=== PATIENT | female | born 1940 | race Caucasian/White ===

== ENCOUNTER 2016-11-09 22:29 | Emergency (ER) | payer MEDICARE, BC ==
[~2016-11-09] VITALS: Ht 160 cm; Wt 69.4 kg
[~2016-11-09 22:29] MED LIST: ALEN35TA6 PO; ASPI-482 PO; CALC1TAB75 PO; DOCU100C28 PO; ESOM40CA PO; FLUT16SP NS; HYDR12.58 PO; HYDR25CA75 PO; KETO15CR2 TP; LEVO200T5 PO; LEVO50TA5 PO; LISI40TA PO; METO10TA81 PO; METO50TA2 PO; MULT1TAB88 PO; NAPR375T3 PO; PANT40TA5 PO; SERT100T8 PO; SIMV40TA3 PO; SUCR1TAB PO; TOLT4CAP PO; TRAM50TA PO; TRAZ150T49 PO; ZIPR80CA2 PO
[2016-11-09] MEDS ORDERED: IV NORMAL SALINE 500ML BAG 500 ML IV ONE (23:00)
[2016-11-09 23:13] LABS: BASO # 0.1 x10^3/uL (0.0-0.2); BASO % 1 % (0-3); EOS % 6 % (0-3); HEMATOCRIT 36.7 % (36.0-47.0); HEMOGLOBIN 12.7 g/dL (12.0-15.5); LYMPH # 3.2 x10^3/uL (1.0-4.8); LYMPH % 26 % (24-48); MEAN CORPUSCULAR HEMOGLOBIN 29 pg (25-35); MEAN CORPUSCULAR HGB CONC 35 g/dL (31-37); MEAN CORPUSCULAR VOLUME 84 fL (79-100); MONO % 12 % (0-9); NEUT % 56 % (31-73); PLATELET COUNT 214 x10^3/uL (140-400); RED BLOOD COUNT 4.38 x10^6/uL (3.50-5.40); RED CELL DISTRIBUTION WIDTH 13.9 % (11.5-14.5); WHITE BLOOD COUNT 12.4 x10^3/uL (4.0-11.0)
[2016-11-09 23:39] LABS: CALCIUM 9.2 mg/dL (8.5-10.1); CREATININE 1.1 mg/dL (0.6-1.0); GFR 48.4; POTASSIUM 3.3 mmol/L (3.5-5.1)
[2016-11-09 23:45] LABS: ALBUMIN 3.3 g/dL (3.4-5.0); TOTAL BILIRUBIN 0.2 mg/dL (0.2-1.0); TOTAL PROTEIN 6.6 g/dL (6.4-8.2)
[2016-11-09 23:59] LABS: BILIRUBIN,URINE NEGATIVE (NEG); GLUCOSE,URINE NEGATIVE (NEG); NITRITE,URINE NEGATIVE (NEG); PH,URINE 7.5; PROTEIN,URINE NEGATIVE (NEG-TRACE); UROBILINOGEN,URINE 0.2 mg/dL (0.2 mg/dL)
[2016-11-10 00:04] LABS: BACTERIA,URINE 0 /HPF (0-FEW); RBC,URINE 0 /HPF (0-2); SQUAMOUS EPITHELIAL CELL,UR MOD /LPF
[2016-11-10] MEDS ORDERED: HYDROmorphone 2 MG/ML VIAL IV PRN (00:15)
[2016-11-10] MEDS ORDERED: CONTRAST GIVEN MC PRN (00:30)
[2016-11-10] MEDS ORDERED: ONDANSETRON PF 4 MG/2 ML VIAL. IV ONE (00:30)
[2016-11-10] MEDS ORDERED: IOHEXOL 300 MG/ML 75 ML VIAL IV ONE (01:00)
--- NOTE | 2016-11-10 01:46 | RAD ---
INDICATION: rlq pain x 3-4 days; Omni 300, 60ml COMPARISON: None. TECHNIQUE: Axial CT images were obtained through the abdomen and pelvis with intravenous contrast. One or more of the following individualized dose reduction techniques were utilized for this examination: 1. Automated exposure control; 2. Adjustment of the mA and/or kV according to patient size; 3. Use of iterative reconstruction technique. FINDINGS: Small hiatal hernia. Severe calcific atherosclerosis without abdominal aortic aneurysm. Postcholecystectomy changes. No peripancreatic edema. Splenic calcified granulomas. No left-sided hydronephrosis. Low-density lesion lower pole right kidney 19 mm. No right-sided hydronephrosis. Bladder is partially distended. The suspected appendix does not appear inflamed. Degenerative changes spine. This includes multiple disc protrusions with suspected central canal neural foraminal narrowing. There is also osteophyte formation IMPRESSION: 1. No hydronephrosis or evidence of appendicitis. 2. Low-density lesion within the right kidney. Differential considerations include both a solid mass as well as a cystic lesion with debris. A follow-up CT, MRI or ultrasound renal protocol will be needed on a nonemergent basis to further evaluate and to ensure this is not from a solid renal mass. 3. Calcific atherosclerosis. 4. Degenerative changes spine Electronically signed by: Darryl Danielle MD (11/10/2016 1:42 AM) [facility]
[2016-11-10] MEDS ORDERED: LABETALOL 20 MG/4 ML DISP.SYRIN. IVP ONE (02:00)
[2016-11-10] MEDS ORDERED: ONDA4TAB10 SL (02:04)
[2016-11-10] MEDS ORDERED: HYDR-2758 PO (02:04)
--- NOTE | 2016-11-10 02:05 | PHYS DOC ---
Past Medical History Past Medical History: Anxiety, Arthritis, Hypertension, Hypothyroid, TIA, Other Additional Past Medical Histor: "memory problems" Past Surgical History: Cholecystectomy, Hysterectomy, Other Additional Past Surgical Histo: Lt foot. Lt breast Alcohol Use: None Drug Use: None Adult General Chief Complaint Chief Complaint: ABDOMINAL PAIN HPI HPI 76-year-old female presenting to the emergency department today with right lower quadrant abdominal pain. pain is sharp nonradiating and intermittent. no alleviating or exacerbating factors present. Review of systems is negative for nausea vomiting chest pain shortness of breath fevers or chills. All other review of systems is negative unless otherwise noted in history of present illness. Review of Systems Review of Systems SEE ABOVE. Current Medications Current Medications Current Medications Medications (Trade) Dose Ordered Sig/Franny Start Time Stop Time Status Last Admin Dose Admin Hydromorphone HCl (Dilaudid) 0.5 mg PRN Q30MIN PRN 11/10/16 00:15 11/10/16 01:07 0.5 MG Info (Do NOT chart on this entry -- for MONITORING) 1 each PRN DAILY PRN 11/10/16 00:30 11/12/16 00:29 Iohexol (Omnipaque 300 Mg/ml) 60 ml 1X ONCE 11/10/16 01:00 11/10/16 01:01 DC 11/10/16 00:34 60 ML Labetalol HCl (Normodyne) 20 mg 1X ONCE 11/10/16 02:00 11/10/16 02:01 11/10/16 01:28 20 MG Ondansetron HCl (Zofran) 4 mg 1X ONCE 11/10/16 00:30 11/10/16 00:31 DC 11/10/16 01:05 4 MG Sodium Chloride 500 ml @ 500 mls/hr 1X ONCE 11/09/16 23:00 11/09/16 23:59 DC 11/09/16 23:28 500 MLS/HR Allergies Allergies Allergies Coded Allergies Type Severity Reaction Last Updated Verified Penicillins Allergy Intermediate Hives 09/02/16 Yes Physical Exam Physical Exam SEE ABOVE Constitutional: Well developed, well nourished, no acute distress, non-toxic appearance. HENT: Normocephalic, atraumatic, bilateral external ears normal, oropharynx moist, no oral exudates, nose normal. [] Eyes: PERRLA, EOMI, conjunctiva normal, no discharge. [] Neck: Normal range of motion, no tenderness, supple, no stridor. [] Cardiovascular:Heart rate regular rhythm, no murmur [] Lungs & Thorax: Bilateral breath sounds clear to auscultation [] Abdomen: Patient has mild pain in the right lower quadrant without rebound tenderness or guarding. Negative Coleman sign. Skin: Warm, dry, no erythema, no rash. [] Back: No tenderness, no CVA tenderness. [] Extremities: No tenderness, no cyanosis, no clubbing, ROM intact, no edema. [] Neurologic: Alert and oriented X 3, normal motor function, normal sensory function, no focal deficits noted. [] Psychologic: Affect normal, judgement normal, mood normal. [] Current Patient Data Vital Signs Vital Signs Date Time Temp Pulse Resp B/P (MAP) Pulse Ox O2 Delivery O2 Flow Rate FiO2 11/10/16 01:28 90 216/87 11/10/16 01:07 24 93 11/09/16 23:31 Room Air 11/09/16 22:31 98.7 98.7 Lab Values Laboratory Tests Test 11/09/16 22:58 11/09/16 23:20 11/09/16 23:49 White Blood Count 12.4 x10^3/uL (4.0-11.0) H Red Blood Count 4.38 x10^6/uL (3.50-5.40) Hemoglobin 12.7 g/dL (12.0-15.5) Hematocrit 36.7 % (36.0-47.0) Mean Corpuscular Volume 84 fL (79-100) Mean Corpuscular Hemoglobin 29 pg (25-35) Mean Corpuscular Hemoglobin Concent 35 g/dL (31-37) Red Cell Distribution Width 13.9 % (11.5-14.5) Platelet Count 214 x10^3/uL (140-400) # Neutrophils (%) (Auto) 56 % (31-73) Lymphocytes (%) (Auto) 26 % (24-48) Monocytes (%) (Auto) 12 % (0-9) H Eosinophils (%) (Auto) 6 % (0-3) H Basophils (%) (Auto) 1 % (0-3) Neutrophils # (Auto) 6.9 x10^3uL (1.8-7.7) Lymphocytes # (Auto) 3.2 x10^3/uL (1.0-4.8) Monocytes # (Auto) 1.5 x10^3/uL (0.0-1.1) H Eosinophils # (Auto) 0.7 x10^3/uL (0.0-0.7) Basophils # (Auto) 0.1 x10^3/uL (0.0-0.2) Sodium Level 142 mmol/L (136-145) Potassium Level 3.3 mmol/L (3.5-5.1) L Chloride Level 104 mmol/L (98-107) Carbon Dioxide Level 27 mmol/L (21-32) Anion Gap 11 (6-14) Blood Urea Nitrogen 13 mg/dL (7-20) Creatinine 1.1 mg/dL (0.6-1.0) H Estimated GFR (Cockcroft-Gault) 48.4 BUN/Creatinine Ratio 12 (6-20) Glucose Level 119 mg/dL (70-99) H Calcium Level 9.2 mg/dL (8.5-10.1) Total Bilirubin 0.2 mg/dL (0.2-1.0) Aspartate Amino Transferase (AST) 25 U/L (15-37) Alanine Aminotransferase (ALT) 26 U/L (14-59) Alkaline Phosphatase 57 U/L (46-116) Troponin I Quantitative < 0.017 ng/mL (0.000-0.055) Total Protein 6.6 g/dL (6.4-8.2) Albumin 3.3 g/dL (3.4-5.0) L Albumin/Globulin Ratio 1.0 (1.0-1.7) Lipase 111 U/L (73-393) Urine Collection Type Unknown Urine Color Yellow Urine Clarity Clear Urine pH 7.5 Urine Specific [place] 1.010 Urine Protein Negative mg/dL (NEG-TRACE) Urine Glucose (UA) Negative mg/dL (NEG) Urine Ketones (Stick) Negative mg/dL (NEG) Urine Blood Negative (NEG) Urine Nitrite Negative (NEG) Urine Bilirubin Negative (NEG) Urine Urobilinogen Dipstick 0.2 mg/dL (0.2 mg/dL) Urine Leukocyte Esterase Small (NEG) Urine RBC 0 /HPF (0-2) Urine WBC 5-10 /HPF (0-4) Urine Squamous Epithelial Cells Mod /LPF Urine Bacteria 0 /HPF (0-FEW) Urine Mucus Slight /LPF Laboratory Tests 11/09/16 22:58 Laboratory Tests 11/09/16 23:20 EKG EKG [] Radiology/Procedures Radiology/Procedures [] Course & Med Decision Making Course & Med Decision Making Pertinent Labs and Imaging studies reviewed. (See chart for details) [] Dragon Disclaimer Dragon Disclaimer This electronic medical record was generated, in whole or in part, using a voice recognition dictation system. Departure Departure Impression: Primary Impression: Hypertension Additional Impression: Right lower quadrant abdominal pain Disposition: HOME, SELF-CARE Condition: STABLE Referrals: ROMAIN DÍAZ MD (PCP) Patient Instructions: Abdominal Pain Additional Instructions: Thank you for allowing us to participate in your care today. Followup with your primary care physician in 3 days if your symptoms do not improve. Call your Primary Doctor tomorrow and inform them of your visit today. If you do not have a primary care provider you can ask for a list of our primary care providers. Return to the emergency department you have any new or concerning findings. This should be evaluated by the primary care physician and any necessary consulting services for continued management within a few days after discharge. Return to emergency room if you have any new or concerning symptoms including but not limited to fever, chills, nausea, vomiting, intractable pain, any new rashes, chest pain, shortness of air, uncontrolled bleeding, difficulty breathing, and/or vision loss. You may have been prescribed medication that can change in your level of thinking and ability to operate machinery. These medications include hydrocodone and Ativan. Also, Benadryl has been known to do this as well. Be sure to check with your pharmacist and ask if the medications you've prescribed can affect your level of consciousness. I recommend not operating heavy machinery or driving while on medication such as these. Scripts Ondansetron (ZOFRAN ODT) 4 Mg Tab.rapdis 1 TAB SL PRN Q8HRS Y for NAUSEA, #6 TAB Prov: SHAQ FORD MD 11/10/16 Hydrocodone Bit/Acetaminophen (HYDROCODONE-APAP 5-325 ) 1 Each Tablet 1 TAB PO PRN Q6HRS Y for PAIN, #15 TAB 0 Refills Be careful as this medication may cause you to be drowsy or tired. Do not drive on this medication. Prov: SHAQ FORD MD 11/10/16 Problem Qualifiers SHAQ FORD MD Nov 10, 2016 02:05
[2016-11-10 03:00] VITALS: BP 140/65
== END 2016-11-10 03:50 | disposition home or self-care (01) ==
LOC: ER 22:29
DX: R10.31 Right lower quadrant pain (principal); I10 Essential (primary) hypertension; E03.9 Hypothyroidism, unspecified; M19.90 Unspecified osteoarthritis, unspecified site; Z86.73 Personal history of transient ischemic attack (TIA), and cerebral infarction without residual deficits; Z90.710 Acquired absence of both cervix and uterus; Z90.49 Acquired absence of other specified parts of digestive tract; Z98.890 Other specified postprocedural states; Z88.0 Allergy status to penicillin
CPT/HCPCS: 36415; 74177; 80053; 81001; 83690; 84484; 85027; 96361; 96374; 96375; 99285; J1170; J2405; J3490; J7040; Q9967

== ENCOUNTER 2016-11-15 11:20 | Inpatient (IN) | payer MEDICARE, BC, OTHER ==
[~2016-11-15] VITALS: Ht 160 cm; Wt 70.3 kg
[~2016-11-15 11:20] MED LIST changes: +HYDR-2758 PO; +ONDA4TAB10 SL
--- NOTE | 2016-11-15 12:43 | PHYS DOC ---
Past Medical History Past Medical History: Anxiety, Arthritis, Hypertension, Hypothyroid, TIA, Other Additional Past Medical Histor: "memory problems" Past Surgical History: Cholecystectomy, Hysterectomy, Other Additional Past Surgical Histo: Lt foot. Lt breast Alcohol Use: None Drug Use: None Adult General Chief Complaint Chief Complaint: HIP PAIN HPI HPI Patient is a 76 year old female presents emergency department stating that she is having lower back pain and discomfort. Patient states that she was hospitalized here for the back pain and discomfort in the past and had been provided with a back brace. She states when she got home she must sit up somehow and it is nonfunctional so she threw it away. Patient states that she's been taken hydrocodone and ibuprofen for pain and discomfort with no relief. Patient states that she injured her back by lifting and moving boxes. She denies any loss of bowel or bladder. She denies any numbness or tingling down into her lower extremities. Patient is able to cross her legs with no difficulty. Patient is able to stand with no difficulty. Review of Systems Review of Systems Constitutional: Denies fever or chills [] Eyes: Denies change in visual acuity, redness, or eye pain [] HENT: Denies nasal congestion or sore throat [] Respiratory: Denies cough or shortness of breath [] Cardiovascular: No additional information not addressed in HPI [] GI: Denies abdominal pain, nausea, vomiting, bloody stools or diarrhea [] : Denies dysuria or hematuria [] Musculoskeletal: back pain denies joint pain [] Integument: Denies rash or skin lesions [] Neurologic: Denies headache, focal weakness or sensory changes [] Endocrine: Denies polyuria or polydipsia [] Current Medications Current Medications Current Medications Medications (Trade) Dose Ordered Sig/Franny Start Time Stop Time Status Last Admin Dose Admin Cyclobenzaprine HCl (Flexeril) 5 mg 1X ONCE 11/15/16 12:45 11/15/16 12:46 DC 11/15/16 13:33 5 MG Prednisone (Prednisone) 40 mg 1X ONCE 11/15/16 12:45 11/15/16 12:46 DC 11/15/16 13:34 40 MG Allergies Allergies Allergies Coded Allergies Type Severity Reaction Last Updated Verified Penicillins Allergy Intermediate Hives 09/02/16 Yes Physical Exam Physical Exam Constitutional: Well developed, well nourished, no acute distress, non-toxic appearance. [] HENT: Normocephalic, atraumatic, bilateral external ears normal, oropharynx moist, no oral exudates, nose normal. [] Eyes: PERRLA, EOMI, conjunctiva normal, no discharge. [] Neck: Normal range of motion, no tenderness, supple, no stridor. [] Cardiovascular:Heart rate regular rhythm] Lungs & Thorax: No respiratory distress noted Skin: Warm, dry, no erythema, no rash. [] Back: Patient with lower lumbar spine tenderness no step-offs no deformities and no crepitus noted. Extremities: No tenderness, no cyanosis, no clubbing, ROM intact, no edema. Peripheral pulses 2+ cap refill brisk less than 2 seconds. Neurologic: Alert and oriented X 3, normal motor function, normal sensory function, no focal deficits noted. Patient able to stay with minimal assistance. Psychologic: Affect normal, judgement normal, mood normal. [] Current Patient Data Vital Signs Vital Signs Date Time Temp Pulse Resp B/P (MAP) Pulse Ox O2 Delivery O2 Flow Rate FiO2 11/15/16 13:38 84 16 199/92 (127) 96 Room Air 11/15/16 11:20 98.7 98.7 EKG EKG [] Radiology/Procedures Radiology/Procedures [] Course & Med Decision Making Course & Med Decision Making Pertinent Labs and Imaging studies reviewed. (See chart for details) Patient will be provided with Flexeril in a steroid here in the emergency department to determine if this will help with pain and discomfort. If the pain is resolved patient will be returned back to her facility, assisted living. If the pain is not under control patient will be admitted into the hospital. Patient had been provided with Flexeril here in the emergency department as well as prednisone. No change in her pain has been noted at this time. Spoke with Dr. Romo in regards to patient being placed in the hospital as an observation. He is recommending to be referred to as well. Patient is in agreement's with admission at this time. She is requesting something stronger for pain. [] Dragon Disclaimer Dragon Disclaimer This electronic medical record was generated, in whole or in part, using a voice recognition dictation system. Departure Departure Impression: Primary Impression: Back pain Disposition: ADMITTED INPATIENT Admitting Physician: Alexandria Romo Referrals: ROMAIN DÍAZ MD (PCP) SID LONDON APRN Nov 15, 2016 12:43
[2016-11-15] MEDS ORDERED: predniSONE 20 MG TABLET PO ONE (12:45)
[2016-11-15] MEDS ORDERED: CYCLOBENZAPRINE 10 MG TABLET. PO ONE (12:45)
[2016-11-15] MEDS: fentaNYL PF VIAL 100 MCG/2 ML VIAL IV PRN ×2 (17:09→20:39)
--- NOTE | 2016-11-15 18:58 | PDOC1 ---
History and Physical Date of Admission Date of Admission DATE: 11/15/16 TIME: 18:56 History of Present Illness History of Present Illness Elderly white female presented to ER for eval of intractable back pain, DR KATHLEEN doc and RNs Pt seen and examined Reviewed home meds Plan is admit for pain mgmt and consultation with Dr Manuel Total time 31 minutes Past Medical History Cardiovascular: HTN, Hyperlipidemia Pulmonary: COPD CENTRAL NERVOUS SYSTEM: Dementia Psych: Depression Endocrine: Hypothyroidism Past Surgical History Past Surgical History: Cholecystectomy, Tubal Ligation, Tonsillectomy, Other Family History Family History: No Significant Social History ALCOHOL: occassional Drugs: None Current Problem List Problem List Problems Medical Problems: (1) Back pain Status: Acute Problems: Current Medications Current Medications Current Medications Cyclobenzaprine HCl (Flexeril) 5 mg 1X ONCE PO Last administered on 11/15/16 13:33; Start 11/15/16 at 12:45; Stop 11/15/16 at 12:46; Status DC Prednisone (Prednisone) 40 mg 1X ONCE PO Last administered on 11/15/16 13:34 ; Start 11/15/16 at 12:45; Stop 11/15/16 at 12:46; Status DC Fentanyl Citrate (Fentanyl 2ml Vial) 25 mcg PRN Q2HR PRN IV PAIN Last administered on 11/15/16 17:09; Start 11/15/16 at 14:15; Stop 11/16/16 at 14:14 Active Scripts Active Zofran Odt (Ondansetron) 4 Mg Tab.rapdis 1 Tab SL PRN Q8HRS PRN Hydrocodone-Apap 5-325 (Hydrocodone Bit/Acetaminophen) 1 Each Tablet 1 Tab PO PRN Q6HRS PRN Be careful as this medication may cause you to be drowsy or tired. Do not drive on this medication. Reported Trazodone Hcl 150 Mg Tablet 1 Tab PO QHS Geodon (Ziprasidone Hcl) 80 Mg Capsule 2 Cap PO QHS Simvastatin 40 Mg Tablet 1 Tab PO QHS Reglan (Metoclopramide Hcl) 10 Mg Tablet 1 Tab PO TIDAC PRN Nexium Capsule (Esomeprazole Magnesium) 40 Mg Capsule. 1 Cap PO BID Metoprolol Tartrate 50 Mg Tablet 1 Tab PO BID Hydroxyzine Pamoate 25 Mg Capsule 1 Cap PO BID Calcium 600 + Vit D 200 Tablet (Calcium Carbonate/Vitamin D3) 1 Each Tablet 1 Each PO Detrol La (Tolterodine Tartrate) 4 Mg Cap.er.24h 1 Cap PO DAILY Sertraline Hcl 100 Mg Tablet 200 Mg PO DAILY Lisinopril 40 Mg Tablet 1 Tab PO DAILY Levothyroxine Sodium 50 Mcg Tablet 1 Tab PO DAILY Hydrochlorothiazide Tablet (Hydrochlorothiazide) 12.5 Mg Tablet 2 Tab PO DAILY Docusate Sodium 100 Mg Capsule 1 Cap PO DAILY Aspir 81 (Aspirin) 81 Mg Tablet.dr 1 Tab PO DAILY Certavite Sr-Antioxidant Tab (Multivits-Min/Fa/Lycopene/Lut) 1 Each Tablet 1 Each PO DAILY Alendronate Sodium 35 Mg Tablet 1 Tab PO WEEKLY Allergies Allergies: Coded Allergies: Penicillins (Verified Allergy, Intermediate, Hives, 09/02/16) Vitals Vitals Vital Signs Date Time Temp Pulse Resp B/P (MAP) Pulse Ox O2 Delivery O2 Flow Rate FiO2 11/15/16 17:09 20 Room Air 11/15/16 13:38 84 199/92 (127) 96 11/15/16 11:20 98.7 98.7 VTE Prophylaxis Ordered VTE Prophylaxis Devices: Yes VTE Pharmacological Prophylaxi: Yes SEAN GAO III DO Nov 15, 2016 18:58
[2016-11-15 19:00] VITALS: BP 171/82
[2016-11-15] MEDS ORDERED: METOCLOPRAMIDE 10 MG TABLET. PO PRN (20:00)
[2016-11-15] MEDS: ZIPRASIDONE 60 MG CAPSULE. PO SCH (20:39)
[2016-11-15] MEDS: traZODone 100 MG TABLET. PO SCH (20:40)
[2016-11-15] MEDS: hydrOXYzine PAMOATE 25 MG CAPSULE PO SCH (20:40)
[2016-11-15] MEDS: METOPROLOL TART IMMED RELEASE 50 MG TABLET. PO SCH (20:40)
[2016-11-15] MEDS: SIMVASTATIN 40 MG TABLET. PO SCH (20:40)
[2016-11-15 23:00] VITALS: BP 173/90
[2016-11-16] VITALS (7 sets, daily range): BP systolic 105–162; BP diastolic 60–85
[2016-11-16] MEDS: fentaNYL PF VIAL 100 MCG/2 ML VIAL IV PRN ×2 (00:04→06:03)
[2016-11-16] MEDS: LEVOTHYROXINE 50 MCG TABLET PO SCH (05:55)
[2016-11-16] MEDS ORDERED: BUPIVACAINE MPF 0.25% 10 ML VIAL. IJ ONE (09:30)
[2016-11-16] MEDS ORDERED: methylPREDNISolone ACETATE 40 MG/ML VIAL. IM ONE (09:30)
--- NOTE | 2016-11-16 09:53 | PDOC2 ---
CONSULT Date of Consult Date of Consult DATE: 11/16/16 TIME: 09:37 Reason for Consult Reason for Consult: rehab evaluation Referring Physician Referring Physician: increasing low back pain with radiation to both lower extremities. Identification/Chief Complaint Chief Complaint Problems: Source Source: Chart review, Patient History of Present Illness Reason for Visit: This is a 76 year old right handed female with chronic low back pain with radiation to both lower extremities with mri scan evidence of DDD and DJD of lumbar vertebrae at multiple levels with pain interfering with her mobility.She has been taking percocet for pain has tried back support bracein the past but it malfunctioned and she did not have it any more and she denies any trouble with bowel or bladder control or numbness or weakness in her extremities and she lives at [facility] and does not use any assistive devices to walk. Past Medical History Cardiovascular: HTN, Hyperlipidemia Pulmonary: COPD CENTRAL NERVOUS SYSTEM: Dementia Psych: Depression Endocrine: Hypothyroidism Past Surgical History Past Surgical History: Cholecystectomy, Tubal Ligation, Tonsillectomy, Other Family History Family History: No Significant Social History ALCOHOL: occassional Drugs: None Current Problem List Problem List Problems Medical Problems: (1) Back pain Status: Acute Current Medications Current Medications Current Medications Cyclobenzaprine HCl (Flexeril) 5 mg 1X ONCE PO Last administered on 11/15/16 13:33; Start 11/15/16 at 12:45; Stop 11/15/16 at 12:46; Status DC Prednisone (Prednisone) 40 mg 1X ONCE PO Last administered on 11/15/16 13:34 ; Start 11/15/16 at 12:45; Stop 11/15/16 at 12:46; Status DC Fentanyl Citrate (Fentanyl 2ml Vial) 25 mcg PRN Q2HR PRN IV PAIN Last administered on 11/16/16 06:03; Start 11/15/16 at 14:15; Stop 11/16/16 at 14:14 Aspirin (Ecotrin) 81 mg DAILY PO ; Start 11/16/16 at 09:00 Docusate Sodium (Colace) 100 mg DAILY PO ; Start 11/16/16 at 09:00 Hydroxyzine Pamoate (Vistaril) 25 mg BID PO Last administered on 11/15/16 20: 40; Start 11/15/16 at 21:00 Levothyroxine Sodium (Synthroid) 50 mcg DAILY06 PO Last administered on 05:55; Start 11/16/16 at 06:00 Lisinopril (Prinivil) 40 mg DAILY PO ; Start 11/16/16 at 09:00 Metoclopramide HCl (Reglan) 10 mg TIDAC PRN PO NAUSEA; Start 11/15/16 at 20:00 Metoprolol Tartrate (Lopressor) 50 mg BID PO Last administered on 11/15/16 20: 40; Start 11/15/16 at 21:00 Simvastatin (Zocor) 40 mg QHS PO Last administered on 11/15/16 20:40; Start at 21:00 Non-Formulary Medication 1 tab WEEKLY PO ; Start 11/22/16 at 09:00; Stop at 09:00; Status DC Pantoprazole Sodium (Protonix) 40 mg DAILYAC PO ; Start 11/16/16 at 07:30 Hydrochlorothiazide (Hydrodiuril) 25 mg DAILY PO ; Start 11/16/16 at 09:00 Multivitamins (Thera M Plus) 1 tab DAILY PO ; Start 11/16/16 at 09:00 Sertraline HCl (Zoloft) 200 mg DAILY PO ; Start 11/16/16 at 09:00 Oxybutynin Chloride (Ditropan) 5 mg COO265 PO ; Start 11/16/16 at 09:00 Trazodone HCl (Desyrel) 150 mg QHS PO Last administered on 11/15/16 20:40; Start 11/15/16 at 21:00 Ziprasidone (Geodon) 180 mg QHS PO Last administered on 11/15/16 20:39; Start 11/15/16 at 21:00 Active Scripts Active Zofran Odt (Ondansetron) 4 Mg Tab.rapdis 1 Tab SL PRN Q8HRS PRN Hydrocodone-Apap 5-325 (Hydrocodone Bit/Acetaminophen) 1 Each Tablet 1 Tab PO PRN Q6HRS PRN Be careful as this medication may cause you to be drowsy or tired. Do not drive on this medication. Reported Trazodone Hcl 150 Mg Tablet 1 Tab PO QHS Geodon (Ziprasidone Hcl) 80 Mg Capsule 2 Cap PO QHS Simvastatin 40 Mg Tablet 1 Tab PO QHS Reglan (Metoclopramide Hcl) 10 Mg Tablet 1 Tab PO TIDAC PRN Nexium Capsule (Esomeprazole Magnesium) 40 Mg Capsule.dr 1 Cap PO BID Metoprolol Tartrate 50 Mg Tablet 1 Tab PO BID Hydroxyzine Pamoate 25 Mg Capsule 1 Cap PO BID Calcium 600 + Vit D 200 Tablet (Calcium Carbonate/Vitamin D3) 1 Each Tablet 1 Each PO Detrol La (Tolterodine Tartrate) 4 Mg Cap.er.24h 1 Cap PO DAILY Sertraline Hcl 100 Mg Tablet 200 Mg PO DAILY Lisinopril 40 Mg Tablet 1 Tab PO DAILY Levothyroxine Sodium 50 Mcg Tablet 1 Tab PO DAILY Hydrochlorothiazide Tablet (Hydrochlorothiazide) 12.5 Mg Tablet 2 Tab PO DAILY Docusate Sodium 100 Mg Capsule 1 Cap PO DAILY Aspir 81 (Aspirin) 81 Mg Tablet.dr 1 Tab PO DAILY Certavite Sr-Antioxidant Tab (Multivits-Min/Fa/Lycopene/Lut) 1 Each Tablet 1 Each PO DAILY Alendronate Sodium 35 Mg Tablet 1 Tab PO WEEKLY Allergies Allergies: Coded Allergies: Penicillins (Verified Allergy, Intermediate, Hives, 09/02/16) ROS Musculoskeletal: Yes Joint Pain (low back and knee pain), Yes Joint Stiffness Physical Exam General: Alert, Oriented X3, Cooperative, No acute distress HEENT: PERRLA, Mucous membr. moist/pink Lungs: Clear to auscultation, Normal air movement Extremities: No clubbing, No cyanosis, No edema, Normal pulses, No tenderness/ swelling Skin: No rashes, No breakdown Neuro: Normal speech, Strength at 5/5 X4 ext, Normal tone, Sensation intact, Cranial nerves 3-12 NL, Other (She had absent knee and ankle jerks and she had tenderness to palpation over sacroiliac joints bilaterally and SLR test is negative bilaterally and she had painfully limited lumbar spine ROM without any muscle spasm and she had crepitus on ROM of both knees without any effusion.) Vitals VITALS Vital Signs Date Time Temp Pulse Resp B/P (MAP) Pulse Ox O2 Delivery O2 Flow Rate FiO2 11/16/16 07:00 97.7 81 18 130/60 (83) 97 Room Air 97.7 Images Images She had multi level DDD of lumbar vertebrae as for mri scan done in . Assessment/Plan Assessment/Plan Chronic low back pain from DDD and DJD of lumbar vertebrae with lumbar radiculitis with increased pain recently and DJD of both knees without any pain and clinical evidence of peripheral neuropathy. Rec.To try trigger point injection to sacroiliac joint which I performed under aseptic skin technique with marcaine and depomedrol solution and she tolerated the procedure satisfactorily without any side effects.To try her with lumbar corset and to consider to see her for lumbar ESIs to ease her pain if pain persists. TANJA AYALA MD Nov 16, 2016 09:53
[2016-11-16] MEDS ORDERED: ONDANSETRON PF 4 MG/2 ML VIAL. IV PRN (10:00)
[2016-11-16] MEDS ORDERED: ACETAMINOPHEN 500 MG TABLET PO PRN (10:00)
--- NOTE | 2016-11-16 10:17 | PDOC ---
PROGRESS NOTES Objective Objective Vital Signs Date Time Temp Pulse Resp B/P (MAP) Pulse Ox O2 Delivery O2 Flow Rate FiO2 11/16/16 07:00 97.7 81 18 130/60 (83) 97 Room Air 97.7 Intake and Output 11/16/16 07:00 Intake Total 300 ml Output Total 401 ml Balance -101 ml Intake Oral 300 ml Output Urine Total 401 ml # Voids 3 Physical Exam Skin: Other (She had skin rash ove right buttock are when I have prepared to inject her right sacroiliac joint,which I decided not to proceed witn and she also had papular skin rash over right thigh.) Assessment Assessment Problems Medical Problems: (1) Back pain Status: Acute Herpes zoster skin lesions right buttock and thigh Plan Plan of Care To cancel pain clinic consult and to start her on acyclovir. Comment Review of Relevant I have reviewed the following items jaki (where applicable) has been applied. Medications Current Medications Cyclobenzaprine HCl (Flexeril) 5 mg 1X ONCE PO Last administered on 11/15/16 13:33; Start 11/15/16 at 12:45; Stop 11/15/16 at 12:46; Status DC Prednisone (Prednisone) 40 mg 1X ONCE PO Last administered on 11/15/16 13:34 ; Start 11/15/16 at 12:45; Stop 11/15/16 at 12:46; Status DC Fentanyl Citrate (Fentanyl 2ml Vial) 25 mcg PRN Q2HR PRN IV PAIN Last administered on 11/16/16 06:03; Start 11/15/16 at 14:15; Stop 11/16/16 at 14:14 Aspirin (Ecotrin) 81 mg DAILY PO ; Start 11/16/16 at 09:00 Docusate Sodium (Colace) 100 mg DAILY PO ; Start 11/16/16 at 09:00 Hydroxyzine Pamoate (Vistaril) 25 mg BID PO Last administered on 11/15/16 20: 40; Start 11/15/16 at 21:00 Levothyroxine Sodium (Synthroid) 50 mcg DAILY06 PO Last administered on 05:55; Start 11/16/16 at 06:00 Lisinopril (Prinivil) 40 mg DAILY PO ; Start 11/16/16 at 09:00 Metoclopramide HCl (Reglan) 10 mg TIDAC PRN PO NAUSEA; Start 11/15/16 at 20:00 Metoprolol Tartrate (Lopressor) 50 mg BID PO Last administered on 11/15/16 20: 40; Start 11/15/16 at 21:00 Simvastatin (Zocor) 40 mg QHS PO Last administered on 11/15/16 20:40; Start at 21:00 Non-Formulary Medication 1 tab WEEKLY PO ; Start 11/22/16 at 09:00; Stop at 09:00; Status DC Pantoprazole Sodium (Protonix) 40 mg DAILYAC PO ; Start 11/16/16 at 07:30 Hydrochlorothiazide (Hydrodiuril) 25 mg DAILY PO ; Start 11/16/16 at 09:00 Multivitamins (Thera M Plus) 1 tab DAILY PO ; Start 11/16/16 at 09:00 Sertraline HCl (Zoloft) 200 mg DAILY PO ; Start 11/16/16 at 09:00 Oxybutynin Chloride (Ditropan) 5 mg [id number] PO ; Start 11/16/16 at 09:00 Trazodone HCl (Desyrel) 150 mg QHS PO Last administered on 11/15/16 20:40; Start 11/15/16 at 21:00 Ziprasidone (Geodon) 180 mg QHS PO Last administered on 11/15/16 20:39; Start 11/15/16 at 21:00 Methylprednisolone Acetate (DEPO-Medrol 40MG VIAL) 40 mg 1X ONCE IM ; Start at 09:30; Stop 11/16/16 at 09:39; Status DC Bupivacaine HCl (Sensorcaine-Mpf 0.25%) 10 ml 1X ONCE IJ ; Start 11/16/16 at 09 :30; Stop 11/16/16 at 09:39; Status DC Oxycodone/ Acetaminophen (Percocet 7.5/ 325) 1 tab PRN Q6HRS PRN PO PAIN; Start 11/16/16 at 09:30 Acetaminophen (Tylenol) 500 mg PRN Q6HRS PRN PO MILD PAIN / TEMP; Start at 10:00 Ondansetron HCl (Zofran) 4 mg PRN Q6HRS PRN IV NAUSEA/VOMITING; Start 11/16/16 at 10:00 Prednisone (Prednisone) 10 mg DAILY PO ; Start 11/16/16 at 10:30 Active Scripts Active Zofran Odt (Ondansetron) 4 Mg Tab.rapdis 1 Tab SL PRN Q8HRS PRN Hydrocodone-Apap 5-325 (Hydrocodone Bit/Acetaminophen) 1 Each Tablet 1 Tab PO PRN Q6HRS PRN Be careful as this medication may cause you to be drowsy or tired. Do not drive on this medication. Reported Trazodone Hcl 150 Mg Tablet 1 Tab PO QHS Geodon (Ziprasidone Hcl) 80 Mg Capsule 2 Cap PO QHS Simvastatin 40 Mg Tablet 1 Tab PO QHS Reglan (Metoclopramide Hcl) 10 Mg Tablet 1 Tab PO TIDAC PRN Nexium Capsule (Esomeprazole Magnesium) 40 Mg Capsule.dr 1 Cap PO BID Metoprolol Tartrate 50 Mg Tablet 1 Tab PO BID Hydroxyzine Pamoate 25 Mg Capsule 1 Cap PO BID Calcium 600 + Vit D 200 Tablet (Calcium Carbonate/Vitamin D3) 1 Each Tablet 1 Each PO Detrol La (Tolterodine Tartrate) 4 Mg Cap.er.24h 1 Cap PO DAILY Sertraline Hcl 100 Mg Tablet 200 Mg PO DAILY Lisinopril 40 Mg Tablet 1 Tab PO DAILY Levothyroxine Sodium 50 Mcg Tablet 1 Tab PO DAILY Hydrochlorothiazide Tablet (Hydrochlorothiazide) 12.5 Mg Tablet 2 Tab PO DAILY Docusate Sodium 100 Mg Capsule 1 Cap PO DAILY Aspir 81 (Aspirin) 81 Mg Tablet. 1 Tab PO DAILY Certavite Sr-Antioxidant Tab (Multivits-Min/Fa/Lycopene/Lut) 1 Each Tablet 1 Each PO DAILY Alendronate Sodium 35 Mg Tablet 1 Tab PO WEEKLY Vitals/I & O Vital Sign - Last 24 Hours 11/15/16 11/15/16 11/15/16 11/15/16 11:20 13:38 14:35 15:30 Temp 98.7 98.7 Pulse 77 84 82 88 Resp 18 16 14 20 B/P (MAP) 199/92 (127) 189/88 (121) 193/93 (126) Pulse Ox 95 96 97 96 O2 Delivery Room Air Room Air Room Air Room Air 11/15/16 11/15/16 11/15/16 11/15/16 17:09 17:39 19:00 20:00 Temp 99.0 99.0 Pulse 94 Resp 20 20 20 B/P (MAP) 171/82 (111) Pulse Ox 95 O2 Delivery Room Air Room Air Room Air 11/15/16 11/15/16 11/15/16 11/16/16 20:39 20:40 23:00 00:04 Temp 98.5 98.5 Pulse 94 90 Resp 20 B/P (MAP) 171/82 173/90 (117) Pulse Ox 95 95 95 O2 Delivery Room Air Room Air 11/16/16 11/16/16 11/16/16 11/16/16 03:00 06:03 06:33 07:00 Temp 99.2 97.7 99.2 97.7 Pulse 84 81 Resp 20 18 B/P (MAP) 162/85 (110) 130/60 (83) Pulse Ox 97 97 97 97 O2 Delivery Room Air Room Air Room Air Room Air Intake and Output 11/15/16 11/15/16 11/16/16 15:00 23:00 07:00 Intake Total 100 ml 200 ml Output Total 1 ml 400 ml Balance 99 ml -200 ml TANJA AYALA MD Nov 16, 2016 10:17
[2016-11-16] MEDS ORDERED: predniSONE 10 MG TABLET PO SCH (10:30)
[2016-11-16] MEDS: SERTRALINE 50 MG TABLET. PO SCH (10:38)
[2016-11-16] MEDS: oxyCODONE/APAP 7.5/325 1 TAB TABLET PO PRN ×3 (10:39→21:56)
[2016-11-16] MEDS: DOCUSATE SODIUM 100 MG CAPSULE. PO SCH (10:39)
[2016-11-16] MEDS: OXYBUTYNIN CHLORIDE 5 MG TABLET PO SCH ×3 (10:39→21:30)
[2016-11-16] MEDS: ASPIRIN ENTERIC COATED 81 MG TABLET.DR. PO SCH (10:41)
[2016-11-16] MEDS: MULTIVITAMIN with MINERAL TABLET. PO SCH (10:41)
[2016-11-16] MEDS: LISINOPRIL 40 MG TABLET. PO SCH (10:41)
[2016-11-16] MEDS: hydroCHLOROthiazide 25 MG TABLET PO SCH (10:41)
[2016-11-16] MEDS: hydrOXYzine PAMOATE 25 MG CAPSULE PO SCH ×2 (10:42→21:30)
[2016-11-16] MEDS: PANTOPRAZOLE 40 MG TABLET.DR. PO SCH (10:42)
[2016-11-16] MEDS: METOPROLOL TART IMMED RELEASE 50 MG TABLET. PO SCH ×2 (10:43→21:30)
[2016-11-16 11:28] LABS: BASO # 0.1 x10^3/uL (0.0-0.2); BASO % 1 % (0-3); EOS % 1 % (0-3); HEMATOCRIT 40.6 % (36.0-47.0); HEMOGLOBIN 14.4 g/dL (12.0-15.5); LYMPH # 2.6 x10^3/uL (1.0-4.8); LYMPH % 25 % (24-48); MEAN CORPUSCULAR HEMOGLOBIN 29 pg (25-35); MEAN CORPUSCULAR HGB CONC 36 g/dL (31-37); MEAN CORPUSCULAR VOLUME 82 fL (79-100); MONO % 18 % (0-9); NEUT % 56 % (31-73); PLATELET COUNT 199 x10^3/uL (140-400); RED BLOOD COUNT 4.97 x10^6/uL (3.50-5.40); RED CELL DISTRIBUTION WIDTH 13.5 % (11.5-14.5); WHITE BLOOD COUNT 10.6 x10^3/uL (4.0-11.0)
[2016-11-16 11:36] LABS: CALCIUM 9.1 mg/dL (8.5-10.1); CREATININE 1.2 mg/dL (0.6-1.0); GFR 43.8
[2016-11-16 11:42] LABS: POTASSIUM 2.7 mmol/L (3.5-5.1)
[2016-11-16] MEDS ORDERED: POTASSIUM CHLORIDE 20 MEQ TABLET.ER. PO ONE (11:45)
[2016-11-16 12:46] LABS: % BASOS 1 % (0-3); % EOS 1 % (0-5)
[2016-11-16 12:47] LABS: PLT ESTIMATE ADEQUATE (ADEQUATE)
--- NOTE | 2016-11-16 13:45 | PDOC ---
PROGRESS NOTES Chief Complaint Chief Complaint 1. Acute on chronic back pain 2. HZV R buttock, active infection 3. HTN, hypothyroidism, dyslipidmeia, osteoporosis - chronic stable History of Present Illness History of Present Illness Was about to get SI injections by physiatry today, only to discover active shingles on R buttock area, travelling down to her R thigh NO pain actually, she notices her skin to be just dry PLAN: Acyclovir PO Pain mx has been consulted for back injections Analgesia for pain prn PT/OT w physiatry Vitals Vitals Vital Signs Date Time Temp Pulse Resp B/P (MAP) Pulse Ox O2 Delivery O2 Flow Rate FiO2 11/16/16 10:59 97.7 78 18 156/82 (106) 96 Room Air 97.7 Physical Exam General: Alert, Oriented X3, Cooperative, No acute distress Heart: Regular rate Lungs: Clear Abdomen: Normal bowel sounds Extremities: No clubbing, No cyanosis, No edema, Normal pulses, No tenderness/ swelling Skin: Other (She had skin rash ove right buttock are when I have prepared to inject her right sacroiliac joint,which I decided not to proceed witn and she also had papular skin rash over right thigh.) Labs LABS Laboratory Tests Test 11/16/16 11:05 White Blood Count 10.6 x10^3/uL (4.0-11.0) Red Blood Count 4.97 x10^6/uL (3.50-5.40) Hemoglobin 14.4 g/dL (12.0-15.5) Hematocrit 40.6 % (36.0-47.0) Mean Corpuscular Volume 82 fL (79-100) Mean Corpuscular Hemoglobin 29 pg (25-35) Mean Corpuscular Hemoglobin Concent 36 g/dL (31-37) Red Cell Distribution Width 13.5 % (11.5-14.5) Platelet Count 199 x10^3/uL (140-400) Neutrophils (%) (Auto) 56 % (31-73) Lymphocytes (%) (Auto) 25 % (24-48) Monocytes (%) (Auto) 18 % (0-9) Eosinophils (%) (Auto) 1 % (0-3) Basophils (%) (Auto) 1 % (0-3) Neutrophils # (Auto) 6.0 x10^3uL (1.8-7.7) Lymphocytes # (Auto) 2.6 x10^3/uL (1.0-4.8) Monocytes # (Auto) 1.9 x10^3/uL (0.0-1.1) Eosinophils # (Auto) 0.1 x10^3/uL (0.0-0.7) Basophils # (Auto) 0.1 x10^3/uL (0.0-0.2) Segmented Neutrophils % 48 % (35-66) Band Neutrophils % 2 % (0-9) Lymphocytes % 27 % (24-48) Atypical Lymphocytes % (Manual) 2 % (0-0) Monocytes % 19 % (0-10) Eosinophils % 1 % (0-5) Basophils % 1 % (0-3) Platelet Estimate Adequate (ADEQUATE) Sodium Level 132 mmol/L (136-145) Potassium Level 2.7 mmol/L (3.5-5.1) Chloride Level 95 mmol/L (98-107) Carbon Dioxide Level 28 mmol/L (21-32) Anion Gap 9 (6-14) Blood Urea Nitrogen 19 mg/dL (7-20) Creatinine 1.2 mg/dL (0.6-1.0) Estimated GFR (Cockcroft-Gault) 43.8 Glucose Level 124 mg/dL (70-99) Calcium Level 9.1 mg/dL (8.5-10.1) Review of Systems Review of Systems back pain, all else is neg Assessment and Plan Assessmemt and Plan Problems Medical Problems: (1) Back pain Status: Acute Problems: Comment Review of Relevant I have reviewed the following items jaki (where applicable) has been applied. Labs Laboratory Tests Test 11/16/16 11:05 White Blood Count 10.6 x10^3/uL (4.0-11.0) Red Blood Count 4.97 x10^6/uL (3.50-5.40) Hemoglobin 14.4 g/dL (12.0-15.5) Hematocrit 40.6 % (36.0-47.0) Mean Corpuscular Volume 82 fL (79-100) Mean Corpuscular Hemoglobin 29 pg (25-35) Mean Corpuscular Hemoglobin Concent 36 g/dL (31-37) Red Cell Distribution Width 13.5 % (11.5-14.5) Platelet Count 199 x10^3/uL (140-400) Neutrophils (%) (Auto) 56 % (31-73) Lymphocytes (%) (Auto) 25 % (24-48) Monocytes (%) (Auto) 18 % (0-9) Eosinophils (%) (Auto) 1 % (0-3) Basophils (%) (Auto) 1 % (0-3) Neutrophils # (Auto) 6.0 x10^3uL (1.8-7.7) Lymphocytes # (Auto) 2.6 x10^3/uL (1.0-4.8) Monocytes # (Auto) 1.9 x10^3/uL (0.0-1.1) Eosinophils # (Auto) 0.1 x10^3/uL (0.0-0.7) Basophils # (Auto) 0.1 x10^3/uL (0.0-0.2) Segmented Neutrophils % 48 % (35-66) Band Neutrophils % 2 % (0-9) Lymphocytes % 27 % (24-48) Atypical Lymphocytes % (Manual) 2 % (0-0) Monocytes % 19 % (0-10) Eosinophils % 1 % (0-5) Basophils % 1 % (0-3) Platelet Estimate Adequate (ADEQUATE) Sodium Level 132 mmol/L (136-145) Potassium Level 2.7 mmol/L (3.5-5.1) Chloride Level 95 mmol/L (98-107) Carbon Dioxide Level 28 mmol/L (21-32) Anion Gap 9 (6-14) Blood Urea Nitrogen 19 mg/dL (7-20) Creatinine 1.2 mg/dL (0.6-1.0) Estimated GFR (Cockcroft-Gault) 43.8 Glucose Level 124 mg/dL (70-99) Calcium Level 9.1 mg/dL (8.5-10.1) Laboratory Tests Test 11/16/16 11:05 White Blood Count 10.6 x10^3/uL (4.0-11.0) Red Blood Count 4.97 x10^6/uL (3.50-5.40) Hemoglobin 14.4 g/dL (12.0-15.5) Hematocrit 40.6 % (36.0-47.0) Mean Corpuscular Volume 82 fL (79-100) Mean Corpuscular Hemoglobin 29 pg (25-35) Mean Corpuscular Hemoglobin Concent 36 g/dL (31-37) Red Cell Distribution Width 13.5 % (11.5-14.5) Platelet Count 199 x10^3/uL (140-400) Neutrophils (%) (Auto) 56 % (31-73) Lymphocytes (%) (Auto) 25 % (24-48) Monocytes (%) (Auto) 18 % (0-9) Eosinophils (%) (Auto) 1 % (0-3) Basophils (%) (Auto) 1 % (0-3) Neutrophils # (Auto) 6.0 x10^3uL (1.8-7.7) Lymphocytes # (Auto) 2.6 x10^3/uL (1.0-4.8) Monocytes # (Auto) 1.9 x10^3/uL (0.0-1.1) Eosinophils # (Auto) 0.1 x10^3/uL (0.0-0.7) Basophils # (Auto) 0.1 x10^3/uL (0.0-0.2) Segmented Neutrophils % 48 % (35-66) Band Neutrophils % 2 % (0-9) Lymphocytes % 27 % (24-48) Atypical Lymphocytes % (Manual) 2 % (0-0) Monocytes % 19 % (0-10) Eosinophils % 1 % (0-5) Basophils % 1 % (0-3) Platelet Estimate Adequate (ADEQUATE) Sodium Level 132 mmol/L (136-145) Potassium Level 2.7 mmol/L (3.5-5.1) Chloride Level 95 mmol/L (98-107) Carbon Dioxide Level 28 mmol/L (21-32) Anion Gap 9 (6-14) Blood Urea Nitrogen 19 mg/dL (7-20) Creatinine 1.2 mg/dL (0.6-1.0) Estimated GFR (Cockcroft-Gault) 43.8 Glucose Level 124 mg/dL (70-99) Calcium Level 9.1 mg/dL (8.5-10.1) Medications Current Medications Cyclobenzaprine HCl (Flexeril) 5 mg 1X ONCE PO Last administered on 11/15/16t 13:33; Start 11/15/16 at 12:45; Stop 11/15/16 at 12:46; Status DC Prednisone (Prednisone) 40 mg 1X ONCE PO Last administered on 11/15/16 13:34 ; Start 11/15/16 at 12:45; Stop 11/15/16 at 12:46; Status DC Fentanyl Citrate (Fentanyl 2ml Vial) 25 mcg PRN Q2HR PRN IV PAIN Last administered on 11/16/16 06:03; Start 11/15/16 at 14:15; Stop 11/16/16 at 14:14 Aspirin (Ecotrin) 81 mg DAILY PO Last administered on 11/16/16 10:41; Start at 09:00 Docusate Sodium (Colace) 100 mg DAILY PO Last administered on 11/16/16 10:39; Start 11/16/16 at 09:00 Hydroxyzine Pamoate (Vistaril) 25 mg BID PO Last administered on 11/16/16 10: 42; Start 11/15/16 at 21:00 Levothyroxine Sodium (Synthroid) 50 mcg DAILY06 PO Last administered on 05:55; Start 11/16/16 at 06:00 Lisinopril (Prinivil) 40 mg DAILY PO Last administered on 11/16/16 10:41; Start 11/16/16 at 09:00 Metoclopramide HCl (Reglan) 10 mg TIDAC PRN PO NAUSEA; Start 11/15/16 at 20:00 Metoprolol Tartrate (Lopressor) 50 mg BID PO Last administered on 11/16/16 10: 43; Start 11/15/16 at 21:00 Simvastatin (Zocor) 40 mg QHS PO Last administered on 11/15/16 20:40; Start at 21:00 Non-Formulary Medication 1 tab WEEKLY PO ; Start 11/22/16 at 09:00; Stop at 09:00; Status DC Pantoprazole Sodium (Protonix) 40 mg DAILYAC PO Last administered on 11/16/16 10:42; Start 11/16/16 at 07:30 Hydrochlorothiazide (Hydrodiuril) 25 mg DAILY PO Last administered on 10:41; Start 11/16/16 at 09:00 Multivitamins (Thera M Plus) 1 tab DAILY PO Last administered on 11/16/16 10: 41; Start 11/16/16 at 09:00 Sertraline HCl (Zoloft) 200 mg DAILY PO Last administered on 11/16/16 10:38; Start 11/16/16 at 09:00 Oxybutynin Chloride (Ditropan) 5 mg [id number] PO Last administered on 11/16/16 10 :39; Start 11/16/16 at 09:00 Trazodone HCl (Desyrel) 150 mg QHS PO Last administered on 11/15/16 20:40; Start 11/15/16 at 21:00 Ziprasidone (Geodon) 180 mg QHS PO Last administered on 11/15/16 20:39; Start 11/15/16 at 21:00 Methylprednisolone Acetate (DEPO-Medrol 40MG VIAL) 40 mg 1X ONCE IM ; Start at 09:30; Stop 11/16/16 at 09:39; Status DC Bupivacaine HCl (Sensorcaine-Mpf 0.25%) 10 ml 1X ONCE IJ ; Start 11/16/16 at 09 :30; Stop 11/16/16 at 09:39; Status DC Oxycodone/ Acetaminophen (Percocet 7.5/ 325) 1 tab PRN Q6HRS PRN PO PAIN Last administered on 11/16/16 10:39; Start 11/16/16 at 09:30 Acetaminophen (Tylenol) 500 mg PRN Q6HRS PRN PO MILD PAIN / TEMP; Start at 10:00 Ondansetron HCl (Zofran) 4 mg PRN Q6HRS PRN IV NAUSEA/VOMITING; Start 11/16/16 at 10:00 Prednisone (Prednisone) 10 mg DAILY PO ; Start 11/16/16 at 10:30; Stop 11/16/16 at 12:08; Status DC Acyclovir (Zovirax) 800 mg TID PO ; Start 11/16/16 at 14:00 Potassium Chloride (Klor-Con) 40 meq 1X ONCE PO Last administered on 12:24; Start 11/16/16 at 11:45; Stop 11/16/16 at 11:50; Status DC Active Scripts Active Zofran Odt (Ondansetron) 4 Mg Tab.rapdis 1 Tab SL PRN Q8HRS PRN Hydrocodone-Apap 5-325 (Hydrocodone Bit/Acetaminophen) 1 Each Tablet 1 Tab PO PRN Q6HRS PRN Be careful as this medication may cause you to be drowsy or tired. Do not drive on this medication. Reported Trazodone Hcl 150 Mg Tablet 1 Tab PO QHS Geodon (Ziprasidone Hcl) 80 Mg Capsule 2 Cap PO QHS Simvastatin 40 Mg Tablet 1 Tab PO QHS Reglan (Metoclopramide Hcl) 10 Mg Tablet 1 Tab PO TIDAC PRN Nexium Capsule (Esomeprazole Magnesium) 40 Mg Capsule.dr 1 Cap PO BID Metoprolol Tartrate 50 Mg Tablet 1 Tab PO BID Hydroxyzine Pamoate 25 Mg Capsule 1 Cap PO BID Calcium 600 + Vit D 200 Tablet (Calcium Carbonate/Vitamin D3) 1 Each Tablet 1 Each PO Detrol La (Tolterodine Tartrate) 4 Mg Cap.er.24h 1 Cap PO DAILY Sertraline Hcl 100 Mg Tablet 200 Mg PO DAILY Lisinopril 40 Mg Tablet 1 Tab PO DAILY Levothyroxine Sodium 50 Mcg Tablet 1 Tab PO DAILY Hydrochlorothiazide Tablet (Hydrochlorothiazide) 12.5 Mg Tablet 2 Tab PO DAILY Docusate Sodium 100 Mg Capsule 1 Cap PO DAILY Aspir 81 (Aspirin) 81 Mg Tablet. 1 Tab PO DAILY Certavite Sr-Antioxidant Tab (Multivits-Min/Fa/Lycopene/Lut) 1 Each Tablet 1 Each PO DAILY Alendronate Sodium 35 Mg Tablet 1 Tab PO WEEKLY Vitals/I & O Vital Sign - Last 24 Hours 11/15/16 11/15/16 11/15/16 11/15/16 14:35 15:30 17:09 17:39 Pulse 82 88 Resp 14 20 20 20 B/P (MAP) 189/88 (121) 193/93 (126) Pulse Ox 97 96 O2 Delivery Room Air Room Air Room Air 11/15/16 11/15/16 11/15/16 11/15/16 19:00 20:00 20:39 20:40 Temp 99.0 99.0 Pulse 94 94 Resp 20 B/P (MAP) 171/82 (111) 171/82 Pulse Ox 95 95 O2 Delivery Room Air Room Air 11/15/16 11/16/16 11/16/16 11/16/16 23:00 00:04 03:00 06:03 Temp 98.5 99.2 98.5 99.2 Pulse 90 84 Resp 20 20 B/P (MAP) 173/90 (117) 162/85 (110) Pulse Ox 95 95 97 97 O2 Delivery Room Air Room Air Room Air Room Air 11/16/16 11/16/16 11/16/16 11/16/16 06:33 07:00 08:00 10:39 Temp 97.7 97.7 Pulse 81 Resp 18 20 B/P (MAP) 130/60 (83) Pulse Ox 97 97 97 O2 Delivery Room Air Room Air Room Air Room Air 11/16/16 11/16/16 11/16/16 10:41 10:43 10:59 Temp 97.7 97.7 Pulse 84 84 78 Resp 18 B/P (MAP) 156/82 156/82 156/82 (106) Pulse Ox 96 O2 Delivery Room Air Intake and Output 11/15/16 11/15/16 11/16/16 15:00 23:00 07:00 Intake Total 100 ml 200 ml Output Total 1 ml 400 ml Balance 99 ml -200 ml ADAM MAJANO MD Nov 16, 2016 13:45
[2016-11-16] MEDS: ACYCLOVIR 200 MG CAPSULE. PO SCH ×2 (15:53→21:30)
[2016-11-16] MEDS: SIMVASTATIN 40 MG TABLET. PO SCH (21:30)
[2016-11-16] MEDS: traZODone 100 MG TABLET. PO SCH (21:31)
[2016-11-16] MEDS: ZIPRASIDONE 60 MG CAPSULE. PO SCH (21:32)
[2016-11-17] VITALS (7 sets, daily range): BP systolic 78–152; BP diastolic 38–73
[2016-11-17] MEDS: LEVOTHYROXINE 50 MCG TABLET PO SCH (06:17)
[2016-11-17] MEDS ORDERED: IV NORMAL SALINE 500ML BAG 500 ML IV ONE (08:30)
[2016-11-17] MEDS: MULTIVITAMIN with MINERAL TABLET. PO SCH (08:58)
[2016-11-17] MEDS: SERTRALINE 50 MG TABLET. PO SCH (08:59)
[2016-11-17] MEDS: PANTOPRAZOLE 40 MG TABLET.DR. PO SCH (09:00)
[2016-11-17] MEDS: LISINOPRIL 40 MG TABLET. PO SCH (09:00)
[2016-11-17] MEDS: hydroCHLOROthiazide 25 MG TABLET PO SCH (09:00)
[2016-11-17] MEDS: ACYCLOVIR 200 MG CAPSULE. PO SCH ×3 (09:00→22:29)
[2016-11-17] MEDS: hydrOXYzine PAMOATE 25 MG CAPSULE PO SCH ×2 (09:00→22:27)
[2016-11-17] MEDS: ASPIRIN ENTERIC COATED 81 MG TABLET.DR. PO SCH (09:00)
[2016-11-17] MEDS: DOCUSATE SODIUM 100 MG CAPSULE. PO SCH (09:00)
[2016-11-17] MEDS: METOPROLOL TART IMMED RELEASE 50 MG TABLET. PO SCH ×2 (09:00→21:00)
[2016-11-17] MEDS: OXYBUTYNIN CHLORIDE 5 MG TABLET PO SCH ×3 (09:02→22:24)
--- NOTE | 2016-11-17 09:41 | PDOC ---
PROGRESS NOTES Subjective Subjective No new complaints. Objective Objective Vital Signs Date Time Temp Pulse Resp B/P (MAP) Pulse Ox O2 Delivery O2 Flow Rate FiO2 11/17/16 09:04 62 81/39 (53) 11/17/16 07:00 98.2 18 96 Room Air 98.2 Intake and Output 11/17/16 07:00 Intake Total 1850 ml Output Total 200 ml Balance 1650 ml Intake Oral 1850 ml Output Urine Total 200 ml # Voids 6 Physical Exam Physical Exam She is lying on her left side in bed and she was noted with hypotension and she denies any GI discomfort. Assessment Assessment Problems Medical Problems: (1) Back pain Status: Acute Plan Plan of Care To continue present care plans and to assisted living facility when medically stable. Comment Review of Relevant I have reviewed the following items jaki (where applicable) has been applied. Labs Laboratory Tests Test 11/15/16 20:24 11/16/16 11:05 11/16/16 17:10 Nasal Screen MRSA (PCR) Negative (Negative) White Blood Count 10.6 x10^3/uL (4.0-11.0) Red Blood Count 4.97 x10^6/uL (3.50-5.40) Hemoglobin 14.4 g/dL (12.0-15.5) Hematocrit 40.6 % (36.0-47.0) Mean Corpuscular Volume 82 fL (79-100) Mean Corpuscular Hemoglobin 29 pg (25-35) Mean Corpuscular Hemoglobin Concent 36 g/dL (31-37) Red Cell Distribution Width 13.5 % (11.5-14.5) Platelet Count 199 x10^3/uL (140-400) Neutrophils (%) (Auto) 56 % (31-73) Lymphocytes (%) (Auto) 25 % (24-48) Monocytes (%) (Auto) 18 % (0-9) Eosinophils (%) (Auto) 1 % (0-3) Basophils (%) (Auto) 1 % (0-3) Neutrophils # (Auto) 6.0 x10^3uL (1.8-7.7) Lymphocytes # (Auto) 2.6 x10^3/uL (1.0-4.8) Monocytes # (Auto) 1.9 x10^3/uL (0.0-1.1) Eosinophils # (Auto) 0.1 x10^3/uL (0.0-0.7) Basophils # (Auto) 0.1 x10^3/uL (0.0-0.2) Segmented Neutrophils % 48 % (35-66) Band Neutrophils % 2 % (0-9) Lymphocytes % 27 % (24-48) Atypical Lymphocytes % (Manual) 2 % (0-0) Monocytes % 19 % (0-10) Eosinophils % 1 % (0-5) Basophils % 1 % (0-3) Platelet Estimate Adequate (ADEQUATE) Erythrocyte Sedimentation Rate 28 (0-25) Sodium Level 132 mmol/L (136-145) Potassium Level 2.7 mmol/L (3.5-5.1) 3.0 mmol/L (3.5-5.1) Chloride Level 95 mmol/L (98-107) Carbon Dioxide Level 28 mmol/L (21-32) Anion Gap 9 (6-14) Blood Urea Nitrogen 19 mg/dL (7-20) Creatinine 1.2 mg/dL (0.6-1.0) Estimated GFR (Cockcroft-Gault) 43.8 Glucose Level 124 mg/dL (70-99) Calcium Level 9.1 mg/dL (8.5-10.1) Laboratory Tests Test 11/16/16 11:05 11/16/16 17:10 White Blood Count 10.6 x10^3/uL (4.0-11.0) Red Blood Count 4.97 x10^6/uL (3.50-5.40) Hemoglobin 14.4 g/dL (12.0-15.5) Hematocrit 40.6 % (36.0-47.0) Mean Corpuscular Volume 82 fL (79-100) Mean Corpuscular Hemoglobin 29 pg (25-35) Mean Corpuscular Hemoglobin Concent 36 g/dL (31-37) Red Cell Distribution Width 13.5 % (11.5-14.5) Platelet Count 199 x10^3/uL (140-400) Neutrophils (%) (Auto) 56 % (31-73) Lymphocytes (%) (Auto) 25 % (24-48) Monocytes (%) (Auto) 18 % (0-9) Eosinophils (%) (Auto) 1 % (0-3) Basophils (%) (Auto) 1 % (0-3) Neutrophils # (Auto) 6.0 x10^3uL (1.8-7.7) Lymphocytes # (Auto) 2.6 x10^3/uL (1.0-4.8) Monocytes # (Auto) 1.9 x10^3/uL (0.0-1.1) Eosinophils # (Auto) 0.1 x10^3/uL (0.0-0.7) Basophils # (Auto) 0.1 x10^3/uL (0.0-0.2) Segmented Neutrophils % 48 % (35-66) Band Neutrophils % 2 % (0-9) Lymphocytes % 27 % (24-48) Atypical Lymphocytes % (Manual) 2 % (0-0) Monocytes % 19 % (0-10) Eosinophils % 1 % (0-5) Basophils % 1 % (0-3) Platelet Estimate Adequate (ADEQUATE) Erythrocyte Sedimentation Rate 28 (0-25) Sodium Level 132 mmol/L (136-145) Potassium Level 2.7 mmol/L (3.5-5.1) 3.0 mmol/L (3.5-5.1) Chloride Level 95 mmol/L (98-107) Carbon Dioxide Level 28 mmol/L (21-32) Anion Gap 9 (6-14) Blood Urea Nitrogen 19 mg/dL (7-20) Creatinine 1.2 mg/dL (0.6-1.0) Estimated GFR (Cockcroft-Gault) 43.8 Glucose Level 124 mg/dL (70-99) Calcium Level 9.1 mg/dL (8.5-10.1) Medications Current Medications Cyclobenzaprine HCl (Flexeril) 5 mg 1X ONCE PO Last administered on 11/15/16 13:33; Start 11/15/16 at 12:45; Stop 11/15/16 at 12:46; Status DC Prednisone (Prednisone) 40 mg 1X ONCE PO Last administered on 11/15/16 13:34 ; Start 11/15/16 at 12:45; Stop 11/15/16 at 12:46; Status DC Fentanyl Citrate (Fentanyl 2ml Vial) 25 mcg PRN Q2HR PRN IV PAIN Last administered on 11/16/16 06:03; Start 11/15/16 at 14:15; Stop 11/16/16 at 14:14 ; Status DC Aspirin (Ecotrin) 81 mg DAILY PO Last administered on 11/17/16 09:00; Start at 09:00 Docusate Sodium (Colace) 100 mg DAILY PO Last administered on 11/17/16 09:00; Start 11/16/16 at 09:00 Hydroxyzine Pamoate (Vistaril) 25 mg BID PO Last administered on 11/17/16 09: 00; Start 11/15/16 at 21:00 Levothyroxine Sodium (Synthroid) 50 mcg DAILY06 PO Last administered on 06:17; Start 11/16/16 at 06:00 Lisinopril (Prinivil) 40 mg DAILY PO Last administered on 11/16/16 10:41; Start 11/16/16 at 09:00 Metoclopramide HCl (Reglan) 10 mg TIDAC PRN PO NAUSEA; Start 11/15/16 at 20:00 Metoprolol Tartrate (Lopressor) 50 mg BID PO Last administered on 11/16/16 21: 30; Start 11/15/16 at 21:00 Simvastatin (Zocor) 40 mg QHS PO Last administered on 11/16/16 21:30; Start at 21:00 Non-Formulary Medication 1 tab WEEKLY PO ; Start 11/22/16 at 09:00; Stop at 09:00; Status DC Pantoprazole Sodium (Protonix) 40 mg DAILYAC PO Last administered on 11/17/16 09:00; Start 11/16/16 at 07:30 Hydrochlorothiazide (Hydrodiuril) 25 mg DAILY PO Last administered on 10:41; Start 11/16/16 at 09:00 Multivitamins (Thera M Plus) 1 tab DAILY PO Last administered on 11/17/16 08: 58; Start 11/16/16 at 09:00 Sertraline HCl (Zoloft) 200 mg DAILY PO Last administered on 11/17/16 08:59; Start 11/16/16 at 09:00 Oxybutynin Chloride (Ditropan) 5 mg [id number] PO Last administered on 11/17/16 09 :02; Start 11/16/16 at 09:00 Trazodone HCl (Desyrel) 150 mg QHS PO Last administered on 11/16/16 21:31; Start 11/15/16 at 21:00 Ziprasidone (Geodon) 180 mg QHS PO Last administered on 11/16/16 21:32; Start 11/15/16 at 21:00 Methylprednisolone Acetate (DEPO-Medrol 40MG VIAL) 40 mg 1X ONCE IM ; Start at 09:30; Stop 11/16/16 at 09:39; Status DC Bupivacaine HCl (Sensorcaine-Mpf 0.25%) 10 ml 1X ONCE IJ ; Start 11/16/16 at 09 :30; Stop 11/16/16 at 09:39; Status DC Oxycodone/ Acetaminophen (Percocet 7.5/ 325) 1 tab PRN Q6HRS PRN PO PAIN Last administered on 11/16/16 21:56; Start 11/16/16 at 09:30 Acetaminophen (Tylenol) 500 mg PRN Q6HRS PRN PO MILD PAIN / TEMP; Start at 10:00 Ondansetron HCl (Zofran) 4 mg PRN Q6HRS PRN IV NAUSEA/VOMITING; Start 11/16/16 at 10:00 Prednisone (Prednisone) 10 mg DAILY PO ; Start 11/16/16 at 10:30; Stop 11/16/16 at 12:08; Status DC Acyclovir (Zovirax) 800 mg TID PO Last administered on 11/17/16 09:00; Start 11/16/16 at 14:00 Potassium Chloride (Klor-Con) 40 meq 1X ONCE PO Last administered on 12:24; Start 11/16/16 at 11:45; Stop 11/16/16 at 11:50; Status DC Sodium Chloride 500 ml @ 500 mls/hr 1X ONCE IV Last administered on 09:03; Start 11/17/16 at 08:30; Stop 11/17/16 at 09:29; Status DC Sodium Chloride 1,000 ml @ 75 mls/hr [id number] IV ; Start 11/17/16 at 10:00 Active Scripts Active Zofran Odt (Ondansetron) 4 Mg Tab.rapdis 1 Tab SL PRN Q8HRS PRN Hydrocodone-Apap 5-325 (Hydrocodone Bit/Acetaminophen) 1 Each Tablet 1 Tab PO PRN Q6HRS PRN Be careful as this medication may cause you to be drowsy or tired. Do not drive on this medication. Reported Trazodone Hcl 150 Mg Tablet 1 Tab PO QHS Geodon (Ziprasidone Hcl) 80 Mg Capsule 2 Cap PO QHS Simvastatin 40 Mg Tablet 1 Tab PO QHS Reglan (Metoclopramide Hcl) 10 Mg Tablet 1 Tab PO TIDAC PRN Nexium Capsule (Esomeprazole Magnesium) 40 Mg Capsule.dr 1 Cap PO BID Metoprolol Tartrate 50 Mg Tablet 1 Tab PO BID Hydroxyzine Pamoate 25 Mg Capsule 1 Cap PO BID Calcium 600 + Vit D 200 Tablet (Calcium Carbonate/Vitamin D3) 1 Each Tablet 1 Each PO Detrol La (Tolterodine Tartrate) 4 Mg Cap.er.24h 1 Cap PO DAILY Sertraline Hcl 100 Mg Tablet 200 Mg PO DAILY Lisinopril 40 Mg Tablet 1 Tab PO DAILY Levothyroxine Sodium 50 Mcg Tablet 1 Tab PO DAILY Hydrochlorothiazide Tablet (Hydrochlorothiazide) 12.5 Mg Tablet 2 Tab PO DAILY Docusate Sodium 100 Mg Capsule 1 Cap PO DAILY Aspir 81 (Aspirin) 81 Mg Tablet. 1 Tab PO DAILY Certavite Sr-Antioxidant Tab (Multivits-Min/Fa/Lycopene/Lut) 1 Each Tablet 1 Each PO DAILY Alendronate Sodium 35 Mg Tablet 1 Tab PO WEEKLY Vitals/I & O Vital Sign - Last 24 Hours 11/16/16 11/16/16 11/16/16 11/16/16 10:39 10:41 10:43 10:59 Temp 97.7 97.7 Pulse 84 84 78 Resp 20 18 B/P (MAP) 156/82 156/82 156/82 (106) Pulse Ox 97 96 O2 Delivery Room Air Room Air 11/16/16 11/16/16 11/16/16 11/16/16 14:50 15:54 16:54 19:00 Temp 97.7 98.5 97.7 98.5 Pulse 67 68 Resp 18 20 20 20 B/P (MAP) 121/61 (81) 137/70 (92) Pulse Ox 96 96 96 94 O2 Delivery Room Air Room Air Room Air Room Air 7/1811/16/16 11/16/16 11/16/16 20:00 20:28 21:30 21:56 Temp 98.5 98.5 Pulse 68 68 Resp 20 B/P (MAP) 137/70 (92) 137/70 Pulse Ox 94 94 O2 Delivery Room Air Room Air Room Air 11/16/16 11/17/16 11/17/16 11/17/16 23:00 03:07 07:00 09:04 Temp 98.5 97.7 98.2 98.5 97.7 98.2 Pulse 71 71 64 62 Resp 20 20 18 B/P (MAP) 105/ 152/71 (98) 78/38 (51) 81/39 (53) Pulse Ox 92 94 96 O2 Delivery Room Air Room Air Room Air Intake and Output 11/16/16 11/16/16 11/17/16 15:00 23:00 07:00 Intake Total 600 ml 950 ml 300 ml Output Total 200 ml Balance 600 ml 950 ml 100 ml TANJA AYALA MD Nov 17, 2016 09:41
[2016-11-17] MEDS ORDERED: IV NORMAL SALINE 1000ML BAG 1,000 ML IV SCH (10:00)
--- NOTE | 2016-11-17 15:10 | PDOC ---
PROGRESS NOTES Chief Complaint Chief Complaint Shingles ASSESSMENT AND PLAN: 1. shingles: R buttock. started on acyclovir 2. HTN: poorly controlled at admit, better with home meds 3. Hypotension: new this AM. otherwise asymptomatic. IV bolus with minimal response. cont IVF, hold BP meds. blood cult, urine cult to be done 4. Hypokalemia: severe. replace orally. stop HCTZ 5. HLD: on statin 6. Hypothyroidism: on synthroid 7. pain control: on [place] at home. continue, stop oxy with hypotension 8. Psych: unk dx, but has mult home meds. continue ADDENDUM: UA with WBC 10-20. start empiric ceftriax for urosepsis History of Present Illness History of Present Illness feels ok, pain manageable. denies cough CP, SOB, diarrhea abd pain or dysuria. Vitals Vitals Vital Signs Date Time Temp Pulse Resp B/P (MAP) Pulse Ox O2 Delivery O2 Flow Rate FiO2 11/17/16 11:00 98.3 66 18 107/43 (64) 96 Room Air 98.3 Physical Exam General: Alert, Oriented X3, Cooperative, No acute distress Heart: Regular rate Lungs: Clear Abdomen: Normal bowel sounds, Soft, No tenderness Extremities: No edema Skin: Other (skin rash over right buttock to thigh: papular skin rash ) Labs LABS Laboratory Tests Test 11/16/16 17:10 Potassium Level 3.0 mmol/L (3.5-5.1) LINDA SPENCER MD Nov 17, 2016 15:10
[2016-11-17] MEDS ORDERED: IV NORMAL SALINE 1000ML BAG 1,000 ML IV ONE (15:30)
[2016-11-17] MEDS: HYDROcodone/APAP 5/325MG 1 TAB TABLET PO PRN ×2 (15:54→22:30)
[2016-11-17 16:03] LABS: BASO # 0.1 x10^3/uL (0.0-0.2); BASO % 1 % (0-3); EOS % 3 % (0-3); HEMATOCRIT 36.5 % (36.0-47.0); HEMOGLOBIN 12.4 g/dL (12.0-15.5); LYMPH # 3.1 x10^3/uL (1.0-4.8); LYMPH % 36 % (24-48); MEAN CORPUSCULAR HEMOGLOBIN 29 pg (25-35); MEAN CORPUSCULAR HGB CONC 34 g/dL (31-37); MEAN CORPUSCULAR VOLUME 86 fL (79-100); MONO % 14 % (0-9); NEUT % 46 % (31-73); PLATELET COUNT 193 x10^3/uL (140-400); RED BLOOD COUNT 4.26 x10^6/uL (3.50-5.40); RED CELL DISTRIBUTION WIDTH 13.7 % (11.5-14.5); WHITE BLOOD COUNT 8.5 x10^3/uL (4.0-11.0)
[2016-11-17 16:21] LABS: ALBUMIN 2.9 g/dL (3.4-5.0); ALBUMIN/GLOBULIN RATIO 0.8 (1.0-1.7); CREATININE 2.3 mg/dL (0.6-1.0); GFR 20.7; TOTAL BILIRUBIN 0.2 mg/dL (0.2-1.0); TOTAL PROTEIN 6.4 g/dL (6.4-8.2)
[2016-11-17 16:28] LABS: POTASSIUM 2.5 mmol/L (3.5-5.1)
[2016-11-17 17:19] LABS: BILIRUBIN,URINE SMALL (NEG); GLUCOSE,URINE NEGATIVE (NEG); NITRITE,URINE NEGATIVE (NEG); PROTEIN,URINE NEGATIVE (NEG-TRACE); UROBILINOGEN,URINE 0.2 mg/dL (0.2 mg/dL)
[2016-11-17 17:37] LABS: RBC,URINE 0 /HPF (0-2)
[2016-11-17 17:38] LABS: BACTERIA,URINE MODERATE /HPF (0-FEW); SQUAMOUS EPITHELIAL CELL,UR FEW /LPF
[2016-11-17] MEDS ORDERED: POTASSIUM CHLORIDE 20 MEQ TABLET.ER. PO ONE ×2 (18:30→21:00)
[2016-11-17] MEDS ORDERED: POTASSIUM CHLORIDE 20 MEQ in IV NORMAL SALINE 1000ML BAG 1,000 ML IV PRN (19:00)
[2016-11-17] MEDS: SIMVASTATIN 40 MG TABLET. PO SCH (22:24)
[2016-11-17] MEDS: traZODone 100 MG TABLET. PO SCH (22:26)
[2016-11-17] MEDS: ZIPRASIDONE 60 MG CAPSULE. PO SCH (22:28)
[2016-11-18 02:35] VITALS: BP 117/40
--- NOTE | 2016-11-18 05:17 | ACF ---
Admission Forms Criteria BACK PAIN Clinical Indications for Admission to Inpatient Care (Place 'X' for any and all applicable criteria): Admission is indicated for ANY ONE of the following (1)(2)(3)(4)(5)(6): [X]I. Inpatient admission required rather than observation care (Also use Back Pain: Observation Care as appropriate) because of ANY ONE of the following [X]a) Severe pain requiring acute inpatient management [ ]b) Immediate inpatient surgery [ ]c) Other condition, treatment or monitoring requiring inpatient admission [ ]II. Spine fracture with significant damage or threat of damage to vertebral column or spinal cord [ ]III. Progressive or severe neurologic deficit [ ]IV. Suspected spinal infection (e.g., epidural abscess, vertebral osteomyelitis)(10) [ ]V. Suspected cause requires inpatient treatment (eg, aortic dissection) [ ]. Cauda equina syndrome as indicated by ANY ONE of the following (9): [ ]a) Bowel dysfunction [ ]b) Bladder dysfunction [ ]c) Saddle anesthesia [ ]d) Neurologic abnormality suggesting cauda equina impingement Extended stay beyond goal length of stay may be needed for (3)(25): [ ]a) Spinal cord compression from stenosis, disk, or tumor (8)(9) [ ]b) Traumatic or pathologic vertebral fracture (33) [ ]c) Vertebral infection(10) [ ]d) Severe pain that is difficult to control [ ]e) Older patients(65 years or older) The original [employer] content created by [employer] has been revised. The portions of the content which have been revised are identified through the use of italic text or in bold, and [facility] has neither reviewed nor approved the modified material. All other unmodified content is copyright [facility]. Please see references footnoted in the original [email or web address] edition 2016 Admission Criteria Met?: Yes BRENT WHEELER Nov 18, 2016 05:16
[2016-11-18] MEDS: PANTOPRAZOLE 40 MG TABLET.DR. PO SCH (06:10)
[2016-11-18] MEDS: LEVOTHYROXINE 50 MCG TABLET PO SCH (06:10)
[2016-11-18 07:00] VITALS: BP 157/71
[2016-11-18] MEDS: SERTRALINE 50 MG TABLET. PO SCH (09:15)
[2016-11-18] MEDS: ASPIRIN ENTERIC COATED 81 MG TABLET.DR. PO SCH (09:15)
[2016-11-18] MEDS: DOCUSATE SODIUM 100 MG CAPSULE. PO SCH (09:15)
[2016-11-18] MEDS: METOPROLOL TART IMMED RELEASE 50 MG TABLET. PO SCH ×2 (09:16→20:59)
[2016-11-18] MEDS: LISINOPRIL 40 MG TABLET. PO SCH (09:16)
[2016-11-18] MEDS: OXYBUTYNIN CHLORIDE 5 MG TABLET PO SCH ×3 (09:16→20:56)
[2016-11-18] MEDS: hydrOXYzine PAMOATE 25 MG CAPSULE PO SCH ×2 (09:17→20:59)
[2016-11-18] MEDS: MULTIVITAMIN with MINERAL TABLET. PO SCH (09:17)
[2016-11-18] MEDS: ACYCLOVIR 200 MG CAPSULE. PO SCH ×3 (09:20→20:55)
[2016-11-18] MEDS: HYDROcodone/APAP 5/325MG 1 TAB TABLET PO PRN ×3 (10:24→22:19)
[2016-11-18 11:00] VITALS: BP 153/71
--- NOTE | 2016-11-18 12:55 | PDOC ---
PROGRESS NOTES Subjective Subjective She denies any new problems. Objective Objective Vital Signs Date Time Temp Pulse Resp B/P (MAP) Pulse Ox O2 Delivery O2 Flow Rate FiO2 11/18/16 11:00 98.3 77 17 153/71 (98) 99 Room Air 98.3 Intake and Output 11/18/16 07:00 Intake Total 4260 ml Balance 4260 ml Intake Oral 1760 ml IV Total 2500 ml # Voids 7 Physical Exam Physical Exam She is supine in bed and comfortable.She is getting up with physical therapy and her endurance is low. Assessment Assessment Problems Medical Problems: (1) Back pain Status: Acute Plan Plan of Care To consider transfer to SNF if she does not feel comfortable to return to assisted living facility. Comment Review of Relevant I have reviewed the following items jkai (where applicable) has been applied. Labs Laboratory Tests Test 11/16/16 17:10 11/17/16 15:50 11/17/16 17:00 Potassium Level 3.0 mmol/L (3.5-5.1) 2.5 mmol/L (3.5-5.1) White Blood Count 8.5 x10^3/uL (4.0-11.0) Red Blood Count 4.26 x10^6/uL (3.50-5.40) Hemoglobin 12.4 g/dL (12.0-15.5) Hematocrit 36.5 % (36.0-47.0) Mean Corpuscular Volume 86 fL (79-100) Mean Corpuscular Hemoglobin 29 pg (25-35) Mean Corpuscular Hemoglobin Concent 34 g/dL (31-37) Red Cell Distribution Width 13.7 % (11.5-14.5) Platelet Count 193 x10^3/uL (140-400) Neutrophils (%) (Auto) 46 % (31-73) Lymphocytes (%) (Auto) 36 % (24-48) Monocytes (%) (Auto) 14 % (0-9) Eosinophils (%) (Auto) 3 % (0-3) Basophils (%) (Auto) 1 % (0-3) Neutrophils # (Auto) 3.9 x10^3uL (1.8-7.7) Lymphocytes # (Auto) 3.1 x10^3/uL (1.0-4.8) Monocytes # (Auto) 1.2 x10^3/uL (0.0-1.1) Eosinophils # (Auto) 0.3 x10^3/uL (0.0-0.7) Basophils # (Auto) 0.1 x10^3/uL (0.0-0.2) Sodium Level 135 mmol/L (136-145) Chloride Level 101 mmol/L (98-107) Carbon Dioxide Level 23 mmol/L (21-32) Anion Gap 11 (6-14) Blood Urea Nitrogen 36 mg/dL (7-20) Creatinine 2.3 mg/dL (0.6-1.0) Estimated GFR (Cockcroft-Gault) 20.7 BUN/Creatinine Ratio 16 (6-20) Glucose Level 104 mg/dL (70-99) Calcium Level 7.0 mg/dL (8.5-10.1) Total Bilirubin 0.2 mg/dL (0.2-1.0) Aspartate Amino Transf (AST/SGOT) 31 U/L (15-37) Alanine Aminotransferase (ALT/SGPT) 34 U/L (14-59) Alkaline Phosphatase 48 U/L (46-116) Total Protein 6.4 g/dL (6.4-8.2) Albumin 2.9 g/dL (3.4-5.0) Albumin/Globulin Ratio 0.8 (1.0-1.7) Urine Collection Type Void Urine Color Yellow Urine Clarity Clear Urine pH 6.0 Urine Specific [place] 1.015 Urine Protein Negative mg/dL (NEG-TRACE) Urine Glucose (UA) Negative mg/dL (NEG) Urine Ketones (Stick) Negative mg/dL (NEG) Urine Blood Negative (NEG) Urine Nitrite Negative (NEG) Urine Bilirubin Small (NEG) Urine Urobilinogen Dipstick 0.2 mg/dL (0.2 mg/dL) Urine Leukocyte Esterase Small (NEG) Urine RBC 0 /HPF (0-2) Urine WBC 11-20 /HPF (0-4) Urine Squamous Epithelial Cells Few /LPF Urine Bacteria Moderate /HPF (0-FEW) Urine Hyaline Casts Many /HPF Urine Mucus Slight /LPF Laboratory Tests Test 11/17/16 15:50 11/17/16 17:00 White Blood Count 8.5 x10^3/uL (4.0-11.0) Red Blood Count 4.26 x10^6/uL (3.50-5.40) Hemoglobin 12.4 g/dL (12.0-15.5) Hematocrit 36.5 % (36.0-47.0) Mean Corpuscular Volume 86 fL (79-100) Mean Corpuscular Hemoglobin 29 pg (25-35) Mean Corpuscular Hemoglobin Concent 34 g/dL (31-37) Red Cell Distribution Width 13.7 % (11.5-14.5) Platelet Count 193 x10^3/uL (140-400) Neutrophils (%) (Auto) 46 % (31-73) Lymphocytes (%) (Auto) 36 % (24-48) Monocytes (%) (Auto) 14 % (0-9) Eosinophils (%) (Auto) 3 % (0-3) Basophils (%) (Auto) 1 % (0-3) Neutrophils # (Auto) 3.9 x10^3uL (1.8-7.7) Lymphocytes # (Auto) 3.1 x10^3/uL (1.0-4.8) Monocytes # (Auto) 1.2 x10^3/uL (0.0-1.1) Eosinophils # (Auto) 0.3 x10^3/uL (0.0-0.7) Basophils # (Auto) 0.1 x10^3/uL (0.0-0.2) Sodium Level 135 mmol/L (136-145) Potassium Level 2.5 mmol/L (3.5-5.1) Chloride Level 101 mmol/L (98-107) Carbon Dioxide Level 23 mmol/L (21-32) Anion Gap 11 (6-14) Blood Urea Nitrogen 36 mg/dL (7-20) Creatinine 2.3 mg/dL (0.6-1.0) Estimated GFR (Cockcroft-Gault) 20.7 BUN/Creatinine Ratio 16 (6-20) Glucose Level 104 mg/dL (70-99) Calcium Level 7.0 mg/dL (8.5-10.1) Total Bilirubin 0.2 mg/dL (0.2-1.0) Aspartate Amino Transf (AST/SGOT) 31 U/L (15-37) Alanine Aminotransferase (ALT/SGPT) 34 U/L (14-59) Alkaline Phosphatase 48 U/L (46-116) Total Protein 6.4 g/dL (6.4-8.2) Albumin 2.9 g/dL (3.4-5.0) Albumin/Globulin Ratio 0.8 (1.0-1.7) Urine Collection Type Void Urine Color Yellow Urine Clarity Clear Urine pH 6.0 Urine Specific [place] 1.015 Urine Protein Negative mg/dL (NEG-TRACE) Urine Glucose (UA) Negative mg/dL (NEG) Urine Ketones (Stick) Negative mg/dL (NEG) Urine Blood Negative (NEG) Urine Nitrite Negative (NEG) Urine Bilirubin Small (NEG) Urine Urobilinogen Dipstick 0.2 mg/dL (0.2 mg/dL) Urine Leukocyte Esterase Small (NEG) Urine RBC 0 /HPF (0-2) Urine WBC 11-20 /HPF (0-4) Urine Squamous Epithelial Cells Few /LPF Urine Bacteria Moderate /HPF (0-FEW) Urine Hyaline Casts Many /HPF Urine Mucus Slight /LPF Medications Current Medications Cyclobenzaprine HCl (Flexeril) 5 mg 1X ONCE PO Last administered on 11/15/16 13:33; Start 11/15/16 at 12:45; Stop 11/15/16 at 12:46; Status DC Prednisone (Prednisone) 40 mg 1X ONCE PO Last administered on 11/15/16 13:34 ; Start 11/15/16 at 12:45; Stop 11/15/16 at 12:46; Status DC Fentanyl Citrate (Fentanyl 2ml Vial) 25 mcg PRN Q2HR PRN IV PAIN Last administered on 11/16/16 06:03; Start 11/15/16 at 14:15; Stop 11/16/16 at 14:14 ; Status DC Aspirin (Ecotrin) 81 mg DAILY PO Last administered on 11/18/16 09:15; Start at 09:00 Docusate Sodium (Colace) 100 mg DAILY PO Last administered on 11/18/16 09:15; Start 11/16/16 at 09:00 Hydroxyzine Pamoate (Vistaril) 25 mg BID PO Last administered on 11/18/16 09: 17; Start 11/15/16 at 21:00 Levothyroxine Sodium (Synthroid) 50 mcg DAILY06 PO Last administered on 06:10; Start 11/16/16 at 06:00 Lisinopril (Prinivil) 40 mg DAILY PO Last administered on 11/18/16 09:16; Start 11/16/16 at 09:00 Metoclopramide HCl (Reglan) 10 mg TIDAC PRN PO NAUSEA; Start 11/15/16 at 20:00 Metoprolol Tartrate (Lopressor) 50 mg BID PO Last administered on 11/18/16 09: 16; Start 11/15/16 at 21:00 Simvastatin (Zocor) 40 mg QHS PO Last administered on 11/17/16 22:24; Start at 21:00 Non-Formulary Medication 1 tab WEEKLY PO ; Start 11/22/16 at 09:00; Stop at 09:00; Status DC Pantoprazole Sodium (Protonix) 40 mg DAILYAC PO Last administered on 11/18/16 06:10; Start 11/16/16 at 07:30 Hydrochlorothiazide (Hydrodiuril) 25 mg DAILY PO Last administered on 10:41; Start 11/16/16 at 09:00; Stop 11/17/16 at 18:23; Status DC Multivitamins (Thera M Plus) 1 tab DAILY PO Last administered on 11/18/16 09: 17; Start 11/16/16 at 09:00 Sertraline HCl (Zoloft) 200 mg DAILY PO Last administered on 11/18/16 09:15; Start 11/16/16 at 09:00 Oxybutynin Chloride (Ditropan) 5 mg [id number] PO Last administered on 11/18/16 09 :16; Start 11/16/16 at 09:00 Trazodone HCl (Desyrel) 150 mg QHS PO Last administered on 11/17/16 22:26; Start 11/15/16 at 21:00 Ziprasidone (Geodon) 180 mg QHS PO Last administered on 11/17/16 22:28; Start 11/15/16 at 21:00 Methylprednisolone Acetate (DEPO-Medrol 40MG VIAL) 40 mg 1X ONCE IM ; Start at 09:30; Stop 11/16/16 at 09:39; Status DC Bupivacaine HCl (Sensorcaine-Mpf 0.25%) 10 ml 1X ONCE IJ ; Start 11/16/16 at 09 :30; Stop 11/16/16 at 09:39; Status DC Oxycodone/ Acetaminophen (Percocet 7.5/ 325) 1 tab PRN Q6HRS PRN PO PAIN Last administered on 11/16/16 21:56; Start 11/16/16 at 09:30; Stop 11/17/16 at 15:20 ; Status DC Acetaminophen (Tylenol) 500 mg PRN Q6HRS PRN PO MILD PAIN / TEMP; Start at 10:00 Ondansetron HCl (Zofran) 4 mg PRN Q6HRS PRN IV NAUSEA/VOMITING; Start 11/16/16 at 10:00 Prednisone (Prednisone) 10 mg DAILY PO ; Start 11/16/16 at 10:30; Stop 11/16/16 at 12:08; Status DC Acyclovir (Zovirax) 800 mg TID PO Last administered on 11/18/16 09:20; Start 11/16/16 at 14:00 Potassium Chloride (Klor-Con) 40 meq 1X ONCE PO Last administered on 12:24; Start 11/16/16 at 11:45; Stop 11/16/16 at 11:50; Status DC Sodium Chloride 500 ml @ 500 mls/hr 1X ONCE IV Last administered on 09:03; Start 11/17/16 at 08:30; Stop 11/17/16 at 09:29; Status DC Sodium Chloride 1,000 ml @ 75 mls/hr [id number] IV Last administered on 10:30; Start 11/17/16 at 10:00; Stop 11/17/16 at 18:23; Status DC Acetaminophen/ Hydrocodone Bitart (Lortab 5/325) 1 tab PRN Q6HRS PRN PO PAIN Last administered on 11/18/16 10:24; Start 11/17/16 at 15:15 Sodium Chloride 1,000 ml @ 1,000 mls/hr 1X ONCE IV Last administered on 15:54; Start 11/17/16 at 15:30; Stop 11/17/16 at 16:29; Status DC Potassium Chloride 20 meq/ Sodium Chloride 1,010 ml @ 75 mls/hr [id number] PRN IV .; Start 11/17/16 at 19:00; Stop 11/17/16 at 19:00; Status DC Potassium Chloride (Klor-Con) 40 meq 1X ONCE PO Last administered on 18:43; Start 11/17/16 at 18:30; Stop 11/17/16 at 18:31; Status DC Potassium Chloride (Klor-Con) 40 meq 1X ONCE PO Last administered on 22:30; Start 11/17/16 at 21:00; Stop 11/17/16 at 21:01; Status DC Potassium Chloride/Sodium Chloride 1,000 ml @ 75 mls/hr [id number] IV Last administered on 11/18/16 06:11; Start 11/17/16 at 19:00 Ceftriaxone Sodium 1 gm/ Sodium Chloride 50 ml @ 100 mls/hr Q24H IV Last administered on 11/17/16 19:40; Start 11/17/16 at 19:00 Active Scripts Active Zofran Odt (Ondansetron) 4 Mg Tab.rapdis 1 Tab SL PRN Q8HRS PRN Hydrocodone-Apap 5-325 (Hydrocodone Bit/Acetaminophen) 1 Each Tablet 1 Tab PO PRN Q6HRS PRN Be careful as this medication may cause you to be drowsy or tired. Do not drive on this medication. Reported Trazodone Hcl 150 Mg Tablet 1 Tab PO QHS Geodon (Ziprasidone Hcl) 80 Mg Capsule 2 Cap PO QHS Simvastatin 40 Mg Tablet 1 Tab PO QHS Reglan (Metoclopramide Hcl) 10 Mg Tablet 1 Tab PO TIDAC PRN Nexium Capsule (Esomeprazole Magnesium) 40 Mg Capsule.dr 1 Cap PO BID Metoprolol Tartrate 50 Mg Tablet 1 Tab PO BID Hydroxyzine Pamoate 25 Mg Capsule 1 Cap PO BID Calcium 600 + Vit D 200 Tablet (Calcium Carbonate/Vitamin D3) 1 Each Tablet 1 Each PO Detrol La (Tolterodine Tartrate) 4 Mg Cap.er.24h 1 Cap PO DAILY Sertraline Hcl 100 Mg Tablet 200 Mg PO DAILY Lisinopril 40 Mg Tablet 1 Tab PO DAILY Levothyroxine Sodium 50 Mcg Tablet 1 Tab PO DAILY Hydrochlorothiazide Tablet (Hydrochlorothiazide) 12.5 Mg Tablet 2 Tab PO DAILY Docusate Sodium 100 Mg Capsule 1 Cap PO DAILY Aspir 81 (Aspirin) 81 Mg Tablet.dr 1 Tab PO DAILY Certavite Sr-Antioxidant Tab (Multivits-Min/Fa/Lycopene/Lut) 1 Each Tablet 1 Each PO DAILY Alendronate Sodium 35 Mg Tablet 1 Tab PO WEEKLY Vitals/I & O Vital Sign - Last 24 Hours 11/17/16 11/17/16 11/17/16 11/17/16 15:00 15:54 19:00 20:00 Temp 98.1 98.8 98.1 98.8 Pulse 64 74 Resp 18 20 B/P (MAP) 112/48 (69) 86/51 (63) Pulse Ox 91 95 O2 Delivery Room Air Room Air Room Air Room Air 11/17/16 11/17/16 11/17/16 11/17/16 21:00 22:30 23:00 23:30 Temp 98.4 98.4 Pulse 80 80 Resp 20 B/P (MAP) 144/70 144/73 (96) Pulse Ox 97 O2 Delivery Room Air Room Air Room Air 11/18/16 11/18/16 11/18/16 11/18/16 02:35 07:00 08:00 09:16 Temp 97.9 98.3 97.9 98.3 Pulse 79 79 79 Resp 16 17 B/P (MAP) 117/40 (65) 157/71 (99) 157/71 Pulse Ox 97 98 O2 Delivery Room Air Room Air Room Air 11/18/16 11/18/16 11/18/16 09:16 10:24 11:00 Temp 98.3 98.3 Pulse 79 77 Resp 18 17 B/P (MAP) 157/71 153/71 (98) Pulse Ox 99 O2 Delivery Room Air Intake and Output 11/17/16 11/17/16 11/18/16 15:00 23:00 07:00 Intake Total 1500 ml 1940 ml 820 ml Balance 1500 ml 1940 ml 820 ml TANJA AYALA MD Nov 18, 2016 12:55
--- NOTE | 2016-11-18 13:15 | PDOC ---
PROGRESS NOTES Chief Complaint Chief Complaint Shingles ASSESSMENT AND PLAN: 1. Shingles: R buttock. started on acyclovir. improving 2. HTN: poorly controlled at admit, then hypotensive urosepsis. now elevated again - restart meds 3. Hypotension: noted yesterday, now resolved. suspected urosepsis. 4. UTI: per UA. started empiric ceftriax. awaiting culture 5. Hypokalemia: resolved. stopped HCTZ. 6. BRIAN on CKD3: vasomotor. resolved with IVF in past 24h. creat at baseline 7. Back pain: chronic, recurrent exacerbation. appreciate Dr Manuel's input. OT/PT eval 8. HLD: on statin 9. Hypothyroidism: on synthroid 10. pain control: on [address] 11. Psych: unk dx, but has mult home meds. stable mood. continue regimen 12. Prophylaxis: heparin SQ 13. Dispo: to rehab in AM History of Present Illness History of Present Illness feels better. shingles not bothering her too badly. Vitals Vitals Vital Signs Date Time Temp Pulse Resp B/P (MAP) Pulse Ox O2 Delivery O2 Flow Rate FiO2 11/18/16 11:00 98.3 77 17 153/71 (98) 99 Room Air 98.3 Physical Exam General: Alert, Oriented X3, Cooperative, No acute distress Heart: Regular rate Lungs: Clear Abdomen: Normal bowel sounds, Soft, No tenderness Extremities: No edema Skin: Other (erythema over right buttock to thigh ) Labs LABS Laboratory Tests Test 11/17/16 15:50 11/17/16 17:00 White Blood Count 8.5 x10^3/uL (4.0-11.0) Red Blood Count 4.26 x10^6/uL (3.50-5.40) Hemoglobin 12.4 g/dL (12.0-15.5) Hematocrit 36.5 % (36.0-47.0) Mean Corpuscular Volume 86 fL (79-100) Mean Corpuscular Hemoglobin 29 pg (25-35) Mean Corpuscular Hemoglobin Concent 34 g/dL (31-37) Red Cell Distribution Width 13.7 % (11.5-14.5) Platelet Count 193 x10^3/uL (140-400) Neutrophils (%) (Auto) 46 % (31-73) Lymphocytes (%) (Auto) 36 % (24-48) Monocytes (%) (Auto) 14 % (0-9) Eosinophils (%) (Auto) 3 % (0-3) Basophils (%) (Auto) 1 % (0-3) Neutrophils # (Auto) 3.9 x10^3uL (1.8-7.7) Lymphocytes # (Auto) 3.1 x10^3/uL (1.0-4.8) Monocytes # (Auto) 1.2 x10^3/uL (0.0-1.1) Eosinophils # (Auto) 0.3 x10^3/uL (0.0-0.7) Basophils # (Auto) 0.1 x10^3/uL (0.0-0.2) Sodium Level 135 mmol/L (136-145) Potassium Level 2.5 mmol/L (3.5-5.1) Chloride Level 101 mmol/L (98-107) Carbon Dioxide Level 23 mmol/L (21-32) Anion Gap 11 (6-14) Blood Urea Nitrogen 36 mg/dL (7-20) Creatinine 2.3 mg/dL (0.6-1.0) Estimated GFR (Cockcroft-Gault) 20.7 BUN/Creatinine Ratio 16 (6-20) Glucose Level 104 mg/dL (70-99) Calcium Level 7.0 mg/dL (8.5-10.1) Total Bilirubin 0.2 mg/dL (0.2-1.0) Aspartate Amino Transf (AST/SGOT) 31 U/L (15-37) Alanine Aminotransferase (ALT/SGPT) 34 U/L (14-59) Alkaline Phosphatase 48 U/L (46-116) Total Protein 6.4 g/dL (6.4-8.2) Albumin 2.9 g/dL (3.4-5.0) Albumin/Globulin Ratio 0.8 (1.0-1.7) Urine Collection Type Void Urine Color Yellow Urine Clarity Clear Urine pH 6.0 Urine Specific [place] 1.015 Urine Protein Negative mg/dL (NEG-TRACE) Urine Glucose (UA) Negative mg/dL (NEG) Urine Ketones (Stick) Negative mg/dL (NEG) Urine Blood Negative (NEG) Urine Nitrite Negative (NEG) Urine Bilirubin Small (NEG) Urine Urobilinogen Dipstick 0.2 mg/dL (0.2 mg/dL) Urine Leukocyte Esterase Small (NEG) Urine RBC 0 /HPF (0-2) Urine WBC 11-20 /HPF (0-4) Urine Squamous Epithelial Cells Few /LPF Urine Bacteria Moderate /HPF (0-FEW) Urine Hyaline Casts Many /HPF Urine Mucus Slight /LPF LINDA SPENCER MD Nov 18, 2016 13:15
[2016-11-18 14:07] LABS: BASO % 0 % (0-3); EOS % 6 % (0-3); HEMATOCRIT 36.2 % (36.0-47.0); LYMPH # 3.2 x10^3/uL (1.0-4.8); LYMPH % 41 % (24-48); MEAN CORPUSCULAR HEMOGLOBIN 29 pg (25-35); MEAN CORPUSCULAR HGB CONC 33 g/dL (31-37); MEAN CORPUSCULAR VOLUME 86 fL (79-100); MONO % 11 % (0-9); NEUT % 42 % (31-73); PLATELET COUNT 194 x10^3/uL (140-400); RED BLOOD COUNT 4.21 x10^6/uL (3.50-5.40); RED CELL DISTRIBUTION WIDTH 14.2 % (11.5-14.5); WHITE BLOOD COUNT 7.9 x10^3/uL (4.0-11.0)
[2016-11-18] MEDS: HEPARIN PF for SUB-Q USE 5,000 UNIT/0.5 ML VIAL. SQ SCH ×2 (14:15→21:55)
[2016-11-18 14:33] LABS: CALCIUM 7.4 mg/dL (8.5-10.1); CREATININE 1.3 mg/dL (0.6-1.0); GFR 39.9; MAGNESIUM 2.4 mg/dL (1.8-2.4)
[2016-11-18 15:00] VITALS: BP 165/79
[2016-11-18 19:00] VITALS: BP 166/85
[2016-11-18] MEDS: traZODone 100 MG TABLET. PO SCH (20:56)
[2016-11-18] MEDS: ZIPRASIDONE 60 MG CAPSULE. PO SCH (20:56)
[2016-11-18] MEDS: SIMVASTATIN 40 MG TABLET. PO SCH (20:56)
[2016-11-18 23:00] VITALS: BP 158/78
[2016-11-19 03:00] VITALS: BP 166/79
[2016-11-19 04:50] LABS: BASO # 0.1 x10^3/uL (0.0-0.2); BASO % 1 % (0-3); EOS % 9 % (0-3); HEMATOCRIT 36.2 % (36.0-47.0); HEMOGLOBIN 12.2 g/dL (12.0-15.5); LYMPH # 2.6 x10^3/uL (1.0-4.8); LYMPH % 39 % (24-48); MEAN CORPUSCULAR HEMOGLOBIN 29 pg (25-35); MEAN CORPUSCULAR HGB CONC 34 g/dL (31-37); MEAN CORPUSCULAR VOLUME 85 fL (79-100); MONO % 9 % (0-9); NEUT % 41 % (31-73); PLATELET COUNT 205 x10^3/uL (140-400); RED BLOOD COUNT 4.26 x10^6/uL (3.50-5.40); WHITE BLOOD COUNT 6.5 x10^3/uL (4.0-11.0)
[2016-11-19 05:44] LABS: CALCIUM 8.2 mg/dL (8.5-10.1); CREATININE 0.9 mg/dL (0.6-1.0); POTASSIUM 3.5 mmol/L (3.5-5.1)
[2016-11-19] MEDS: PANTOPRAZOLE 40 MG TABLET.DR. PO SCH (06:18)
[2016-11-19] MEDS: LEVOTHYROXINE 50 MCG TABLET PO SCH (06:18)
[2016-11-19] MEDS: HEPARIN PF for SUB-Q USE 5,000 UNIT/0.5 ML VIAL. SQ SCH ×3 (06:24→21:16)
[2016-11-19 07:00] VITALS: BP 154/79
[2016-11-19] MEDS: SERTRALINE 50 MG TABLET. PO SCH (08:50)
[2016-11-19] MEDS: ACYCLOVIR 200 MG CAPSULE. PO SCH ×3 (08:50→21:12)
[2016-11-19] MEDS: ASPIRIN ENTERIC COATED 81 MG TABLET.DR. PO SCH (08:50)
[2016-11-19] MEDS: MULTIVITAMIN with MINERAL TABLET. PO SCH (08:50)
[2016-11-19] MEDS: OXYBUTYNIN CHLORIDE 5 MG TABLET PO SCH ×3 (08:50→21:12)
[2016-11-19] MEDS: DOCUSATE SODIUM 100 MG CAPSULE. PO SCH (08:50)
[2016-11-19] MEDS: LISINOPRIL 40 MG TABLET. PO SCH (08:51)
[2016-11-19] MEDS: METOPROLOL TART IMMED RELEASE 50 MG TABLET. PO SCH ×2 (08:51→21:13)
[2016-11-19] MEDS: HYDROcodone/APAP 5/325MG 1 TAB TABLET PO PRN ×3 (08:54→21:35)
[2016-11-19] MEDS: hydrOXYzine PAMOATE 25 MG CAPSULE PO SCH ×2 (08:57→21:12)
--- NOTE | 2016-11-19 09:41 | PDOC ---
PROGRESS NOTES Subjective Subjective She admits continued low back pain. Objective Objective Vital Signs Date Time Temp Pulse Resp B/P (MAP) Pulse Ox O2 Delivery O2 Flow Rate FiO2 11/19/16 08:54 18 Room Air 11/19/16 08:51 72 154/79 11/19/16 03:00 96.9 94 96.9 Intake and Output 11/19/16 07:00 Intake Total 1080 ml Balance 1080 ml Intake Oral 480 ml IV Total 600 ml # Voids 5 Physical Exam Physical Exam She is lying on her left side and she is getting up and walking in her room. Assessment Assessment Problems Medical Problems: (1) Back pain Status: Acute Plan Plan of Care To SNF or to assisted living facility with home health follow up when medically stable. Comment Review of Relevant I have reviewed the following items jaki (where applicable) has been applied. Labs Laboratory Tests Test 11/17/16 15:50 11/17/16 17:00 11/18/16 13:45 11/19/16 04:20 White Blood Count 8.5 x10^3/uL (4.0-11.0) 7.9 x10^3/uL (4.0-11.0) 6.5 x10^3/uL (4.0-11.0) Red Blood Count 4.26 x10^6/uL (3.50-5.40) 4.21 x10^6/uL (3.50-5.40) 4.26 x10^6/uL (3.50-5.40) Hemoglobin 12.4 g/dL (12.0-15.5) 12.0 g/dL (12.0-15.5) 12.2 g/dL (12.0-15.5) Hematocrit 36.5 % (36.0-47.0) 36.2 % (36.0-47.0) 36.2 % (36.0-47.0) Mean Corpuscular Volume 86 fL (79-100) 86 fL (79-100) 85 fL (79-100) Mean Corpuscular Hemoglobin 29 pg (25-35) 29 pg (25-35) 29 pg (25-35) Mean Corpuscular Hemoglobin Concent 34 g/dL (31-37) 33 g/dL (31-37) 34 g/dL (31-37) Red Cell Distribution Width 13.7 % (11.5-14.5) 14.2 % (11.5-14.5) 14.0 % (11.5-14.5) Platelet Count 193 x10^3/uL (140-400) 194 x10^3/uL (140-400) 205 x10^3/uL (140-400) Neutrophils (%) (Auto) 46 % (31-73) 42 % (31-73) 41 % (31-73) Lymphocytes (%) (Auto) 36 % (24-48) 41 % (24-48) 39 % (24-48) Monocytes (%) (Auto) 14 % (0-9) 11 % (0-9) 9 % (0-9) Eosinophils (%) (Auto) 3 % (0-3) 6 % (0-3) 9 % (0-3) Basophils (%) (Auto) 1 % (0-3) 0 % (0-3) 1 % (0-3) Neutrophils # (Auto) 3.9 x10^3uL (1.8-7.7) 3.3 x10^3uL (1.8-7.7) 2.7 x10^3uL (1.8-7.7) Lymphocytes # (Auto) 3.1 x10^3/uL (1.0-4.8) 3.2 x10^3/uL (1.0-4.8) 2.6 x10^3/uL (1.0-4.8) Monocytes # (Auto) 1.2 x10^3/uL (0.0-1.1) 0.9 x10^3/uL (0.0-1.1) 0.6 x10^3/uL (0.0-1.1) Eosinophils # (Auto) 0.3 x10^3/uL (0.0-0.7) 0.5 x10^3/uL (0.0-0.7) 0.6 x10^3/uL (0.0-0.7) Basophils # (Auto) 0.1 x10^3/uL (0.0-0.2) 0.0 x10^3/uL (0.0-0.2) 0.1 x10^3/uL (0.0-0.2) Sodium Level 135 mmol/L (136-145) 140 mmol/L (136-145) 140 mmol/L (136-145) Potassium Level 2.5 mmol/L (3.5-5.1) 4.0 mmol/L (3.5-5.1) 3.5 mmol/L (3.5-5.1) Chloride Level 101 mmol/L (98-107) 109 mmol/L (98-107) 106 mmol/L (98-107) Carbon Dioxide Level 23 mmol/L (21-32) 21 mmol/L (21-32) 21 mmol/L (21-32) Anion Gap 11 (6-14) 10 (6-14) 13 (6-14) Blood Urea Nitrogen 36 mg/dL (7-20) 24 mg/dL (7-20) 12 mg/dL (7-20) Creatinine 2.3 mg/dL (0.6-1.0) 1.3 mg/dL (0.6-1.0) 0.9 mg/dL (0.6-1.0) Estimated GFR (Cockcroft-Gault) 20.7 39.9 61.0 BUN/Creatinine Ratio 16 (6-20) Glucose Level 104 mg/dL (70-99) 102 mg/dL (70-99) 93 mg/dL (70-99) Calcium Level 7.0 mg/dL (8.5-10.1) 7.4 mg/dL (8.5-10.1) 8.2 mg/dL (8.5-10.1) Total Bilirubin 0.2 mg/dL (0.2-1.0) Aspartate Amino Transf (AST/SGOT) 31 U/L (15-37) Alanine Aminotransferase (ALT/SGPT) 34 U/L (14-59) Alkaline Phosphatase 48 U/L (46-116) Total Protein 6.4 g/dL (6.4-8.2) Albumin 2.9 g/dL (3.4-5.0) Albumin/Globulin Ratio 0.8 (1.0-1.7) Urine Collection Type Void Urine Color Yellow Urine Clarity Clear Urine pH 6.0 Urine Specific [place] 1.015 Urine Protein Negative mg/dL (NEG-TRACE) Urine Glucose (UA) Negative mg/dL (NEG) Urine Ketones (Stick) Negative mg/dL (NEG) Urine Blood Negative (NEG) Urine Nitrite Negative (NEG) Urine Bilirubin Small (NEG) Urine Urobilinogen Dipstick 0.2 mg/dL (0.2 mg/dL) Urine Leukocyte Esterase Small (NEG) Urine RBC 0 /HPF (0-2) Urine WBC 11-20 /HPF (0-4) Urine Squamous Epithelial Cells Few /LPF Urine Bacteria Moderate /HPF (0-FEW) Urine Hyaline Casts Many /HPF Urine Mucus Slight /LPF Magnesium Level 2.4 mg/dL (1.8-2.4) Laboratory Tests Test 11/18/16 13:45 11/19/16 04:20 White Blood Count 7.9 x10^3/uL (4.0-11.0) 6.5 x10^3/uL (4.0-11.0) Red Blood Count 4.21 x10^6/uL (3.50-5.40) 4.26 x10^6/uL (3.50-5.40) Hemoglobin 12.0 g/dL (12.0-15.5) 12.2 g/dL (12.0-15.5) Hematocrit 36.2 % (36.0-47.0) 36.2 % (36.0-47.0) Mean Corpuscular Volume 86 fL (79-100) 85 fL (79-100) Mean Corpuscular Hemoglobin 29 pg (25-35) 29 pg (25-35) Mean Corpuscular Hemoglobin Concent 33 g/dL (31-37) 34 g/dL (31-37) Red Cell Distribution Width 14.2 % (11.5-14.5) 14.0 % (11.5-14.5) Platelet Count 194 x10^3/uL (140-400) 205 x10^3/uL (140-400) Neutrophils (%) (Auto) 42 % (31-73) 41 % (31-73) Lymphocytes (%) (Auto) 41 % (24-48) 39 % (24-48) Monocytes (%) (Auto) 11 % (0-9) 9 % (0-9) Eosinophils (%) (Auto) 6 % (0-3) 9 % (0-3) Basophils (%) (Auto) 0 % (0-3) 1 % (0-3) Neutrophils # (Auto) 3.3 x10^3uL (1.8-7.7) 2.7 x10^3uL (1.8-7.7) Lymphocytes # (Auto) 3.2 x10^3/uL (1.0-4.8) 2.6 x10^3/uL (1.0-4.8) Monocytes # (Auto) 0.9 x10^3/uL (0.0-1.1) 0.6 x10^3/uL (0.0-1.1) Eosinophils # (Auto) 0.5 x10^3/uL (0.0-0.7) 0.6 x10^3/uL (0.0-0.7) Basophils # (Auto) 0.0 x10^3/uL (0.0-0.2) 0.1 x10^3/uL (0.0-0.2) Sodium Level 140 mmol/L (136-145) 140 mmol/L (136-145) Potassium Level 4.0 mmol/L (3.5-5.1) 3.5 mmol/L (3.5-5.1) Chloride Level 109 mmol/L (98-107) 106 mmol/L (98-107) Carbon Dioxide Level 21 mmol/L (21-32) 21 mmol/L (21-32) Anion Gap 10 (6-14) 13 (6-14) Blood Urea Nitrogen 24 mg/dL (7-20) 12 mg/dL (7-20) Creatinine 1.3 mg/dL (0.6-1.0) 0.9 mg/dL (0.6-1.0) Estimated GFR (Cockcroft-Gault) 39.9 61.0 Glucose Level 102 mg/dL (70-99) 93 mg/dL (70-99) Calcium Level 7.4 mg/dL (8.5-10.1) 8.2 mg/dL (8.5-10.1) Magnesium Level 2.4 mg/dL (1.8-2.4) Microbiology 11/17/16 Blood Culture - Preliminary, Resulted NO GROWTH AFTER 1 DAY 11/17/16 Urine Culture - Preliminary, Resulted 11/17/16 Urine Culture Result 1 (MARY) - Preliminary, Resulted Medications Current Medications Cyclobenzaprine HCl (Flexeril) 5 mg 1X ONCE PO Last administered on 11/15/16 13:33; Start 11/15/16 at 12:45; Stop 11/15/16 at 12:46; Status DC Prednisone (Prednisone) 40 mg 1X ONCE PO Last administered on 11/15/16 13:34 ; Start 11/15/16 at 12:45; Stop 11/15/16 at 12:46; Status DC Fentanyl Citrate (Fentanyl 2ml Vial) 25 mcg PRN Q2HR PRN IV PAIN Last administered on 11/16/16 06:03; Start 11/15/16 at 14:15; Stop 11/16/16 at 14:14 ; Status DC Aspirin (Ecotrin) 81 mg DAILY PO Last administered on 11/19/16 08:50; Start at 09:00 Docusate Sodium (Colace) 100 mg DAILY PO Last administered on 11/19/16 08:50; Start 11/16/16 at 09:00 Hydroxyzine Pamoate (Vistaril) 25 mg BID PO Last administered on 11/19/16 08: 57; Start 11/15/16 at 21:00 Levothyroxine Sodium (Synthroid) 50 mcg DAILY06 PO Last administered on 06:18; Start 11/16/16 at 06:00 Lisinopril (Prinivil) 40 mg DAILY PO Last administered on 11/19/16 08:51; Start 11/16/16 at 09:00 Metoclopramide HCl (Reglan) 10 mg TIDAC PRN PO NAUSEA; Start 11/15/16 at 20:00 Metoprolol Tartrate (Lopressor) 50 mg BID PO Last administered on 11/19/16 08: 51; Start 11/15/16 at 21:00 Simvastatin (Zocor) 40 mg QHS PO Last administered on 11/18/16 20:56; Start at 21:00 Non-Formulary Medication 1 tab WEEKLY PO ; Start 11/22/16 at 09:00; Stop at 09:00; Status DC Pantoprazole Sodium (Protonix) 40 mg DAILYAC PO Last administered on 11/19/16 06:18; Start 11/16/16 at 07:30 Hydrochlorothiazide (Hydrodiuril) 25 mg DAILY PO Last administered on 10:41; Start 11/16/16 at 09:00; Stop 11/17/16 at 18:23; Status DC Multivitamins (Thera M Plus) 1 tab DAILY PO Last administered on 11/19/16 08: 50; Start 11/16/16 at 09:00 Sertraline HCl (Zoloft) 200 mg DAILY PO Last administered on 11/19/16 08:50; Start 11/16/16 at 09:00 Oxybutynin Chloride (Ditropan) 5 mg [id number] PO Last administered on 11/19/16 08 :50; Start 11/16/16 at 09:00 Trazodone HCl (Desyrel) 150 mg QHS PO Last administered on 11/18/16 20:56; Start 11/15/16 at 21:00 Ziprasidone (Geodon) 180 mg QHS PO Last administered on 11/18/16 20:56; Start 11/15/16 at 21:00 Methylprednisolone Acetate (DEPO-Medrol 40MG VIAL) 40 mg 1X ONCE IM ; Start at 09:30; Stop 11/16/16 at 09:39; Status DC Bupivacaine HCl (Sensorcaine-Mpf 0.25%) 10 ml 1X ONCE IJ ; Start 11/16/16 at 09 :30; Stop 11/16/16 at 09:39; Status DC Oxycodone/ Acetaminophen (Percocet 7.5/ 325) 1 tab PRN Q6HRS PRN PO PAIN Last administered on 11/16/16 21:56; Start 11/16/16 at 09:30; Stop 11/17/16 at 15:20 ; Status DC Acetaminophen (Tylenol) 500 mg PRN Q6HRS PRN PO MILD PAIN / TEMP; Start at 10:00 Ondansetron HCl (Zofran) 4 mg PRN Q6HRS PRN IV NAUSEA/VOMITING; Start 11/16/16 at 10:00 Prednisone (Prednisone) 10 mg DAILY PO ; Start 11/16/16 at 10:30; Stop 11/16/16 at 12:08; Status DC Acyclovir (Zovirax) 800 mg TID PO Last administered on 11/19/16 08:50; Start 11/16/16 at 14:00 Potassium Chloride (Klor-Con) 40 meq 1X ONCE PO Last administered on 12:24; Start 11/16/16 at 11:45; Stop 11/16/16 at 11:50; Status DC Sodium Chloride 500 ml @ 500 mls/hr 1X ONCE IV Last administered on 09:03; Start 11/17/16 at 08:30; Stop 11/17/16 at 09:29; Status DC Sodium Chloride 1,000 ml @ 75 mls/hr [id number] IV Last administered on 10:30; Start 11/17/16 at 10:00; Stop 11/17/16 at 18:23; Status DC Acetaminophen/ Hydrocodone Bitart (Lortab 5/325) 1 tab PRN Q6HRS PRN PO PAIN Last administered on 11/19/16 08:54; Start 11/17/16 at 15:15 Sodium Chloride 1,000 ml @ 1,000 mls/hr 1X ONCE IV Last administered on 15:54; Start 11/17/16 at 15:30; Stop 11/17/16 at 16:29; Status DC Potassium Chloride 20 meq/ Sodium Chloride 1,010 ml @ 75 mls/hr [id number] PRN IV .; Start 11/17/16 at 19:00; Stop 11/17/16 at 19:00; Status DC Potassium Chloride (Klor-Con) 40 meq 1X ONCE PO Last administered on 18:43; Start 11/17/16 at 18:30; Stop 11/17/16 at 18:31; Status DC Potassium Chloride (Klor-Con) 40 meq 1X ONCE PO Last administered on 22:30; Start 11/17/16 at 21:00; Stop 11/17/16 at 21:01; Status DC Potassium Chloride/Sodium Chloride 1,000 ml @ 75 mls/hr [id number] IV Last administered on 11/18/16 06:11; Start 11/17/16 at 19:00; Stop 11/18/16 at 13:12 ; Status DC Ceftriaxone Sodium 1 gm/ Sodium Chloride 50 ml @ 100 mls/hr Q24H IV Last administered on 11/18/16 18:09; Start 11/17/16 at 19:00 Heparin Sodium (Porcine) (Heparin Sq) 5,000 unit Q8HRS SQ Last administered on 11/19/16 06:24; Start 11/18/16 at 14:00 Active Scripts Active Zofran Odt (Ondansetron) 4 Mg Tab.rapdis 1 Tab SL PRN Q8HRS PRN Hydrocodone-Apap 5-325 (Hydrocodone Bit/Acetaminophen) 1 Each Tablet 1 Tab PO PRN Q6HRS PRN Be careful as this medication may cause you to be drowsy or tired. Do not drive on this medication. Reported Trazodone Hcl 150 Mg Tablet 1 Tab PO QHS Geodon (Ziprasidone Hcl) 80 Mg Capsule 2 Cap PO QHS Simvastatin 40 Mg Tablet 1 Tab PO QHS Reglan (Metoclopramide Hcl) 10 Mg Tablet 1 Tab PO TIDAC PRN Nexium Capsule (Esomeprazole Magnesium) 40 Mg Capsule.dr 1 Cap PO BID Metoprolol Tartrate 50 Mg Tablet 1 Tab PO BID Hydroxyzine Pamoate 25 Mg Capsule 1 Cap PO BID Calcium 600 + Vit D 200 Tablet (Calcium Carbonate/Vitamin D3) 1 Each Tablet 1 Each PO Detrol La (Tolterodine Tartrate) 4 Mg Cap.er.24h 1 Cap PO DAILY Sertraline Hcl 100 Mg Tablet 200 Mg PO DAILY Lisinopril 40 Mg Tablet 1 Tab PO DAILY Levothyroxine Sodium 50 Mcg Tablet 1 Tab PO DAILY Hydrochlorothiazide Tablet (Hydrochlorothiazide) 12.5 Mg Tablet 2 Tab PO DAILY Docusate Sodium 100 Mg Capsule 1 Cap PO DAILY Aspir 81 (Aspirin) 81 Mg Tablet.dr 1 Tab PO DAILY Certavite Sr-Antioxidant Tab (Multivits-Min/Fa/Lycopene/Lut) 1 Each Tablet 1 Each PO DAILY Alendronate Sodium 35 Mg Tablet 1 Tab PO WEEKLY Vitals/I & O Vital Sign - Last 24 Hours 11/18/16 11/18/16 11/18/16 11/18/16 10:24 11:00 15:00 16:10 Temp 98.3 98.1 98.3 98.1 Pulse 77 67 Resp 18 17 17 18 B/P (MAP) 153/71 (98) 165/79 (107) Pulse Ox 99 99 O2 Delivery Room Air Room Air Room Air 11/18/16 11/18/16 11/18/16 11/18/16 19:00 20:59 22:19 23:00 Temp 98.4 98.4 98.4 98.4 Pulse 84 90 84 Resp 18 20 18 B/P (MAP) 166/85 (112) 154/83 158/78 (104) Pulse Ox 94 94 98 O2 Delivery Room Air Room Air Room Air 11/18/16 11/19/16 11/19/16 11/19/16 23:19 03:00 08:00 08:51 Temp 96.9 96.9 Pulse 79 72 Resp 20 18 B/P (MAP) 166/79 (108) 154/79 Pulse Ox 94 94 O2 Delivery Room Air Room Air Room Air 11/19/16 11/19/16 08:51 08:54 Pulse 72 Resp 18 B/P (MAP) 154/79 O2 Delivery Room Air Intake and Output 11/18/16 11/18/16 11/19/16 15:00 23:00 07:00 Intake Total 790 ml 290 ml Balance 790 ml 290 ml TANJA AYALA MD Nov 19, 2016 09:41
[2016-11-19 11:00] VITALS: BP 139/70
--- NOTE | 2016-11-19 14:24 | PDOC ---
PROGRESS NOTES Chief Complaint Chief Complaint Shingles back pain 1. Shingles: R buttock. started on acyclovir. improving 2. HTN: poorly controlled at admit, then hypotensive urosepsis. now elevated again - restart meds 3. Hypotension: w. sepsis now resolved. 4. UTI: per UA. started empiric ceftriax. cx showed mixed jocelyn 5. Hypokalemia: resolved. stopped HCTZ. 6. BRIAN on CKD3: vasomotor. resolved with IVF in past 24h. creat at baseline 7. Back pain: chronic, recurrent exacerbation. appreciate Dr Manuel's input. OT/PT eval 8. HLD: on statin 9. Hypothyroidism: on synthroid 10. pain control: on [place] 11. Psych: unk dx, but has mult home meds. stable mood. continue regimen 12. Prophylaxis: heparin SQ 13. Dispo: to rehab in AM History of Present Illness History of Present Illness feels better. shingles not bothering her too badly. Vitals Vitals Vital Signs Date Time Temp Pulse Resp B/P (MAP) Pulse Ox O2 Delivery O2 Flow Rate FiO2 11/19/16 11:00 98.4 69 18 139/70 (93) 98 Room Air 98.4 Physical Exam General: Alert, Oriented X3, Cooperative, No acute distress Heart: Regular rate Lungs: Clear Abdomen: Normal bowel sounds, Soft, No tenderness Extremities: No edema Skin: Other Labs LABS Laboratory Tests Test 11/19/16 04:20 White Blood Count 6.5 x10^3/uL (4.0-11.0) Red Blood Count 4.26 x10^6/uL (3.50-5.40) Hemoglobin 12.2 g/dL (12.0-15.5) Hematocrit 36.2 % (36.0-47.0) Mean Corpuscular Volume 85 fL (79-100) Mean Corpuscular Hemoglobin 29 pg (25-35) Mean Corpuscular Hemoglobin Concent 34 g/dL (31-37) Red Cell Distribution Width 14.0 % (11.5-14.5) Platelet Count 205 x10^3/uL (140-400) Neutrophils (%) (Auto) 41 % (31-73) Lymphocytes (%) (Auto) 39 % (24-48) Monocytes (%) (Auto) 9 % (0-9) Eosinophils (%) (Auto) 9 % (0-3) Basophils (%) (Auto) 1 % (0-3) Neutrophils # (Auto) 2.7 x10^3uL (1.8-7.7) Lymphocytes # (Auto) 2.6 x10^3/uL (1.0-4.8) Monocytes # (Auto) 0.6 x10^3/uL (0.0-1.1) Eosinophils # (Auto) 0.6 x10^3/uL (0.0-0.7) Basophils # (Auto) 0.1 x10^3/uL (0.0-0.2) Sodium Level 140 mmol/L (136-145) Potassium Level 3.5 mmol/L (3.5-5.1) Chloride Level 106 mmol/L (98-107) Carbon Dioxide Level 21 mmol/L (21-32) Anion Gap 13 (6-14) Blood Urea Nitrogen 12 mg/dL (7-20) Creatinine 0.9 mg/dL (0.6-1.0) Estimated GFR (Cockcroft-Gault) 61.0 Glucose Level 93 mg/dL (70-99) Calcium Level 8.2 mg/dL (8.5-10.1) Review of Systems Review of Systems back pain good po intake no stool Assessment and Plan Assessmemt and Plan Problems Medical Problems: (1) Back pain Status: Acute Problems: Comment Review of Relevant I have reviewed the following items jaki (where applicable) has been applied. Labs Laboratory Tests Test 11/17/16 15:50 11/17/16 17:00 11/18/16 13:45 11/19/16 04:20 White Blood Count 8.5 x10^3/uL (4.0-11.0) 7.9 x10^3/uL (4.0-11.0) 6.5 x10^3/uL (4.0-11.0) Red Blood Count 4.26 x10^6/uL (3.50-5.40) 4.21 x10^6/uL (3.50-5.40) 4.26 x10^6/uL (3.50-5.40) Hemoglobin 12.4 g/dL (12.0-15.5) 12.0 g/dL (12.0-15.5) 12.2 g/dL (12.0-15.5) Hematocrit 36.5 % (36.0-47.0) 36.2 % (36.0-47.0) 36.2 % (36.0-47.0) Mean Corpuscular Volume 86 fL (79-100) 86 fL (79-100) 85 fL (79-100) Mean Corpuscular Hemoglobin 29 pg (25-35) 29 pg (25-35) 29 pg (25-35) Mean Corpuscular Hemoglobin Concent 34 g/dL (31-37) 33 g/dL (31-37) 34 g/dL (31-37) Red Cell Distribution Width 13.7 % (11.5-14.5) 14.2 % (11.5-14.5) 14.0 % (11.5-14.5) Platelet Count 193 x10^3/uL (140-400) 194 x10^3/uL (140-400) 205 x10^3/uL (140-400) Neutrophils (%) (Auto) 46 % (31-73) 42 % (31-73) 41 % (31-73) Lymphocytes (%) (Auto) 36 % (24-48) 41 % (24-48) 39 % (24-48) Monocytes (%) (Auto) 14 % (0-9) 11 % (0-9) 9 % (0-9) Eosinophils (%) (Auto) 3 % (0-3) 6 % (0-3) 9 % (0-3) Basophils (%) (Auto) 1 % (0-3) 0 % (0-3) 1 % (0-3) Neutrophils # (Auto) 3.9 x10^3uL (1.8-7.7) 3.3 x10^3uL (1.8-7.7) 2.7 x10^3uL (1.8-7.7) Lymphocytes # (Auto) 3.1 x10^3/uL (1.0-4.8) 3.2 x10^3/uL (1.0-4.8) 2.6 x10^3/uL (1.0-4.8) Monocytes # (Auto) 1.2 x10^3/uL (0.0-1.1) 0.9 x10^3/uL (0.0-1.1) 0.6 x10^3/uL (0.0-1.1) Eosinophils # (Auto) 0.3 x10^3/uL (0.0-0.7) 0.5 x10^3/uL (0.0-0.7) 0.6 x10^3/uL (0.0-0.7) Basophils # (Auto) 0.1 x10^3/uL (0.0-0.2) 0.0 x10^3/uL (0.0-0.2) 0.1 x10^3/uL (0.0-0.2) Sodium Level 135 mmol/L (136-145) 140 mmol/L (136-145) 140 mmol/L (136-145) Potassium Level 2.5 mmol/L (3.5-5.1) 4.0 mmol/L (3.5-5.1) 3.5 mmol/L (3.5-5.1) Chloride Level 101 mmol/L (98-107) 109 mmol/L (98-107) 106 mmol/L (98-107) Carbon Dioxide Level 23 mmol/L (21-32) 21 mmol/L (21-32) 21 mmol/L (21-32) Anion Gap 11 (6-14) 10 (6-14) 13 (6-14) Blood Urea Nitrogen 36 mg/dL (7-20) 24 mg/dL (7-20) 12 mg/dL (7-20) Creatinine 2.3 mg/dL (0.6-1.0) 1.3 mg/dL (0.6-1.0) 0.9 mg/dL (0.6-1.0) Estimated GFR (Cockcroft-Gault) 20.7 39.9 61.0 BUN/Creatinine Ratio 16 (6-20) Glucose Level 104 mg/dL (70-99) 102 mg/dL (70-99) 93 mg/dL (70-99) Calcium Level 7.0 mg/dL (8.5-10.1) 7.4 mg/dL (8.5-10.1) 8.2 mg/dL (8.5-10.1) Total Bilirubin 0.2 mg/dL (0.2-1.0) Aspartate Amino Transf (AST/SGOT) 31 U/L (15-37) Alanine Aminotransferase (ALT/SGPT) 34 U/L (14-59) Alkaline Phosphatase 48 U/L (46-116) Total Protein 6.4 g/dL (6.4-8.2) Albumin 2.9 g/dL (3.4-5.0) Albumin/Globulin Ratio 0.8 (1.0-1.7) Urine Collection Type Void Urine Color Yellow Urine Clarity Clear Urine pH 6.0 Urine Specific [place] 1.015 Urine Protein Negative mg/dL (NEG-TRACE) Urine Glucose (UA) Negative mg/dL (NEG) Urine Ketones (Stick) Negative mg/dL (NEG) Urine Blood Negative (NEG) Urine Nitrite Negative (NEG) Urine Bilirubin Small (NEG) Urine Urobilinogen Dipstick 0.2 mg/dL (0.2 mg/dL) Urine Leukocyte Esterase Small (NEG) Urine RBC 0 /HPF (0-2) Urine WBC 11-20 /HPF (0-4) Urine Squamous Epithelial Cells Few /LPF Urine Bacteria Moderate /HPF (0-FEW) Urine Hyaline Casts Many /HPF Urine Mucus Slight /LPF Magnesium Level 2.4 mg/dL (1.8-2.4) Laboratory Tests Test 11/19/16 04:20 White Blood Count 6.5 x10^3/uL (4.0-11.0) Red Blood Count 4.26 x10^6/uL (3.50-5.40) Hemoglobin 12.2 g/dL (12.0-15.5) Hematocrit 36.2 % (36.0-47.0) Mean Corpuscular Volume 85 fL (79-100) Mean Corpuscular Hemoglobin 29 pg (25-35) Mean Corpuscular Hemoglobin Concent 34 g/dL (31-37) Red Cell Distribution Width 14.0 % (11.5-14.5) Platelet Count 205 x10^3/uL (140-400) Neutrophils (%) (Auto) 41 % (31-73) Lymphocytes (%) (Auto) 39 % (24-48) Monocytes (%) (Auto) 9 % (0-9) Eosinophils (%) (Auto) 9 % (0-3) Basophils (%) (Auto) 1 % (0-3) Neutrophils # (Auto) 2.7 x10^3uL (1.8-7.7) Lymphocytes # (Auto) 2.6 x10^3/uL (1.0-4.8) Monocytes # (Auto) 0.6 x10^3/uL (0.0-1.1) Eosinophils # (Auto) 0.6 x10^3/uL (0.0-0.7) Basophils # (Auto) 0.1 x10^3/uL (0.0-0.2) Sodium Level 140 mmol/L (136-145) Potassium Level 3.5 mmol/L (3.5-5.1) Chloride Level 106 mmol/L (98-107) Carbon Dioxide Level 21 mmol/L (21-32) Anion Gap 13 (6-14) Blood Urea Nitrogen 12 mg/dL (7-20) Creatinine 0.9 mg/dL (0.6-1.0) Estimated GFR (Cockcroft-Gault) 61.0 Glucose Level 93 mg/dL (70-99) Calcium Level 8.2 mg/dL (8.5-10.1) Microbiology 11/17/16 Blood Culture - Preliminary, Resulted NO GROWTH AFTER 1 DAY 11/17/16 Urine Culture - Preliminary, Resulted 11/17/16 Urine Culture Result 1 (MARY) - Preliminary, Resulted Medications Current Medications Cyclobenzaprine HCl (Flexeril) 5 mg 1X ONCE PO Last administered on 11/15/16 13:33; Start 11/15/16 at 12:45; Stop 11/15/16 at 12:46; Status DC Prednisone (Prednisone) 40 mg 1X ONCE PO Last administered on 11/15/16 13:34 ; Start 11/15/16 at 12:45; Stop 11/15/16 at 12:46; Status DC Fentanyl Citrate (Fentanyl 2ml Vial) 25 mcg PRN Q2HR PRN IV PAIN Last administered on 11/16/16 06:03; Start 11/15/16 at 14:15; Stop 11/16/16 at 14:14 ; Status DC Aspirin (Ecotrin) 81 mg DAILY PO Last administered on 11/19/16 08:50; Start at 09:00 Docusate Sodium (Colace) 100 mg DAILY PO Last administered on 11/19/16 08:50; Start 11/16/16 at 09:00 Hydroxyzine Pamoate (Vistaril) 25 mg BID PO Last administered on 11/19/16 08: 57; Start 11/15/16 at 21:00 Levothyroxine Sodium (Synthroid) 50 mcg DAILY06 PO Last administered on 06:18; Start 11/16/16 at 06:00 Lisinopril (Prinivil) 40 mg DAILY PO Last administered on 11/19/16 08:51; Start 11/16/16 at 09:00 Metoclopramide HCl (Reglan) 10 mg TIDAC PRN PO NAUSEA; Start 11/15/16 at 20:00 Metoprolol Tartrate (Lopressor) 50 mg BID PO Last administered on 11/19/16 08: 51; Start 11/15/16 at 21:00 Simvastatin (Zocor) 40 mg QHS PO Last administered on 11/18/16 20:56; Start at 21:00 Non-Formulary Medication 1 tab WEEKLY PO ; Start 11/22/16 at 09:00; Stop at 09:00; Status DC Pantoprazole Sodium (Protonix) 40 mg DAILYAC PO Last administered on 11/19/16 06:18; Start 11/16/16 at 07:30 Hydrochlorothiazide (Hydrodiuril) 25 mg DAILY PO Last administered on 10:41; Start 11/16/16 at 09:00; Stop 11/17/16 at 18:23; Status DC Multivitamins (Thera M Plus) 1 tab DAILY PO Last administered on 11/19/16 08: 50; Start 11/16/16 at 09:00 Sertraline HCl (Zoloft) 200 mg DAILY PO Last administered on 11/19/16 08:50; Start 11/16/16 at 09:00 Oxybutynin Chloride (Ditropan) 5 mg [id number] PO Last administered on 11/19/16 13 :53; Start 11/16/16 at 09:00 Trazodone HCl (Desyrel) 150 mg QHS PO Last administered on 7/20/17at 20:56; Start 11/15/16 at 21:00 Ziprasidone (Geodon) 180 mg QHS PO Last administered on 11/18/16 20:56; Start 11/15/16 at 21:00 Methylprednisolone Acetate (DEPO-Medrol 40MG VIAL) 40 mg 1X ONCE IM ; Start at 09:30; Stop 11/16/16 at 09:39; Status DC Bupivacaine HCl (Sensorcaine-Mpf 0.25%) 10 ml 1X ONCE IJ ; Start 11/16/16 at 09 :30; Stop 11/16/16 at 09:39; Status DC Oxycodone/ Acetaminophen (Percocet 7.5/ 325) 1 tab PRN Q6HRS PRN PO PAIN Last administered on 11/16/16 21:56; Start 11/16/16 at 09:30; Stop 11/17/16 at 15:20 ; Status DC Acetaminophen (Tylenol) 500 mg PRN Q6HRS PRN PO MILD PAIN / TEMP; Start at 10:00 Ondansetron HCl (Zofran) 4 mg PRN Q6HRS PRN IV NAUSEA/VOMITING; Start 11/16/16 at 10:00 Prednisone (Prednisone) 10 mg DAILY PO ; Start 11/16/16 at 10:30; Stop 11/16/16 at 12:08; Status DC Acyclovir (Zovirax) 800 mg TID PO Last administered on 11/19/16 13:54; Start 11/16/16 at 14:00 Potassium Chloride (Klor-Con) 40 meq 1X ONCE PO Last administered on 12:24; Start 11/16/16 at 11:45; Stop 11/16/16 at 11:50; Status DC Sodium Chloride 500 ml @ 500 mls/hr 1X ONCE IV Last administered on 09:03; Start 11/17/16 at 08:30; Stop 11/17/16 at 09:29; Status DC Sodium Chloride 1,000 ml @ 75 mls/hr [id number] IV Last administered on 10:30; Start 11/17/16 at 10:00; Stop 11/17/16 at 18:23; Status DC Acetaminophen/ Hydrocodone Bitart (Lortab 5/325) 1 tab PRN Q6HRS PRN PO MODERATE - SEVERE PAIN Last administered on 11/19/16 08:54; Start 11/17/16 at 15:15 Sodium Chloride 1,000 ml @ 1,000 mls/hr 1X ONCE IV Last administered on 15:54; Start 11/17/16 at 15:30; Stop 11/17/16 at 16:29; Status DC Potassium Chloride 20 meq/ Sodium Chloride 1,010 ml @ 75 mls/hr [id number] PRN IV .; Start 11/17/16 at 19:00; Stop 11/17/16 at 19:00; Status DC Potassium Chloride (Klor-Con) 40 meq 1X ONCE PO Last administered on 18:43; Start 11/17/16 at 18:30; Stop 11/17/16 at 18:31; Status DC Potassium Chloride (Klor-Con) 40 meq 1X ONCE PO Last administered on 22:30; Start 11/17/16 at 21:00; Stop 11/17/16 at 21:01; Status DC Potassium Chloride/Sodium Chloride 1,000 ml @ 75 mls/hr [id number] IV Last administered on 11/18/16 06:11; Start 11/17/16 at 19:00; Stop 11/18/16 at 13:12 ; Status DC Ceftriaxone Sodium 1 gm/ Sodium Chloride 50 ml @ 100 mls/hr Q24H IV Last administered on 11/18/16 18:09; Start 11/17/16 at 19:00 Heparin Sodium (Porcine) (Heparin Sq) 5,000 unit Q8HRS SQ Last administered on 11/19/16 14:00; Start 11/18/16 at 14:00 Active Scripts Active Zofran Odt (Ondansetron) 4 Mg Tab.rapdis 1 Tab SL PRN Q8HRS PRN Hydrocodone-Apap 5-325 (Hydrocodone Bit/Acetaminophen) 1 Each Tablet 1 Tab PO PRN Q6HRS PRN Be careful as this medication may cause you to be drowsy or tired. Do not drive on this medication. Reported Trazodone Hcl 150 Mg Tablet 1 Tab PO QHS Geodon (Ziprasidone Hcl) 80 Mg Capsule 2 Cap PO QHS Simvastatin 40 Mg Tablet 1 Tab PO QHS Reglan (Metoclopramide Hcl) 10 Mg Tablet 1 Tab PO TIDAC PRN Nexium Capsule (Esomeprazole Magnesium) 40 Mg Capsule. 1 Cap PO BID Metoprolol Tartrate 50 Mg Tablet 1 Tab PO BID Hydroxyzine Pamoate 25 Mg Capsule 1 Cap PO BID Calcium 600 + Vit D 200 Tablet (Calcium Carbonate/Vitamin D3) 1 Each Tablet 1 Each PO Detrol La (Tolterodine Tartrate) 4 Mg Cap.er.24h 1 Cap PO DAILY Sertraline Hcl 100 Mg Tablet 200 Mg PO DAILY Lisinopril 40 Mg Tablet 1 Tab PO DAILY Levothyroxine Sodium 50 Mcg Tablet 1 Tab PO DAILY Hydrochlorothiazide Tablet (Hydrochlorothiazide) 12.5 Mg Tablet 2 Tab PO DAILY Docusate Sodium 100 Mg Capsule 1 Cap PO DAILY Aspir 81 (Aspirin) 81 Mg Tablet. 1 Tab PO DAILY Certavite Sr-Antioxidant Tab (Multivits-Min/Fa/Lycopene/Lut) 1 Each Tablet 1 Each PO DAILY Alendronate Sodium 35 Mg Tablet 1 Tab PO WEEKLY Vitals/I & O Vital Sign - Last 24 Hours 11/18/16 11/18/16 11/18/16 11/18/16 15:00 16:10 19:00 20:59 Temp 98.1 98.4 98.1 98.4 Pulse 67 84 90 Resp 17 18 18 B/P (MAP) 165/79 (107) 166/85 (112) 154/83 Pulse Ox 99 94 O2 Delivery Room Air Room Air Room Air 11/18/16 11/18/16 11/18/16 11/19/16 22:19 23:00 23:19 03:00 Temp 98.4 96.9 98.4 96.9 Pulse 84 79 Resp 20 18 18 B/P (MAP) 158/78 (104) 166/79 (108) Pulse Ox 94 98 94 94 O2 Delivery Room Air Room Air Room Air 11/19/16 11/19/16 11/19/16 11/19/16 07:00 08:00 08:51 08:51 Temp 98.0 98.0 Pulse 72 72 72 Resp 18 B/P (MAP) 154/79 (104) 154/79 154/79 Pulse Ox 93 O2 Delivery Room Air Room Air 11/19/16 11/19/16 11/19/16 08:54 09:54 11:00 Temp 98.4 98.4 Pulse 69 Resp 18 18 18 B/P (MAP) 139/70 (93) Pulse Ox 98 O2 Delivery Room Air Room Air Room Air Intake and Output 11/18/16 11/18/16 11/19/16 15:00 23:00 07:00 Intake Total 790 ml 290 ml Balance 790 ml 290 ml KAMALA DUFF MD Nov 19, 2016 14:24
[2016-11-19] MEDS ORDERED: DOCUSATE SODIUM 100 MG CAPSULE. PO PRN (14:30)
[2016-11-19] MEDS ORDERED: POLYETHYLENE GLYCOL 3350 17 GM PACKET. PO PRN (14:30)
[2016-11-19 15:00] VITALS: BP 154/85
[2016-11-19 19:00] VITALS: BP 155/79
[2016-11-19] MEDS: SIMVASTATIN 40 MG TABLET. PO SCH (21:12)
[2016-11-19] MEDS: traZODone 100 MG TABLET. PO SCH (21:12)
[2016-11-19] MEDS: ZIPRASIDONE 60 MG CAPSULE. PO SCH (21:12)
[2016-11-19 23:00] VITALS: BP 151/75
[2016-11-20 03:06] VITALS: BP 145/75
[2016-11-20] MEDS: LEVOTHYROXINE 50 MCG TABLET PO SCH (05:30)
[2016-11-20] MEDS: HEPARIN PF for SUB-Q USE 5,000 UNIT/0.5 ML VIAL. SQ SCH (05:40)
[2016-11-20 07:00] VITALS: BP 179/75
[2016-11-20] MEDS: ASPIRIN ENTERIC COATED 81 MG TABLET.DR. PO SCH (08:06)
[2016-11-20] MEDS: PANTOPRAZOLE 40 MG TABLET.DR. PO SCH (08:06)
[2016-11-20] MEDS: hydrOXYzine PAMOATE 25 MG CAPSULE PO SCH (08:07)
[2016-11-20] MEDS: ACYCLOVIR 200 MG CAPSULE. PO SCH (08:07)
[2016-11-20] MEDS: MULTIVITAMIN with MINERAL TABLET. PO SCH (08:07)
[2016-11-20] MEDS: LISINOPRIL 40 MG TABLET. PO SCH (08:08)
[2016-11-20] MEDS: METOPROLOL TART IMMED RELEASE 50 MG TABLET. PO SCH (08:09)
[2016-11-20] MEDS: OXYBUTYNIN CHLORIDE 5 MG TABLET PO SCH (08:09)
[2016-11-20] MEDS: DOCUSATE SODIUM 100 MG CAPSULE. PO SCH (08:09)
[2016-11-20] MEDS: SERTRALINE 50 MG TABLET. PO SCH (08:10)
[2016-11-20] MEDS: HYDROcodone/APAP 5/325MG 1 TAB TABLET PO PRN (08:11)
[2016-11-20] MEDS ORDERED: DOCUSATE SODIUM 100 MG CAPSULE. PO SCH (09:00)
--- NOTE | 2016-11-20 10:13 | PDOC ---
PROGRESS NOTES Subjective Subjective No new complaints. Objective Objective Vital Signs Date Time Temp Pulse Resp B/P (MAP) Pulse Ox O2 Delivery O2 Flow Rate FiO2 11/20/16 09:15 Room Air 11/20/16 08:09 74 179/75 11/20/16 07:00 97.9 18 94 97.9 Intake and Output 11/20/16 07:00 Intake Total 550 ml Balance 550 ml Intake Oral 500 ml IV Total 50 ml # Voids 4 Physical Exam Physical Exam She is sitting up at edge of bed and seems to be in no acute distress. Assessment Assessment Problems Medical Problems: (1) Back pain Status: Acute Plan Plan of Care Agree with plans for transfer to SNF for continued care. Comment Review of Relevant I have reviewed the following items jaki (where applicable) has been applied. Labs Laboratory Tests Test 11/18/16 13:45 11/19/16 04:20 White Blood Count 7.9 x10^3/uL (4.0-11.0) 6.5 x10^3/uL (4.0-11.0) Red Blood Count 4.21 x10^6/uL (3.50-5.40) 4.26 x10^6/uL (3.50-5.40) Hemoglobin 12.0 g/dL (12.0-15.5) 12.2 g/dL (12.0-15.5) Hematocrit 36.2 % (36.0-47.0) 36.2 % (36.0-47.0) Mean Corpuscular Volume 86 fL (79-100) 85 fL (79-100) Mean Corpuscular Hemoglobin 29 pg (25-35) 29 pg (25-35) Mean Corpuscular Hemoglobin Concent 33 g/dL (31-37) 34 g/dL (31-37) Red Cell Distribution Width 14.2 % (11.5-14.5) 14.0 % (11.5-14.5) Platelet Count 194 x10^3/uL (140-400) 205 x10^3/uL (140-400) Neutrophils (%) (Auto) 42 % (31-73) 41 % (31-73) Lymphocytes (%) (Auto) 41 % (24-48) 39 % (24-48) Monocytes (%) (Auto) 11 % (0-9) 9 % (0-9) Eosinophils (%) (Auto) 6 % (0-3) 9 % (0-3) Basophils (%) (Auto) 0 % (0-3) 1 % (0-3) Neutrophils # (Auto) 3.3 x10^3uL (1.8-7.7) 2.7 x10^3uL (1.8-7.7) Lymphocytes # (Auto) 3.2 x10^3/uL (1.0-4.8) 2.6 x10^3/uL (1.0-4.8) Monocytes # (Auto) 0.9 x10^3/uL (0.0-1.1) 0.6 x10^3/uL (0.0-1.1) Eosinophils # (Auto) 0.5 x10^3/uL (0.0-0.7) 0.6 x10^3/uL (0.0-0.7) Basophils # (Auto) 0.0 x10^3/uL (0.0-0.2) 0.1 x10^3/uL (0.0-0.2) Sodium Level 140 mmol/L (136-145) 140 mmol/L (136-145) Potassium Level 4.0 mmol/L (3.5-5.1) 3.5 mmol/L (3.5-5.1) Chloride Level 109 mmol/L (98-107) 106 mmol/L (98-107) Carbon Dioxide Level 21 mmol/L (21-32) 21 mmol/L (21-32) Anion Gap 10 (6-14) 13 (6-14) Blood Urea Nitrogen 24 mg/dL (7-20) 12 mg/dL (7-20) Creatinine 1.3 mg/dL (0.6-1.0) 0.9 mg/dL (0.6-1.0) Estimated GFR (Cockcroft-Gault) 39.9 61.0 Glucose Level 102 mg/dL (70-99) 93 mg/dL (70-99) Calcium Level 7.4 mg/dL (8.5-10.1) 8.2 mg/dL (8.5-10.1) Magnesium Level 2.4 mg/dL (1.8-2.4) Microbiology 11/17/16 Blood Culture - Preliminary, Resulted NO GROWTH AFTER 2 DAYS 11/17/16 Urine Culture - Final, Complete 11/17/16 Urine Culture Result 1 (MARY) - Final, Complete Medications Current Medications Cyclobenzaprine HCl (Flexeril) 5 mg 1X ONCE PO Last administered on 11/15/16 13:33; Start 11/15/16 at 12:45; Stop 11/15/16 at 12:46; Status DC Prednisone (Prednisone) 40 mg 1X ONCE PO Last administered on 11/15/16 13:34 ; Start 11/15/16 at 12:45; Stop 11/15/16 at 12:46; Status DC Fentanyl Citrate (Fentanyl 2ml Vial) 25 mcg PRN Q2HR PRN IV PAIN Last administered on 11/16/16 06:03; Start 11/15/16 at 14:15; Stop 11/16/16 at 14:14 ; Status DC Aspirin (Ecotrin) 81 mg DAILY PO Last administered on 11/20/16 08:06; Start at 09:00 Docusate Sodium (Colace) 100 mg DAILY PO Last administered on 11/20/16 08:09; Start 11/16/16 at 09:00 Hydroxyzine Pamoate (Vistaril) 25 mg BID PO Last administered on 11/20/16 08: 07; Start 11/15/16 at 21:00 Levothyroxine Sodium (Synthroid) 50 mcg DAILY06 PO Last administered on 05:30; Start 11/16/16 at 06:00 Lisinopril (Prinivil) 40 mg DAILY PO Last administered on 11/20/16 08:08; Start 11/16/16 at 09:00 Metoclopramide HCl (Reglan) 10 mg TIDAC PRN PO NAUSEA; Start 11/15/16 at 20:00 Metoprolol Tartrate (Lopressor) 50 mg BID PO Last administered on 11/20/16 08: 09; Start 11/15/16 at 21:00 Simvastatin (Zocor) 40 mg QHS PO Last administered on 11/19/16 21:12; Start at 21:00 Non-Formulary Medication 1 tab WEEKLY PO ; Start 11/22/16 at 09:00; Stop at 09:00; Status DC Pantoprazole Sodium (Protonix) 40 mg DAILYAC PO Last administered on 11/20/16 08:06; Start 11/16/16 at 07:30 Hydrochlorothiazide (Hydrodiuril) 25 mg DAILY PO Last administered on 10:41; Start 11/16/16 at 09:00; Stop 11/17/16 at 18:23; Status DC Multivitamins (Thera M Plus) 1 tab DAILY PO Last administered on 11/20/16 08: 07; Start 11/16/16 at 09:00 Sertraline HCl (Zoloft) 200 mg DAILY PO Last administered on 11/20/16 08:10; Start 11/16/16 at 09:00 Oxybutynin Chloride (Ditropan) 5 mg [id number] PO Last administered on 11/20/16 08 :09; Start 11/16/16 at 09:00 Trazodone HCl (Desyrel) 150 mg QHS PO Last administered on 11/19/16 21:12; Start 11/15/16 at 21:00 Ziprasidone (Geodon) 180 mg QHS PO Last administered on 11/19/16 21:12; Start 11/15/16 at 21:00 Methylprednisolone Acetate (DEPO-Medrol 40MG VIAL) 40 mg 1X ONCE IM ; Start at 09:30; Stop 11/16/16 at 09:39; Status DC Bupivacaine HCl (Sensorcaine-Mpf 0.25%) 10 ml 1X ONCE IJ ; Start 11/16/16 at 09 :30; Stop 11/16/16 at 09:39; Status DC Oxycodone/ Acetaminophen (Percocet 7.5/ 325) 1 tab PRN Q6HRS PRN PO PAIN Last administered on 11/16/16 21:56; Start 11/16/16 at 09:30; Stop 11/17/16 at 15:20 ; Status DC Acetaminophen (Tylenol) 500 mg PRN Q6HRS PRN PO MILD PAIN / TEMP; Start at 10:00 Ondansetron HCl (Zofran) 4 mg PRN Q6HRS PRN IV NAUSEA/VOMITING; Start 11/16/16 at 10:00 Prednisone (Prednisone) 10 mg DAILY PO ; Start 11/16/16 at 10:30; Stop 11/16/16 at 12:08; Status DC Acyclovir (Zovirax) 800 mg TID PO Last administered on 11/20/16 08:07; Start 11/16/16 at 14:00 Potassium Chloride (Klor-Con) 40 meq 1X ONCE PO Last administered on 12:24; Start 11/16/16 at 11:45; Stop 11/16/16 at 11:50; Status DC Sodium Chloride 500 ml @ 500 mls/hr 1X ONCE IV Last administered on 09:03; Start 11/17/16 at 08:30; Stop 11/17/16 at 09:29; Status DC Sodium Chloride 1,000 ml @ 75 mls/hr [id number] IV Last administered on 10:30; Start 11/17/16 at 10:00; Stop 11/17/16 at 18:23; Status DC Acetaminophen/ Hydrocodone Bitart (Lortab 5/325) 1 tab PRN Q6HRS PRN PO MODERATE - SEVERE PAIN Last administered on 11/20/16 08:11; Start 11/17/16 at 15:15 Sodium Chloride 1,000 ml @ 1,000 mls/hr 1X ONCE IV Last administered on 15:54; Start 11/17/16 at 15:30; Stop 11/17/16 at 16:29; Status DC Potassium Chloride 20 meq/ Sodium Chloride 1,010 ml @ 75 mls/hr [id number] PRN IV .; Start 11/17/16 at 19:00; Stop 11/17/16 at 19:00; Status DC Potassium Chloride (Klor-Con) 40 meq 1X ONCE PO Last administered on 18:43; Start 11/17/16 at 18:30; Stop 11/17/16 at 18:31; Status DC Potassium Chloride (Klor-Con) 40 meq 1X ONCE PO Last administered on 22:30; Start 11/17/16 at 21:00; Stop 11/17/16 at 21:01; Status DC Potassium Chloride/Sodium Chloride 1,000 ml @ 75 mls/hr [id number] IV Last administered on 11/18/16 06:11; Start 11/17/16 at 19:00; Stop 11/18/16 at 13:12 ; Status DC Ceftriaxone Sodium 1 gm/ Sodium Chloride 50 ml @ 100 mls/hr Q24H IV Last administered on 11/19/16 18:29; Start 11/17/16 at 19:00 Heparin Sodium (Porcine) (Heparin Sq) 5,000 unit Q8HRS SQ Last administered on 11/20/16 05:40; Start 11/18/16 at 14:00 Docusate Sodium (Colace) 100 mg DAILY PO ; Start 11/20/16 at 09:00 Docusate Sodium (Colace) 100 mg PRN DAILY PRN PO CONSTIPATION; Start 11/19/16 at 14:30 Polyethylene Glycol (miraLAX PACKET) 17 gm PRN DAILY PRN PO CONSTIPATION Last administered on 11/19/16 19:03; Start 11/19/16 at 14:30 Active Scripts Active Zofran Odt (Ondansetron) 4 Mg Tab.rapdis 1 Tab SL PRN Q8HRS PRN Hydrocodone-Apap 5-325 (Hydrocodone Bit/Acetaminophen) 1 Each Tablet 1 Tab PO PRN Q6HRS PRN Be careful as this medication may cause you to be drowsy or tired. Do not drive on this medication. Reported Trazodone Hcl 150 Mg Tablet 1 Tab PO QHS Geodon (Ziprasidone Hcl) 80 Mg Capsule 2 Cap PO QHS Simvastatin 40 Mg Tablet 1 Tab PO QHS Reglan (Metoclopramide Hcl) 10 Mg Tablet 1 Tab PO TIDAC PRN Nexium Capsule (Esomeprazole Magnesium) 40 Mg Capsule.dr 1 Cap PO BID Metoprolol Tartrate 50 Mg Tablet 1 Tab PO BID Hydroxyzine Pamoate 25 Mg Capsule 1 Cap PO BID Calcium 600 + Vit D 200 Tablet (Calcium Carbonate/Vitamin D3) 1 Each Tablet 1 Each PO Detrol La (Tolterodine Tartrate) 4 Mg Cap.er.24h 1 Cap PO DAILY Sertraline Hcl 100 Mg Tablet 200 Mg PO DAILY Lisinopril 40 Mg Tablet 1 Tab PO DAILY Levothyroxine Sodium 50 Mcg Tablet 1 Tab PO DAILY Hydrochlorothiazide Tablet (Hydrochlorothiazide) 12.5 Mg Tablet 2 Tab PO DAILY Docusate Sodium 100 Mg Capsule 1 Cap PO DAILY Aspir 81 (Aspirin) 81 Mg Tablet. 1 Tab PO DAILY Certavite Sr-Antioxidant Tab (Multivits-Min/Fa/Lycopene/Lut) 1 Each Tablet 1 Each PO DAILY Alendronate Sodium 35 Mg Tablet 1 Tab PO WEEKLY Vitals/I & O Vital Sign - Last 24 Hours 11/19/16 11/19/16 11/19/16 11/19/16 11:00 15:00 15:54 19:00 Temp 98.4 98.3 98.4 98.3 Pulse 69 73 77 Resp 18 18 18 20 B/P (MAP) 139/70 (93) 154/85 (108) 155/79 (104) Pulse Ox 98 97 94 O2 Delivery Room Air Room Air Room Air 11/19/16 11/19/16 11/19/16 11/19/16 20:23 21:13 21:35 22:47 Pulse 77 Resp 18 18 B/P (MAP) 155/79 O2 Delivery Room Air Room Air 11/19/16 11/20/16 11/20/16 11/20/16 23:00 03:06 07:00 08:08 Temp 98.0 98.6 97.9 98.0 98.6 97.9 Pulse 78 73 74 74 Resp 20 20 18 B/P (MAP) 151/75 (100) 145/75 (98) 179/75 (109) 179/75 Pulse Ox 95 96 94 O2 Delivery Room Air Room Air Room Air 11/20/16 11/20/16 11/20/16 08:09 08:11 09:15 Pulse 74 B/P (MAP) 179/75 O2 Delivery Room Air Room Air Intake and Output 11/19/16 11/19/16 11/20/16 15:00 23:00 07:00 Intake Total 50 ml 500 ml Balance 50 ml 500 ml TANJA AYALA MD Nov 20, 2016 10:13
[2016-11-20] MEDS ORDERED: CIPR250T30 PO (10:49)
[2016-11-20] MEDS ORDERED: HYDR-2758 PO (10:49)
[2016-11-20 11:00] VITALS: BP 147/69
--- NOTE | 2016-11-21 13:52 | PDOC3 ---
Discharge Summary Visit Information Date of Admission: Nov 17, 2016 Date of Discharge: Nov 20, 2016 Admitting Diagnosis: back pain Final Diagnosis 1. Shingles: R buttock. started on acyclovir. improving 2. HTN: poorly controlled at admit, then hypotensive urosepsis. now elevated again - restart meds 3. Hypotension: w. sepsis now resolved. 4. UTI: per UA. started empiric ceftriax. cx showed mixed jocelyn 5. Hypokalemia: resolved. stopped HCTZ. 6. BRIAN on CKD3: vasomotor. resolved with IVF in past 24h. creat at baseline 7. Back pain: chronic, recurrent exacerbation. appreciate Dr Manuel's input. OT/PT eval 8. HLD: on statin 9. Hypothyroidism: on synthroid 10. pain control: on [place] 11. Psych: unk dx, but has mult home meds. stable mood. continue regimen 12. Prophylaxis: heparin SQ 13. Dispo: to rehab in AM Problems Medical Problems: (1) Back pain Status: Acute Brief Hospital Course Allergies Allergies Coded Allergies Type Severity Reaction Last Updated Verified Penicillins Allergy Intermediate Hives 09/02/16 Yes Vital Signs Vital Signs Date Time Temp Pulse Resp B/P (MAP) Pulse Ox O2 Delivery O2 Flow Rate FiO2 11/20/16 11:00 98.0 61 18 147/69 (95) 94 Room Air 98.0 Brief Hospital Course Ms. Levin is a 76 old ith chronic low back pain with radiation to both lower extremities with mri scan evidence of DDD and DJD of lumbar vertebrae at multiple levels with pain interfering with her mobility. she also had shingles to her buttock, but not the source of most of her pain. Physiatry consulted, she lives at [facility] living [facility] and does not use any assistive devices to walk. better with rehab, hip could not be infected to to shingles currently Discharge Information Condition at Discharge: Improved Follow Up: Weeks Disposition/Orders: D/C to Another Facility (SNF) Scheduled Alendronate Sodium (Alendronate Sodium), 1 TAB PO WEEKLY, (Reported) Aspirin (Aspir 81), 1 TAB PO DAILY, (Reported) Ciprofloxacin Hcl (Cipro), 1 TAB PO BID Docusate Sodium (Docusate Sodium), 1 CAP PO DAILY, (Reported) Esomeprazole Magnesium (Nexium Capsule), 1 CAP PO BID, (Reported) Hydrochlorothiazide (Hydrochlorothiazide Tablet), 2 TAB PO DAILY, (Reported) Hydroxyzine Pamoate (Hydroxyzine Pamoate), 1 CAP PO BID, (Reported) Levothyroxine Sodium (Levothyroxine Sodium), 1 TAB PO DAILY, (Reported) Lisinopril (Lisinopril), 1 TAB PO DAILY, (Reported) Metoprolol Tartrate (Metoprolol Tartrate), 1 TAB PO BID, (Reported) Multivits-Min/Fa/Lycopene/Lut (Certavite Sr-Antioxidant Tab), 1 EACH PO DAILY, ( Reported) Sertraline Hcl (Sertraline Hcl), 200 MG PO DAILY, (Reported) Simvastatin (Simvastatin), 1 TAB PO QHS, (Reported) Tolterodine Tartrate (Detrol La), 1 CAP PO DAILY, (Reported) Trazodone Hcl (Trazodone Hcl), 1 TAB PO QHS, (Reported) Ziprasidone Hcl (Geodon), 2 CAP PO QHS, (Reported) Scheduled PRN Hydrocodone Bit/Acetaminophen (Hydrocodone-Apap 5-325 ), 1 TAB PO PRN Q6HRS PRN for PAIN Metoclopramide Hcl (Reglan), 1 TAB PO TIDAC PRN for NAUSEA, (Reported) Ondansetron (Zofran Odt), 1 TAB SL PRN Q8HRS PRN for NAUSEA Miscellaneous Medications Calcium Carbonate/Vitamin D3 (Calcium 600 + Vit D 200 Tablet), 1 EACH PO, ( Reported) Discontinued Medications Fluticasone Propionate (Fluticasone Propionate Nasal [place]), 2 SPRAY NS DAILY, ( Reported) Ketoconazole (Ketoconazole), 1 CHRIS TP PRN BID PRN for DRY SKIN / SCALING, ( Reported) Naproxen (Naproxen), 1 TAB PO BID, (Reported) Pantoprazole Sodium (Pantoprazole Sodium), 1 TAB PO BID, (Reported) Sucralfate (Sucralfate), 1 TAB PO QIDPRN PRN for INDIGESTION, (Reported) Tramadol Hcl (Tramadol Hcl), 1 TAB PO BID, (Reported) Patient Instructions Patient Instructions > 30 min KAMALA DUFF MD Nov 21, 2016 13:52
[2016-11-22] MEDS ORDERED: NON FORMULARY ITEM (Alendronate Sodium 1 TAB) PO SCH (09:00)
== END 2016-11-20 12:51 | DRG 871 ==
LOC: ER 11:22 → 5 NORTH 14:08 → OBSVTOIN 11-17 09:50
PROVIDERS: ADMIT Internal Medicine; ATTEND Internal Medicine
DX: A41.9 Sepsis, unspecified organism (principal); N17.0 Acute kidney failure with tubular necrosis; N39.0 Urinary tract infection, site not specified; B02.9 Zoster without complications; E03.9 Hypothyroidism, unspecified; E78.5 Hyperlipidemia, unspecified; E87.6 Hypokalemia; F03.90 Unspecified dementia, unspecified severity, without behavioral disturbance, psychotic disturbance, mood disturbance, and anxiety; J44.9 Chronic obstructive pulmonary disease, unspecified; M17.0 Bilateral primary osteoarthritis of knee; N18.3 Chronic kidney disease, stage 3 (moderate); M81.0 Age-related osteoporosis without current pathological fracture; G89.29 Other chronic pain; I12.9 Hypertensive chronic kidney disease with stage 1 through stage 4 chronic kidney disease, or unspecified chronic kidney disease; F32.9 Major depressive disorder, single episode, unspecified; F41.9 Anxiety disorder, unspecified; M47.816 Spondylosis without myelopathy or radiculopathy, lumbar region; M54.5 Low back pain; M54.16 Radiculopathy, lumbar region; I95.9 Hypotension, unspecified; Z98.51 Tubal ligation status; Z90.49 Acquired absence of other specified parts of digestive tract; Z86.73 Personal history of transient ischemic attack (TIA), and cerebral infarction without residual deficits; Z88.0 Allergy status to penicillin
CPT/HCPCS: 36415; 80048; 80053; 81001; 83735; 84132; 85007; 85027; 85651; 87040; 87086; 87641; G0378; G0379; J0696; J3010; J7030; J7040; J7512; Q0177; 97116; 97530; 97535; A6539

== ENCOUNTER 2016-12-02 12:44 | Emergency (ER) | payer MEDICARE, OTHER ==
[~2016-12-02] VITALS: Ht 160 cm; Wt 70.3 kg
[~2016-12-02 12:44] MED LIST changes: +CIPR250T30 PO
[2016-12-02 12:53] VITALS: BP 108/54
[2016-12-02] MEDS ORDERED: IV NORMAL SALINE 1000ML BAG 1,000 ML IV ONE (13:15)
[2016-12-02 13:23] LABS: BASO # 0.1 x10^3/uL (0.0-0.2); BASO % 1 % (0-3); EOS % 3 % (0-3); HEMATOCRIT 39.7 % (36.0-47.0); HEMOGLOBIN 13.2 g/dL (12.0-15.5); LYMPH # 2.9 x10^3/uL (1.0-4.8); LYMPH % 30 % (24-48); MEAN CORPUSCULAR HEMOGLOBIN 29 pg (25-35); MEAN CORPUSCULAR HGB CONC 33 g/dL (31-37); MEAN CORPUSCULAR VOLUME 87 fL (79-100); MONO % 11 % (0-9); NEUT % 55 % (31-73); PLATELET COUNT 316 x10^3/uL (140-400); RED BLOOD COUNT 4.57 x10^6/uL (3.50-5.40); RED CELL DISTRIBUTION WIDTH 14.7 % (11.5-14.5); WHITE BLOOD COUNT 9.9 x10^3/uL (4.0-11.0)
[2016-12-02 13:33] LABS: INR 1.2 (0.8-1.1); PROTHROMBIN TIME PATIENT 14.2 SEC (11.7-14.0)
[2016-12-02 13:40] LABS: CALCIUM 9.3 mg/dL (8.5-10.1); CREATININE 1.9 mg/dL (0.6-1.0); GFR 25.8; POTASSIUM 3.9 mmol/L (3.5-5.1)
[2016-12-02 13:46] LABS: ALBUMIN 3.6 g/dL (3.4-5.0); ALBUMIN/GLOBULIN RATIO 1.1 (1.0-1.7); MAGNESIUM 2.4 mg/dL (1.8-2.4); TOTAL BILIRUBIN 0.3 mg/dL (0.2-1.0); TOTAL PROTEIN 6.9 g/dL (6.4-8.2)
--- NOTE | 2016-12-02 14:13 | PHYS DOC ---
Past Medical History Past Medical History: Anxiety, Arthritis, Hypertension, Hypothyroid, TIA, Other Additional Past Medical Histor: "memory problems" Past Surgical History: Cholecystectomy, Hysterectomy, Other Additional Past Surgical Histo: Lt foot. Lt breast Alcohol Use: None Drug Use: None Adult General Chief Complaint Chief Complaint: DIZZY/LIGHT HEADED HPI HPI Patient is a 76 year old female presenting to the emergency department for evaluation of dizziness that has been a mostly persistent issue over the past 2 days. She was recently at [facility] and released and says that her blood pressure has been low over the past 2 days and she feels lightheaded and as if she is going to pass out every time she stands up over the past 2 days. She says that she has no nausea vomiting area dysuria hematuria chest pain abdominal pain or shortness of breath. She says that her blood pressure was low while she was in the hospital and her medications were stopped and then her blood pressure became very high and she was restarted on all of her medications again. It seems that she does have a labile blood pressure that is somewhat difficult to manage as she goes to the extremes quite easily. She admits that she has not been eating or drinking very much since being released from [facility] and thinks that she may be dehydrated as well. She is in no obvious distress with normal vital signs currently in the emergency department. Review of Systems Review of Systems Constitutional: Denies fever or chills [] Eyes: Denies change in visual acuity, redness, or eye pain [] HENT: Denies nasal congestion or sore throat [] Respiratory: Denies cough or shortness of breath [] Cardiovascular: No additional information not addressed in HPI [] GI: Denies abdominal pain, nausea, vomiting, bloody stools or diarrhea [] : Denies dysuria or hematuria [] Musculoskeletal: Denies back pain or joint pain [] Integument: Denies rash or skin lesions [] Neurologic: Denies headache, focal weakness. + sensory changes [] Current Medications Current Medications Current Medications Medications (Trade) Dose Ordered Sig/Franny Start Time Stop Time Status Last Admin Dose Admin Sodium Chloride 1,000 ml @ 1,000 mls/hr 1X ONCE 12/02/16 13:15 12/02/16 14:14 12/02/16 13:15 1,000 MLS/HR Allergies Allergies Allergies Coded Allergies Type Severity Reaction Last Updated Verified Penicillins Allergy Intermediate Hives 09/02/16 Yes Physical Exam Physical Exam Constitutional: Well developed, well nourished, no acute distress, non-toxic appearance. [] HENT: Normocephalic, atraumatic, bilateral external ears normal, oropharynx moist, no oral exudates, nose normal. [] Eyes: PERRLA, EOMI, conjunctiva normal, no discharge. [] Neck: Normal range of motion, no tenderness, supple, no stridor. [] Cardiovascular:Heart rate regular rhythm, no murmur [] Lungs & Thorax: Bilateral breath sounds clear to auscultation [] Abdomen: Bowel sounds normal, soft, no tenderness, no masses, no pulsatile masses. [] Skin: Warm, dry, no erythema, no rash. [] Back: No tenderness, no CVA tenderness. [] Extremities: No tenderness, no cyanosis, no clubbing, ROM intact, no edema. [] Neurologic: Alert and oriented X 3, normal motor function, normal sensory function, no focal deficits noted. [] Current Patient Data Vital Signs Vital Signs Date Time Temp Pulse Resp B/P (MAP) Pulse Ox O2 Delivery O2 Flow Rate FiO2 12/02/16 12:53 98.7 75 16 108/54 (72) 97 Room Air 98.7 Lab Values Laboratory Tests Test 12/02/16 13:05 White Blood Count 9.9 x10^3/uL (4.0-11.0) Red Blood Count 4.57 x10^6/uL (3.50-5.40) Hemoglobin 13.2 g/dL (12.0-15.5) Hematocrit 39.7 % (36.0-47.0) Mean Corpuscular Volume 87 fL (79-100) Mean Corpuscular Hemoglobin 29 pg (25-35) Mean Corpuscular Hemoglobin Concent 33 g/dL (31-37) Red Cell Distribution Width 14.7 % (11.5-14.5) H Platelet Count 316 x10^3/uL (140-400) Neutrophils (%) (Auto) 55 % (31-73) Lymphocytes (%) (Auto) 30 % (24-48) Monocytes (%) (Auto) 11 % (0-9) H Eosinophils (%) (Auto) 3 % (0-3) Basophils (%) (Auto) 1 % (0-3) Neutrophils # (Auto) 5.5 x10^3uL (1.8-7.7) Lymphocytes # (Auto) 2.9 x10^3/uL (1.0-4.8) Monocytes # (Auto) 1.1 x10^3/uL (0.0-1.1) Eosinophils # (Auto) 0.3 x10^3/uL (0.0-0.7) Basophils # (Auto) 0.1 x10^3/uL (0.0-0.2) Prothrombin Time 14.2 SEC (11.7-14.0) H Prothrombin Time INR 1.2 (0.8-1.1) H PTT 29 SEC (24-38) Sodium Level 134 mmol/L (136-145) L Potassium Level 3.9 mmol/L (3.5-5.1) Chloride Level 97 mmol/L (98-107) L Carbon Dioxide Level 25 mmol/L (21-32) Anion Gap 12 (6-14) Blood Urea Nitrogen 29 mg/dL (7-20) H Creatinine 1.9 mg/dL (0.6-1.0) H Estimated GFR (Cockcroft-Gault) 25.8 BUN/Creatinine Ratio 15 (6-20) Glucose Level 105 mg/dL (70-99) H Calcium Level 9.3 mg/dL (8.5-10.1) Magnesium Level 2.4 mg/dL (1.8-2.4) Total Bilirubin 0.3 mg/dL (0.2-1.0) Aspartate Amino Transferase (AST) 40 U/L (15-37) H Alanine Aminotransferase (ALT) 51 U/L (14-59) Alkaline Phosphatase 51 U/L (46-116) Creatine Kinase 116 U/L (26-192) Troponin I Quantitative < 0.017 ng/mL (0.000-0.055) ZA-Nfv-I-Type Natriuretic Peptide 1913 pg/mL (0-449) H Total Protein 6.9 g/dL (6.4-8.2) Albumin 3.6 g/dL (3.4-5.0) Albumin/Globulin Ratio 1.1 (1.0-1.7) Laboratory Tests 12/02/16 13:05 Laboratory Tests 12/02/16 13:05 EKG EKG Sinus rhythm at 73 bpm with leftward axis no obvious ST elevation or depression and normal T waves. Radiology/Procedures Radiology/Procedures [] Course & Med Decision Making Course & Med Decision Making Patient with dizziness likely from her persistent hypotension as they reported her systolic blood pressure was in the 80s. Her here and she says that she is feeling much better and she was given a liter of fluids. She says that she feels back to her baseline and she has no dizziness and was able to sit on the bedside commode with no difficulty in transition. Her BUNs and creatinine levels are both elevated from baseline but it is a rather mild to moderate increase which does not require inpatient admission and my opinion given she can drink more fluids at home. I do think that she should go down on some of her blood pressure medications. Based off her creatinine level being elevated I suggested that she have her lisinopril dose from 40-20 mg daily and she keep her metoprolol and hydrochlorothiazide the same for now but told her she would need frequent rechecks. I told her to follow with her primary care provider in the next 4-5 days and come back to the ER sooner with worsening pain dizziness weakness or other general concerns. Patient aware and agreeable with plan for discharge and verbalized understanding of the need for short-term follow-up in the strict ER return precautions discussed as above. Dragon Disclaimer Dragon Disclaimer This electronic medical record was generated, in whole or in part, using a voice recognition dictation system. Departure Departure Impression: Primary Impression: Dizziness Additional Impressions: Hypotension Dehydration Renal insufficiency Disposition: 01 HOME, SELF-CARE Condition: GOOD Referrals: ROMAIN DÍAZ MD (PCP) Patient Instructions: Dizziness Additional Instructions: Decrease her lisinopril dose from 40 mg to 20 mg. Follow with your primary care provider in the next 4-5 days and come back to the ER sooner with worsening pain dizziness or other general concerns. Problem Qualifiers LYSSA LOVELL DO Dec 02, 2016 14:13
--- NOTE | 2016-12-02 14:23 | EKG ---
[facility] [address] [place] [address] Test Date: 2016-12-02 Test Time: 13:02:48 Pat Name: GISELE FELDER Department: Room: Gender: F Radio Operator: : 1940 Requested By: LYSSA LOVELL Order Number: [id number] Reading MD: Nathan Hinson Measurements Intervals [place] Rate: 73 P: 41 [place]: 166 QRS: -9 QRSD: 86 T: 29 QT: 454 QTc: 504 Interpretive Statements SINUS RHYTHM LEFTWARD AXIS QRS(T) CONTOUR ABNORMALITY CANNOT RULE OUT ANTEROLATERAL MYOCARDIAL DAMAGE PROLONGED QT RI6.01 Unconfirmed report Compared to ECG 09/02/2016 12:28:30 Left-axis deviation now present Prolonged QT interval now present T-wave abnormality no longer present Possible ischemia no longer present Electronically Signed On 12-02-2016 16:03:09 CDT by Nathan Hinson
== END 2016-12-02 14:41 | disposition home or self-care (01) ==
LOC: ER 12:44
DX: R42 Dizziness and giddiness (principal); I95.9 Hypotension, unspecified; E86.0 Dehydration; N28.9 Disorder of kidney and ureter, unspecified; F41.9 Anxiety disorder, unspecified; M19.90 Unspecified osteoarthritis, unspecified site; I10 Essential (primary) hypertension; E03.9 Hypothyroidism, unspecified; Z86.73 Personal history of transient ischemic attack (TIA), and cerebral infarction without residual deficits; Z88.0 Allergy status to penicillin; Z90.49 Acquired absence of other specified parts of digestive tract; Z90.710 Acquired absence of both cervix and uterus
CPT/HCPCS: 36415; 80053; 82550; 83735; 83880; 84484; 85027; 85610; 85730; 93005; 96360; 99285; C1887; J7030

== ENCOUNTER 2016-12-11 10:52 | Inpatient (IN) | payer MEDICARE, OTHER ==
[~2016-12-11] VITALS: Ht 160 cm; Wt 70.4 kg
[2016-12-11 12:24] LABS: BILIRUBIN,URINE NEGATIVE (NEG); GLUCOSE,URINE NEGATIVE (NEG); NITRITE,URINE NEGATIVE (NEG); PROTEIN,URINE NEGATIVE (NEG-TRACE); UROBILINOGEN,URINE 0.2 mg/dL (0.2 mg/dL)
[2016-12-11 12:30] LABS: SQUAMOUS EPITHELIAL CELL,UR MANY /LPF
[2016-12-11 12:30] LABS: BASO # 0.1 x10^3/uL (0.0-0.2); BASO % 1 % (0-3); EOS % 3 % (0-3); HEMATOCRIT 40.4 % (36.0-47.0); HEMOGLOBIN 13.5 g/dL (12.0-15.5); LYMPH # 2.7 x10^3/uL (1.0-4.8); LYMPH % 24 % (24-48); MEAN CORPUSCULAR HEMOGLOBIN 29 pg (25-35); MEAN CORPUSCULAR HGB CONC 33 g/dL (31-37); MEAN CORPUSCULAR VOLUME 86 fL (79-100); MONO % 9 % (0-9); NEUT % 63 % (31-73); PLATELET COUNT 203 x10^3/uL (140-400); RED BLOOD COUNT 4.69 x10^6/uL (3.50-5.40); RED CELL DISTRIBUTION WIDTH 14.7 % (11.5-14.5); WHITE BLOOD COUNT 11.6 x10^3/uL (4.0-11.0)
[2016-12-11 12:31] LABS: BACTERIA,URINE MANY /HPF (0-FEW); WBC,URINE 20-40 /HPF (0-4)
[2016-12-11 12:49] LABS: CREATININE 1.2 mg/dL (0.6-1.0); GFR 43.8
[2016-12-11 12:51] LABS: POTASSIUM 2.8 mmol/L (3.5-5.1)
[2016-12-11 12:57] LABS: ALBUMIN 3.4 g/dL (3.4-5.0); ALBUMIN/GLOBULIN RATIO 0.9 (1.0-1.7); TOTAL BILIRUBIN 0.3 mg/dL (0.2-1.0); TOTAL PROTEIN 7.2 g/dL (6.4-8.2)
[2016-12-11] MEDS ORDERED: POTASSIUM CHLORIDE 20 MEQ TABLET.ER. PO ONE ×2 (13:00→16:15)
[2016-12-11] MEDS ORDERED: IV NORMAL SALINE 500ML BAG 500 ML IV ONE (13:00)
--- NOTE | 2016-12-11 13:01 | RAD ---
AP pelvis to include a lateral radiograph of the right hip 12/11/2016 Clinical history: Fall with pelvic and right hip pain. An AP portable digital radiograph of the pelvis to include both hips was obtained. A lateral radiograph of the right hip was obtained. Comparison study dated 09/11/2012. No pelvic bone fracture is seen. Both hips are intact. Specifically no fracture or dislocation of the right hip is seen. Moderate degenerative changes are seen involving the lower lumbar spine. Mild degenerative changes are seen involving both hips. Calcifications are seen within the pelvis consistent with phleboliths. Impression: No fracture or dislocation is seen.
[2016-12-11] MEDS ORDERED: NAPROXEN 250 MG TABLET PO ONE (14:00)
[2016-12-11] MEDS ORDERED: traMADol 50 MG TABLET PO ONE (14:15)
[2016-12-11] MEDS ORDERED: ONDANSETRON PF 4 MG/2 ML VIAL. IV PRN (16:00)
[2016-12-11 16:40] VITALS: BP 157/65
[2016-12-11 19:28] VITALS: BP 119/48
--- NOTE | 2016-12-11 20:19 | PHYS DOC ---
Past Medical History Past Medical History: Anxiety, Arthritis, Hypertension, Hypothyroid, TIA, Other Additional Past Medical Histor: "memory problems" Past Surgical History: Cholecystectomy, Hysterectomy, Other Additional Past Surgical Histo: Lt foot. Lt breast Alcohol Use: None Drug Use: None Adult General Chief Complaint Chief Complaint: MECHANICAL FALL HPI HPI Patient is a 76 year old female who presents with generalized weakness resulting in nontraumatic fall. Patient states her legs felt weak and gave out from underneath her. She did fall hitting her head but denies loss of consciousness or feeling dazed. She denies headache at this time. She denies neck pain, chest pain, or extremity pain or injury. Patient states she was unable to stand or walk and crawl on her knees approximately 2-1/2 hours before unable to contact an ambulance. Patient does have some redness and soreness over both knees from crawling and chronic right hip pain. Patient lives by herself and states she does fall from time to time but she usually to get up off the floor after falling. She has history of chronic knee pain in her knees giving out. She denies any recent medical problems, medications or increased doses. She denies fever, chills, nausea vomiting and sweats. She denies shortness of breath, cough, flank pain, urinary frequency and urgency. She denies dizziness lightheadedness, focal extremity weakness or any other strokelike symptoms. She is not report any other acute symptoms or complaints. She is not currently on anticoagulation therapy. Review of Systems Review of Systems ROS as per HPI. All other ROS are negative. Current Medications Current Medications Current Medications Medications (Trade) Dose Ordered Sig/Franny Start Time Stop Time Status Last Admin Dose Admin Ceftriaxone Sodium 1 gm/ Sodium Chloride 50 ml @ 100 mls/hr Q24H 12/11/16 13:00 12/11/16 13:11 100 MLS/HR Potassium Chloride (Klor-Con) 40 meq 1X ONCE 12/11/16 13:00 12/11/16 13:01 DC 12/11/16 13:11 40 MEQ Sodium Chloride 500 ml @ 500 mls/hr 1X ONCE 12/11/16 13:00 12/11/16 13:59 DC 12/11/16 13:12 500 MLS/HR Allergies Allergies Allergies Coded Allergies Type Severity Reaction Last Updated Verified Penicillins Allergy Intermediate Hives 09/02/16 Yes Physical Exam Physical Exam Constitutional: Well developed, well nourished, no acute distress, non-toxic appearance. [] HENT: Normocephalic, atraumatic, bilateral external ears normal, oropharynx moist, no oral exudates, nose normal. [] Eyes: PERRLA, EOMI, conjunctiva normal, no discharge. [] Neck: Normal range of motion, no tenderness, supple, no stridor. [] Cardiovascular:Heart rate regular rhythm, no murmur [] Lungs & Thorax: Bilateral breath sounds clear to auscultation [] Abdomen: Bowel sounds normal, soft, no tenderness, no masses, no pulsatile masses. [] Skin: Bruising, minimal swelling over both knees. [] Back: No tenderness, no CVA tenderness. [] Extremities: No deformities, R hip pain, tenderness . No deformity rotation or shortening. [] Neurologic: Alert and oriented X 3, normal motor function, normal sensory function, no focal deficits noted. [] Psychologic: Affect normal, judgement normal, mood normal. [] Current Patient Data Vital Signs Vital Signs Date Time Temp Pulse Resp B/P (MAP) Pulse Ox O2 Delivery O2 Flow Rate FiO2 12/11/16 12:35 86 161/86 (111) 97 Room Air 12/11/16 10:55 98.0 16 98.0 Lab Values Laboratory Tests Test 12/11/16 11:15 12/11/16 12:25 Urine Collection Type Unknown Urine Color Yellow Urine Clarity Clear Urine pH 7.0 Urine Specific [place] 1.010 Urine Protein Negative mg/dL (NEG-TRACE) Urine Glucose (UA) Negative mg/dL (NEG) Urine Ketones (Stick) Negative mg/dL (NEG) Urine Blood Negative (NEG) Urine Nitrite Negative (NEG) Urine Bilirubin Negative (NEG) Urine Urobilinogen Dipstick 0.2 mg/dL (0.2 mg/dL) Urine Leukocyte Esterase Moderate (NEG) Urine RBC 1-2 /HPF (0-2) Urine WBC 20-40 /HPF (0-4) Urine Squamous Epithelial Cells Many /LPF Urine Bacteria Many /HPF (0-FEW) Urine Hyaline Casts Moderate /HPF Urine Mucus Slight /LPF White Blood Count 11.6 x10^3/uL (4.0-11.0) H Red Blood Count 4.69 x10^6/uL (3.50-5.40) Hemoglobin 13.5 g/dL (12.0-15.5) Hematocrit 40.4 % (36.0-47.0) Mean Corpuscular Volume 86 fL (79-100) Mean Corpuscular Hemoglobin 29 pg (25-35) Mean Corpuscular Hemoglobin Concent 33 g/dL (31-37) Red Cell Distribution Width 14.7 % (11.5-14.5) H Platelet Count 203 x10^3/uL (140-400) Neutrophils (%) (Auto) 63 % (31-73) Lymphocytes (%) (Auto) 24 % (24-48) Monocytes (%) (Auto) 9 % (0-9) Eosinophils (%) (Auto) 3 % (0-3) Basophils (%) (Auto) 1 % (0-3) Neutrophils # (Auto) 7.3 x10^3uL (1.8-7.7) Lymphocytes # (Auto) 2.7 x10^3/uL (1.0-4.8) Monocytes # (Auto) 1.0 x10^3/uL (0.0-1.1) Eosinophils # (Auto) 0.4 x10^3/uL (0.0-0.7) Basophils # (Auto) 0.1 x10^3/uL (0.0-0.2) Sodium Level 140 mmol/L (136-145) Potassium Level 2.8 mmol/L (3.5-5.1) *L Chloride Level 100 mmol/L (98-107) Carbon Dioxide Level 32 mmol/L (21-32) Anion Gap 8 (6-14) Blood Urea Nitrogen 24 mg/dL (7-20) H Creatinine 1.2 mg/dL (0.6-1.0) H Estimated GFR (Cockcroft-Gault) 43.8 BUN/Creatinine Ratio 20 (6-20) Glucose Level 116 mg/dL (70-99) H Calcium Level 9.0 mg/dL (8.5-10.1) Total Bilirubin 0.3 mg/dL (0.2-1.0) Aspartate Amino Transferase (AST) 43 U/L (15-37) H Alanine Aminotransferase (ALT) 55 U/L (14-59) Alkaline Phosphatase 52 U/L (46-116) Total Protein 7.2 g/dL (6.4-8.2) Albumin 3.4 g/dL (3.4-5.0) Albumin/Globulin Ratio 0.9 (1.0-1.7) L Laboratory Tests 12/11/16 12:25 Laboratory Tests 12/11/16 12:25 EKG EKG [EKG reviewed:] Radiology/Procedures Radiology/Procedures [Pelvis right hip: No fracture per radiology report] Course & Med Decision Making Course & Med Decision Making Pertinent Labs and Imaging studies reviewed. (See chart for details) [Patient with hyperkalemia and urinary tract infection likely contributing to weakness and fall. No obvious injury evident on evaluation. IV fluids antibiotics and potassium given. Will admit to hospital. Courtesy admission orders provided] Dragon Disclaimer Dragon Disclaimer This electronic medical record was generated, in whole or in part, using a voice recognition dictation system. Departure Departure Impression: Primary Impression: Hypokalemia Additional Impressions: Urinary tract infection Weakness Disposition: ADMITTED INPATIENT Admitting Physician: Alexandria Romo Condition: IMPROVED Problem Qualifiers ANTONINO GOODWIN DO Dec 11, 2016 20:19
--- NOTE | 2016-12-11 20:22 | HP ---
ADMIT DATE: 12/11/2016 CHIEF COMPLAINT: Fall. HISTORY OF PRESENT ILLNESS: The patient is a pleasant elderly female who fell. She presented to the ER for evaluation. While there, we know that she has a UTI and hypokalemia with potassium of 2.8. I have discussed the case with ER physician. We are going to admit the patient, give her IV antibiotics, IV fluids and replace her potassium. PAST MEDICAL HISTORY: Previous UTIs, GERD, hypertension, hypothyroidism, chronic pain, arthritis, chronic nausea, depression, anxiety, hyperlipidemia, insomnia. ALLERGIES: PENICILLIN. FAMILY HISTORY: Hypertension. SOCIAL HISTORY: She does not drink, smoke or take drugs. She is retired. MEDICATIONS: Reviewed. She is on 20 of them. Please refer to the MRAD. REVIEW OF SYSTEMS: GENERAL: No history of weight change, weakness or fevers. SKIN: No bruising, hair changes or rashes. EYES: No blurred, double or loss of vision. NOSE AND THROAT: No history of nosebleeds, hoarseness or sore throat. HEART: No history of palpitations, chest pain or shortness of breath on exertion. LUNGS: Denies cough, hemoptysis, wheezing or shortness of breath. GASTROINTESTINAL: Denies changes in appetite, nausea, vomiting, diarrhea or constipation. GENITOURINARY: She complains of dysuria. NEUROLOGIC: Denies history of numbness, tingling, tremor or weakness. PSYCHIATRIC: No history of panic, anxiety or depression. ENDOCRINE: No history of heat or cold intolerance, polyuria or polydipsia. EXTREMITIES: Denies muscle weakness, joint pain, pain on walking or stiffness. MUSCULOSKELETAL: She complains of diffuse pain from her arthritis. METABOLIC: She complains of chronic hypokalemia. PHYSICAL EXAMINATION: VITAL SIGNS: Temperature afebrile, pulse 92, respirations 14, blood pressure 159/84, O2 sat 95%. GENERAL: She is alert, cooperative. HEART: Normal S1, S2. LUNGS: Clear. ABDOMEN: Soft, positive bowel sounds. EXTREMITIES: Trace edema. SKIN: No rashes. PSYCHIATRIC: She is stable. VASCULAR: Good capillary refill. ENDOCRINE: No thyromegaly. LYMPHATICS: No cervical nodes. HEMATOPOIETIC: No bruising. ASSESSMENT AND PLAN: Urinary tract infection and hypokalemia in an elderly female who fell. We will go ahead and replace her potassium, IV Rocephin, IV normal saline at 75 an hour, resume her home medicines, PT/OT. SEAN GAO DO DR: LOLI/cristobal JOB#: [id number] / [id number]
[2016-12-11] MEDS ORDERED: NAPR375T3 PO (20:30)
[2016-12-11] MEDS ORDERED: AMLO5TAB2 PO (20:30)
[2016-12-11] MEDS ORDERED: HYDR12.58 PO (20:30)
[2016-12-11] MEDS ORDERED: LEVO200T5 PO (20:30)
[2016-12-11] MEDS ORDERED: FLUT16SP NS (20:30)
[2016-12-11] MEDS ORDERED: TRAM50TA PO (20:30)
[2016-12-11] MEDS ORDERED: CETI10TA16 PO (20:30)
[2016-12-11] MEDS ORDERED: METOCLOPRAMIDE 10 MG TABLET. PO PRN (20:45)
[2016-12-11] MEDS ORDERED: FLUTICASONE 50MCG/NASAL SPRAY 16GM BOTTLE. NS PRN (20:45)
[2016-12-11] MEDS: HYDROcodone/APAP 5/325MG 1 TAB TABLET PO PRN (20:50)
[2016-12-11] MEDS: PANTOPRAZOLE 40 MG TABLET.DR. PO SCH (20:50)
[2016-12-11] MEDS: IV NORMAL SALINE 1000ML BAG 1,000 ML IV SCH (20:50)
[2016-12-11] MEDS: METOPROLOL TART IMMED RELEASE 50 MG TABLET. PO SCH (20:51)
[2016-12-11] MEDS: ATORVASTATIN CALCIUM 20 MG TABLET PO SCH (20:51)
[2016-12-11] MEDS: traZODone 50 MG TABLET. PO SCH (20:51)
[2016-12-11] MEDS: ZIPRASIDONE 60 MG CAPSULE. PO SCH (20:52)
[2016-12-11] MEDS: ZIPRASIDONE 20 MG CAPSULE PO SCH (20:52)
[2016-12-11] MEDS ORDERED: ZIPRASIDONE HCL PO SCH (21:00)
[2016-12-11 23:32] VITALS: BP 162/72
[2016-12-12] MEDS: HYDROcodone/APAP 5/325MG 1 TAB TABLET PO PRN ×3 (03:24→21:23)
[2016-12-12 03:39] VITALS: BP 123/45
[2016-12-12 04:58] LABS: BASO # 0.1 x10^3/uL (0.0-0.2); BASO % 1 % (0-3); EOS % 6 % (0-3); HEMATOCRIT 34.4 % (36.0-47.0); LYMPH # 2.8 x10^3/uL (1.0-4.8); LYMPH % 35 % (24-48); MEAN CORPUSCULAR HEMOGLOBIN 30 pg (25-35); MEAN CORPUSCULAR HGB CONC 35 g/dL (31-37); MEAN CORPUSCULAR VOLUME 85 fL (79-100); MONO % 11 % (0-9); NEUT % 47 % (31-73); PLATELET COUNT 184 x10^3/uL (140-400); RED BLOOD COUNT 4.03 x10^6/uL (3.50-5.40); RED CELL DISTRIBUTION WIDTH 14.9 % (11.5-14.5)
--- NOTE | 2016-12-12 04:58 | ACF ---
Admission Forms Criteria URINARY COMPLICATIONS (Place 'X' for any and all applicable criteria): Ongoing inpatient care may be needed for Urinary complications with 1 or more of the following: [ ]I. Reduced urine output (eg, despite adequate hydration) [ ]II. Renal failure. (Also use Renal Failure: Common Complications and Conditions as appropriate) [ ]III. Urinary retention requiring drainage or surgery(19)(20)(21)(33)(34) [ ]IV. Postobstructive diuresis requiring close monitoring of urine output and intravenous compensation for excessive fluid losses(35) [ X]V. Urinary tract infection requiring inpatient care as indicated by ANY ONE of the following(8)(19)(20): [ ]a) Hemodynamic instability [ ]b) Severe symptoms (eg, high fever, severe pain) [ ]c) Vomiting or dehydration requiring ongoing inpatient care [ X]d) IV antibiotic needs that cannot be managed at lower level of care [ ]e) Obstruction of collecting system by stone or tumor Extended stay beyond goal length of stay for primary condition may be needed until ALL of the following are present(3)(4)(5)(8): [ ]a) Renal function (creatinine) at baseline, or daily decreases in creatinine consistent with renal function return [ ]b) Voiding adequately or with urinary catheter or percutaneous suprapubic tube and management regimen in place that is performable at lower level of care. [ ]c) Urine output adequate [ ]d) Fever absent or resolving [ ]e) Infection absent or treatable at next level of care The original [employer] content created by [employer] has been revised. The portions of the content which have been revised are identified through the use of italic text, and [facility] has neither reviewed nor approved the modified material. All other unmodified content is copyright [facility] Please see references footnoted in the original [facility] edition 2014 Admission Criteria Met?: Yes CHRISSIE CAMARENA Dec 12, 2016 04:58
[2016-12-12 05:17] LABS: CALCIUM 7.7 mg/dL (8.5-10.1); CREATININE 0.9 mg/dL (0.6-1.0); POTASSIUM 3.8 mmol/L (3.5-5.1)
[2016-12-12] MEDS: LEVOTHYROXINE 100 MCG TABLET PO SCH (06:26)
[2016-12-12 07:00] VITALS: BP 147/63
[2016-12-12] MEDS: amLODIPine BESYLATE 5 MG TABLET PO SCH (09:33)
[2016-12-12] MEDS: NAPROXEN 250 MG TABLET PO PRN ×2 (09:33→18:48)
[2016-12-12] MEDS: MULTIVITAMIN with MINERAL TABLET. PO SCH (09:33)
[2016-12-12] MEDS: hydroCHLOROthiazide 25 MG TABLET PO SCH (09:34)
[2016-12-12] MEDS: traMADol 50 MG TABLET PO PRN ×2 (09:34→18:48)
[2016-12-12] MEDS: DOCUSATE SODIUM 100 MG CAPSULE. PO SCH (09:35)
[2016-12-12] MEDS: CALCIUM CARB/VIT D3 500/200 TABLET. PO SCH ×2 (09:35→18:47)
[2016-12-12] MEDS: ASPIRIN ENTERIC COATED 81 MG TABLET.DR. PO SCH (09:35)
[2016-12-12] MEDS: METOPROLOL TART IMMED RELEASE 50 MG TABLET. PO SCH ×2 (09:36→21:23)
[2016-12-12] MEDS: SERTRALINE 50 MG TABLET. PO SCH (09:36)
[2016-12-12] MEDS: PANTOPRAZOLE 40 MG TABLET.DR. PO SCH ×2 (09:37→18:48)
[2016-12-12] MEDS: OXYBUTYNIN CHLORIDE 5 MG TABLET PO SCH ×3 (09:37→21:23)
[2016-12-12] MEDS: POTASSIUM CHLORIDE 20 MEQ TABLET.ER. PO SCH ×2 (09:37→18:48)
[2016-12-12] MEDS: CETIRIZINE HCL 10 MG TABLET. PO SCH (09:38)
[2016-12-12] MEDS: IV NORMAL SALINE 1000ML BAG 1,000 ML IV SCH ×2 (09:48→21:25)
[2016-12-12 11:03] VITALS: BP 127/73
--- NOTE | 2016-12-12 13:43 | PDOC ---
PROGRESS NOTES Chief Complaint Chief Complaint Mechanical fall Generalized weakness Hypokalemia UTI Previous UTIs GERD Hypertension Hypothyroidism Chronic pain Arthritis Chronic nausea Depression Anxiety Hyperlipidemia Insomnia History of Present Illness History of Present Illness Patient was resting with NAD. Hip/pelvis xray showed no abnormalities. Moderate leukocyte esterase level. Will continue tx for UTI. Vitals Vitals Vital Signs Date Time Temp Pulse Resp B/P (MAP) Pulse Ox O2 Delivery O2 Flow Rate FiO2 12/12/16 11:03 97.7 76 18 127/73 (91) 99 Room Air 97.7 Physical Exam General: No acute distress, Other (resting) Heart: Regular rate, No murmurs Lungs: Clear, Other (no r/r/w) Abdomen: Normal bowel sounds, No tenderness Extremities: No clubbing, No edema Skin: No rashes, No significant lesion Labs LABS Laboratory Tests Test 12/11/16 15:51 12/11/16 20:49 12/12/16 04:46 12/12/16 07:07 Glucose (Fingerstick) 144 mg/dL (70-99) 104 mg/dL (70-99) 110 mg/dL (70-99) White Blood Count 8.0 x10^3/uL (4.0-11.0) Red Blood Count 4.03 x10^6/uL (3.50-5.40) Hemoglobin 12.0 g/dL (12.0-15.5) Hematocrit 34.4 % (36.0-47.0) Mean Corpuscular Volume 85 fL (79-100) Mean Corpuscular Hemoglobin 30 pg (25-35) Mean Corpuscular Hemoglobin Concent 35 g/dL (31-37) Red Cell Distribution Width 14.9 % (11.5-14.5) Platelet Count 184 x10^3/uL (140-400) Neutrophils (%) (Auto) 47 % (31-73) Lymphocytes (%) (Auto) 35 % (24-48) Monocytes (%) (Auto) 11 % (0-9) Eosinophils (%) (Auto) 6 % (0-3) Basophils (%) (Auto) 1 % (0-3) Neutrophils # (Auto) 3.7 x10^3uL (1.8-7.7) Lymphocytes # (Auto) 2.8 x10^3/uL (1.0-4.8) Monocytes # (Auto) 0.9 x10^3/uL (0.0-1.1) Eosinophils # (Auto) 0.5 x10^3/uL (0.0-0.7) Basophils # (Auto) 0.1 x10^3/uL (0.0-0.2) Sodium Level 140 mmol/L (136-145) Potassium Level 3.8 mmol/L (3.5-5.1) Chloride Level 105 mmol/L (98-107) Carbon Dioxide Level 26 mmol/L (21-32) Anion Gap 9 (6-14) Blood Urea Nitrogen 21 mg/dL (7-20) Creatinine 0.9 mg/dL (0.6-1.0) Estimated GFR (Cockcroft-Gault) 61.0 Glucose Level 127 mg/dL (70-99) Calcium Level 7.7 mg/dL (8.5-10.1) Test 12/12/16 10:27 Glucose (Fingerstick) 151 mg/dL (70-99) Review of Systems Review of Systems Patient appears weak. Patient complains of mild hip pain. Assessment and Plan Assessmemt and Plan Problems Medical Problems: (1) Urinary tract infection Status: Acute (2) Weakness Status: Acute Assessment: Mechanical fall Generalized weakness Hypokalemia UTI Previous UTIs GERD Hypertension Hypothyroidism Chronic pain Arthritis Chronic nausea Depression Anxiety Hyperlipidemia Insomnia Plan: 1. Continue antibiotics 2. Continue IVF 3. Continue PT/OT 4. Recheck labs 5. Home medications 6. Probable discharge to [facility] on Tuesday Problems: Comment Review of Relevant I have reviewed the following items jaki (where applicable) has been applied. Labs Laboratory Tests Test 12/11/16 11:15 12/11/16 12:25 12/11/16 15:51 12/11/16 20:49 Urine Collection Type Unknown Urine Color Yellow Urine Clarity Clear Urine pH 7.0 Urine Specific [place] 1.010 Urine Protein Negative mg/dL (NEG-TRACE) Urine Glucose (UA) Negative mg/dL (NEG) Urine Ketones (Stick) Negative mg/dL (NEG) Urine Blood Negative (NEG) Urine Nitrite Negative (NEG) Urine Bilirubin Negative (NEG) Urine Urobilinogen Dipstick 0.2 mg/dL (0.2 mg/dL) Urine Leukocyte Esterase Moderate (NEG) Urine RBC 1-2 /HPF (0-2) Urine WBC 20-40 /HPF (0-4) Urine Squamous Epithelial Cells Many /LPF Urine Bacteria Many /HPF (0-FEW) Urine Hyaline Casts Moderate /HPF Urine Mucus Slight /LPF White Blood Count 11.6 x10^3/uL (4.0-11.0) Red Blood Count 4.69 x10^6/uL (3.50-5.40) Hemoglobin 13.5 g/dL (12.0-15.5) Hematocrit 40.4 % (36.0-47.0) Mean Corpuscular Volume 86 fL (79-100) Mean Corpuscular Hemoglobin 29 pg (25-35) Mean Corpuscular Hemoglobin Concent 33 g/dL (31-37) Red Cell Distribution Width 14.7 % (11.5-14.5) Platelet Count 203 x10^3/uL (140-400) Neutrophils (%) (Auto) 63 % (31-73) Lymphocytes (%) (Auto) 24 % (24-48) Monocytes (%) (Auto) 9 % (0-9) Eosinophils (%) (Auto) 3 % (0-3) Basophils (%) (Auto) 1 % (0-3) Neutrophils # (Auto) 7.3 x10^3uL (1.8-7.7) Lymphocytes # (Auto) 2.7 x10^3/uL (1.0-4.8) Monocytes # (Auto) 1.0 x10^3/uL (0.0-1.1) Eosinophils # (Auto) 0.4 x10^3/uL (0.0-0.7) Basophils # (Auto) 0.1 x10^3/uL (0.0-0.2) Sodium Level 140 mmol/L (136-145) Potassium Level 2.8 mmol/L (3.5-5.1) Chloride Level 100 mmol/L (98-107) Carbon Dioxide Level 32 mmol/L (21-32) Anion Gap 8 (6-14) Blood Urea Nitrogen 24 mg/dL (7-20) Creatinine 1.2 mg/dL (0.6-1.0) Estimated GFR (Cockcroft-Gault) 43.8 BUN/Creatinine Ratio 20 (6-20) Glucose Level 116 mg/dL (70-99) Calcium Level 9.0 mg/dL (8.5-10.1) Total Bilirubin 0.3 mg/dL (0.2-1.0) Aspartate Amino Transf (AST/SGOT) 43 U/L (15-37) Alanine Aminotransferase (ALT/SGPT) 55 U/L (14-59) Alkaline Phosphatase 52 U/L (46-116) Total Protein 7.2 g/dL (6.4-8.2) Albumin 3.4 g/dL (3.4-5.0) Albumin/Globulin Ratio 0.9 (1.0-1.7) Glucose (Fingerstick) 144 mg/dL (70-99) 104 mg/dL (70-99) Test 12/12/16 04:46 12/12/16 07:07 12/12/16 10:27 White Blood Count 8.0 x10^3/uL (4.0-11.0) Red Blood Count 4.03 x10^6/uL (3.50-5.40) Hemoglobin 12.0 g/dL (12.0-15.5) Hematocrit 34.4 % (36.0-47.0) Mean Corpuscular Volume 85 fL (79-100) Mean Corpuscular Hemoglobin 30 pg (25-35) Mean Corpuscular Hemoglobin Concent 35 g/dL (31-37) Red Cell Distribution Width 14.9 % (11.5-14.5) Platelet Count 184 x10^3/uL (140-400) Neutrophils (%) (Auto) 47 % (31-73) Lymphocytes (%) (Auto) 35 % (24-48) Monocytes (%) (Auto) 11 % (0-9) Eosinophils (%) (Auto) 6 % (0-3) Basophils (%) (Auto) 1 % (0-3) Neutrophils # (Auto) 3.7 x10^3uL (1.8-7.7) Lymphocytes # (Auto) 2.8 x10^3/uL (1.0-4.8) Monocytes # (Auto) 0.9 x10^3/uL (0.0-1.1) Eosinophils # (Auto) 0.5 x10^3/uL (0.0-0.7) Basophils # (Auto) 0.1 x10^3/uL (0.0-0.2) Sodium Level 140 mmol/L (136-145) Potassium Level 3.8 mmol/L (3.5-5.1) Chloride Level 105 mmol/L (98-107) Carbon Dioxide Level 26 mmol/L (21-32) Anion Gap 9 (6-14) Blood Urea Nitrogen 21 mg/dL (7-20) Creatinine 0.9 mg/dL (0.6-1.0) Estimated GFR (Cockcroft-Gault) 61.0 Glucose Level 127 mg/dL (70-99) Calcium Level 7.7 mg/dL (8.5-10.1) Glucose (Fingerstick) 110 mg/dL (70-99) 151 mg/dL (70-99) Laboratory Tests Test 12/11/16 15:51 12/11/16 20:49 12/12/16 04:46 12/12/16 07:07 Glucose (Fingerstick) 144 mg/dL (70-99) 104 mg/dL (70-99) 110 mg/dL (70-99) White Blood Count 8.0 x10^3/uL (4.0-11.0) Red Blood Count 4.03 x10^6/uL (3.50-5.40) Hemoglobin 12.0 g/dL (12.0-15.5) Hematocrit 34.4 % (36.0-47.0) Mean Corpuscular Volume 85 fL (79-100) Mean Corpuscular Hemoglobin 30 pg (25-35) Mean Corpuscular Hemoglobin Concent 35 g/dL (31-37) Red Cell Distribution Width 14.9 % (11.5-14.5) Platelet Count 184 x10^3/uL (140-400) Neutrophils (%) (Auto) 47 % (31-73) Lymphocytes (%) (Auto) 35 % (24-48) Monocytes (%) (Auto) 11 % (0-9) Eosinophils (%) (Auto) 6 % (0-3) Basophils (%) (Auto) 1 % (0-3) Neutrophils # (Auto) 3.7 x10^3uL (1.8-7.7) Lymphocytes # (Auto) 2.8 x10^3/uL (1.0-4.8) Monocytes # (Auto) 0.9 x10^3/uL (0.0-1.1) Eosinophils # (Auto) 0.5 x10^3/uL (0.0-0.7) Basophils # (Auto) 0.1 x10^3/uL (0.0-0.2) Sodium Level 140 mmol/L (136-145) Potassium Level 3.8 mmol/L (3.5-5.1) Chloride Level 105 mmol/L (98-107) Carbon Dioxide Level 26 mmol/L (21-32) Anion Gap 9 (6-14) Blood Urea Nitrogen 21 mg/dL (7-20) Creatinine 0.9 mg/dL (0.6-1.0) Estimated GFR (Cockcroft-Gault) 61.0 Glucose Level 127 mg/dL (70-99) Calcium Level 7.7 mg/dL (8.5-10.1) Test 12/12/16 10:27 Glucose (Fingerstick) 151 mg/dL (70-99) Microbiology 12/11/16 Blood Culture - Preliminary, Resulted NO GROWTH AFTER 1 DAY Medications Current Medications Potassium Chloride (Klor-Con) 40 meq 1X ONCE PO Last administered on 13:11; Start 12/11/16 at 13:00; Stop 12/11/16 at 13:01; Status DC Sodium Chloride 500 ml @ 500 mls/hr 1X ONCE IV Last administered on 13:12; Start 12/11/16 at 13:00; Stop 12/11/16 at 13:59; Status DC Ceftriaxone Sodium 1 gm/ Sodium Chloride 50 ml @ 100 mls/hr Q24H IV Last administered on 12/11/16 13:11; Start 12/11/16 at 13:00 Naproxen (Naprosyn) 375 mg 1X ONCE PO Last administered on 12/11/16 14:24; Start 12/11/16 at 14:00; Stop 12/11/16 at 14:08; Status DC Tramadol HCl (Ultram) 50 mg 1X ONCE PO Last administered on 12/11/16 14:24; Start 12/11/16 at 14:15; Stop 12/11/16 at 14:17; Status DC Ondansetron HCl (Zofran) 4 mg PRN Q8HRS PRN IV NAUSEA/VOMITING; Start 12/11/16 at 16:00; Stop 12/12/16 at 15:59 Potassium Chloride (Klor-Con) 40 meq 1X ONCE PO ; Start 12/11/16 at 16:15; Stop 12/11/16 at 16:27; Status DC Potassium Chloride (Klor-Con) 40 meq BIDWMEALS PO Last administered on 09:37; Start 12/12/16 at 08:00 Sodium Chloride 1,000 ml @ 75 mls/hr [id number] IV Last administered on 09:48; Start 12/11/16 at 19:15 Amlodipine Besylate (Norvasc) 5 mg DAILY PO Last administered on 12/12/16 09: 33; Start 12/12/16 at 09:00 Aspirin (Ecotrin) 81 mg DAILY PO Last administered on 12/12/16 09:35; Start at 09:00 Cetirizine HCl (ZyrTEC) 10 mg DAILY PO Last administered on 12/12/16 09:38; Start 12/12/16 at 09:00 Docusate Sodium (Colace) 100 mg DAILY PO Last administered on 12/12/16 09:35; Start 12/12/16 at 09:00 Fluticasone Propionate (Flonase) 2 spray PRN DAILY PRN NS ALLERGIES; Start 04/17 at 20:45 Acetaminophen/ Hydrocodone Bitart (Lortab 5/325) 1 tab PRN Q6HRS PRN PO PAIN Last administered on 12/12/16 03:24; Start 12/11/16 at 20:45 Metoclopramide HCl (Reglan) 10 mg TIDAC PRN PO NAUSEA; Start 12/11/16 at 20:45 Metoprolol Tartrate (Lopressor) 50 mg BID PO Last administered on 12/12/16 09: 36; Start 12/11/16 at 21:00 Atorvastatin Calcium (Lipitor) 20 mg QHS PO Last administered on 12/11/16 20: 51; Start 12/11/16 at 21:00 Tramadol HCl (Ultram) 50 mg PRN BID PRN PO PAIN Last administered on 12/12/16 09:34; Start 12/11/16 at 20:45 Non-Formulary Medication 1 tab WEEKLY PO ; Start 12/18/16 at 09:00; Status UNV Calcium/Vitamin D (Oscal D 500mg/ 200uts) 1 tab BIDWMEALS PO Last administered on 12/12/16 09:35; Start 12/12/16 at 08:00 Pantoprazole Sodium (Protonix) 40 mg BIDAC PO Last administered on 12/12/16 09 :37; Start 12/11/16 at 21:00 Hydrochlorothiazide (Hydrodiuril) 25 mg DAILY PO Last administered on 09:34; Start 12/12/16 at 09:00 Levothyroxine Sodium (Synthroid) 200 mcg DAILY07 PO Last administered on 06:26; Start 12/12/16 at 07:00 Multivitamins (Thera M Plus) 1 tab DAILY PO Last administered on 12/12/16 09: 33; Start 12/12/16 at 09:00 Naproxen (Naprosyn) 375 mg PRN BID PRN PO PAIN Last administered on 12/12/16 09:33; Start 12/11/16 at 20:45 Sertraline HCl (Zoloft) 200 mg DAILY PO Last administered on 12/12/16 09:36; Start 12/12/16 at 09:00 Oxybutynin Chloride (Ditropan) 5 mg [id number] PO Last administered on 12/12/16 09 :37; Start 12/12/16 at 09:00 Trazodone HCl (Desyrel) 150 mg QHS PO Last administered on 12/11/16 20:51; Start 12/11/16 at 21:00 Non-Formulary Medication 2 cap QHS PO ; Start 12/11/16 at 21:00; Status UNV Ziprasidone (Geodon) 120 mg QHS PO Last administered on 12/11/16 20:52; Start 12/11/16 at 21:00 Ziprasidone (Geodon) 40 mg QHS PO Last administered on 12/11/16 20:52; Start 12/11/16 at 21:00 Active Scripts Active Hydrocodone-Apap 5-325 (Hydrocodone Bit/Acetaminophen) 1 Each Tablet 1 Tab PO PRN Q6HRS PRN Be careful as this medication may cause you to be drowsy or tired. Do not drive on this medication. Reported Naproxen 375 Mg Tablet 1 Tab PO BID PRN Amlodipine Besylate 5 Mg Tablet 5 Mg PO DAILY Levothyroxine Sodium 200 Mcg Tablet 1 Tab PO DAILY06 Fluticasone Propionate Nasal [place] (Fluticasone Propionate) 16 Gm [place].susp 2 [place] NS DAILY PRN Cetirizine Hcl 10 Mg Tablet 1 Tab PO DAILY Tramadol Hcl 50 Mg Tablet 1 Tab PO BID PRN Trazodone Hcl 150 Mg Tablet 1 Tab PO QHS [place] (Ziprasidone Hcl) 80 Mg Capsule 2 Cap PO QHS Simvastatin 40 Mg Tablet 1 Tab PO QHS Reglan (Metoclopramide Hcl) 10 Mg Tablet 1 Tab PO TIDAC PRN Nexium Capsule (Esomeprazole Magnesium) 40 Mg Capsule.dr 1 Cap PO BID Metoprolol Tartrate 50 Mg Tablet 1 Tab PO BID Calcium 600 + Vit D 200 Tablet (Calcium Carbonate/Vitamin D3) 1 Each Tablet 1 Each PO BIDWMEALS Detrol La (Tolterodine Tartrate) 4 Mg Cap.er.24h 1 Cap PO DAILY Sertraline Hcl 100 Mg Tablet 200 Mg PO DAILY Hydrochlorothiazide Tablet (Hydrochlorothiazide) 12.5 Mg Tablet 2 Tab PO DAILY Docusate Sodium 100 Mg Capsule 1 Cap PO DAILY Aspir 81 (Aspirin) 81 Mg Tablet.dr 1 Tab PO DAILY Certavite Sr-Antioxidant Tab (Multivits-Min/Fa/Lycopene/Lut) 1 Each Tablet 1 Each PO DAILY Alendronate Sodium 35 Mg Tablet 1 Tab PO WEEKLY Weekly on Sundays Vitals/I & O Vital Sign - Last 24 Hours 12/11/16 12/11/16 12/11/16 12/11/16 14:15 14:24 14:45 16:40 Temp 98.1 98.1 Pulse 88 84 87 Resp 14 20 B/P (MAP) 159/84 (109) 134/69 (90) 157/65 (95) Pulse Ox 95 98 O2 Delivery Room Air Room Air Room Air Room Air 12/11/16 12/11/16 12/11/16 12/11/16 16:40 17:00 19:28 20:00 Temp 98.1 98.1 98.1 98.1 Pulse 87 77 Resp 20 18 B/P (MAP) 157/65 (95) 119/48 (71) Pulse Ox 98 94 O2 Delivery Room Air Room Air Room Air Room Air 12/11/16 12/11/16 12/11/16 12/12/16 20:50 20:51 23:32 03:24 Temp 98.1 98.1 Pulse 77 84 Resp 16 18 16 B/P (MAP) 119/48 162/72 (102) Pulse Ox 94 96 96 O2 Delivery Room Air Room Air 12/12/16 12/12/16 12/12/16 12/12/16 03:39 04:25 07:00 08:00 Temp 98.1 97.7 98.1 97.7 Pulse 74 68 Resp 18 16 18 B/P (MAP) 123/45 (71) 147/63 (91) Pulse Ox 95 95 96 O2 Delivery Room Air Room Air Room Air Room Air 12/12/16 12/12/16 12/12/16 12/12/16 09:33 09:34 09:36 10:34 Pulse 68 68 Resp 20 20 B/P (MAP) 147/63 147/63 Pulse Ox 96 O2 Delivery Room Air Room Air 12/12/16 11:03 Temp 97.7 97.7 Pulse 76 Resp 18 B/P (MAP) 127/73 (91) Pulse Ox 99 O2 Delivery Room Air Intake and Output 12/11/16 12/11/16 12/12/16 15:00 23:00 07:00 Intake Total 120 ml 240 ml Output Total 100 ml Balance 20 ml 240 ml SEAN GAO III DO Dec 12, 2016 13:43
[2016-12-12 14:48] VITALS: BP 132/69
[2016-12-12 19:00] VITALS: BP 165/69
[2016-12-12] MEDS ORDERED: GABA-586 PO (20:42)
[2016-12-12] MEDS: GABAPENTIN 300 MG CAPSULE. PO SCH (21:23)
[2016-12-12] MEDS: ATORVASTATIN CALCIUM 20 MG TABLET PO SCH (21:23)
[2016-12-12] MEDS: ZIPRASIDONE 20 MG CAPSULE PO SCH (21:24)
[2016-12-12] MEDS: traZODone 50 MG TABLET. PO SCH (21:24)
[2016-12-12] MEDS: ZIPRASIDONE 60 MG CAPSULE. PO SCH (21:24)
[2016-12-12 23:00] VITALS: BP 138/78
[2016-12-13 03:00] VITALS: BP 133/52
[2016-12-13] MEDS: PANTOPRAZOLE 40 MG TABLET.DR. PO SCH ×2 (06:38→16:58)
[2016-12-13] MEDS: HYDROcodone/APAP 5/325MG 1 TAB TABLET PO PRN ×2 (06:38→20:59)
[2016-12-13] MEDS: LEVOTHYROXINE 100 MCG TABLET PO SCH (06:38)
[2016-12-13 07:00] VITALS: BP 121/52
[2016-12-13] MEDS: CETIRIZINE HCL 10 MG TABLET. PO SCH (08:46)
[2016-12-13] MEDS: SERTRALINE 50 MG TABLET. PO SCH (08:46)
[2016-12-13] MEDS: CALCIUM CARB/VIT D3 500/200 TABLET. PO SCH ×2 (08:47→16:59)
[2016-12-13] MEDS: POTASSIUM CHLORIDE 20 MEQ TABLET.ER. PO SCH ×2 (08:47→16:58)
[2016-12-13] MEDS: GABAPENTIN 300 MG CAPSULE. PO SCH ×3 (08:48→20:58)
[2016-12-13] MEDS: DOCUSATE SODIUM 100 MG CAPSULE. PO SCH (08:48)
[2016-12-13] MEDS: OXYBUTYNIN CHLORIDE 5 MG TABLET PO SCH ×3 (08:48→20:58)
[2016-12-13] MEDS: ASPIRIN ENTERIC COATED 81 MG TABLET.DR. PO SCH (08:48)
[2016-12-13] MEDS: METOPROLOL TART IMMED RELEASE 50 MG TABLET. PO SCH ×2 (08:48→20:59)
[2016-12-13] MEDS: hydroCHLOROthiazide 25 MG TABLET PO SCH (08:48)
[2016-12-13] MEDS: MULTIVITAMIN with MINERAL TABLET. PO SCH (08:48)
[2016-12-13] MEDS: amLODIPine BESYLATE 5 MG TABLET PO SCH (08:49)
[2016-12-13] MEDS: traMADol 50 MG TABLET PO PRN (08:49)
[2016-12-13 11:00] VITALS: BP 138/55
[2016-12-13] MEDS: IV NORMAL SALINE 1000ML BAG 1,000 ML IV SCH (11:15)
[2016-12-13 15:00] VITALS: BP 138/55
--- NOTE | 2016-12-13 16:01 | PDOC ---
PROGRESS NOTES Chief Complaint Chief Complaint Mechanical fall Generalized weakness UTI ASSESSMENT AND PLAN: 1. UTI: culture with mixed jocelyn. stop Abx (3 days completed in either case). has hx of recurrent UTI 2. Hypokalemia: repleted 3. HTN/HLD: well controlled on home regimen 4. Hypothyroidism: on hormone repletion 5. DM: diet controlled. 6. GERD: PPI 7. Nausea: chronic. reglan PRN 8. OA: chronic pain. Xrays w/o overt fx. 9. Depression/Anxiety: continue (extensive) home regimen 10. Insomnia: chronic 11. Dispo: fall due to gebn weakness, poss exacerbated by infect. eval for rehab needs History of Present Illness History of Present Illness no new issues. Vitals Vitals Vital Signs Date Time Temp Pulse Resp B/P (MAP) Pulse Ox O2 Delivery O2 Flow Rate FiO2 12/13/16 11:00 97.5 61 16 138/55 (82) 96 Room Air 97.5 Physical Exam General: Alert, Cooperative, No acute distress Heart: Regular rate, No murmurs Lungs: Clear Abdomen: Normal bowel sounds, No tenderness Extremities: No clubbing, No edema Skin: No rashes, No significant lesion Labs LABS Laboratory Tests Test 12/12/16 16:28 12/12/16 20:31 12/13/16 07:44 12/13/16 11:20 Glucose (Fingerstick) 95 mg/dL (70-99) 115 mg/dL (70-99) 113 mg/dL (70-99) 106 mg/dL (70-99) LINDA SPENCER MD Dec 13, 2016 16:01
[2016-12-13 19:00] VITALS: BP 148/58
[2016-12-13] MEDS: ZIPRASIDONE 20 MG CAPSULE PO SCH (20:58)
[2016-12-13] MEDS: traZODone 50 MG TABLET. PO SCH (20:58)
[2016-12-13] MEDS: ATORVASTATIN CALCIUM 20 MG TABLET PO SCH (20:59)
[2016-12-13] MEDS: ZIPRASIDONE 60 MG CAPSULE. PO SCH (21:02)
[2016-12-13 22:54] VITALS: BP 174/59
[2016-12-14] MEDS: IV NORMAL SALINE 1000ML BAG 1,000 ML IV SCH ×2 (00:01→13:55)
[2016-12-14] MEDS: HYDROcodone/APAP 5/325MG 1 TAB TABLET PO PRN ×2 (03:07→17:13)
[2016-12-14 03:09] VITALS: BP 187/64
[2016-12-14] MEDS: PANTOPRAZOLE 40 MG TABLET.DR. PO SCH ×2 (06:09→15:35)
[2016-12-14] MEDS: LEVOTHYROXINE 100 MCG TABLET PO SCH (06:09)
[2016-12-14 07:00] VITALS: BP 182/76
[2016-12-14] MEDS: OXYBUTYNIN CHLORIDE 5 MG TABLET PO SCH ×3 (09:00→20:55)
[2016-12-14] MEDS: GABAPENTIN 300 MG CAPSULE. PO SCH ×3 (09:00→20:56)
[2016-12-14] MEDS: ASPIRIN ENTERIC COATED 81 MG TABLET.DR. PO SCH (09:00)
[2016-12-14] MEDS: SERTRALINE 50 MG TABLET. PO SCH (09:00)
[2016-12-14] MEDS: CETIRIZINE HCL 10 MG TABLET. PO SCH (09:00)
[2016-12-14] MEDS: MULTIVITAMIN with MINERAL TABLET. PO SCH (09:00)
[2016-12-14] MEDS: DOCUSATE SODIUM 100 MG CAPSULE. PO SCH (09:00)
[2016-12-14] MEDS: CALCIUM CARB/VIT D3 500/200 TABLET. PO SCH ×2 (09:01→17:12)
[2016-12-14] MEDS: POTASSIUM CHLORIDE 20 MEQ TABLET.ER. PO SCH ×2 (09:01→17:13)
[2016-12-14] MEDS: METOPROLOL TART IMMED RELEASE 50 MG TABLET. PO SCH ×2 (09:03→20:55)
[2016-12-14] MEDS: hydroCHLOROthiazide 25 MG TABLET PO SCH (09:04)
[2016-12-14] MEDS: amLODIPine BESYLATE 5 MG TABLET PO SCH (09:04)
[2016-12-14 11:00] VITALS: BP 164/62
--- NOTE | 2016-12-14 15:24 | PDOC ---
PROGRESS NOTES Chief Complaint Chief Complaint Mechanical fall Generalized weakness UTI ASSESSMENT AND PLAN: 1. UTI: culture with mixed jocelyn. stop Abx (3 days completed in either case). has hx of recurrent UTI 2. Hypokalemia: repleted 3. HTN/HLD: well controlled on home regimen 4. Hypothyroidism: on hormone repletion 5. DM: diet controlled. 6. GERD: PPI 7. Nausea: chronic. reglan PRN 8. OA: chronic pain. Xrays w/o overt fx. 9. Depression/Anxiety: continue (extensive) home regimen 10. Insomnia: chronic 11. Dispo: to rehab when bed available History of Present Illness History of Present Illness feels better, more active in walking with and without PT Vitals Vitals Vital Signs Date Time Temp Pulse Resp B/P (MAP) Pulse Ox O2 Delivery O2 Flow Rate FiO2 12/14/16 11:00 100.2 69 20 164/62 (96) 94 Room Air 100.2 Physical Exam General: Alert, Cooperative, No acute distress Heart: Regular rate, No murmurs Lungs: Clear Abdomen: Normal bowel sounds, No tenderness Extremities: No clubbing, No edema Skin: No rashes, No significant lesion Labs LABS Laboratory Tests Test 12/13/16 16:44 12/13/16 20:57 12/14/16 08:04 12/14/16 11:56 Glucose (Fingerstick) 101 mg/dL (70-99) 108 mg/dL (70-99) 110 mg/dL (70-99) 116 mg/dL (70-99) LINDA SPENCER MD Dec 14, 2016 15:24
[2016-12-14 15:48] VITALS: BP 108/40
[2016-12-14 19:00] VITALS: BP 173/74
[2016-12-14] MEDS: ATORVASTATIN CALCIUM 20 MG TABLET PO SCH (20:55)
[2016-12-14] MEDS: traZODone 50 MG TABLET. PO SCH (20:56)
[2016-12-14] MEDS: ZIPRASIDONE 60 MG CAPSULE. PO SCH (20:56)
[2016-12-14] MEDS: ZIPRASIDONE 20 MG CAPSULE PO SCH (20:56)
[2016-12-14 23:00] VITALS: BP 153/65
[2016-12-15] MEDS: IV NORMAL SALINE 1000ML BAG 1,000 ML IV SCH (02:48)
[2016-12-15 03:00] VITALS: BP 147/64
[2016-12-15] MEDS: HYDROcodone/APAP 5/325MG 1 TAB TABLET PO PRN (06:21)
[2016-12-15] MEDS: PANTOPRAZOLE 40 MG TABLET.DR. PO SCH ×2 (06:21→17:36)
[2016-12-15] MEDS: LEVOTHYROXINE 100 MCG TABLET PO SCH (06:21)
[2016-12-15 07:00] VITALS: BP 154/78
[2016-12-15] MEDS: CALCIUM CARB/VIT D3 500/200 TABLET. PO SCH ×2 (08:32→17:35)
[2016-12-15] MEDS: POTASSIUM CHLORIDE 20 MEQ TABLET.ER. PO SCH ×2 (08:32→17:35)
[2016-12-15] MEDS: DOCUSATE SODIUM 100 MG CAPSULE. PO SCH (08:32)
[2016-12-15] MEDS: OXYBUTYNIN CHLORIDE 5 MG TABLET PO SCH ×2 (08:33→13:55)
[2016-12-15] MEDS: hydroCHLOROthiazide 25 MG TABLET PO SCH (08:33)
[2016-12-15] MEDS: ASPIRIN ENTERIC COATED 81 MG TABLET.DR. PO SCH (08:33)
[2016-12-15] MEDS: METOPROLOL TART IMMED RELEASE 50 MG TABLET. PO SCH (08:34)
[2016-12-15] MEDS: amLODIPine BESYLATE 5 MG TABLET PO SCH (08:35)
[2016-12-15] MEDS: GABAPENTIN 300 MG CAPSULE. PO SCH ×2 (08:35→13:55)
[2016-12-15] MEDS: SERTRALINE 50 MG TABLET. PO SCH (08:36)
[2016-12-15] MEDS: MULTIVITAMIN with MINERAL TABLET. PO SCH (08:36)
[2016-12-15] MEDS: CETIRIZINE HCL 10 MG TABLET. PO SCH (08:37)
[2016-12-15 11:09] VITALS: BP 181/77
[2016-12-15 14:50] VITALS: BP 170/63
[2016-12-18] MEDS ORDERED: NON FORMULARY ITEM (Alendronate Sodium 1 TAB) PO SCH (09:00)
== END 2016-12-15 18:00 | disposition home health service (06) | DRG 690 ==
LOC: ER 10:52 → 4 NORTH 13:00
PROVIDERS: ADMIT Internal Medicine; ATTEND Internal Medicine
DX: N39.0 Urinary tract infection, site not specified (principal); E11.9 Type 2 diabetes mellitus without complications; I10 Essential (primary) hypertension; E87.6 Hypokalemia; K21.9 Gastro-esophageal reflux disease without esophagitis; E03.9 Hypothyroidism, unspecified; G89.29 Other chronic pain; M19.90 Unspecified osteoarthritis, unspecified site; F32.9 Major depressive disorder, single episode, unspecified; F41.9 Anxiety disorder, unspecified; G47.00 Insomnia, unspecified; E78.5 Hyperlipidemia, unspecified; Z86.73 Personal history of transient ischemic attack (TIA), and cerebral infarction without residual deficits; Z88.0 Allergy status to penicillin; Z82.49 Family history of ischemic heart disease and other diseases of the circulatory system
CPT/HCPCS: 36415; 73501; 80048; 80053; 81001; 82962; 85025; 87040; 87086; 87641; 96360; J0696; J7030; J7040; 99285-25

== ENCOUNTER → 2017-02-03 | Outpatient (CLI) | payer MEDICARE, OTHER ==
[~2017-02-03] MED LIST changes: +AMLO5TAB2 PO; +CETI10TA16 PO; +GABA-586 PO; +NAPR-695 PO; -NAPR375T3 PO
== END | disposition home or self-care (01) ==
LOC: LAB 10:58
PROVIDERS: ATTEND Psychiatry & Neurology Neurology
DX: R41.3 Other amnesia (principal)
CPT/HCPCS: 36415; 82306; 82550

== ENCOUNTER → 2019-01-09 | Outpatient (CLI) | payer OTHER, MEDICAID ==
[2018-12-01 11:00] VITALS: BP 155/54
[~2019-01-09] MED LIST changes: +AMLO5TAB10 PO; -AMLO5TAB2 PO; +BUPR150T15 PO; -GABA-586 PO; +GABA300C18 PO; -HYDR-2758 PO; +HYDR-2761 PO; +LISI-130 PO; -LISI40TA PO; -METO50TA2 PO; +METO50TA6 PO; -PANT40TA5 PO; +PANT40TA77 PO
--- NOTE | 2019-01-09 17:22 | RAD ---
Cervical spine CT without contrast History: Cervical spine fracture at C2 Technique: Noncontrast CT imaging was performed of the cervical spine. Multiplanar images are reviewed. Exposure: One or more of the following individualized dose reduction techniques were utilized for this examination: 1. Automated exposure control 2. Adjustment of the mA and/or kV according to patient size 3. Use of iterative reconstruction technique. Comparison: November 28, 2018 Findings: There is again vertically oriented fracture of the left lateral mass of C2, again degree of inferior displacement of the more lateral aspect of the fracture fragment, intra-articular extent to the C1-2 lateral mass articulation and also extent to the region of left C2 transverse foramen, also extent to the anterior aspect of the left C2 pedicle. Fracture plane is slightly less apparent although still visualized. There is also apparently small avulsed fracture fragment of the left medial occipital condyle also fairly similar. Vertebral body stature is unchanged. There is multilevel advanced degenerative disc disease C3-4 through C6-7, multilevel spondylosis. There is multilevel cervical facet degenerative change. There is likely central canal stenosis about 8 to 9 mm at C3-4 and C4-5. There is multilevel mild uncovertebral degenerative change. There is multilevel mild left cervical neural foramina compromise. Atlantoaxial distance is within normal limits. There is mild levoscoliosis. Impression: 1. There is again vertically oriented fracture of the left lateral mass of C2 with intra-articular extent, also extent to the left transverse foramen. There is also small avulsed fragment of the medial aspect of left occipital condyle. 2. There is again multilevel cervical degenerative disc disease and spondylosis, degree of mild spinal stenosis greatest C3-4 and C4-5. Electronically signed by: Matt Diaz MD (01/09/2019 5:19 PM) [email or web address]
== END | disposition home or self-care (01) ==
LOC: CT 14:35
PROVIDERS: ATTEND Family Medicine
DX: S12.100G Unspecified displaced fracture of second cervical vertebra, subsequent encounter for fracture with delayed healing (principal); W06.XXXD Fall from bed, subsequent encounter; Z09 Encounter for follow-up examination after completed treatment for conditions other than malignant neoplasm; Z91.81 History of falling
CPT/HCPCS: 72125

== ENCOUNTER 2019-01-13 00:53 | Emergency (ER) | payer OTHER, MEDICAID ==
[~2019-01-13] VITALS: Ht 157.5 cm; Wt 64.4 kg
[2019-01-13 01:27] LABS: BASO # 0.1 x10^3/uL (0.0-0.2); BASO % 1 % (0-3); EOS # 0.6 x10^3/uL (0.0-0.7); EOS % 6 % (0-3); HEMATOCRIT 36.1 % (36.0-47.0); HEMOGLOBIN 12.3 g/dL (12.0-15.5); LYMPH # 3.1 x10^3/uL (1.0-4.8); LYMPH % 29 % (24-48); MEAN CORPUSCULAR HEMOGLOBIN 29 pg (25-35); MEAN CORPUSCULAR HGB CONC 34 g/dL (31-37); MEAN CORPUSCULAR VOLUME 84 fL (79-100); MONO # 0.9 x10^3/uL (0.0-1.1); MONO % 9 % (0-9); NEUT # 5.8 x10^3/uL (1.8-7.7); NEUT % 55 % (31-73); PLATELET COUNT 273 x10^3/uL (140-400); RED BLOOD COUNT 4.31 x10^6/uL (3.50-5.40); RED CELL DISTRIBUTION WIDTH 14.2 % (11.5-14.5); WHITE BLOOD COUNT 10.6 x10^3/uL (4.0-11.0)
[2019-01-13 01:33] LABS: CALCIUM 9.3 mg/dL (8.5-10.1); CREATININE 1.5 mg/dL (0.6-1.0); GFR 33.7; POTASSIUM 3.1 mmol/L (3.5-5.1)
[2019-01-13 01:38] LABS: ALBUMIN 3.3 g/dL (3.4-5.0); ALBUMIN/GLOBULIN RATIO 0.8 (1.0-1.7); TOTAL BILIRUBIN 0.2 mg/dL (0.2-1.0); TOTAL PROTEIN 7.6 g/dL (6.4-8.2)
[2019-01-13] MEDS ORDERED: POTASSIUM BICARB 20 MEQ EFFERVESCENT TABLET. PEG ONE (02:00)
--- NOTE | 2019-01-13 02:02 | RAD ---
CT HEAD AND CERVICAL SPINE WO Date: 01/13/2019 1:01 AM Clinical Indication: Fall, pain, recent cervical spine fracture Comparison: 01/09/2019. Technique: 5 mm axial tomographic images were obtained of the head without contrast. These were viewed on brain and bone windows. Noncontrast CT of the cervical spine was performed. Sagittal and coronal reformats were performed and evaluated. One or more of the following dose reduction techniques were utilized: Automated exposure control (AEC), Adjustment of mA and/or kV according to patient size, Use of iterative reconstruction technique such as ASiR, CT scan done according to ALARA and image gently/image wisely HEAD FINDINGS: Mild generalized cerebral and cerebellar volume loss. Mild nonspecific periventricular hypoattenuation, most commonly seen with chronic small vessel ischemic disease. No intra- or extra-axial mass or fluid collection. No acute hemorrhage. The ventricles are normal in size, shape, and morphology. The rodriguez-white matter junction is normal. The basilar cisterns are patent. The visualized paranasal sinuses are normal. The visualized portions of the orbits and globes are normal. The mastoid air cells are clear. No aggressive osseous lesion or fracture. CERVICAL SPINE FINDINGS: Unchanged fracture involving the lateral mass of C2 on the left, the C1-C2 articulation, and left C2 transverse foramen. No new fractures. Straightening of the cervical lordosis. Severe multilevel degenerative disc space height loss. Multilevel mild and moderate spinal canal stenosis secondary to disc protrusions and marginal osteophytes. Multilevel mild and moderate neuroforaminal narrowing secondary to uncovertebral arthrosis. Multilevel moderate facet arthrosis. The thyroid gland is normal. No cervical lymphadenopathy. Bilateral carotid atherosclerosis. The visualized aerodigestive tract is normal. The visualized portions of the lungs are clear. IMPRESSION: 1. No acute intracranial process. 2. Unchanged fracture involving the lateral mass of C2 on the left, the C1-C2 articulation, and left C2 transverse foramen. No new fractures. Electronically signed by: Matt Orozco MD (01/13/2019 1:59 AM) [id number]
--- NOTE | 2019-01-13 02:15 | PHYS DOC ---
Past Medical History Past Medical History: Anxiety, Arthritis, Hypertension, Hypothyroid, TIA, Other Additional Past Medical Histor: "memory problems" Past Surgical History: Cholecystectomy, Hysterectomy, Other Additional Past Surgical Histo: Lt foot. Lt breast Alcohol Use: None Drug Use: None Adult General Chief Complaint Chief Complaint: MECHANICAL FALL HPI HPI Patient is a 78-year-old female who presents after falling at home. Patient recently had been admitted and diagnosed with a cervical fracture. Patient states that she did hit the back of her head but did not lose consciousness. She rates pain at a 3 out of 10. She denies any new pain in her neck. Patient anita cates that she would still like to have her neck x-rayed to be sure that there is no new injuries. She denies any chest pain or shortness of breath. Patient reports that she just lost balance and fell backwards.[] Review of Systems Review of Systems Constitutional: Denies fever or chills [] Respiratory: Denies cough or shortness of breath [] Cardiovascular: No additional information not addressed in HPI [] Integument: Denies rash or skin lesions [] Neurologic: Complains of mild headache without focal weakness or sensory changes [] All other systems were reviewed and found to be within normal limits, except as documented in this note. Current Medications Current Medications Current Medications Medications (Trade) Dose Ordered Sig/[facility] Start Time Stop Time Status Last Admin Dose Admin Potassium Bicarbonate (Potassium Effervescent Tablet) 40 meq 1X ONCE 01/13/19 02:00 01/13/19 02:01 DC 01/13/19 01:56 40 MEQ Tramadol HCl (Ultram) 50 mg 1X ONCE 01/13/19 03:00 01/13/19 03:01 DC 01/13/19 03:03 50 MG Allergies Allergies Allergies Coded Allergies Type Severity Reaction Last Updated Verified Penicillins Allergy Intermediate Hives 11/24/18 Yes Physical Exam Physical Exam Constitutional: Well developed, well nourished, no acute distress, non-toxic appearance. [] HENT: Normocephalic, atraumatic, bilateral external ears normal, oropharynx moist, no oral exudates, nose normal. [] Neck: [place] cervical collar is in place. [] Cardiovascular: Regular rate and rhythm[] Lungs & Thorax: Bilateral breath sounds clear to auscultation [] Back: No tenderness, no CVA tenderness. [] Extremities: No tenderness, no cyanosis, no clubbing, ROM intact. [] Neurologic: Awake and alert, no focal deficits noted. [] Current Patient Data Vital Signs Vital Signs Date Time Temp Pulse Resp B/P (MAP) Pulse Ox O2 Delivery O2 Flow Rate FiO2 01/13/19 03:03 20 95 Room Air 01/13/19 02:52 70 01/13/19 00:55 98.4 154/68 (96) 98.4 Lab Values Laboratory Tests Test 01/13/19 01:15 White Blood Count 10.6 x10^3/uL (4.0-11.0) Red Blood Count 4.31 x10^6/uL (3.50-5.40) Hemoglobin 12.3 g/dL (12.0-15.5) Hematocrit 36.1 % (36.0-47.0) Mean Corpuscular Volume 84 fL (79-100) Mean Corpuscular Hemoglobin 29 pg (25-35) Mean Corpuscular Hemoglobin Concent 34 g/dL (31-37) Red Cell Distribution Width 14.2 % (11.5-14.5) Platelet Count 273 x10^3/uL (140-400) Neutrophils (%) (Auto) 55 % (31-73) Lymphocytes (%) (Auto) 29 % (24-48) Monocytes (%) (Auto) 9 % (0-9) Eosinophils (%) (Auto) 6 % (0-3) H Basophils (%) (Auto) 1 % (0-3) Neutrophils # (Auto) 5.8 x10^3/uL (1.8-7.7) Lymphocytes # (Auto) 3.1 x10^3/uL (1.0-4.8) Monocytes # (Auto) 0.9 x10^3/uL (0.0-1.1) Eosinophils # (Auto) 0.6 x10^3/uL (0.0-0.7) Basophils # (Auto) 0.1 x10^3/uL (0.0-0.2) Sodium Level 137 mmol/L (136-145) Potassium Level 3.1 mmol/L (3.5-5.1) L Chloride Level 99 mmol/L (98-107) Carbon Dioxide Level 27 mmol/L (21-32) Anion Gap 11 (6-14) Blood Urea Nitrogen 29 mg/dL (7-20) H Creatinine 1.5 mg/dL (0.6-1.0) H Estimated GFR (Cockcroft-Gault) 33.7 BUN/Creatinine Ratio 19 (6-20) Glucose Level 107 mg/dL (70-99) H Calcium Level 9.3 mg/dL (8.5-10.1) Total Bilirubin 0.2 mg/dL (0.2-1.0) Aspartate Amino Transferase (AST) 27 U/L (15-37) Alanine Aminotransferase (ALT) 36 U/L (14-59) Alkaline Phosphatase 74 U/L (46-116) Total Protein 7.6 g/dL (6.4-8.2) Albumin 3.3 g/dL (3.4-5.0) L Albumin/Globulin Ratio 0.8 (1.0-1.7) L Laboratory Tests 01/13/19 01:15 Laboratory Tests 01/13/19 01:15 EKG EKG [] Radiology/Procedures Radiology/Procedures [] Impressions: PROCEDURE: CT HEAD AND CERVICAL SPINE WO CT HEAD AND CERVICAL SPINE WO Date: 01/13/2019 1:01 AM Clinical Indication: Fall, pain, recent cervical spine fracture Comparison: 01/09/2019. Technique: 5 mm axial tomographic images were obtained of the head without contrast. These were viewed on brain and bone windows. Noncontrast CT of the cervical spine was performed. Sagittal and coronal reformats were performed and evaluated. One or more of the following dose reduction techniques were utilized: Automated exposure control (AEC), Adjustment of mA and/or kV according to patient size, Use of iterative reconstruction technique such as ASiR, CT scan done according to ALARA and image gently/image wisely HEAD FINDINGS: Mild generalized cerebral and cerebellar volume loss. Mild nonspecific periventricular hypoattenuation, most commonly seen with chronic small vessel ischemic disease. No intra- or extra-axial mass or fluid collection. No acute hemorrhage. The ventricles are normal in size, shape, and morphology. The rodriguez-white matter junction is normal. The basilar cisterns are patent. The visualized paranasal sinuses are normal. The visualized portions of the orbits and globes are normal. The mastoid air cells are clear. No aggressive osseous lesion or fracture. CERVICAL SPINE FINDINGS: Unchanged fracture involving the lateral mass of C2 on the left, the C1-C2 articulation, and left C2 transverse foramen. No new fractures. Straightening of the cervical lordosis. Severe multilevel degenerative disc space height loss. Multilevel mild and moderate spinal canal stenosis secondary to disc protrusions and marginal osteophytes. Multilevel mild and moderate neuroforaminal narrowing secondary to uncovertebral arthrosis. Multilevel moderate facet arthrosis. The thyroid gland is normal. No cervical lymphadenopathy. Bilateral carotid atherosclerosis. The visualized aerodigestive tract is normal. The visualized portions of the lungs are clear. IMPRESSION: 1. No acute intracranial process. 2. Unchanged fracture involving the lateral mass of C2 on the left, the C1-C2 articulation, and left C2 transverse foramen. No new fractures. Electronically signed by: Kayden Orozco MD (01/13/2019 1:59 AM) [id number] DICTATED and SIGNED BY: KAYDEN OROZCO MD DATE: 01/13/19 0159 Course & Med Decision Making Course & Med Decision Making Pertinent Labs and Imaging studies reviewed. (See chart for details) [] Dragon Disclaimer Dragon Disclaimer This electronic medical record was generated, in whole or in part, using a voice recognition dictation system. Departure Departure Impression: Primary Impression: Closed head injury Additional Impression: Frequent falls Disposition: 01 HOME, SELF-CARE Condition: STABLE Referrals: ROMAIN DÍAZ MD (PCP) Patient Instructions: Fall Prevention and Home Safety, Head Injury, Adult Problem Qualifiers Primary Impression: Closed head injury Encounter type: initial encounter Qualified Codes: S09.90XA - Unspecified injury of head, initial encounter NICOLETTE WOODWARD Jr. DO Jan 13, 2019 02:15
[2019-01-13] MEDS ORDERED: traMADol 50 MG TABLET PO ONE (03:00)
[2019-01-13 06:40] VITALS: BP 141/87
== END 2019-01-13 06:50 | disposition home or self-care (01) ==
LOC: ER 00:53
DX: S09.90XA Unspecified injury of head, initial encounter (principal); R51 Headache; I10 Essential (primary) hypertension; E03.9 Hypothyroidism, unspecified; Z86.73 Personal history of transient ischemic attack (TIA), and cerebral infarction without residual deficits; Z91.81 History of falling; Z88.0 Allergy status to penicillin; W18.09XA Striking against other object with subsequent fall, initial encounter; Y93.89 Activity, other specified; Y92.098 Other place in other non-institutional residence as the place of occurrence of the external cause; Y99.8 Other external cause status
CPT/HCPCS: 36415; 70450; 72125; 80053; 85025; 99285-25

== ENCOUNTER → 2019-02-16 | Outpatient (CLI) | payer OTHER, MEDICAID ==
[~2019-02-16] MED LIST changes: +ALEN35TA11 PO; -ALEN35TA6 PO
--- NOTE | 2019-02-16 17:12 | KCIC ---
CT study of the cervical spine without contrast Clinical indications: History of C2 fracture. Follow-up study. COMPARISON: January 09, 2019. TECHNIQUE: Noncontrast helical CT scanning of the cervical spine was performed. Multiplanar 2-D reconstructions were generated. PQRS compliance Statement One or more of the following individualized dose reduction techniques were utilized for this study: 1. Automated exposure control 2. Adjustment of the mA and/or kV according to patient size 3. Use of iterative reconstruction technique FINDINGS: Again seen is a vertical fracture of the left C2 lateral mass which is unchanged in position from the previous study. The fracture extends into the left transverse foramen. This was seen previously. Healing sclerosis is seen developing across the fracture but the fracture is not yet healed especially laterally and posteriorly. Small avulsion fracture fragment of the medial aspect of the left occipital condyle is again noted and is unchanged. No other fracture line is evident. No discitis or lytic process is evident. Degenerative facet arthropathy is evident. No perching of facet joints is seen. There is degenerative disc space narrowing and endplate spurring from C3-4 through C7-T1. This was seen previously. Grade 1 anterolisthesis of C2-3 is seen which is unchanged. Alignment is unchanged. IMPRESSION: Since the previous study, there has been progressive healing of the fracture of the left lateral mass of C2. The fracture is not completely healed however. The avulsion fracture of the medial aspect of the left occipital condyle is unchanged. No new abnormality is evident. Electronically signed by: Felix Trimble MD (02/16/2019 5:09 PM) [id number]
== END | disposition home or self-care (01) ==
LOC: KCIC CT 10:59
PROVIDERS: ATTEND Family Medicine
DX: S12.190D Other displaced fracture of second cervical vertebra, subsequent encounter for fracture with routine healing (principal); M46.02 Spinal enthesopathy, cervical region; M48.03 Spinal stenosis, cervicothoracic region; M12.88 Other specific arthropathies, not elsewhere classified, other specified site; X58.XXXD Exposure to other specified factors, subsequent encounter
CPT/HCPCS: 72125

== ENCOUNTER → 2019-04-03 | Outpatient (CLI) | payer OTHER, MEDICAID ==
[~2019-04-03] MED LIST changes: +SIMV40TA18 PO; -SIMV40TA3 PO
--- NOTE | 2019-04-03 16:57 | RAD ---
EXAM: Cervical spine, 3 views. HISTORY: Fusion. COMPARISON: None. FINDINGS: 3 views of the cervical spine are obtained. There is mild cervical kyphosis. There is degenerative endplate remodeling with disc space narrowing and osteophytosis primarily at C3 C4-C5 and C5-C6. There is multilevel facet arthropathy. IMPRESSION: Multilevel degenerative change of the cervical spine, primarily at C4-C6. No acute osseous finding. Electronically signed by: Palma Montano MD (04/03/2019 4:54 PM) [place] [id number]
== END | disposition home or self-care (01) ==
LOC: RAD 09:28
PROVIDERS: ATTEND Neurological Surgery
DX: M40.292 Other kyphosis, cervical region (principal); M25.78 Osteophyte, vertebrae; M12.88 Other specific arthropathies, not elsewhere classified, other specified site; M48.02 Spinal stenosis, cervical region
CPT/HCPCS: 72040

== ENCOUNTER 2019-10-21 22:00 | Inpatient (IN) | payer OTHER, MEDICAID ==
[~2019-10-21] VITALS: Ht 160 cm; Wt 65.0 kg
[2019-10-21] MEDS ORDERED: MECLIZINE HCL 12.5 MG TABLET. PO ONE (22:30)
[2019-10-21] MEDS ORDERED: DEXAMETHASONE SOD PHOS 4 MG/ML VIAL IVP ONE (22:30)
[2019-10-21] MEDS ORDERED: IV NORMAL SALINE 1000ML BAG 1,000 ML IV ONE (22:30)
[2019-10-21 22:50] LABS: BASO # 0.1 x10^3/uL (0.0-0.2); BASO % 1 % (0-3); EOS # 0.9 x10^3/uL (0.0-0.7); EOS % 8 % (0-3); HEMATOCRIT 39.2 % (36.0-47.0); HEMOGLOBIN 13.5 g/dL (12.0-15.5); LYMPH # 3.1 x10^3/uL (1.0-4.8); LYMPH % 28 % (24-48); MEAN CORPUSCULAR HEMOGLOBIN 29 pg (25-35); MEAN CORPUSCULAR HGB CONC 34 g/dL (31-37); MEAN CORPUSCULAR VOLUME 84 fL (79-100); MONO # 0.9 x10^3/uL (0.0-1.1); MONO % 8 % (0-9); NEUT # 6.1 x10^3/uL (1.8-7.7); NEUT % 55 % (31-73); PLATELET COUNT 257 x10^3/uL (140-400); RED BLOOD COUNT 4.65 x10^6/uL (3.50-5.40); RED CELL DISTRIBUTION WIDTH 13.5 % (11.5-14.5); WHITE BLOOD COUNT 11.1 x10^3/uL (4.0-11.0)
[2019-10-21 22:57] LABS: CALCIUM 9.1 mg/dL (8.5-10.1); CREATININE 1.1 mg/dL (0.6-1.0); POTASSIUM 3.4 mmol/L (3.5-5.1)
[2019-10-21 22:58] LABS: PROTHROMBIN TIME PATIENT 12.4 SEC (11.7-14.0)
--- NOTE | 2019-10-21 23:02 | RAD ---
CT HEAD WO CONTRAST Date: 10/21/2019 10:06 PM Clinical Indication: Reason: dizziness / Spl. Instructions: / History: Comparison: 01/13/2019. Technique: 5 mm axial tomographic images were obtained of the head without contrast. These were viewed on brain and bone windows. One or more of the following dose reduction techniques were utilized: Automated exposure control (AEC), Adjustment of mA and/or kV according to patient size, Use of iterative reconstruction technique such as ASiR, CT scan done according to ALARA and image gently/image wisely Findings: Mild generalized cerebral and cerebellar volume loss. Mild nonspecific periventricular hypoattenuation, most commonly seen with chronic small vessel ischemic disease. Calcified atherosclerosis of the bilateral cavernous and paraclinoid internal carotid arteries and intracranial vertebral arteries. No intra- or extra-axial mass or fluid collection. No acute hemorrhage. The ventricles are normal in size, shape, and morphology. The rodriguez-white matter junction is normal. The subarachnoid cisterns are patent. The visualized paranasal sinuses are normal. The visualized portions of the orbits and globes are normal. The mastoid air cells are clear. The repairer recreational vehicle topogram shows no lytic lesion or fracture. Impression: No acute intracranial process. Mild cerebral volume loss. Mild chronic small vessel ischemic disease. Electronically signed by: Matt Orozco MD (10/21/2019 11:00 PM) [id number]
[2019-10-21 23:03] LABS: ALBUMIN 3.4 g/dL (3.4-5.0); MAGNESIUM 2.1 mg/dL (1.8-2.4); TOTAL BILIRUBIN 0.2 mg/dL (0.2-1.0); TOTAL PROTEIN 6.8 g/dL (6.4-8.2)
[2019-10-21 23:11] LABS: CREATINE KINASE 65 U/L (26-192)
[2019-10-21 23:37] LABS: BILIRUBIN,URINE NEGATIVE (NEG); CLARITY,URINE CLEAR; COLOR,URINE YELLOW; NITRITE,URINE POSITIVE (NEG); PH,URINE 7.5 (<5.0-8.0); PROTEIN,URINE NEGATIVE (NEG-TRACE); UROBILINOGEN,URINE 0.2 mg/dL (0.2 mg/dL)
[2019-10-21 23:43] LABS: BACTERIA,URINE MANY /HPF (0-FEW); SQUAMOUS EPITHELIAL CELL,UR FEW /LPF
--- NOTE | 2019-10-22 00:10 | PHYS DOC ---
Past Medical History Past Medical History: Anxiety, Arthritis, Hypertension, Hypothyroid, TIA, Other Additional Past Medical Histor: "memory problems" Past Surgical History: Cholecystectomy, Hysterectomy, Other Additional Past Surgical Histo: Lt foot. Lt breast Smoking Status: Former Smoker Alcohol Use: Occasionally Drug Use: None General Adult EDM: Chief Complaint: DIZZY/LIGHT HEADED HPI: HPI: Patient is a 79 year old female presents with report of dizziness causing patient to fall earlier today. Patient denies any headache. Denies head trauma. Denies loss of consciousness. Denies fever or chills. Denies nausea/vomiting/diarrhea. Review of Systems: Review of Systems: Constitutional: Denies fever or chills Eyes: Denies redness or eye pain HENT: Denies nasal congestion or sore throat Respiratory: Denies cough or shortness of breath Cardiovascular: Denies chest pain or palpitations GI: Denies abdominal pain, nausea, or vomiting : Denies dysuria or hematuria Musculoskeletal: Denies back pain or joint pain Integument: Denies rash or skin lesions Neurologic: Denies headache or sensory changes; reports generalized weakness and dizziness Complete systems were reviewed and found to be within normal limits, except as documented in this note. Current Medications: Current Medications Medications (Trade) Dose Ordered Sig/[facility] Start Time Stop Time Status Last Admin Dose Admin Aspirin (Ecotrin) 325 mg 1X ONCE 10/22/19 00:15 10/22/19 00:16 Ceftriaxone Sodium (Rocephin) 1 gm 1X ONCE 10/22/19 00:30 10/22/19 00:31 Dexamethasone Sodium Phosphate (Decadron) 10 mg 1X ONCE 10/21/19 22:30 10/21/19 22:31 DC 10/21/19 22:35 10 MG Meclizine HCl (Antivert) 25 mg 1X ONCE 10/21/19 22:30 10/21/19 22:31 DC 10/21/19 22:33 25 MG Sodium Chloride 1,000 ml @ 1,000 mls/hr 1X ONCE 10/21/19 22:30 10/21/19 23:29 DC 10/21/19 22:34 1,000 MLS/HR Allergies: Allergies: Allergies Coded Allergies Type Severity Reaction Last Updated Verified Penicillins Allergy Intermediate Hives 11/24/18 Yes Physical Exam: PE: Constitutional: Elderly, well nourished, no acute distress, non-toxic appearance HENT: Normocephalic, atraumatic Eyes: PERRL, EOMI, conjunctiva normal, no discharge, no horizontal nystagmus Neck: Normal range of motion, no midline tenderness, supple Lungs & Thorax: No respiratory distress, equal chest rise and fall Abdomen: Soft, no tenderness Skin: Warm, dry, no erythema, no rash Extremities: No tenderness, ROM intact, no edema Neurologic: Alert and oriented X 3, normal motor function, normal sensory functi on, no focal deficits noted Psychologic: Affect normal, judgment normal Current Patient Data: Labs: Laboratory Tests Test 10/21/19 22:37 10/21/19 23:30 White Blood Count 11.1 x10^3/uL (4.0-11.0) H Red Blood Count 4.65 x10^6/uL (3.50-5.40) Hemoglobin 13.5 g/dL (12.0-15.5) Hematocrit 39.2 % (36.0-47.0) Mean Corpuscular Volume 84 fL (79-100) Mean Corpuscular Hemoglobin 29 pg (25-35) Mean Corpuscular Hemoglobin Concent 34 g/dL (31-37) Red Cell Distribution Width 13.5 % (11.5-14.5) Platelet Count 257 x10^3/uL (140-400) Neutrophils (%) (Auto) 55 % (31-73) Lymphocytes (%) (Auto) 28 % (24-48) Monocytes (%) (Auto) 8 % (0-9) Eosinophils (%) (Auto) 8 % (0-3) H Basophils (%) (Auto) 1 % (0-3) Neutrophils # (Auto) 6.1 x10^3/uL (1.8-7.7) Lymphocytes # (Auto) 3.1 x10^3/uL (1.0-4.8) Monocytes # (Auto) 0.9 x10^3/uL (0.0-1.1) Eosinophils # (Auto) 0.9 x10^3/uL (0.0-0.7) H Basophils # (Auto) 0.1 x10^3/uL (0.0-0.2) Prothrombin Time 12.4 SEC (11.7-14.0) Prothrombin Time INR 1.0 (0.8-1.1) Activated Partial Thromboplast Time 28 SEC (24-38) Sodium Level 140 mmol/L (136-145) Potassium Level 3.4 mmol/L (3.5-5.1) L Chloride Level 100 mmol/L (98-107) Carbon Dioxide Level 31 mmol/L (21-32) Anion Gap 9 (6-14) Blood Urea Nitrogen 19 mg/dL (7-20) Creatinine 1.1 mg/dL (0.6-1.0) H Estimated GFR (Cockcroft-Gault) 48.0 BUN/Creatinine Ratio 17 (6-20) Glucose Level 117 mg/dL (70-99) H Calcium Level 9.1 mg/dL (8.5-10.1) Magnesium Level 2.1 mg/dL (1.8-2.4) Total Bilirubin 0.2 mg/dL (0.2-1.0) Aspartate Amino Transferase (AST) 26 U/L (15-37) Alanine Aminotransferase (ALT) 33 U/L (14-59) Alkaline Phosphatase 57 U/L (46-116) Creatine Kinase 65 U/L (26-192) Creatine Kinase MB (Mass) 0.9 ng/mL (0.0-3.6) Creatine Kinase MB Relative Index % (0-4) Troponin I Quantitative < 0.017 ng/mL (0.000-0.055) Total Protein 6.8 g/dL (6.4-8.2) Albumin 3.4 g/dL (3.4-5.0) Albumin/Globulin Ratio 1.0 (1.0-1.7) Urine Collection Type Unknown Urine Color Yellow Urine Clarity Clear Urine pH 7.5 (<5.0-8.0) Urine Specific [place] 1.010 (1.000-1.030) Urine Protein Negative mg/dL (NEG-TRACE) Urine Glucose (UA) Negative mg/dL (NEG) Urine Ketones (Stick) Negative mg/dL (NEG) Urine Blood Negative (NEG) Urine Nitrite Positive (NEG) Urine Bilirubin Negative (NEG) Urine Urobilinogen Dipstick 0.2 mg/dL (0.2 mg/dL) Urine Leukocyte Esterase Moderate (NEG) Urine RBC 1-2 /HPF (0-2) Urine WBC 5-10 /HPF (0-4) Urine Squamous Epithelial Cells Few /LPF Urine Bacteria Many /HPF (0-FEW) Laboratory Tests 10/21/19 22:37 Laboratory Tests 10/21/19 22:37 Vital Signs: Vital Signs Date Time Temp Pulse Resp B/P (MAP) Pulse Ox O2 Delivery O2 Flow Rate FiO2 10/21/19 22:24 98.1 69 18 165/60 (95) 97 Room Air 98.1 EKG: EKG: @2212 NSR at 66bpm with PACs, baseline artifact also noted, No ST elevation, QRS 92ms, QT/QTc 442/465ms Radiology/Procedures: Radiology/Procedures: PROCEDURE: CT HEAD WO CONTRAST CT HEAD WO CONTRAST Date: 10/21/2019 10:06 PM Clinical Indication: Reason: dizziness / Spl. Instructions: / History: Comparison: 01/13/2019. Technique: 5 mm axial tomographic images were obtained of the head without contrast. These were viewed on brain and bone windows. One or more of the following dose reduction techniques were utilized: Automated exposure control (AEC), Adjustment of mA and/or kV according to patient size, Use of iterative reconstruction technique such as ASiR, CT scan done according to ALARA and image gently/image wisely Findings: Mild generalized cerebral and cerebellar volume loss. Mild nonspecific periventricular hypoattenuation, most commonly seen with chronic small vessel ischemic disease. Calcified atherosclerosis of the bilateral cavernous and paraclinoid internal carotid arteries and intracranial vertebral arteries. No intra- or extra-axial mass or fluid collection. No acute hemorrhage. The ventricles are normal in size, shape, and morphology. The rodriguez-white matter junction is normal. The subarachnoid cisterns are patent. The visualized paranasal sinuses are normal. The visualized portions of the orbits and globes are normal. The mastoid air cells are clear. The import/export specialist topogram shows no lytic lesion or fracture. Impression: No acute intracranial process. Mild cerebral volume loss. Mild chronic small vessel ischemic disease. Electronically signed by: Matt Orozco MD (10/21/2019 11:00 PM) [id number] Course & Med Decision Making: Course & Med Decision Making Pertinent Labs and Imaging studies reviewed. (See chart for details) Elderly patient presents with report of dizziness causing her to fall. Denies loss of consciousness. Denies room spinning sensation. Patient neurologically intact. NIHSS 0. CT head without acute process. Labs obtained and posted to chart. Hypokalemia addressed. UA with signs of infection. Empiric antibiotic initiated. Patient requiring admission for further evaluation and treatment. Discussed with Dr. Romo (hospitalist) who is in agreement with admission. Discussed findings and plan with patient, who acknowledges understanding and agreement. Dragon Disclaimer: Dragon Disclaimer: This electronic medical record was generated, in whole or in part, using a voice recognition dictation system. Departure Departure Impression: Primary Impression: Dizziness Additional Impressions: Urinary tract infection Qualified Codes: N30.00 - Acute cystitis without hematuria Hypokalemia Disposition: ADMITTED INPATIENT Admitting Physician: CALLIE Elliott) Condition: STABLE Referrals: ROMAIN DÍAZ MD (PCP) Scripts Cefdinir (CEFDINIR) 300 Mg Capsule 1 CAP PO BID for UTI for 7 Days, #14 CAP Prov: DOMENICO CASTANEDA MD 10/23/19 Lactobacillus Rhamnosus Gg (CULTURELLE) 1 Each Cap.sprink 1 CAP PO BID for SUPPLEMENT for 30 Days, #60 CAP Prov: DOMENICO CASTANEDA MD 10/23/19 Potassium Chloride (KLOR-CON M20) 20 Meq Tab.er.prt 20 MEQ PO DAILYWBKFT for SUPPLEMENT for 14 Days, #14 TAB.SR Prov: DOMENICO CASTANEDA MD 10/23/19 Sertraline Hcl (SERTRALINE HCL) 50 Mg Tablet 100 MG PO DAILY for MOOD for 30 Days, #60 TAB Prov: DOMENICO CASTANEDA MD 10/23/19 Naproxen (NAPROXEN) 250 Mg Tablet 250 MG PO PRN BID PRN for INFLAMMATION for 30 Days, #60 TAB Prov: DOMENICO CASTANEDA MD 10/23/19 Justicifation of Admission Dx: Justifications for Admission: Justification of Admission Dx: Yes Comments: Dizziness, UTI, hypokalemia NIHSS Stroke Scale NIH Stroke Scale: NIH Stroke Scale Response (Comments) Value Level of Consciousness: 0 Alert/Responsive 0 LOC Questions: 0 Answers both correctly 0 LOC Commands: 0 Performs both tasks 0 Best Gaze: 0 Normal 0 Visual: 0 No visual loss 0 Facial Palsy: 0 Normal, symmetrical 0 Motor - Left Arm 0 No drift 0 Motor - Right Arm 0 No drift 0 Motor - Left Leg 0 No drift 0 Motor: Right Leg 0 No drift 0 Limb Ataxia: 0 Absent 0 Sensory: 0 No loss 0 Best Language: 0 Normal 0 Dysathria: 0 Normal 0 Extinction and Inattention: 0 Normal 0 Total 0 SAVAGE,SARY Bello DO Oct 22, 2019 00:10
[2019-10-22] MEDS ORDERED: ONDANSETRON PF 4 MG/2 ML VIAL. IV PRN (00:15)
[2019-10-22] MEDS ORDERED: ASPIRIN ENTERIC COATED 325 MG TABLET.DR. PO ONE (00:15)
[2019-10-22] MEDS ORDERED: POTASSIUM CHLORIDE 20 MEQ TABLET.ER. PO ONE ×2 (00:30→15:45)
[2019-10-22] MEDS ORDERED: cefTRIAXone IV Push 1 GM VIAL. IVP ONE (00:30)
[2019-10-22] MEDS ORDERED: TRAZ-123 PO (02:06)
[2019-10-22 02:13] VITALS: BP 146/63
--- NOTE | 2019-10-22 06:16 | EKG ---
[facility] [address] [place] [address] Test Date: 2019-10-21 Test Time: 22:12:37 Pat Name: GISELE FELDER Department: Room: 201 1 Gender: F Gyroscopic Instrument Tester: : 1940 Requested By: SARY SAVAGE Order Number: [id number] Reading MD: Garrett Sharma Measurements Intervals [place] Rate: 66 P: 90 CA: 168 QRS: -4 QRSD: 92 T: 46 QT: 442 QTc: 465 Interpretive Statements SINUS RHYTHM ATRIAL PREMATURE COMPLEX(ES) LEFTWARD AXIS NON-SPECIFIC ST/T CHANGES Electronically Signed On 11-12-2019 10:30:37 CDT by Garrett Sharma
[2019-10-22 07:00] VITALS: BP 150/75
--- NOTE | 2019-10-22 10:01 | PDOC1 ---
History and Physical Date of Admission Date of Admission DATE: 10/22/19 TIME: 10:00 Identification/Chief Complaint Chief Complaint EEN IN ER WITH DIZZINESS, GAIT INSTABILITY, felt light-headed ADMITTED TO [facility] Past Medical History Past Medical History Past Medical History Past Medical History: Anxiety, Arthritis, Hypertension, Hypothyroid, TIA, Other Additional Past Medical Histor: "memory problems" Past Surgical History: Cholecystectomy, Hysterectomy, Other Additional Past Surgical Histo: Lt foot. Lt breast Smoking Status: Former Smoker Alcohol Use: Occasionally Drug Use: None fhx HTN Cardiovascular: HTN, Hyperlipidemia Pulmonary: COPD CENTRAL NERVOUS SYSTEM: Dementia Psych: Depression Musculoskeletal: Osteoarthritis Endocrine: Hypothyroidism Past Surgical History Past Surgical History: Cholecystectomy, Tubal Ligation, Tonsillectomy, Other Family History Family History: No Significant Social History Smoke: No ALCOHOL: none Drugs: None Current Problem List Problem List Problems Medical Problems: (1) Dizziness Status: Acute (2) Hypokalemia Status: Acute (3) Urinary tract infection Status: Acute Current Medications Current Medications Current Medications Sodium Chloride 1,000 ml @ 1,000 mls/hr 1X ONCE IV Last administered on 10/21/19at 22:34; Start 10/21/19 at 22:30; Stop 10/21/19 at 23:29; Status DC Meclizine HCl (Antivert) 25 mg 1X ONCE PO Last administered on 10/21/19at 22:33; Start 10/21/19 at 22:30; Stop 10/21/19 at 22:31; Status DC Dexamethasone Sodium Phosphate (Decadron) 10 mg 1X ONCE IVP Last administered on 10/21/19at 22:35; Start 10/21/19 at 22:30; Stop 10/21/19 at 22:31; Status DC Aspirin (Ecotrin) 325 mg 1X ONCE PO Last administered on 10/22/19at 01:07; Start 10/22/19 at 00:15; Stop 10/22/19 at 00:16; Status DC Ceftriaxone Sodium (Rocephin) 1 gm 1X ONCE IVP Last administered on 10/22/19at 01:07; Start 10/22/19 at 00:30; Stop 10/22/19 at 00:31; Status DC Ondansetron HCl (Zofran) 4 mg PRN Q8HRS PRN IV NAUSEA/VOMITING 1ST CHOICE; Start 10/22/19 at 00:15; Stop 10/23/19 at 00:14 Potassium Chloride (Klor-Con) 40 meq 1X ONCE PO Last administered on 10/22/19at 01:06; Start 10/22/19 at 00:30; Stop 10/22/19 at 00:31; Status DC Active Scripts Active Reported Trazodone Hcl 100 Mg Tablet 1 Tab PO QHS Wellbutrin Xl (Bupropion Hcl) 150 Mg Tab.er.24h 150 Mg PO DAILY Naproxen 375 Mg Tablet 1 Tab PO BID PRN Amlodipine Besylate 5 Mg Tablet 5 Mg PO DAILY Levothyroxine Sodium 200 Mcg Tablet 1 Tab PO DAILY06 Geodon (Ziprasidone Hcl) 80 Mg Capsule 2 Cap PO QHS Simvastatin 40 Mg Tablet 1 Tab PO QHS Nexium Capsule (Esomeprazole Magnesium) 40 Mg Capsule.dr 1 Cap PO BID Metoprolol Tartrate 50 Mg Tablet 1 Tab PO BID Calcium 600 + Vit D 200 Tablet (Calcium Carbonate/Vitamin D3) 1 Each Tablet 1 Each PO BIDWMEALS Detrol La (Tolterodine Tartrate) 4 Mg Cap.er.24h 1 Cap PO DAILY Sertraline Hcl 100 Mg Tablet 200 Mg PO DAILY Hydrochlorothiazide Tablet (Hydrochlorothiazide) 12.5 Mg Tablet 2 Tab PO DAILY Docusate Sodium 100 Mg Capsule 1 Cap PO DAILY Aspir 81 (Aspirin) 81 Mg Tablet.dr 1 Tab PO DAILY Certavite Sr-Antioxidant Tab (Multivits-Min/Fa/Lycopene/Lut) 1 Each Tablet 1 Each PO DAILY Alendronate Sodium 35 Mg Tablet 1 Tab PO WEEKLY Weekly on Sundays Allergies Allergies: Coded Allergies: Penicillins (Verified Allergy, Intermediate, Hives, 11/24/18) Has tolerated ceftriaxone ROS Review of System Constitutional: Denies fever or chills. [] Eyes: Denies change in visual acuity. [] HENT: Denies nasal congestion or sore throat. [] Respiratory: Denies cough or shortness of breath. [] Cardiovascular: Denies chest pain or edema. [] GI: Denies abdominal pain, nausea, vomiting, bloody stools or diarrhea. [] : Denies dysuria. [] Musculoskeletal: Denies back pain or joint pain. [] pos gait instability Integument: Denies rash. [] Neurologic: Denies headache, focal weakness or sensory changes. [] Endocrine: Denies polyuria or polydipsia. [] Lymphatic: Denies swollen glands. [] Psychiatric: Denies depression or anxiety. [] 14 pt ros otherwise neg Gastrointestinal: No Nausea, No Vomiting, No Abdominal Pain, No Diarrhea, No Constipation, No Melena, No Hematochezia, No Other Musculoskeletal: Yes Gait Disturbance, Yes Joint Stiffness Neurological: Yes Gait Disturbance Skin: Yes Dry Skin Physical Exam Physical Exam Constitutional: Well developed, well nourished, no acute distress, non-toxic appearance. [] HENT: Normocephalic, atraumatic, bilateral external ears normal, oropharynx moist, no oral exudates, nose normal. [] Eyes: PERRLA, EOMI, conjunctiva normal, no discharge. [] Neck: Normal range of motion, no tenderness, supple, no stridor. [] Cardiovascular:Heart rate regular rhythm, no murmur [] Lungs & Thorax: Bilateral breath sounds clear to auscultation [] Abdomen: Bowel sounds normal, soft, no tenderness, no masses, no pulsatile masses. [] Skin: Warm, dry, no erythema, no rash. [] Back: No tenderness, no CVA tenderness. [] Extremities: No tenderness, no cyanosis, no clubbing, ROM intact, no edema. [] Neurologic: Alert and oriented X 3, normal motor function, normal sensory function, no focal deficits noted. [] Psychologic: Affect normal, judgment poor , mood normal. [] General: Oriented X3, Cooperative HEENT: Atraumatic Breasts: Not examined Abdomen: Normal bowel sounds, Soft Rectal Exam: not examined PELVIC: Examination not indicated Extremities: No cyanosis Skin: No significant lesion Neuro: Cranial nerves 3-12 NL Vitals Vitals Vital Signs Date Time Temp Pulse Resp B/P (MAP) Pulse Ox O2 Delivery O2 Flow Rate FiO2 10/22/19 07:00 98.2 81 18 150/75 (100) 86 Room Air 98.2 Labs Labs Laboratory Tests Test 10/21/19 22:37 10/21/19 23:30 10/22/19 03:15 10/22/19 06:05 White Blood Count 11.1 x10^3/uL (4.0-11.0) Red Blood Count 4.65 x10^6/uL (3.50-5.40) Hemoglobin 13.5 g/dL (12.0-15.5) Hematocrit 39.2 % (36.0-47.0) Mean Corpuscular Volume 84 fL (79-100) Mean Corpuscular Hemoglobin 29 pg (25-35) Mean Corpuscular Hemoglobin Concent 34 g/dL (31-37) Red Cell Distribution Width 13.5 % (11.5-14.5) Platelet Count 257 x10^3/uL (140-400) Neutrophils (%) (Auto) 55 % (31-73) Lymphocytes (%) (Auto) 28 % (24-48) Monocytes (%) (Auto) 8 % (0-9) Eosinophils (%) (Auto) 8 % (0-3) Basophils (%) (Auto) 1 % (0-3) Neutrophils # (Auto) 6.1 x10^3/uL (1.8-7.7) Lymphocytes # (Auto) 3.1 x10^3/uL (1.0-4.8) Monocytes # (Auto) 0.9 x10^3/uL (0.0-1.1) Eosinophils # (Auto) 0.9 x10^3/uL (0.0-0.7) Basophils # (Auto) 0.1 x10^3/uL (0.0-0.2) Prothrombin Time 12.4 SEC (11.7-14.0) Prothromb Time International Ratio 1.0 (0.8-1.1) Activated Partial Thromboplast Time 28 SEC (24-38) Sodium Level 140 mmol/L (136-145) Potassium Level 3.4 mmol/L (3.5-5.1) Chloride Level 100 mmol/L (98-107) Carbon Dioxide Level 31 mmol/L (21-32) Anion Gap 9 (6-14) Blood Urea Nitrogen 19 mg/dL (7-20) Creatinine 1.1 mg/dL (0.6-1.0) Estimated GFR (Cockcroft-Gault) 48.0 BUN/Creatinine Ratio 17 (6-20) Glucose Level 117 mg/dL (70-99) Calcium Level 9.1 mg/dL (8.5-10.1) Magnesium Level 2.1 mg/dL (1.8-2.4) Total Bilirubin 0.2 mg/dL (0.2-1.0) Aspartate Amino Transf (AST/SGOT) 26 U/L (15-37) Alanine Aminotransferase (ALT/SGPT) 33 U/L (14-59) Alkaline Phosphatase 57 U/L (46-116) Creatine Kinase 65 U/L (26-192) Creatine Kinase MB (Mass) 0.9 ng/mL (0.0-3.6) Creatine Kinase MB Relative Index % (0-4) Troponin I Quantitative < 0.017 ng/mL (0.000-0.055) < 0.017 ng/mL (0.000-0.055) < 0.017 ng/mL (0.000-0.055) Total Protein 6.8 g/dL (6.4-8.2) Albumin 3.4 g/dL (3.4-5.0) Albumin/Globulin Ratio 1.0 (1.0-1.7) Urine Collection Type Unknown Urine Color Yellow Urine Clarity Clear Urine pH 7.5 (<5.0-8.0) Urine Specific [place] 1.010 (1.000-1.030) Urine Protein Negative mg/dL (NEG-TRACE) Urine Glucose (UA) Negative mg/dL (NEG) Urine Ketones (Stick) Negative mg/dL (NEG) Urine Blood Negative (NEG) Urine Nitrite Positive (NEG) Urine Bilirubin Negative (NEG) Urine Urobilinogen Dipstick 0.2 mg/dL (0.2 mg/dL) Urine Leukocyte Esterase Moderate (NEG) Urine RBC 1-2 /HPF (0-2) Urine WBC 5-10 /HPF (0-4) Urine Squamous Epithelial Cells Few /LPF Urine Bacteria Many /HPF (0-FEW) Laboratory Tests Test 10/21/19 22:37 10/21/19 23:30 10/22/19 03:15 10/22/19 06:05 White Blood Count 11.1 x10^3/uL (4.0-11.0) Red Blood Count 4.65 x10^6/uL (3.50-5.40) Hemoglobin 13.5 g/dL (12.0-15.5) Hematocrit 39.2 % (36.0-47.0) Mean Corpuscular Volume 84 fL (79-100) Mean Corpuscular Hemoglobin 29 pg (25-35) Mean Corpuscular Hemoglobin Concent 34 g/dL (31-37) Red Cell Distribution Width 13.5 % (11.5-14.5) Platelet Count 257 x10^3/uL (140-400) Neutrophils (%) (Auto) 55 % (31-73) Lymphocytes (%) (Auto) 28 % (24-48) Monocytes (%) (Auto) 8 % (0-9) Eosinophils (%) (Auto) 8 % (0-3) Basophils (%) (Auto) 1 % (0-3) Neutrophils # (Auto) 6.1 x10^3/uL (1.8-7.7) Lymphocytes # (Auto) 3.1 x10^3/uL (1.0-4.8) Monocytes # (Auto) 0.9 x10^3/uL (0.0-1.1) Eosinophils # (Auto) 0.9 x10^3/uL (0.0-0.7) Basophils # (Auto) 0.1 x10^3/uL (0.0-0.2) Prothrombin Time 12.4 SEC (11.7-14.0) Prothromb Time International Ratio 1.0 (0.8-1.1) Activated Partial Thromboplast Time 28 SEC (24-38) Sodium Level 140 mmol/L (136-145) Potassium Level 3.4 mmol/L (3.5-5.1) Chloride Level 100 mmol/L (98-107) Carbon Dioxide Level 31 mmol/L (21-32) Anion Gap 9 (6-14) Blood Urea Nitrogen 19 mg/dL (7-20) Creatinine 1.1 mg/dL (0.6-1.0) Estimated GFR (Cockcroft-Gault) 48.0 BUN/Creatinine Ratio 17 (6-20) Glucose Level 117 mg/dL (70-99) Calcium Level 9.1 mg/dL (8.5-10.1) Magnesium Level 2.1 mg/dL (1.8-2.4) Total Bilirubin 0.2 mg/dL (0.2-1.0) Aspartate Amino Transf (AST/SGOT) 26 U/L (15-37) Alanine Aminotransferase (ALT/SGPT) 33 U/L (14-59) Alkaline Phosphatase 57 U/L (46-116) Creatine Kinase 65 U/L (26-192) Creatine Kinase MB (Mass) 0.9 ng/mL (0.0-3.6) Creatine Kinase MB Relative Index % (0-4) Troponin I Quantitative < 0.017 ng/mL (0.000-0.055) < 0.017 ng/mL (0.000-0.055) < 0.017 ng/mL (0.000-0.055) Total Protein 6.8 g/dL (6.4-8.2) Albumin 3.4 g/dL (3.4-5.0) Albumin/Globulin Ratio 1.0 (1.0-1.7) Urine Collection Type Unknown Urine Color Yellow Urine Clarity Clear Urine pH 7.5 (<5.0-8.0) Urine Specific [place] 1.010 (1.000-1.030) Urine Protein Negative mg/dL (NEG-TRACE) Urine Glucose (UA) Negative mg/dL (NEG) Urine Ketones (Stick) Negative mg/dL (NEG) Urine Blood Negative (NEG) Urine Nitrite Positive (NEG) Urine Bilirubin Negative (NEG) Urine Urobilinogen Dipstick 0.2 mg/dL (0.2 mg/dL) Urine Leukocyte Esterase Moderate (NEG) Urine RBC 1-2 /HPF (0-2) Urine WBC 5-10 /HPF (0-4) Urine Squamous Epithelial Cells Few /LPF Urine Bacteria Many /HPF (0-FEW) VTE Prophylaxis Ordered VTE Prophylaxis Devices: No VTE Pharmacological Prophylaxi: Yes Assessment/Plan Assessment/Plan Impression: Dizziness Chronic gait disorder, UTILIZES walker REMOTE History of C2 fracture, no evidence of myelopathy Urinary tract infection Hypokalemia Cognitive decline ADMITTED PT/OT lower dose of zoloft to 100mg due to age may be helpful to dec risk of falls neurology consult dvt prophylaxis D/W RN * return home Rehab Potential to Achieve Goals * Good Learning Preferences * One-on-One Instruction * Demonstration * Discussion Factors Facilitating Goal Achievement * Motivation level * Prior level of function * Cognition * Response to training Problem List (body system elements) * Impaired fnctnl mobility * Strength * Balance * Knowledge-safe techniques Other Problems * Pt sitting on shower chair at end of session with OT present to initiate shower Clinical Presentation * Evolving Evaluation Complexity Level * Moderate Complexity Pt/caregiver agrees with plan of care/goals * Yes Patient condition at conclusion of therapy * Pt in chair * Call light in reach * Phone in reach * PtIn no apparent distress * Pt denies further needs Communicated Patient Care With (Name, Title) * Martha OT; Jordon VASQUEZ Goal 1 - Bed Mobility Assistance Required * Independent Goal 1 Assessment * Appropriate - Continue Goal 2 - Transfers Assistance Required * Independent Goal 2 - Transfer Type * Sit to Stand Goal 2 Assessment * Appropriate - Continue Goal 3 - Ambulation Assistance Required * Independent Goal 3 - Ambulation Distance * 250' Goal 3 - Ambulation Device * Roller Walker Goal 3 Assessment * Appropriate - Continue Treatment Plan * Therapeutic Exercise * Bed Mobility Training * Transfer training * Gait Training * Dynamic Balance Training Frequency of Treatment Expected * 7 visits/week Duration of Treatment Expected * 2 weeks Justicifation of Admission Dx: Justifications for Admission: Justification of Admission Dx: Yes Altered Mental Status: Altered Mental Status Comments: GAIT INSTABILITY DOMENICO CASTANEDA MD Oct 22, 2019 10:01
[2019-10-22 10:14] VITALS: BP 144/53
--- NOTE | 2019-10-22 10:41 | PDOC2 ---
NEUROLOGY CONSULT Date of Admission Date of Admission DATE: 10/22/19 TIME: 10:29 Reason for Consult Reason for Consult: Dizziness Referring Physician Referring Physician: Dr. Robledo Source Source: Chart review, Patient History of Present Illness History of Present Illness The patient is a 79-year-old right-handed female who noticed some dizziness yesterday. This was a feeling of disequilibrium, not true vertigo. There was no diplopia, dysphagia, dysarthria, numbness, or weakness.She has been found to have your high-tech infection and she also had hypokalemia. She is feeling evette r today and wants to go home. Both Dr. Santoro and myself have seen her in the past regarding mild cognitive impairment. She has also had transient ischemic attacks in the past. She usually gets around with a walker. Past Medical History Cardiovascular: HTN, Hyperlipidemia Pulmonary: Bronchitis, COPD CENTRAL NERVOUS SYSTEM: TIA, Other (Mild cognitive impairment) GI: Constipation, Other ( esophageal stricture requiring periodic dilatation) Psych: Anxiety, Depression, Schizophrenia Musculoskeletal: low back pain, Osteoarthritis, Other (C2 cervical fracture) Rheumatologic: Rheumatoid arthritis Renal/: UTI, Other ( bladder spasms) Endocrine: Diabetes, Hypothyroidism Past Surgical History Past Surgical History: Cholecystectomy, Tubal Ligation, Hysterectomy, Other ( esophageal dilatation, breast lumpectomy, right shoulder, right ankle, right arm, Soto's neuroma) Family History Family History: Cancer Social History Social History , lives in assisted living, has been under quarantine, 1/4 pack/day cigarettes, no alcohol Current Medications Current Medications Current Medications Sodium Chloride 1,000 ml @ 1,000 mls/hr 1X ONCE IV Last administered on 10/21/19at 22:34; Start 10/21/19 at 22:30; Stop 10/21/19 at 23:29; Status DC Meclizine HCl (Antivert) 25 mg 1X ONCE PO Last administered on 10/21/19at 22:33; Start 10/21/19 at 22:30; Stop 10/21/19 at 22:31; Status DC Dexamethasone Sodium Phosphate (Decadron) 10 mg 1X ONCE IVP Last administered on 10/21/19at 22:35; Start 10/21/19 at 22:30; Stop 10/21/19 at 22:31; Status DC Aspirin (Ecotrin) 325 mg 1X ONCE PO Last administered on 10/22/19at 01:07; Start 10/22/19 at 00:15; Stop 10/22/19 at 00:16; Status DC Ceftriaxone Sodium (Rocephin) 1 gm 1X ONCE IVP Last administered on 10/22/19at 01:07; Start 10/22/19 at 00:30; Stop 10/22/19 at 00:31; Status DC Ondansetron HCl (Zofran) 4 mg PRN Q8HRS PRN IV NAUSEA/VOMITING 1ST CHOICE; Start 10/22/19 at 00:15; Stop 10/23/19 at 00:14 Potassium Chloride (Klor-Con) 40 meq 1X ONCE PO Last administered on 10/22/19at 01:06; Start 10/22/19 at 00:30; Stop 10/22/19 at 00:31; Status DC Active Scripts Active Reported Trazodone Hcl 100 Mg Tablet 1 Tab PO QHS Wellbutrin Xl (Bupropion Hcl) 150 Mg Tab.er.24h 150 Mg PO DAILY Naproxen 375 Mg Tablet 1 Tab PO BID PRN Amlodipine Besylate 5 Mg Tablet 5 Mg PO DAILY Levothyroxine Sodium 200 Mcg Tablet 1 Tab PO DAILY06 Geodon (Ziprasidone Hcl) 80 Mg Capsule 2 Cap PO QHS Simvastatin 40 Mg Tablet 1 Tab PO QHS Nexium Capsule (Esomeprazole Magnesium) 40 Mg Capsule. 1 Cap PO BID Metoprolol Tartrate 50 Mg Tablet 1 Tab PO BID Calcium 600 + Vit D 200 Tablet (Calcium Carbonate/Vitamin D3) 1 Each Tablet 1 Each PO BIDWMEALS Detrol La (Tolterodine Tartrate) 4 Mg Cap.er.24h 1 Cap PO DAILY Sertraline Hcl 100 Mg Tablet 200 Mg PO DAILY Hydrochlorothiazide Tablet (Hydrochlorothiazide) 12.5 Mg Tablet 2 Tab PO DAILY Docusate Sodium 100 Mg Capsule 1 Cap PO DAILY Aspir 81 (Aspirin) 81 Mg Tablet. 1 Tab PO DAILY Certavite Sr-Antioxidant Tab (Multivits-Min/Fa/Lycopene/Lut) 1 Each Tablet 1 Each PO DAILY Alendronate Sodium 35 Mg Tablet 1 Tab PO WEEKLY Weekly on Sundays Allergies Allergies: Coded Allergies: Penicillins (Verified Allergy, Intermediate, Hives, 11/24/18) Has tolerated ceftriaxone ROS Review of System Negative for fever, chills, weight loss, chest pain, indigestion, hematochezia, melena. Positive for dyspnea and dysuria. Full 14-point review of systems is negative. Physical Exam Physical Examination General: Well-developed, well-nourished white female in no acute distress HEENT: Normocephalic andatraumatic. Temporal arteriespulsatile and nontender. Neck: Supple without bruit, no meningismus Musculoskeletal: Stability:see neurologic. Gait exam:see neurologic. Tone:see neurologic.Strength:see neurologic. Neurological: Mental Status:intact, orientation, memory, attention span/concentration, language, fund of knowledge normal. Cranial Nerves:Pupils equal and reactive to light, extraocular movements areintact, visual romano are full to confrontation. Facial sensation is normal. There is no facial asymmetry. Vestibulo-ocular reflex is intact. Palate elevates and tongue protrudes in midline. All other cranial related problems are negative except as mentioned before.Reflexes:2+ and symmetric with flexor plantar responses. Motor:5/5 strength with normal tone and bulk, splints right shoulder. Coordination:Finger-nose finger and [id number] testing are normal. Rapid alternating movements and fine finger movements are intact. Gait: not tested. Sensory:Normal pinprick, vibration, light touch, proprioception. Vitals VITALS Vital Signs Date Time Temp Pulse Resp B/P (MAP) Pulse Ox O2 Delivery O2 Flow Rate FiO2 10/22/19 10:14 98.1 79 15 144/53 (83) 94 Room Air 98.1 Labs Labs Laboratory Tests Test 10/21/19 22:37 10/21/19 23:30 10/22/19 03:15 10/22/19 06:05 White Blood Count 11.1 x10^3/uL (4.0-11.0) Red Blood Count 4.65 x10^6/uL (3.50-5.40) Hemoglobin 13.5 g/dL (12.0-15.5) Hematocrit 39.2 % (36.0-47.0) Mean Corpuscular Volume 84 fL (79-100) Mean Corpuscular Hemoglobin 29 pg (25-35) Mean Corpuscular Hemoglobin Concent 34 g/dL (31-37) Red Cell Distribution Width 13.5 % (11.5-14.5) Platelet Count 257 x10^3/uL (140-400) Neutrophils (%) (Auto) 55 % (31-73) Lymphocytes (%) (Auto) 28 % (24-48) Monocytes (%) (Auto) 8 % (0-9) Eosinophils (%) (Auto) 8 % (0-3) Basophils (%) (Auto) 1 % (0-3) Neutrophils # (Auto) 6.1 x10^3/uL (1.8-7.7) Lymphocytes # (Auto) 3.1 x10^3/uL (1.0-4.8) Monocytes # (Auto) 0.9 x10^3/uL (0.0-1.1) Eosinophils # (Auto) 0.9 x10^3/uL (0.0-0.7) Basophils # (Auto) 0.1 x10^3/uL (0.0-0.2) Prothrombin Time 12.4 SEC (11.7-14.0) Prothromb Time International Ratio 1.0 (0.8-1.1) Activated Partial Thromboplast Time 28 SEC (24-38) Sodium Level 140 mmol/L (136-145) Potassium Level 3.4 mmol/L (3.5-5.1) Chloride Level 100 mmol/L (98-107) Carbon Dioxide Level 31 mmol/L (21-32) Anion Gap 9 (6-14) Blood Urea Nitrogen 19 mg/dL (7-20) Creatinine 1.1 mg/dL (0.6-1.0) Estimated GFR (Cockcroft-Gault) 48.0 BUN/Creatinine Ratio 17 (6-20) Glucose Level 117 mg/dL (70-99) Calcium Level 9.1 mg/dL (8.5-10.1) Magnesium Level 2.1 mg/dL (1.8-2.4) Total Bilirubin 0.2 mg/dL (0.2-1.0) Aspartate Amino Transf (AST/SGOT) 26 U/L (15-37) Alanine Aminotransferase (ALT/SGPT) 33 U/L (14-59) Alkaline Phosphatase 57 U/L (46-116) Creatine Kinase 65 U/L (26-192) Creatine Kinase MB (Mass) 0.9 ng/mL (0.0-3.6) Creatine Kinase MB Relative Index % (0-4) Troponin I Quantitative < 0.017 ng/mL (0.000-0.055) < 0.017 ng/mL (0.000-0.055) < 0.017 ng/mL (0.000-0.055) Total Protein 6.8 g/dL (6.4-8.2) Albumin 3.4 g/dL (3.4-5.0) Albumin/Globulin Ratio 1.0 (1.0-1.7) Urine Collection Type Unknown Urine Color Yellow Urine Clarity Clear Urine pH 7.5 (<5.0-8.0) Urine Specific [place] 1.010 (1.000-1.030) Urine Protein Negative mg/dL (NEG-TRACE) Urine Glucose (UA) Negative mg/dL (NEG) Urine Ketones (Stick) Negative mg/dL (NEG) Urine Blood Negative (NEG) Urine Nitrite Positive (NEG) Urine Bilirubin Negative (NEG) Urine Urobilinogen Dipstick 0.2 mg/dL (0.2 mg/dL) Urine Leukocyte Esterase Moderate (NEG) Urine RBC 1-2 /HPF (0-2) Urine WBC 5-10 /HPF (0-4) Urine Squamous Epithelial Cells Few /LPF Urine Bacteria Many /HPF (0-FEW) Laboratory Tests Test 10/21/19 22:37 10/21/19 23:30 10/22/19 03:15 10/22/19 06:05 White Blood Count 11.1 x10^3/uL (4.0-11.0) Red Blood Count 4.65 x10^6/uL (3.50-5.40) Hemoglobin 13.5 g/dL (12.0-15.5) Hematocrit 39.2 % (36.0-47.0) Mean Corpuscular Volume 84 fL (79-100) Mean Corpuscular Hemoglobin 29 pg (25-35) Mean Corpuscular Hemoglobin Concent 34 g/dL (31-37) Red Cell Distribution Width 13.5 % (11.5-14.5) Platelet Count 257 x10^3/uL (140-400) Neutrophils (%) (Auto) 55 % (31-73) Lymphocytes (%) (Auto) 28 % (24-48) Monocytes (%) (Auto) 8 % (0-9) Eosinophils (%) (Auto) 8 % (0-3) Basophils (%) (Auto) 1 % (0-3) Neutrophils # (Auto) 6.1 x10^3/uL (1.8-7.7) Lymphocytes # (Auto) 3.1 x10^3/uL (1.0-4.8) Monocytes # (Auto) 0.9 x10^3/uL (0.0-1.1) Eosinophils # (Auto) 0.9 x10^3/uL (0.0-0.7) Basophils # (Auto) 0.1 x10^3/uL (0.0-0.2) Prothrombin Time 12.4 SEC (11.7-14.0) Prothromb Time International Ratio 1.0 (0.8-1.1) Activated Partial Thromboplast Time 28 SEC (24-38) Sodium Level 140 mmol/L (136-145) Potassium Level 3.4 mmol/L (3.5-5.1) Chloride Level 100 mmol/L (98-107) Carbon Dioxide Level 31 mmol/L (21-32) Anion Gap 9 (6-14) Blood Urea Nitrogen 19 mg/dL (7-20) Creatinine 1.1 mg/dL (0.6-1.0) Estimated GFR (Cockcroft-Gault) 48.0 BUN/Creatinine Ratio 17 (6-20) Glucose Level 117 mg/dL (70-99) Calcium Level 9.1 mg/dL (8.5-10.1) Magnesium Level 2.1 mg/dL (1.8-2.4) Total Bilirubin 0.2 mg/dL (0.2-1.0) Aspartate Amino Transf (AST/SGOT) 26 U/L (15-37) Alanine Aminotransferase (ALT/SGPT) 33 U/L (14-59) Alkaline Phosphatase 57 U/L (46-116) Creatine Kinase 65 U/L (26-192) Creatine Kinase MB (Mass) 0.9 ng/mL (0.0-3.6) Creatine Kinase MB Relative Index % (0-4) Troponin I Quantitative < 0.017 ng/mL (0.000-0.055) < 0.017 ng/mL (0.000-0.055) < 0.017 ng/mL (0.000-0.055) Total Protein 6.8 g/dL (6.4-8.2) Albumin 3.4 g/dL (3.4-5.0) Albumin/Globulin Ratio 1.0 (1.0-1.7) Urine Collection Type Unknown Urine Color Yellow Urine Clarity Clear Urine pH 7.5 (<5.0-8.0) Urine Specific [place] 1.010 (1.000-1.030) Urine Protein Negative mg/dL (NEG-TRACE) Urine Glucose (UA) Negative mg/dL (NEG) Urine Ketones (Stick) Negative mg/dL (NEG) Urine Blood Negative (NEG) Urine Nitrite Positive (NEG) Urine Bilirubin Negative (NEG) Urine Urobilinogen Dipstick 0.2 mg/dL (0.2 mg/dL) Urine Leukocyte Esterase Moderate (NEG) Urine RBC 1-2 /HPF (0-2) Urine WBC 5-10 /HPF (0-4) Urine Squamous Epithelial Cells Few /LPF Urine Bacteria Many /HPF (0-FEW) Images Images CT HEAD WO CONTRAST Date: 10/21/2019 10:06 PM Clinical Indication: Reason: dizziness / Spl. Instructions: / History: Comparison: 01/13/2019. Technique: 5 mm axial tomographic images were obtained of the head without contrast. These were viewed on brain and bone windows. One or more of the following dose reduction techniques were utilized: Automated exposure control (AEC), Adjustment of mA and/or kV according to patient size, Use of iterative reconstruction technique such as ASiR, CT scan done according to ALARA and image gently/image wisely Findings: Mild generalized cerebral and cerebellar volume loss. Mild nonspecific periventricular hypoattenuation, most commonly seen with chronic small vessel ischemic disease. Calcified atherosclerosis of the bilateral cavernous and paraclinoid internal carotid arteries and intracranial vertebral arteries. No intra- or extra-axial mass or fluid collection. No acute hemorrhage. The ventricles are normal in size, shape, and morphology. The rodriguez-white matter junction is normal. The subarachnoid cisterns are patent. The visualized paranasal sinuses are normal. The visualized portions of the orbits and globes are normal. The mastoid air cells are clear. The [employer] airspace officer topogram shows no lytic lesion or fracture. Impression: No acute intracranial process. Mild cerebral volume loss. Mild chronic small vessel ischemic disease. Assessment/Plan Assessment/Plan Impression: Nonspecific dizziness, most likely related to the urinary tract infection and hypokalemia. Chronic gait disorder, using a walker History of C2 fracture, no evidence of myelopathy on bedside examination. Recommendations: See how she does with some physical therapy today And for discharge later today if stable Additional studies such as brain MRI depending on her response If discharged, follow-up with neurology as needed. Thank you for letting me help the patient care. MOHIT ROMAN MD Oct 22, 2019 10:41
--- NOTE | 2019-10-22 10:42 | NUR ---
SS following for discharge planning. SS reviewed pt chart and discussed with pt RN. Pt is from [facility], ; [phone], and is currently on room air. COVID19 test ordered. PT/OT ordered. SS will continue to follow for discharge planning.
[2019-10-22] MEDS ORDERED: NAPROXEN 250 MG TABLET PO PRN (11:15)
[2019-10-22] MEDS: buPROPion XL 150 MG TAB.ER.24H. PO SCH (11:30)
[2019-10-22] MEDS ORDERED: SERTRALINE 50 MG TABLET. PO SCH (11:30)
[2019-10-22] MEDS ORDERED: LEVOTHYROXINE 100 MCG TABLET PO SCH (11:30)
[2019-10-22] MEDS: hydroCHLOROthiazide 25 MG TABLET PO SCH (11:32)
[2019-10-22] MEDS: DOCUSATE SODIUM 100 MG CAPSULE. PO SCH (11:32)
[2019-10-22] MEDS: OXYBUTYNIN CHLORIDE 5 MG TABLET PO SCH ×2 (11:33→20:02)
[2019-10-22] MEDS: amLODIPine BESYLATE 5 MG TABLET PO SCH (11:33)
[2019-10-22] MEDS: LEVOTHYROXINE 88 MCG TABLET PO SCH (11:33)
[2019-10-22] MEDS: MULTIVITAMIN with MINERAL TABLET. PO SCH (11:33)
[2019-10-22] MEDS: PANTOPRAZOLE 40 MG TABLET.DR. PO SCH ×2 (11:34→17:21)
[2019-10-22] MEDS: CALCIUM CARB/VIT D3 500/200 TABLET. PO SCH ×2 (11:34→17:21)
[2019-10-22] MEDS: METOPROLOL TART IMMED RELEASE 50 MG TABLET. PO SCH ×2 (11:34→20:02)
[2019-10-22] MEDS: SERTRALINE 50 MG TABLET. PO SCH (11:35)
[2019-10-22 15:00] VITALS: BP 127/78
[2019-10-22 19:25] VITALS: BP 175/70
[2019-10-22] MEDS: LACTOBACILLUS RHAMNOSUS GG 1 CAPSULE. PO SCH (20:03)
[2019-10-22] MEDS ORDERED: ZIPRASIDONE 20 MG CAPSULE PO SCH (21:00)
[2019-10-22] MEDS ORDERED: ATORVASTATIN CALCIUM 20 MG TABLET PO SCH (21:00)
[2019-10-22] MEDS ORDERED: ZIPRASIDONE 60 MG CAPSULE. PO SCH (21:00)
[2019-10-22] MEDS ORDERED: traZODone 100 MG TABLET. PO SCH (21:00)
[2019-10-22] MEDS ORDERED: cefTRIAXone IV Push 1 GM VIAL. IVP SCH (21:00)
[2019-10-22 23:03] VITALS: BP 141/51
[2019-10-23 02:34] VITALS: BP 175/81
[2019-10-23 04:46] LABS: BASO # 0.1 x10^3/uL (0.0-0.2); BASO % 1 % (0-3); EOS # 0.3 x10^3/uL (0.0-0.7); EOS % 4 % (0-3); HEMATOCRIT 34.8 % (36.0-47.0); LYMPH # 3.9 x10^3/uL (1.0-4.8); LYMPH % 42 % (24-48); MEAN CORPUSCULAR HEMOGLOBIN 29 pg (25-35); MEAN CORPUSCULAR HGB CONC 35 g/dL (31-37); MEAN CORPUSCULAR VOLUME 85 fL (79-100); MONO # 0.8 x10^3/uL (0.0-1.1); MONO % 9 % (0-9); NEUT # 4.2 x10^3/uL (1.8-7.7); NEUT % 45 % (31-73); PLATELET COUNT 216 x10^3/uL (140-400); RED CELL DISTRIBUTION WIDTH 13.9 % (11.5-14.5); WHITE BLOOD COUNT 9.4 x10^3/uL (4.0-11.0)
[2019-10-23 05:16] LABS: ALBUMIN/GLOBULIN RATIO 0.9 (1.0-1.7); CALCIUM 8.5 mg/dL (8.5-10.1); GFR 53.6; POTASSIUM 3.2 mmol/L (3.5-5.1); TOTAL BILIRUBIN 0.2 mg/dL (0.2-1.0); TOTAL PROTEIN 6.5 g/dL (6.4-8.2)
[2019-10-23 05:28] LABS: CHOLESTEROL/HDL RATIO 2.9
[2019-10-23] MEDS: LEVOTHYROXINE 88 MCG TABLET PO SCH (05:58)
[2019-10-23 07:00] VITALS: BP 173/96
[2019-10-23] MEDS ORDERED: POTASSIUM CHLORIDE 20 MEQ TABLET.ER. PO SCH (08:00)
[2019-10-23] MEDS: buPROPion XL 150 MG TAB.ER.24H. PO SCH (08:08)
[2019-10-23] MEDS: amLODIPine BESYLATE 5 MG TABLET PO SCH (08:08)
[2019-10-23] MEDS: LACTOBACILLUS RHAMNOSUS GG 1 CAPSULE. PO SCH (08:08)
[2019-10-23] MEDS: MULTIVITAMIN with MINERAL TABLET. PO SCH (08:08)
[2019-10-23] MEDS: CALCIUM CARB/VIT D3 500/200 TABLET. PO SCH (08:08)
[2019-10-23] MEDS: PANTOPRAZOLE 40 MG TABLET.DR. PO SCH (08:08)
[2019-10-23] MEDS: METOPROLOL TART IMMED RELEASE 50 MG TABLET. PO SCH (08:09)
[2019-10-23] MEDS: DOCUSATE SODIUM 100 MG CAPSULE. PO SCH (08:09)
[2019-10-23] MEDS: OXYBUTYNIN CHLORIDE 5 MG TABLET PO SCH (08:09)
[2019-10-23] MEDS: hydroCHLOROthiazide 25 MG TABLET PO SCH (08:09)
[2019-10-23] MEDS: SERTRALINE 50 MG TABLET. PO SCH (08:09)
[2019-10-23] MEDS ORDERED: ASPIRIN ENTERIC COATED 81 MG TABLET.DR. PO SCH (09:00)
--- NOTE | 2019-10-23 10:45 | PDOC ---
PROGRESS NOTES Assessment Problems Medical Problems: (1) Dizziness Status: Acute (2) Hypokalemia Status: Acute (3) Urinary tract infection Status: Acute Nonspecific dizziness, most likely related to the urinary tract infection and hypokalemia. Chronic gait disorder, using a walker History of C2 fracture, no evidence of myelopathy on bedside examination. Plan Okay for discharge She does not think she needs any help at home, already has a walker Follow-up with neurology as needed Subjective No complaints, wants to go home Objective Vital Signs Date Time Temp Pulse Resp B/P (MAP) Pulse Ox O2 Delivery O2 Flow Rate FiO2 10/23/19 08:09 62 186/81 10/23/19 08:00 Room Air 10/23/19 07:00 97.9 18 97 97.9 Intake and Output 10/23/19 07:00 Intake Total 1040 ml Output Total 1100 ml Balance -60 ml Intake Oral 1040 ml Output Urine Total 1100 ml PHYSICAL EXAM Alert. Oriented to time, place and person. PERRL. EOMI. CN: no focal findings. Muscle tone: normal. Muscle strength: 5/5 strength except splints right shoulder DTR: 2+ Plantar reflex: flexor Gait: not examined in bed, says she got up to bathroom with no trouble using her walker. Sensory exam: no abnormal findings. No cerebellar signs elicited. Review of Relevant I have reviewed the following items jaki (where applicable) has been applied. Labs Laboratory Tests Test 10/21/19 22:37 10/21/19 23:30 10/22/19 03:15 10/22/19 06:05 White Blood Count 11.1 x10^3/uL (4.0-11.0) Red Blood Count 4.65 x10^6/uL (3.50-5.40) Hemoglobin 13.5 g/dL (12.0-15.5) Hematocrit 39.2 % (36.0-47.0) Mean Corpuscular Volume 84 fL (79-100) Mean Corpuscular Hemoglobin 29 pg (25-35) Mean Corpuscular Hemoglobin Concent 34 g/dL (31-37) Red Cell Distribution Width 13.5 % (11.5-14.5) Platelet Count 257 x10^3/uL (140-400) Neutrophils (%) (Auto) 55 % (31-73) Lymphocytes (%) (Auto) 28 % (24-48) Monocytes (%) (Auto) 8 % (0-9) Eosinophils (%) (Auto) 8 % (0-3) Basophils (%) (Auto) 1 % (0-3) Neutrophils # (Auto) 6.1 x10^3/uL (1.8-7.7) Lymphocytes # (Auto) 3.1 x10^3/uL (1.0-4.8) Monocytes # (Auto) 0.9 x10^3/uL (0.0-1.1) Eosinophils # (Auto) 0.9 x10^3/uL (0.0-0.7) Basophils # (Auto) 0.1 x10^3/uL (0.0-0.2) Prothrombin Time 12.4 SEC (11.7-14.0) Prothromb Time International Ratio 1.0 (0.8-1.1) Activated Partial Thromboplast Time 28 SEC (24-38) Sodium Level 140 mmol/L (136-145) Potassium Level 3.4 mmol/L (3.5-5.1) Chloride Level 100 mmol/L (98-107) Carbon Dioxide Level 31 mmol/L (21-32) Anion Gap 9 (6-14) Blood Urea Nitrogen 19 mg/dL (7-20) Creatinine 1.1 mg/dL (0.6-1.0) Estimated GFR (Cockcroft-Gault) 48.0 BUN/Creatinine Ratio 17 (6-20) Glucose Level 117 mg/dL (70-99) Calcium Level 9.1 mg/dL (8.5-10.1) Magnesium Level 2.1 mg/dL (1.8-2.4) Total Bilirubin 0.2 mg/dL (0.2-1.0) Aspartate Amino Transf (AST/SGOT) 26 U/L (15-37) Alanine Aminotransferase (ALT/SGPT) 33 U/L (14-59) Alkaline Phosphatase 57 U/L (46-116) Creatine Kinase 65 U/L (26-192) Creatine Kinase MB (Mass) 0.9 ng/mL (0.0-3.6) Creatine Kinase MB Relative Index % (0-4) Troponin I Quantitative < 0.017 ng/mL (0.000-0.055) < 0.017 ng/mL (0.000-0.055) < 0.017 ng/mL (0.000-0.055) Total Protein 6.8 g/dL (6.4-8.2) Albumin 3.4 g/dL (3.4-5.0) Albumin/Globulin Ratio 1.0 (1.0-1.7) Urine Collection Type Unknown Urine Color Yellow Urine Clarity Clear Urine pH 7.5 (<5.0-8.0) Urine Specific [place] 1.010 (1.000-1.030) Urine Protein Negative mg/dL (NEG-TRACE) Urine Glucose (UA) Negative mg/dL (NEG) Urine Ketones (Stick) Negative mg/dL (NEG) Urine Blood Negative (NEG) Urine Nitrite Positive (NEG) Urine Bilirubin Negative (NEG) Urine Urobilinogen Dipstick 0.2 mg/dL (0.2 mg/dL) Urine Leukocyte Esterase Moderate (NEG) Urine RBC 1-2 /HPF (0-2) Urine WBC 5-10 /HPF (0-4) Urine Squamous Epithelial Cells Few /LPF Urine Bacteria Many /HPF (0-FEW) Test 10/23/19 04:00 White Blood Count 9.4 x10^3/uL (4.0-11.0) Red Blood Count 4.10 x10^6/uL (3.50-5.40) Hemoglobin 12.0 g/dL (12.0-15.5) Hematocrit 34.8 % (36.0-47.0) Mean Corpuscular Volume 85 fL (79-100) Mean Corpuscular Hemoglobin 29 pg (25-35) Mean Corpuscular Hemoglobin Concent 35 g/dL (31-37) Red Cell Distribution Width 13.9 % (11.5-14.5) Platelet Count 216 x10^3/uL (140-400) Neutrophils (%) (Auto) 45 % (31-73) Lymphocytes (%) (Auto) 42 % (24-48) Monocytes (%) (Auto) 9 % (0-9) Eosinophils (%) (Auto) 4 % (0-3) Basophils (%) (Auto) 1 % (0-3) Neutrophils # (Auto) 4.2 x10^3/uL (1.8-7.7) Lymphocytes # (Auto) 3.9 x10^3/uL (1.0-4.8) Monocytes # (Auto) 0.8 x10^3/uL (0.0-1.1) Eosinophils # (Auto) 0.3 x10^3/uL (0.0-0.7) Basophils # (Auto) 0.1 x10^3/uL (0.0-0.2) Sodium Level 139 mmol/L (136-145) Potassium Level 3.2 mmol/L (3.5-5.1) Chloride Level 102 mmol/L (98-107) Carbon Dioxide Level 26 mmol/L (21-32) Anion Gap 11 (6-14) Blood Urea Nitrogen 18 mg/dL (7-20) Creatinine 1.0 mg/dL (0.6-1.0) Estimated GFR (Cockcroft-Gault) 53.6 BUN/Creatinine Ratio 18 (6-20) Glucose Level 103 mg/dL (70-99) Calcium Level 8.5 mg/dL (8.5-10.1) Total Bilirubin 0.2 mg/dL (0.2-1.0) Aspartate Amino Transf (AST/SGOT) 24 U/L (15-37) Alanine Aminotransferase (ALT/SGPT) 27 U/L (14-59) Alkaline Phosphatase 47 U/L (46-116) Total Protein 6.5 g/dL (6.4-8.2) Albumin 3.0 g/dL (3.4-5.0) Albumin/Globulin Ratio 0.9 (1.0-1.7) Triglycerides Level 100 mg/dL (0-150) Cholesterol Level 161 mg/dL (0-200) LDL Cholesterol, Calculated 85 mg/dL (0-100) VLDL Cholesterol, Calculated 20 mg/dL (0-40) Non-HDL Cholesterol Calculated 105 mg/dL (0-129) HDL Cholesterol 56 mg/dL (40-60) Cholesterol/HDL Ratio 2.9 Laboratory Tests Test 10/23/19 04:00 White Blood Count 9.4 x10^3/uL (4.0-11.0) Red Blood Count 4.10 x10^6/uL (3.50-5.40) Hemoglobin 12.0 g/dL (12.0-15.5) Hematocrit 34.8 % (36.0-47.0) Mean Corpuscular Volume 85 fL (79-100) Mean Corpuscular Hemoglobin 29 pg (25-35) Mean Corpuscular Hemoglobin Concent 35 g/dL (31-37) Red Cell Distribution Width 13.9 % (11.5-14.5) Platelet Count 216 x10^3/uL (140-400) Neutrophils (%) (Auto) 45 % (31-73) Lymphocytes (%) (Auto) 42 % (24-48) Monocytes (%) (Auto) 9 % (0-9) Eosinophils (%) (Auto) 4 % (0-3) Basophils (%) (Auto) 1 % (0-3) Neutrophils # (Auto) 4.2 x10^3/uL (1.8-7.7) Lymphocytes # (Auto) 3.9 x10^3/uL (1.0-4.8) Monocytes # (Auto) 0.8 x10^3/uL (0.0-1.1) Eosinophils # (Auto) 0.3 x10^3/uL (0.0-0.7) Basophils # (Auto) 0.1 x10^3/uL (0.0-0.2) Sodium Level 139 mmol/L (136-145) Potassium Level 3.2 mmol/L (3.5-5.1) Chloride Level 102 mmol/L (98-107) Carbon Dioxide Level 26 mmol/L (21-32) Anion Gap 11 (6-14) Blood Urea Nitrogen 18 mg/dL (7-20) Creatinine 1.0 mg/dL (0.6-1.0) Estimated GFR (Cockcroft-Gault) 53.6 BUN/Creatinine Ratio 18 (6-20) Glucose Level 103 mg/dL (70-99) Calcium Level 8.5 mg/dL (8.5-10.1) Total Bilirubin 0.2 mg/dL (0.2-1.0) Aspartate Amino Transf (AST/SGOT) 24 U/L (15-37) Alanine Aminotransferase (ALT/SGPT) 27 U/L (14-59) Alkaline Phosphatase 47 U/L (46-116) Total Protein 6.5 g/dL (6.4-8.2) Albumin 3.0 g/dL (3.4-5.0) Albumin/Globulin Ratio 0.9 (1.0-1.7) Triglycerides Level 100 mg/dL (0-150) Cholesterol Level 161 mg/dL (0-200) LDL Cholesterol, Calculated 85 mg/dL (0-100) VLDL Cholesterol, Calculated 20 mg/dL (0-40) Non-HDL Cholesterol Calculated 105 mg/dL (0-129) HDL Cholesterol 56 mg/dL (40-60) Cholesterol/HDL Ratio 2.9 Microbiology 10/21/19 Urine Culture - Preliminary, Resulted Medications Current Medications Sodium Chloride 1,000 ml @ 1,000 mls/hr 1X ONCE IV Last administered on 10/21/19at 22:34; Start 10/21/19 at 22:30; Stop 10/21/19 at 23:29; Status DC Meclizine HCl (Antivert) 25 mg 1X ONCE PO Last administered on 10/21/19at 22:33; Start 10/21/19 at 22:30; Stop 10/21/19 at 22:31; Status DC Dexamethasone Sodium Phosphate (Decadron) 10 mg 1X ONCE IVP Last administered on 10/21/19at 22:35; Start 10/21/19 at 22:30; Stop 10/21/19 at 22:31; Status DC Aspirin (Ecotrin) 325 mg 1X ONCE PO Last administered on 10/22/19at 01:07; Start 10/22/19 at 00:15; Stop 10/22/19 at 00:16; Status DC Ceftriaxone Sodium (Rocephin) 1 gm 1X ONCE IVP Last administered on 10/22/19at 01:07; Start 10/22/19 at 00:30; Stop 10/22/19 at 00:31; Status DC Ondansetron HCl (Zofran) 4 mg PRN Q8HRS PRN IV NAUSEA/VOMITING 1ST CHOICE; Start 10/22/19 at 00:15; Stop 10/23/19 at 00:14; Status DC Potassium Chloride (Klor-Con) 40 meq 1X ONCE PO Last administered on 10/22/19at 01:06; Start 10/22/19 at 00:30; Stop 10/22/19 at 00:31; Status DC Ceftriaxone Sodium (Rocephin) 1 gm Q24H IVP Last administered on 10/22/19at 20:02; Start 10/22/19 at 21:00 Amlodipine Besylate (Norvasc) 5 mg DAILY PO Last administered on 10/23/19 08:08; Start 10/22/19 at 11:30 Aspirin (Ecotrin) 81 mg DAILY PO Last administered on 10/23/19 08:08; Start 10/23/19 at 09:00 Bupropion HCl (Wellbutrin Xl) 150 mg DAILY PO Last administered on 10/23/19 08:08; Start 10/22/19 at 11:30 Docusate Sodium (Colace) 100 mg DAILY PO Last administered on 10/23/19 08:09; Start 10/22/19 at 11:30 Metoprolol Tartrate (Lopressor) 50 mg BID PO Last administered on 10/23/19 08:09; Start 10/22/19 at 11:30 Atorvastatin Calcium (Lipitor) 20 mg QHS PO Last administered on 10/22/19 20:02; Start 10/22/19 at 21:00 Trazodone HCl (Desyrel) 100 mg QHS PO Last administered on 10/22/19 20:02; Start 10/22/19 at 21:00 Non-Formulary Medication (Alendronate Sodium ) 1 tab WEEKLY PO ; Start 10/29/19 at 09:00; Status UNV Calcium/Vitamin D (Oscal D 500mg/ 200uts) 1 tab BIDWMEALS PO Last administered on 10/23/19 08:08; Start 10/22/19 at 11:30 Pantoprazole Sodium (Protonix) 40 mg BIDAC PO Last administered on 10/23/19 08:08; Start 10/22/19 at 11:30 Hydrochlorothiazide (Hydrodiuril) 25 mg DAILY PO Last administered on 10/23/19 08:09; Start 10/22/19 at 11:30 Levothyroxine Sodium (Synthroid) 200 mcg DAILY06 PO ; Start 10/22/19 at 11:30; Stop 10/22/19 at 11:11; Status DC Multivitamins (Thera M Plus) 1 tab DAILY PO Last administered on 10/23/19 08:08; Start 10/22/19 at 11:30 Naproxen (Naprosyn) 250 mg PRN BID PRN PO INFLAMMATION; Start 10/22/19 at 11:15 Sertraline HCl (Zoloft) 200 mg DAILY PO ; Start 10/22/19 at 11:30; Status Cancel Oxybutynin Chloride (Ditropan) 5 mg BID PO Last administered on 10/23/19at 08:09; Start 10/22/19 at 11:30 Ziprasidone (Geodon) 120 mg QHS PO Last administered on 10/22/19at 20:02; Start 10/22/19 at 21:00 Sertraline HCl (Zoloft) 100 mg DAILY PO Last administered on 10/23/19at 08:09; Start 10/22/19 at 12:00 Levothyroxine Sodium (Synthroid) 176 mcg DAILY06 PO Last administered on 10/23/19at 05:58; Start 10/22/19 at 11:30 Ziprasidone (Geodon) 40 mg QHS PO Last administered on 10/22/19at 20:02; Start 10/22/19 at 21:00 Lactobacillus Rhamnosus (Culturelle) 1 cap BID PO Last administered on 10/23/19at 08:08; Start 10/22/19 at 21:00 Potassium Chloride (Klor-Con) 40 meq 1X ONCE PO Last administered on 10/22/19at 17:21; Start 10/22/19 at 15:45; Stop 10/22/19 at 15:46; Status DC Potassium Chloride (Klor-Con) 20 meq DAILYWBKFT PO Last administered on 10/23/19at 08:10; Start 10/23/19 at 08:00 Active Scripts Active Reported Trazodone Hcl 100 Mg Tablet 1 Tab PO QHS Wellbutrin Xl (Bupropion Hcl) 150 Mg Tab.er.24h 150 Mg PO DAILY Naproxen 375 Mg Tablet 1 Tab PO BID PRN Amlodipine Besylate 5 Mg Tablet 5 Mg PO DAILY Levothyroxine Sodium 200 Mcg Tablet 1 Tab PO DAILY06 Geodon (Ziprasidone Hcl) 80 Mg Capsule 2 Cap PO QHS Simvastatin 40 Mg Tablet 1 Tab PO QHS Nexium Capsule (Esomeprazole Magnesium) 40 Mg Capsule.dr 1 Cap PO BID Metoprolol Tartrate 50 Mg Tablet 1 Tab PO BID Calcium 600 + Vit D 200 Tablet (Calcium Carbonate/Vitamin D3) 1 Each Tablet 1 Each PO BIDWMEALS Detrol La (Tolterodine Tartrate) 4 Mg Cap.er.24h 1 Cap PO DAILY Sertraline Hcl 100 Mg Tablet 200 Mg PO DAILY Hydrochlorothiazide Tablet (Hydrochlorothiazide) 12.5 Mg Tablet 2 Tab PO DAILY Docusate Sodium 100 Mg Capsule 1 Cap PO DAILY Aspir 81 (Aspirin) 81 Mg Tablet. 1 Tab PO DAILY Certavite Sr-Antioxidant Tab (Multivits-Min/Fa/Lycopene/Lut) 1 Each Tablet 1 Each PO DAILY Alendronate Sodium 35 Mg Tablet 1 Tab PO WEEKLY Weekly on Sundays Vitals/I & O Vital Sign - Last 24 Hours 10/22/19 10/22/19 10/22/19 10/22/19 11:33 11:34 15:00 19:15 Temp 98.8 98.8 Pulse 79 79 80 Resp 20 B/P (MAP) 144/53 144/53 127/78 (94) Pulse Ox 96 O2 Delivery Room Air Room Air 10/22/19 10/22/19 10/22/19 10/23/19 19:25 20:02 23:03 02:34 Temp 98.7 97.7 98.7 97.7 Pulse 81 81 62 69 Resp 20 18 20 B/P (MAP) 175/70 (105) 175/70 141/51 (81) 175/81 (112) Pulse Ox 96 95 95 O2 Delivery Room Air Room Air Room Air 10/23/19 10/23/19 10/23/19 10/23/19 07:00 08:00 08:08 08:09 Temp 97.9 97.9 Pulse 65 62 62 Resp 18 B/P (MAP) 173/96 (121) 186/81 186/81 Pulse Ox 97 O2 Delivery Room Air Room Air Intake and Output 10/22/19 10/22/19 10/23/19 15:00 23:00 07:00 Intake Total 240 ml 600 ml 200 ml Output Total 200 ml 350 ml 550 ml Balance 40 ml 250 ml -350 ml Justicifation of Admission Dx: Justifications for Admission: Justification of Admission Dx: Yes Altered Mental Status: Altered Mental Status MOHIT ROMAN MD Oct 23, 2019 10:44
[2019-10-23 10:52] VITALS: BP 151/62
--- NOTE | 2019-10-23 11:11 | PDOC ---
PROGRESS NOTES History of Present Illness History of Present Illness VTE Prophylaxis Ordered VTE Prophylaxis Devices: No VTE Pharmacological Prophylaxi: Yes DISCHARGE DX Assessment/Plan Impression: Dizziness RESOLVED Chronic gait disorder, UTILIZES walker REMOTE History of C2 fracture, no evidence of myelopathy Urinary tract infection Hypokalemia Cognitive decline ADMITTED PT/OT lower dose of zoloft to 100mg due to age may be helpful to dec risk of falls neurology consult dvt prophylaxis D/C PLANNING 25 MIN Other Information * Pt would benefit from home health at discharge to address limitations in balance, strength, activity tolerance, and safety. Patient educated to use roller walker at all time upon discharge for continued safety and stability with ambulation. Patient agreed. D/W RN * return home Rehab Potential to Achieve Goals * Good Learning Preferences * One-on-One Instruction * Demonstration * Discussion Factors Facilitating Goal Achievement * Motivation level * Prior level of function * Cognition * Response to training Problem List (body system elements) * Impaired fnctnl mobility * Strength * Balance * Knowledge-safe techniques Other Problems * Pt sitting on shower chair at end of session with OT present to initiate shower Clinical Presentation * Evolving Evaluation Complexity Level * Moderate Complexity Pt/caregiver agrees with plan of care/goals * Yes Patient condition at conclusion of therapy * Pt in chair * Call light in reach * Phone in reach * PtIn no apparent distress * Pt denies further needs Communicated Patient Care With (Name, Title) * Martha PETERSEN; Jordon VASQUEZ Goal 1 - Bed Mobility Assistance Required * Independent Goal 1 Assessment * Appropriate - Continue Goal 2 - Transfers Assistance Required * Independent Goal 2 - Transfer Type * Sit to Stand Goal 2 Assessment * Appropriate - Continue Goal 3 - Ambulation Assistance Required * Independent Goal 3 - Ambulation Distance * 250' Goal 3 - Ambulation Device * Roller Walker Goal 3 Assessment * Appropriate - Continue Treatment Plan * Therapeutic Exercise * Bed Mobility Training * Transfer training * Gait Training * Dynamic Balance Training Frequency of Treatment Expected * 7 visits/week Duration of Treatment Expected * 2 weeks Justicifation of Admission Dx: Justicifation of Admission Dx: Justifications for Admission: Justification of Admission Dx: Yes Altered Mental Status: Altered Mental Status Comments: GAIT INSTABILITY DOMENICO CASTANEDA MD Oct 22, 2019 10:01 Vitals Vitals Vital Signs Date Time Temp Pulse Resp B/P (MAP) Pulse Ox O2 Delivery O2 Flow Rate FiO2 10/23/19 10:52 97.9 97 18 151/62 (91) 100 Room Air 97.9 Physical Exam General: Alert, Oriented X3, Cooperative, No acute distress Heart: Regular rate Lungs: Clear Abdomen: Normal bowel sounds, Soft Extremities: No cyanosis Skin: No rashes, No significant lesion Labs LABS Laboratory Tests Test 10/23/19 04:00 White Blood Count 9.4 x10^3/uL (4.0-11.0) Red Blood Count 4.10 x10^6/uL (3.50-5.40) Hemoglobin 12.0 g/dL (12.0-15.5) Hematocrit 34.8 % (36.0-47.0) Mean Corpuscular Volume 85 fL (79-100) Mean Corpuscular Hemoglobin 29 pg (25-35) Mean Corpuscular Hemoglobin Concent 35 g/dL (31-37) Red Cell Distribution Width 13.9 % (11.5-14.5) Platelet Count 216 x10^3/uL (140-400) Neutrophils (%) (Auto) 45 % (31-73) Lymphocytes (%) (Auto) 42 % (24-48) Monocytes (%) (Auto) 9 % (0-9) Eosinophils (%) (Auto) 4 % (0-3) Basophils (%) (Auto) 1 % (0-3) Neutrophils # (Auto) 4.2 x10^3/uL (1.8-7.7) Lymphocytes # (Auto) 3.9 x10^3/uL (1.0-4.8) Monocytes # (Auto) 0.8 x10^3/uL (0.0-1.1) Eosinophils # (Auto) 0.3 x10^3/uL (0.0-0.7) Basophils # (Auto) 0.1 x10^3/uL (0.0-0.2) Sodium Level 139 mmol/L (136-145) Potassium Level 3.2 mmol/L (3.5-5.1) Chloride Level 102 mmol/L (98-107) Carbon Dioxide Level 26 mmol/L (21-32) Anion Gap 11 (6-14) Blood Urea Nitrogen 18 mg/dL (7-20) Creatinine 1.0 mg/dL (0.6-1.0) Estimated GFR (Cockcroft-Gault) 53.6 BUN/Creatinine Ratio 18 (6-20) Glucose Level 103 mg/dL (70-99) Calcium Level 8.5 mg/dL (8.5-10.1) Total Bilirubin 0.2 mg/dL (0.2-1.0) Aspartate Amino Transf (AST/SGOT) 24 U/L (15-37) Alanine Aminotransferase (ALT/SGPT) 27 U/L (14-59) Alkaline Phosphatase 47 U/L (46-116) Total Protein 6.5 g/dL (6.4-8.2) Albumin 3.0 g/dL (3.4-5.0) Albumin/Globulin Ratio 0.9 (1.0-1.7) Triglycerides Level 100 mg/dL (0-150) Cholesterol Level 161 mg/dL (0-200) LDL Cholesterol, Calculated 85 mg/dL (0-100) VLDL Cholesterol, Calculated 20 mg/dL (0-40) Non-HDL Cholesterol Calculated 105 mg/dL (0-129) HDL Cholesterol 56 mg/dL (40-60) Cholesterol/HDL Ratio 2.9 Assessment and Plan Assessmemt and Plan Problems Medical Problems: (1) Dizziness Status: Acute (2) Hypokalemia Status: Acute (3) Urinary tract infection Status: Acute Comment Review of Relevant I have reviewed the following items jaki (where applicable) has been applied. Labs Laboratory Tests Test 10/21/19 22:37 10/21/19 23:30 10/22/19 03:15 10/22/19 06:05 White Blood Count 11.1 x10^3/uL (4.0-11.0) Red Blood Count 4.65 x10^6/uL (3.50-5.40) Hemoglobin 13.5 g/dL (12.0-15.5) Hematocrit 39.2 % (36.0-47.0) Mean Corpuscular Volume 84 fL (79-100) Mean Corpuscular Hemoglobin 29 pg (25-35) Mean Corpuscular Hemoglobin Concent 34 g/dL (31-37) Red Cell Distribution Width 13.5 % (11.5-14.5) Platelet Count 257 x10^3/uL (140-400) Neutrophils (%) (Auto) 55 % (31-73) Lymphocytes (%) (Auto) 28 % (24-48) Monocytes (%) (Auto) 8 % (0-9) Eosinophils (%) (Auto) 8 % (0-3) Basophils (%) (Auto) 1 % (0-3) Neutrophils # (Auto) 6.1 x10^3/uL (1.8-7.7) Lymphocytes # (Auto) 3.1 x10^3/uL (1.0-4.8) Monocytes # (Auto) 0.9 x10^3/uL (0.0-1.1) Eosinophils # (Auto) 0.9 x10^3/uL (0.0-0.7) Basophils # (Auto) 0.1 x10^3/uL (0.0-0.2) Prothrombin Time 12.4 SEC (11.7-14.0) Prothromb Time International Ratio 1.0 (0.8-1.1) Activated Partial Thromboplast Time 28 SEC (24-38) Sodium Level 140 mmol/L (136-145) Potassium Level 3.4 mmol/L (3.5-5.1) Chloride Level 100 mmol/L (98-107) Carbon Dioxide Level 31 mmol/L (21-32) Anion Gap 9 (6-14) Blood Urea Nitrogen 19 mg/dL (7-20) Creatinine 1.1 mg/dL (0.6-1.0) Estimated GFR (Cockcroft-Gault) 48.0 BUN/Creatinine Ratio 17 (6-20) Glucose Level 117 mg/dL (70-99) Calcium Level 9.1 mg/dL (8.5-10.1) Magnesium Level 2.1 mg/dL (1.8-2.4) Total Bilirubin 0.2 mg/dL (0.2-1.0) Aspartate Amino Transf (AST/SGOT) 26 U/L (15-37) Alanine Aminotransferase (ALT/SGPT) 33 U/L (14-59) Alkaline Phosphatase 57 U/L (46-116) Creatine Kinase 65 U/L (26-192) Creatine Kinase MB (Mass) 0.9 ng/mL (0.0-3.6) Creatine Kinase MB Relative Index % (0-4) Troponin I Quantitative < 0.017 ng/mL (0.000-0.055) < 0.017 ng/mL (0.000-0.055) < 0.017 ng/mL (0.000-0.055) Total Protein 6.8 g/dL (6.4-8.2) Albumin 3.4 g/dL (3.4-5.0) Albumin/Globulin Ratio 1.0 (1.0-1.7) Urine Collection Type Unknown Urine Color Yellow Urine Clarity Clear Urine pH 7.5 (<5.0-8.0) Urine Specific Powell 1.010 (1.000-1.030) Urine Protein Negative mg/dL (NEG-TRACE) Urine Glucose (UA) Negative mg/dL (NEG) Urine Ketones (Stick) Negative mg/dL (NEG) Urine Blood Negative (NEG) Urine Nitrite Positive (NEG) Urine Bilirubin Negative (NEG) Urine Urobilinogen Dipstick 0.2 mg/dL (0.2 mg/dL) Urine Leukocyte Esterase Moderate (NEG) Urine RBC 1-2 /HPF (0-2) Urine WBC 5-10 /HPF (0-4) Urine Squamous Epithelial Cells Few /LPF Urine Bacteria Many /HPF (0-FEW) Test 10/23/19 04:00 White Blood Count 9.4 x10^3/uL (4.0-11.0) Red Blood Count 4.10 x10^6/uL (3.50-5.40) Hemoglobin 12.0 g/dL (12.0-15.5) Hematocrit 34.8 % (36.0-47.0) Mean Corpuscular Volume 85 fL (79-100) Mean Corpuscular Hemoglobin 29 pg (25-35) Mean Corpuscular Hemoglobin Concent 35 g/dL (31-37) Red Cell Distribution Width 13.9 % (11.5-14.5) Platelet Count 216 x10^3/uL (140-400) Neutrophils (%) (Auto) 45 % (31-73) Lymphocytes (%) (Auto) 42 % (24-48) Monocytes (%) (Auto) 9 % (0-9) Eosinophils (%) (Auto) 4 % (0-3) Basophils (%) (Auto) 1 % (0-3) Neutrophils # (Auto) 4.2 x10^3/uL (1.8-7.7) Lymphocytes # (Auto) 3.9 x10^3/uL (1.0-4.8) Monocytes # (Auto) 0.8 x10^3/uL (0.0-1.1) Eosinophils # (Auto) 0.3 x10^3/uL (0.0-0.7) Basophils # (Auto) 0.1 x10^3/uL (0.0-0.2) Sodium Level 139 mmol/L (136-145) Potassium Level 3.2 mmol/L (3.5-5.1) Chloride Level 102 mmol/L (98-107) Carbon Dioxide Level 26 mmol/L (21-32) Anion Gap 11 (6-14) Blood Urea Nitrogen 18 mg/dL (7-20) Creatinine 1.0 mg/dL (0.6-1.0) Estimated GFR (Cockcroft-Gault) 53.6 BUN/Creatinine Ratio 18 (6-20) Glucose Level 103 mg/dL (70-99) Calcium Level 8.5 mg/dL (8.5-10.1) Total Bilirubin 0.2 mg/dL (0.2-1.0) Aspartate Amino Transf (AST/SGOT) 24 U/L (15-37) Alanine Aminotransferase (ALT/SGPT) 27 U/L (14-59) Alkaline Phosphatase 47 U/L (46-116) Total Protein 6.5 g/dL (6.4-8.2) Albumin 3.0 g/dL (3.4-5.0) Albumin/Globulin Ratio 0.9 (1.0-1.7) Triglycerides Level 100 mg/dL (0-150) Cholesterol Level 161 mg/dL (0-200) LDL Cholesterol, Calculated 85 mg/dL (0-100) VLDL Cholesterol, Calculated 20 mg/dL (0-40) Non-HDL Cholesterol Calculated 105 mg/dL (0-129) HDL Cholesterol 56 mg/dL (40-60) Cholesterol/HDL Ratio 2.9 Laboratory Tests Test 10/23/19 04:00 White Blood Count 9.4 x10^3/uL (4.0-11.0) Red Blood Count 4.10 x10^6/uL (3.50-5.40) Hemoglobin 12.0 g/dL (12.0-15.5) Hematocrit 34.8 % (36.0-47.0) Mean Corpuscular Volume 85 fL (79-100) Mean Corpuscular Hemoglobin 29 pg (25-35) Mean Corpuscular Hemoglobin Concent 35 g/dL (31-37) Red Cell Distribution Width 13.9 % (11.5-14.5) Platelet Count 216 x10^3/uL (140-400) Neutrophils (%) (Auto) 45 % (31-73) Lymphocytes (%) (Auto) 42 % (24-48) Monocytes (%) (Auto) 9 % (0-9) Eosinophils (%) (Auto) 4 % (0-3) Basophils (%) (Auto) 1 % (0-3) Neutrophils # (Auto) 4.2 x10^3/uL (1.8-7.7) Lymphocytes # (Auto) 3.9 x10^3/uL (1.0-4.8) Monocytes # (Auto) 0.8 x10^3/uL (0.0-1.1) Eosinophils # (Auto) 0.3 x10^3/uL (0.0-0.7) Basophils # (Auto) 0.1 x10^3/uL (0.0-0.2) Sodium Level 139 mmol/L (136-145) Potassium Level 3.2 mmol/L (3.5-5.1) Chloride Level 102 mmol/L (98-107) Carbon Dioxide Level 26 mmol/L (21-32) Anion Gap 11 (6-14) Blood Urea Nitrogen 18 mg/dL (7-20) Creatinine 1.0 mg/dL (0.6-1.0) Estimated GFR (Cockcroft-Gault) 53.6 BUN/Creatinine Ratio 18 (6-20) Glucose Level 103 mg/dL (70-99) Calcium Level 8.5 mg/dL (8.5-10.1) Total Bilirubin 0.2 mg/dL (0.2-1.0) Aspartate Amino Transf (AST/SGOT) 24 U/L (15-37) Alanine Aminotransferase (ALT/SGPT) 27 U/L (14-59) Alkaline Phosphatase 47 U/L (46-116) Total Protein 6.5 g/dL (6.4-8.2) Albumin 3.0 g/dL (3.4-5.0) Albumin/Globulin Ratio 0.9 (1.0-1.7) Triglycerides Level 100 mg/dL (0-150) Cholesterol Level 161 mg/dL (0-200) LDL Cholesterol, Calculated 85 mg/dL (0-100) VLDL Cholesterol, Calculated 20 mg/dL (0-40) Non-HDL Cholesterol Calculated 105 mg/dL (0-129) HDL Cholesterol 56 mg/dL (40-60) Cholesterol/HDL Ratio 2.9 Microbiology 10/21/19 Urine Culture - Preliminary, Resulted Medications Current Medications Sodium Chloride 1,000 ml @ 1,000 mls/hr 1X ONCE IV Last administered on 10/21/19at 22:34; Start 10/21/19 at 22:30; Stop 10/21/19 at 23:29; Status DC Meclizine HCl (Antivert) 25 mg 1X ONCE PO Last administered on 10/21/19at 22:33; Start 10/21/19 at 22:30; Stop 10/21/19 at 22:31; Status DC Dexamethasone Sodium Phosphate (Decadron) 10 mg 1X ONCE IVP Last administered on 10/21/19at 22:35; Start 10/21/19 at 22:30; Stop 10/21/19 at 22:31; Status DC Aspirin (Ecotrin) 325 mg 1X ONCE PO Last administered on 10/22/19at 01:07; Start 10/22/19 at 00:15; Stop 10/22/19 at 00:16; Status DC Ceftriaxone Sodium (Rocephin) 1 gm 1X ONCE IVP Last administered on 10/22/19at 01:07; Start 10/22/19 at 00:30; Stop 10/22/19 at 00:31; Status DC Ondansetron HCl (Zofran) 4 mg PRN Q8HRS PRN IV NAUSEA/VOMITING 1ST CHOICE; Start 10/22/19 at 00:15; Stop 10/23/19 at 00:14; Status DC Potassium Chloride (Klor-Con) 40 meq 1X ONCE PO Last administered on 10/22/19at 01:06; Start 10/22/19 at 00:30; Stop 10/22/19 at 00:31; Status DC Ceftriaxone Sodium (Rocephin) 1 gm Q24H IVP Last administered on 10/22/19at 20:02; Start 10/22/19 at 21:00 Amlodipine Besylate (Norvasc) 5 mg DAILY PO Last administered on 10/23/19 08:08; Start 10/22/19 at 11:30 Aspirin (Ecotrin) 81 mg DAILY PO Last administered on 10/23/19 08:08; Start 10/23/19 at 09:00 Bupropion HCl (Wellbutrin Xl) 150 mg DAILY PO Last administered on 10/23/19 08:08; Start 10/22/19 at 11:30 Docusate Sodium (Colace) 100 mg DAILY PO Last administered on 10/23/19 08:09; Start 10/22/19 at 11:30 Metoprolol Tartrate (Lopressor) 50 mg BID PO Last administered on 10/23/19 08:09; Start 10/22/19 at 11:30 Atorvastatin Calcium (Lipitor) 20 mg QHS PO Last administered on 10/22/19at 20:02; Start 10/22/19 at 21:00 Trazodone HCl (Desyrel) 100 mg QHS PO Last administered on 10/22/19at 20:02; Start 10/22/19 at 21:00 Non-Formulary Medication (Alendronate Sodium ) 1 tab WEEKLY PO ; Start 10/29/19 at 09:00; Status UNV Calcium/Vitamin D (Oscal D 500mg/ 200uts) 1 tab BIDWMEALS PO Last administered on 10/23/19 08:08; Start 10/22/19 at 11:30 Pantoprazole Sodium (Protonix) 40 mg BIDAC PO Last administered on 10/23/19 08:08; Start 10/22/19 at 11:30 Hydrochlorothiazide (Hydrodiuril) 25 mg DAILY PO Last administered on 10/23/19 08:09; Start 10/22/19 at 11:30 Levothyroxine Sodium (Synthroid) 200 mcg DAILY06 PO ; Start 10/22/19 at 11:30; Stop 10/22/19 at 11:11; Status DC Multivitamins (Thera M Plus) 1 tab DAILY PO Last administered on 10/23/19 08:08; Start 10/22/19 at 11:30 Naproxen (Naprosyn) 250 mg PRN BID PRN PO INFLAMMATION; Start 10/22/19 at 11:15 Sertraline HCl (Zoloft) 200 mg DAILY PO ; Start 10/22/19 at 11:30; Status Cancel Oxybutynin Chloride (Ditropan) 5 mg BID PO Last administered on 10/23/19at 08:09; Start 10/22/19 at 11:30 Ziprasidone (Geodon) 120 mg QHS PO Last administered on 10/22/19at 20:02; Start 10/22/19 at 21:00 Sertraline HCl (Zoloft) 100 mg DAILY PO Last administered on 10/23/19at 08:09; Start 10/22/19 at 12:00 Levothyroxine Sodium (Synthroid) 176 mcg DAILY06 PO Last administered on 10/23/19at 05:58; Start 10/22/19 at 11:30 Ziprasidone (Geodon) 40 mg QHS PO Last administered on 10/22/19at 20:02; Start 10/22/19 at 21:00 Lactobacillus Rhamnosus (Culturelle) 1 cap BID PO Last administered on 10/23/19at 08:08; Start 10/22/19 at 21:00 Potassium Chloride (Klor-Con) 40 meq 1X ONCE PO Last administered on 10/22/19at 17:21; Start 10/22/19 at 15:45; Stop 10/22/19 at 15:46; Status DC Potassium Chloride (Klor-Con) 20 meq DAILYWBKFT PO Last administered on 10/23/19at 08:10; Start 10/23/19 at 08:00 Active Scripts Active Reported Trazodone Hcl 100 Mg Tablet 1 Tab PO QHS Wellbutrin Xl (Bupropion Hcl) 150 Mg Tab.er.24h 150 Mg PO DAILY Naproxen 375 Mg Tablet 1 Tab PO BID PRN Amlodipine Besylate 5 Mg Tablet 5 Mg PO DAILY Levothyroxine Sodium 200 Mcg Tablet 1 Tab PO DAILY06 Geodon (Ziprasidone Hcl) 80 Mg Capsule 2 Cap PO QHS Simvastatin 40 Mg Tablet 1 Tab PO QHS Nexium Capsule (Esomeprazole Magnesium) 40 Mg Capsule.dr 1 Cap PO BID Metoprolol Tartrate 50 Mg Tablet 1 Tab PO BID Calcium 600 + Vit D 200 Tablet (Calcium Carbonate/Vitamin D3) 1 Each Tablet 1 Each PO BIDWMEALS Detrol La (Tolterodine Tartrate) 4 Mg Cap.er.24h 1 Cap PO DAILY Sertraline Hcl 100 Mg Tablet 200 Mg PO DAILY Hydrochlorothiazide Tablet (Hydrochlorothiazide) 12.5 Mg Tablet 2 Tab PO DAILY Docusate Sodium 100 Mg Capsule 1 Cap PO DAILY Aspir 81 (Aspirin) 81 Mg Tablet. 1 Tab PO DAILY Certavite Sr-Antioxidant Tab (Multivits-Min/Fa/Lycopene/Lut) 1 Each Tablet 1 Each PO DAILY Alendronate Sodium 35 Mg Tablet 1 Tab PO WEEKLY Weekly on Sundays Vitals/I & O Vital Sign - Last 24 Hours 10/22/19 10/22/19 10/22/19 10/22/19 11:33 11:34 15:00 19:15 Temp 98.8 98.8 Pulse 79 79 80 Resp 20 B/P (MAP) 144/53 144/53 127/78 (94) Pulse Ox 96 O2 Delivery Room Air Room Air 10/22/19 10/22/19 10/22/19 10/23/19 19:25 20:02 23:03 02:34 Temp 98.7 97.7 98.7 97.7 Pulse 81 81 62 69 Resp 20 18 20 B/P (MAP) 175/70 (105) 175/70 141/51 (81) 175/81 (112) Pulse Ox 96 95 95 O2 Delivery Room Air Room Air Room Air 10/23/19 10/23/19 10/23/19 10/23/19 07:00 08:00 08:08 08:09 Temp 97.9 97.9 Pulse 65 62 62 Resp 18 B/P (MAP) 173/96 (121) 186/81 186/81 Pulse Ox 97 O2 Delivery Room Air Room Air 10/23/19 10:52 Temp 97.9 97.9 Pulse 97 Resp 18 B/P (MAP) 151/62 (91) Pulse Ox 100 O2 Delivery Room Air Intake and Output 10/22/19 10/22/19 10/23/19 14:59 22:59 06:59 Intake Total 240 ml 600 ml 200 ml Output Total 200 ml 350 ml 550 ml Balance 40 ml 250 ml -350 ml DOMENICO CASTANEDA MD Oct 23, 2019 11:10
--- NOTE | 2019-10-23 14:04 | PDOC3 ---
Discharge Summary Date of Admission: Oct 22, 2019 Date of Discharge: Oct 23, 2019 Follow-Up: 1-2 days Admitting Diagnosis comment: DISCHARGE DX Assessment/Plan Impression: Dizziness RESOLVED Chronic gait disorder, UTILIZES walker REMOTE History of C2 fracture, no evidence of myelopathy Urinary tract infection Hypokalemia Cognitive decline ADMITTED PT/OT lower dose of zoloft to 100mg due to age may be helpful to dec risk of falls neurology consult dvt prophylaxis D/C PLANNING 25 MIN Other Information * Pt would benefit from home health at discharge to address limitations in balance, strength, activity tolerance, and safety. Patient educated to use roller walker at all time upon discharge for continued safety and stability with ambulation. Patient agreed. D/W RN * return home Rehab Potential to Achieve Goals * Good Learning Preferences * One-on-One Instruction * Demonstration * Discussion Factors Facilitating Goal Achievement * Motivation level * Prior level of function * Cognition * Response to training Problem List (body system elements) * Impaired fnctnl mobility * Strength * Balance * Knowledge-safe techniques Other Problems * Pt sitting on shower chair at end of session with OT present to initiate shower Clinical Presentation * Evolving Evaluation Complexity Level * Moderate Complexity Pt/caregiver agrees with plan of care/goals * Yes Patient condition at conclusion of therapy * Pt in chair * Call light in reach * Phone in reach * PtIn no apparent distress * Pt denies further needs Communicated Patient Care With (Name, Title) * Martha OT; Jordon VASQUEZ Goal 1 - Bed Mobility Assistance Required * Independent Goal 1 Assessment * Appropriate - Continue Goal 2 - Transfers Assistance Required * Independent Goal 2 - Transfer Type * Sit to Stand Goal 2 Assessment * Appropriate - Continue Goal 3 - Ambulation Assistance Required * Independent Goal 3 - Ambulation Distance * 250' Goal 3 - Ambulation Device * Roller Walker Goal 3 Assessment * Appropriate - Continue Treatment Plan * Therapeutic Exercise * Bed Mobility Training * Transfer training * Gait Training * Dynamic Balance Training Frequency of Treatment Expected * 7 visits/week Duration of Treatment Expected * 2 weeks Justicifation of Admission Dx: Justicifation of Admission Dx: Justifications for Admission: Justification of Admission Dx: Yes Altered Mental Status: Altered Mental Status Comments: GAIT INSTABILITY DOMENICO CASTANEDA MD Oct 22, 2019 10:01 Vitals Vitals Vital Signs Date Time Temp Pulse Resp B/P (MAP) Pulse Ox O2 Delivery O2 Flow Rate FiO2 10/23/19 10:52 97.9 97 18 151/62 (91) 100 Room Air 97.9 Physical Exam General: Alert, Oriented X3, Cooperative, No acute distress Heart: Regular rate Lungs: Clear Abdomen: Normal bowel sounds, Soft Extremities: No cyanosis Skin: No rashes, No significant lesion FINAL DIAGNOSIS Problems Medical Problems: (1) Dizziness Status: Acute (2) Hypokalemia Status: Acute (3) Urinary tract infection Status: Acute Brief Hospital Course Ms. Levin is a 79 old [sex] who presented with [ DIZZINESS, UNSTABLE GAIT] CONDITION AT DISCHARGE: Improved Discharge Medications Current Medications Sodium Chloride 1,000 ml @ 1,000 mls/hr 1X ONCE IV Last administered on 10/21/19at 22:34; Start 10/21/19 at 22:30; Stop 10/21/19 at 23:29; Status DC Meclizine HCl (Antivert) 25 mg 1X ONCE PO Last administered on 10/21/19at 22:33; Start 10/21/19 at 22:30; Stop 10/21/19 at 22:31; Status DC Dexamethasone Sodium Phosphate (Decadron) 10 mg 1X ONCE IVP Last administered on 10/21/19at 22:35; Start 10/21/19 at 22:30; Stop 10/21/19 at 22:31; Status DC Aspirin (Ecotrin) 325 mg 1X ONCE PO Last administered on 10/22/19at 01:07; Start 10/22/19 at 00:15; Stop 10/22/19 at 00:16; Status DC Ceftriaxone Sodium (Rocephin) 1 gm 1X ONCE IVP Last administered on 10/22/19at 01:07; Start 10/22/19 at 00:30; Stop 10/22/19 at 00:31; Status DC Ondansetron HCl (Zofran) 4 mg PRN Q8HRS PRN IV NAUSEA/VOMITING 1ST CHOICE; Start 10/22/19 at 00:15; Stop 10/23/19 at 00:14; Status DC Potassium Chloride (Klor-Con) 40 meq 1X ONCE PO Last administered on 10/22/19at 01:06; Start 10/22/19 at 00:30; Stop 10/22/19 at 00:31; Status DC Ceftriaxone Sodium (Rocephin) 1 gm Q24H IVP Last administered on 10/22/19 20:02; Start 10/22/19 at 21:00 Amlodipine Besylate (Norvasc) 5 mg DAILY PO Last administered on 10/23/19 08:08; Start 10/22/19 at 11:30 Aspirin (Ecotrin) 81 mg DAILY PO Last administered on 10/23/19 08:08; Start at 09:00 Bupropion HCl (Wellbutrin Xl) 150 mg DAILY PO Last administered on 10/23/19 08:08; Start 10/22/19 at 11:30 Docusate Sodium (Colace) 100 mg DAILY PO Last administered on 10/23/19 08:09; Start 10/22/19 at 11:30 Metoprolol Tartrate (Lopressor) 50 mg BID PO Last administered on 10/23/19 08:09; Start 10/22/19 at 11:30 Atorvastatin Calcium (Lipitor) 20 mg QHS PO Last administered on 10/22/19 20:02; Start 10/22/19 at 21:00 Trazodone HCl (Desyrel) 100 mg QHS PO Last administered on 10/22/19 20:02; Start 10/22/19 at 21:00 Non-Formulary Medication (Alendronate Sodium ) 1 tab WEEKLY PO ; Start 10/29/19 at 09:00; Status UNV Calcium/Vitamin D (Oscal D 500mg/ 200uts) 1 tab BIDWMEALS PO Last administered on 10/23/19 08:08; Start 10/22/19 at 11:30 Pantoprazole Sodium (Protonix) 40 mg BIDAC PO Last administered on 10/23/19 08:08; Start 10/22/19 at 11:30 Hydrochlorothiazide (Hydrodiuril) 25 mg DAILY PO Last administered on 10/23/19 08:09; Start 10/22/19 at 11:30 Levothyroxine Sodium (Synthroid) 200 mcg DAILY06 PO ; Start 10/22/19 at 11:30; Stop 10/22/19 at 11:11; Status DC Multivitamins (Thera M Plus) 1 tab DAILY PO Last administered on 10/23/19 08:08; Start 10/22/19 at 11:30 Naproxen (Naprosyn) 250 mg PRN BID PRN PO INFLAMMATION; Start 10/22/19 at 11:15 Sertraline HCl (Zoloft) 200 mg DAILY PO ; Start 10/22/19 at 11:30; Status Cancel Oxybutynin Chloride (Ditropan) 5 mg BID PO Last administered on 10/23/19at 08:09; Start 10/22/19 at 11:30 Ziprasidone (Geodon) 120 mg QHS PO Last administered on 10/22/19at 20:02; Start 10/22/19 at 21:00 Sertraline HCl (Zoloft) 100 mg DAILY PO Last administered on 10/23/19at 08:09; Start 10/22/19 at 12:00 Levothyroxine Sodium (Synthroid) 176 mcg DAILY06 PO Last administered on 10/23/19at 05:58; Start 10/22/19 at 11:30 Ziprasidone (Geodon) 40 mg QHS PO Last administered on 10/22/19at 20:02; Start 10/22/19 at 21:00 Lactobacillus Rhamnosus (Culturelle) 1 cap BID PO Last administered on 10/23/19at 08:08; Start 10/22/19 at 21:00 Potassium Chloride (Klor-Con) 40 meq 1X ONCE PO Last administered on 10/22/19at 17:21; Start 10/22/19 at 15:45; Stop 10/22/19 at 15:46; Status DC Potassium Chloride (Klor-Con) 20 meq DAILYWBKFT PO Last administered on 10/23/19at 08:10; Start 10/23/19 at 08:00 Active Scripts Active Reported Trazodone Hcl 100 Mg Tablet 1 Tab PO QHS Wellbutrin Xl (Bupropion Hcl) 150 Mg Tab.er.24h 150 Mg PO DAILY Naproxen 375 Mg Tablet 1 Tab PO BID PRN Amlodipine Besylate 5 Mg Tablet 5 Mg PO DAILY Levothyroxine Sodium 200 Mcg Tablet 1 Tab PO DAILY06 Geodon (Ziprasidone Hcl) 80 Mg Capsule 2 Cap PO QHS Simvastatin 40 Mg Tablet 1 Tab PO QHS Nexium Capsule (Esomeprazole Magnesium) 40 Mg Capsule.dr 1 Cap PO BID Metoprolol Tartrate 50 Mg Tablet 1 Tab PO BID Calcium 600 + Vit D 200 Tablet (Calcium Carbonate/Vitamin D3) 1 Each Tablet 1 Each PO BIDWMEALS Detrol La (Tolterodine Tartrate) 4 Mg Cap.er.24h 1 Cap PO DAILY Sertraline Hcl 100 Mg Tablet 200 Mg PO DAILY Hydrochlorothiazide Tablet (Hydrochlorothiazide) 12.5 Mg Tablet 2 Tab PO DAILY Docusate Sodium 100 Mg Capsule 1 Cap PO DAILY Aspir 81 (Aspirin) 81 Mg Tablet. 1 Tab PO DAILY Certavite Sr-Antioxidant Tab (Multivits-Min/Fa/Lycopene/Lut) 1 Each Tablet 1 Each PO DAILY Alendronate Sodium 35 Mg Tablet 1 Tab PO WEEKLY Weekly on Sundays Vital Signs Vital Signs Date Time Temp Pulse Resp B/P (MAP) Pulse Ox O2 Delivery O2 Flow Rate FiO2 10/23/19 10:52 97.9 97 18 151/62 (91) 100 Room Air 97.9 Labs Laboratory Tests Test 10/21/19 22:37 10/21/19 23:30 10/22/19 03:15 10/22/19 06:05 White Blood Count 11.1 x10^3/uL (4.0-11.0) Red Blood Count 4.65 x10^6/uL (3.50-5.40) Hemoglobin 13.5 g/dL (12.0-15.5) Hematocrit 39.2 % (36.0-47.0) Mean Corpuscular Volume 84 fL (79-100) Mean Corpuscular Hemoglobin 29 pg (25-35) Mean Corpuscular Hemoglobin Concent 34 g/dL (31-37) Red Cell Distribution Width 13.5 % (11.5-14.5) Platelet Count 257 x10^3/uL (140-400) Neutrophils (%) (Auto) 55 % (31-73) Lymphocytes (%) (Auto) 28 % (24-48) Monocytes (%) (Auto) 8 % (0-9) Eosinophils (%) (Auto) 8 % (0-3) Basophils (%) (Auto) 1 % (0-3) Neutrophils # (Auto) 6.1 x10^3/uL (1.8-7.7) Lymphocytes # (Auto) 3.1 x10^3/uL (1.0-4.8) Monocytes # (Auto) 0.9 x10^3/uL (0.0-1.1) Eosinophils # (Auto) 0.9 x10^3/uL (0.0-0.7) Basophils # (Auto) 0.1 x10^3/uL (0.0-0.2) Prothrombin Time 12.4 SEC (11.7-14.0) Prothromb Time International Ratio 1.0 (0.8-1.1) Activated Partial Thromboplast Time 28 SEC (24-38) Sodium Level 140 mmol/L (136-145) Potassium Level 3.4 mmol/L (3.5-5.1) Chloride Level 100 mmol/L (98-107) Carbon Dioxide Level 31 mmol/L (21-32) Anion Gap 9 (6-14) Blood Urea Nitrogen 19 mg/dL (7-20) Creatinine 1.1 mg/dL (0.6-1.0) Estimated GFR (Cockcroft-Gault) 48.0 BUN/Creatinine Ratio 17 (6-20) Glucose Level 117 mg/dL (70-99) Calcium Level 9.1 mg/dL (8.5-10.1) Magnesium Level 2.1 mg/dL (1.8-2.4) Total Bilirubin 0.2 mg/dL (0.2-1.0) Aspartate Amino Transf (AST/SGOT) 26 U/L (15-37) Alanine Aminotransferase (ALT/SGPT) 33 U/L (14-59) Alkaline Phosphatase 57 U/L (46-116) Creatine Kinase 65 U/L (26-192) Creatine Kinase MB (Mass) 0.9 ng/mL (0.0-3.6) Creatine Kinase MB Relative Index % (0-4) Troponin I Quantitative < 0.017 ng/mL (0.000-0.055) < 0.017 ng/mL (0.000-0.055) < 0.017 ng/mL (0.000-0.055) Total Protein 6.8 g/dL (6.4-8.2) Albumin 3.4 g/dL (3.4-5.0) Albumin/Globulin Ratio 1.0 (1.0-1.7) Urine Collection Type Unknown Urine Color Yellow Urine Clarity Clear Urine pH 7.5 (<5.0-8.0) Urine Specific Franklin 1.010 (1.000-1.030) Urine Protein Negative mg/dL (NEG-TRACE) Urine Glucose (UA) Negative mg/dL (NEG) Urine Ketones (Stick) Negative mg/dL (NEG) Urine Blood Negative (NEG) Urine Nitrite Positive (NEG) Urine Bilirubin Negative (NEG) Urine Urobilinogen Dipstick 0.2 mg/dL (0.2 mg/dL) Urine Leukocyte Esterase Moderate (NEG) Urine RBC 1-2 /HPF (0-2) Urine WBC 5-10 /HPF (0-4) Urine Squamous Epithelial Cells Few /LPF Urine Bacteria Many /HPF (0-FEW) Test 10/23/19 04:00 White Blood Count 9.4 x10^3/uL (4.0-11.0) Red Blood Count 4.10 x10^6/uL (3.50-5.40) Hemoglobin 12.0 g/dL (12.0-15.5) Hematocrit 34.8 % (36.0-47.0) Mean Corpuscular Volume 85 fL (79-100) Mean Corpuscular Hemoglobin 29 pg (25-35) Mean Corpuscular Hemoglobin Concent 35 g/dL (31-37) Red Cell Distribution Width 13.9 % (11.5-14.5) Platelet Count 216 x10^3/uL (140-400) Neutrophils (%) (Auto) 45 % (31-73) Lymphocytes (%) (Auto) 42 % (24-48) Monocytes (%) (Auto) 9 % (0-9) Eosinophils (%) (Auto) 4 % (0-3) Basophils (%) (Auto) 1 % (0-3) Neutrophils # (Auto) 4.2 x10^3/uL (1.8-7.7) Lymphocytes # (Auto) 3.9 x10^3/uL (1.0-4.8) Monocytes # (Auto) 0.8 x10^3/uL (0.0-1.1) Eosinophils # (Auto) 0.3 x10^3/uL (0.0-0.7) Basophils # (Auto) 0.1 x10^3/uL (0.0-0.2) Sodium Level 139 mmol/L (136-145) Potassium Level 3.2 mmol/L (3.5-5.1) Chloride Level 102 mmol/L (98-107) Carbon Dioxide Level 26 mmol/L (21-32) Anion Gap 11 (6-14) Blood Urea Nitrogen 18 mg/dL (7-20) Creatinine 1.0 mg/dL (0.6-1.0) Estimated GFR (Cockcroft-Gault) 53.6 BUN/Creatinine Ratio 18 (6-20) Glucose Level 103 mg/dL (70-99) Calcium Level 8.5 mg/dL (8.5-10.1) Total Bilirubin 0.2 mg/dL (0.2-1.0) Aspartate Amino Transf (AST/SGOT) 24 U/L (15-37) Alanine Aminotransferase (ALT/SGPT) 27 U/L (14-59) Alkaline Phosphatase 47 U/L (46-116) Total Protein 6.5 g/dL (6.4-8.2) Albumin 3.0 g/dL (3.4-5.0) Albumin/Globulin Ratio 0.9 (1.0-1.7) Triglycerides Level 100 mg/dL (0-150) Cholesterol Level 161 mg/dL (0-200) LDL Cholesterol, Calculated 85 mg/dL (0-100) VLDL Cholesterol, Calculated 20 mg/dL (0-40) Non-HDL Cholesterol Calculated 105 mg/dL (0-129) HDL Cholesterol 56 mg/dL (40-60) Cholesterol/HDL Ratio 2.9 Laboratory Tests Test 10/23/19 04:00 White Blood Count 9.4 x10^3/uL (4.0-11.0) Red Blood Count 4.10 x10^6/uL (3.50-5.40) Hemoglobin 12.0 g/dL (12.0-15.5) Hematocrit 34.8 % (36.0-47.0) Mean Corpuscular Volume 85 fL (79-100) Mean Corpuscular Hemoglobin 29 pg (25-35) Mean Corpuscular Hemoglobin Concent 35 g/dL (31-37) Red Cell Distribution Width 13.9 % (11.5-14.5) Platelet Count 216 x10^3/uL (140-400) Neutrophils (%) (Auto) 45 % (31-73) Lymphocytes (%) (Auto) 42 % (24-48) Monocytes (%) (Auto) 9 % (0-9) Eosinophils (%) (Auto) 4 % (0-3) Basophils (%) (Auto) 1 % (0-3) Neutrophils # (Auto) 4.2 x10^3/uL (1.8-7.7) Lymphocytes # (Auto) 3.9 x10^3/uL (1.0-4.8) Monocytes # (Auto) 0.8 x10^3/uL (0.0-1.1) Eosinophils # (Auto) 0.3 x10^3/uL (0.0-0.7) Basophils # (Auto) 0.1 x10^3/uL (0.0-0.2) Sodium Level 139 mmol/L (136-145) Potassium Level 3.2 mmol/L (3.5-5.1) Chloride Level 102 mmol/L (98-107) Carbon Dioxide Level 26 mmol/L (21-32) Anion Gap 11 (6-14) Blood Urea Nitrogen 18 mg/dL (7-20) Creatinine 1.0 mg/dL (0.6-1.0) Estimated GFR (Cockcroft-Gault) 53.6 BUN/Creatinine Ratio 18 (6-20) Glucose Level 103 mg/dL (70-99) Calcium Level 8.5 mg/dL (8.5-10.1) Total Bilirubin 0.2 mg/dL (0.2-1.0) Aspartate Amino Transf (AST/SGOT) 24 U/L (15-37) Alanine Aminotransferase (ALT/SGPT) 27 U/L (14-59) Alkaline Phosphatase 47 U/L (46-116) Total Protein 6.5 g/dL (6.4-8.2) Albumin 3.0 g/dL (3.4-5.0) Albumin/Globulin Ratio 0.9 (1.0-1.7) Triglycerides Level 100 mg/dL (0-150) Cholesterol Level 161 mg/dL (0-200) LDL Cholesterol, Calculated 85 mg/dL (0-100) VLDL Cholesterol, Calculated 20 mg/dL (0-40) Non-HDL Cholesterol Calculated 105 mg/dL (0-129) HDL Cholesterol 56 mg/dL (40-60) Cholesterol/HDL Ratio 2.9 Allergies Allergies Coded Allergies Type Severity Reaction Last Updated Verified Penicillins Allergy Intermediate Hives 11/24/18 Yes Disposition/Orders: D/C to Home w/ HH Justicifation of Admission Dx: Justifications for Admission: Justification of Admission Dx: Yes Altered Mental Status: Altered Mental Status DOMENICO CASTANEDA MD Oct 23, 2019 14:03
[2019-10-23] MEDS ORDERED: NAPR250T6 PO (14:07)
[2019-10-23] MEDS ORDERED: LACT1CAP19 PO (14:07)
[2019-10-23] MEDS ORDERED: CEFD300C PO (14:07)
[2019-10-23] MEDS ORDERED: SERT50TA8 PO (14:07)
[2019-10-23] MEDS ORDERED: POTA20TA4 PO (14:07)
--- NOTE | 2019-10-23 14:09 | SNU/HH DC ---
DISCHARGE WITH HOME HEALTH DISCHARGE INFORMATION: Discharge Date: Oct 23, 2019 Final Diagnosis: Problems Medical Problems: (1) Dizziness Status: Acute (2) Hypokalemia Status: Acute (3) Urinary tract infection Status: Acute Condition on Discharge: Stable CODE STATUS: Code Status: Full HOME HEALTH: Face to Face: I certify this patient is under my care and that I, or a nurse practitioner or physician's environmental services assistant working with me, had a face to face encounter that meets the physician face to face encounter requirements with this patient on []. Medical Complications: Dementia, DJD, Falls Residential For: Assess & Educate Safety, Assess/Skilled Observatio, Il dication Management RN For Eval/Treatment: Yes Physical Therapy For: Evalulation/Treatment Occupational Therapy For: Evaluation/Treatment Speech Language Pathology For: Evaluation/Treatment Home Health Aide For: Self-care CONTRACTOR FI[employer]ING For: Community Resources Pt Meets Homebound Status: Poor coordination w/ amb., Unsteady balance w/ amb, POST DISCHARGE ORDERS: Activity Instructions for Disc: Activity as tolerated DIET AFTER DISCHARGE: Cardiac Wound/Incision Care: Ice to area for comfort CHECKS AFTER DISCHARGE: Checks after discharge: Check blood press - daily, Check blood sugar, ac/hs TREATMENT/EQUIPMENT ORDERS: Adaptive Equipment Issued: Front wheeled walker CERTIFICATION STATEMENT: Certification Statement: Certification Statement: Based on the above finding, I certify that this patient is confined to the home and needs intermittent penitentiary care, physical therapy and/or speech therapy, or continues to need occupational therapy.~ This patient is under my care, and I have initiated the establishment of the plan of care.~ This patient will be followed by myself or a community physician who will periodically review the plan of care. Home Meds Active Scripts Cefdinir (CEFDINIR) 300 Mg Capsule, 1 CAP PO BID for UTI for 7 Days, #14 CAP Prov:DOMENICO CASTANEDA MD 10/23/19 Lactobacillus Rhamnosus Gg (CULTURELLE) 1 Each Cap.sprink, 1 CAP PO BID for SUPPLEMENT for 30 Days, #60 CAP Prov:DOMENICO CASTANEDA MD 10/23/19 Potassium Chloride (KLOR-CON M20) 20 Meq Tab.er.prt, 20 MEQ PO DAILYWBKFT for SUPPLEMENT for 14 Days, #14 TAB.SR Prov:DOMENICO CASTANEDA MD 6/23/20 Sertraline Hcl (SERTRALINE HCL) 50 Mg Tablet, 100 MG PO DAILY for MOOD for 30 Days, #60 TAB Prov:DOMENICO CASTANEDA MD 10/23/19 Naproxen (NAPROXEN) 250 Mg Tablet, 250 MG PO PRN BID PRN for INFLAMMATION for 30 Days, #60 TAB Prov:DOMENICO CASTANEDA MD 10/23/19 Reported Medications Trazodone Hcl (TRAZODONE HCL) 100 Mg Tablet, 1 TAB PO QHS for sleeping, #30 TAB 1 Refill 10/22/19 Bupropion Hcl (WELLBUTRIN XL) 150 Mg Tab.er.24h, 150 MG PO DAILY for mood, TAB.SR 11/24/18 Amlodipine Besylate (AMLODIPINE BESYLATE) 5 Mg Tablet, 5 MG PO DAILY, TAB 12/11/16 Levothyroxine Sodium (LEVOTHYROXINE SODIUM) 200 Mcg Tablet, 1 TAB PO DAILY06, #30 TAB 5 Refills 12/11/16 Ziprasidone Hcl (GEODON) 80 Mg Capsule, 2 CAP PO QHS, #60 CAP 1 Refill 09/02/16 Simvastatin (SIMVASTATIN) 40 Mg Tablet, 1 TAB PO QHS, #30 TAB 5 Refills 09/02/16 Esomeprazole Magnesium (NEXIUM CAPSULE) 40 Mg Capsule.dr, 1 CAP PO BID, #30 CAP 5 Refills 09/02/16 Metoprolol Tartrate (METOPROLOL TARTRATE) 50 Mg Tablet, 1 TAB PO BID, #60 TAB 5 Refills 09/02/16 Calcium Carbonate/Vitamin D3 (CALCIUM 600 + VIT D 200 TABLET) 1 Each Tablet, 1 EACH PO BIDWMEALS, TAB 09/02/16 Tolterodine Tartrate (DETROL LA) 4 Mg Cap.er.24h, 1 CAP PO DAILY, #90 CAP 1 Refill 09/02/16 Hydrochlorothiazide (HYDROCHLOROTHIAZIDE TABLET) 12.5 Mg Tablet, 2 TAB PO DAILY, #30 TAB 5 Refills 09/02/16 Docusate Sodium (DOCUSATE SODIUM) 100 Mg Capsule, 1 CAP PO DAILY, #30 CAP 09/02/16 Aspirin (ASPIR 81) 81 Mg Tablet.dr, 1 TAB PO DAILY, #30 TAB 5 Refills 09/02/16 Multivits-Min/Fa/Lycopene/Lut (CERTAVITE SR-ANTIOXIDANT TAB) 1 Each Tablet, 1 EACH PO DAILY, TAB 09/02/16 Alendronate Sodium (ALENDRONATE SODIUM) 35 Mg Tablet, 1 TAB PO WEEKLY, #4 TAB 11 Refills Weekly on Sundays09/02/16 Discontinued Reported Medications Naproxen (NAPROXEN) 375 Mg Tablet, 1 TAB PO BID PRN for PAIN, #60 TAB 5 Refills 12/11/16 Sertraline Hcl (SERTRALINE HCL) 100 Mg Tablet, 200 MG PO DAILY for ANTI- DEPRESSANT, TAB 0 Refills 09/02/16 DOMENICO CASTANEDA MD Oct 23, 2019 14:08
--- NOTE | 2019-10-23 14:39 | NUR ---
Discharge Note: [facility] Discharge instructions and discharge home medications reviewed with nurse Gerson RN, daughter Destiny. Copy given to daughter who is also patinet transport. All questions have been answered and understanding verbalized. The following instructions and handouts were given: UTI and Fall prevention. Discontinued iv line and catheter intact. Patient discharged to [facility] with Home-health care.
[2019-10-29] MEDS ORDERED: NON FORMULARY ITEM (Alendronate Sodium 1 TAB) PO SCH (09:00)
== END 2019-10-23 15:43 | disposition home health service (06) | DRG 690 ==
LOC: ER 22:00 → 2 NORTH 10-22 00:43
PROVIDERS: ADMIT Internal Medicine; ATTEND Internal Medicine
DX: N39.0 Urinary tract infection, site not specified (principal); E87.6 Hypokalemia; E03.9 Hypothyroidism, unspecified; E11.9 Type 2 diabetes mellitus without complications; E78.5 Hyperlipidemia, unspecified; Z20.828 Contact with and (suspected) exposure to other viral communicable diseases; F03.90 Unspecified dementia, unspecified severity, without behavioral disturbance, psychotic disturbance, mood disturbance, and anxiety; F20.9 Schizophrenia, unspecified; I10 Essential (primary) hypertension; J44.9 Chronic obstructive pulmonary disease, unspecified; F32.9 Major depressive disorder, single episode, unspecified; F41.9 Anxiety disorder, unspecified; M19.90 Unspecified osteoarthritis, unspecified site; M06.9 Rheumatoid arthritis, unspecified; Z82.49 Family history of ischemic heart disease and other diseases of the circulatory system; Z86.73 Personal history of transient ischemic attack (TIA), and cerebral infarction without residual deficits; Z87.891 Personal history of nicotine dependence; Z90.710 Acquired absence of both cervix and uterus; Z91.81 History of falling; Z79.899 Other long term (current) drug therapy; Z90.49 Acquired absence of other specified parts of digestive tract
CPT/HCPCS: 36415; 70450; 80053; 80061; 81001; 82553; 83735; 84484; 85025; 85610; 85730; 87077; 87086; 87186; 93005; 96361; 96374; 96375; 99285; J0696; J1100; J7030; 97110-GP; 97530-GP; G0378; J8597; U0003-CS

== ENCOUNTER → 2020-03-24 | Outpatient (CLI) | payer OTHER, MEDICAID ==
[~2020-03-24] MED LIST changes: -ALEN35TA11 PO; +ALEN35TA45 PO; +AMLO-186 PO; -AMLO5TAB10 PO; +CALC-627 PO; -CALC1TAB75 PO; +CEFD300C PO; +LACT1CAP19 PO; +NAPR250T6 PO; +POTA20TA4 PO; +SERT50TA8 PO; +TRAZ-123 PO
--- NOTE | 2020-03-24 16:46 | KCIC ---
INDICATION: Osteoporosis screening. Postmenopausal screening COMPARISON: None. TECHNIQUE: Bone densitometry was performed through the lumbar spine and proximal femur. FINDINGS: Lumbar Spine: BMD: 1.1 T-Score: 0.5 Proximal Femur: BMD: 0.7 T-Score: -1.8 IMPRESSION: 1. Lumbar spine falls within the normal range. 2. Proximal femur falls within the osteopenic Electronically signed by: Darryl Danielle MD (03/24/2020 4:43 PM) [id number]
== END ==
LOC: KCIC DEXA 14:28
PROVIDERS: ATTEND Family Medicine
DX: M81.0 Age-related osteoporosis without current pathological fracture (principal); M85.88 Other specified disorders of bone density and structure, other site
CPT/HCPCS: 77080

== ENCOUNTER 2020-06-18 13:00 | Inpatient (IN) | payer OTHER, MEDICAID ==
[~2020-06-18] VITALS: Ht 157.5 cm; Wt 67.0 kg
[~2020-06-18 13:00] MED LIST changes: +SERT-267 PO; +SERT-268 PO; -SERT100T8 PO; -SERT50TA8 PO
[2020-06-19] MEDS ORDERED: LEVO88TA4 PO (13:20)
[2020-06-19] MEDS ORDERED: TRAM50TA PO (13:24)
[2020-06-19] MEDS ORDERED: HYDR-2761 PO (13:24)
[2020-06-19] MEDS ORDERED: GABA300C18 PO (13:24)
[2020-06-19] MEDS ORDERED: OXYB10TA26 PO (13:24)
[2020-06-19] MEDS ORDERED: ATOR20TA58 PO (13:24)
[2020-06-19] MEDS ORDERED: CALC-326 PO (13:24)
[2020-06-23] MEDS ORDERED: HYDROmorphone 2 MG/ML VIAL IVP PRN (06:00)
[2020-06-23] MEDS ORDERED: MORPHINE SULFATE 2 MG/ML VIAL. IVP PRN (06:00)
[2020-06-23] MEDS ORDERED: IV RINGERS,LACTATED 1000ML 1,000 ML IV SCH (06:00)
[2020-06-23] MEDS ORDERED: HEPARIN SODIUM 5,000 UNIT in IV RINGERS,LACTATED 500ML 500 ML IRR ONE (06:00)
[2020-06-23] MEDS ORDERED: fentaNYL PF VIAL 100 MCG/2 ML VIAL IVP PRN (06:00)
[2020-06-23] MEDS ORDERED: PROCHLORPERAZINE 10 MG/2 ML VIAL. IVP PRN (06:00)
[2020-06-23] MEDS ORDERED: SURGICEL FIBRILLAR 1X2 EACH. ONE (07:55)
[2020-06-23] MEDS ORDERED: LIDOCAINE 1% PF 30 ML VIAL. ONE ×2 (07:55→10:44)
[2020-06-23 08:27] LABS: BASO # 0.2 x10^3/uL (0.0-0.2); BASO % 2 % (0-3); EOS # 0.3 x10^3/uL (0.0-0.7); EOS % 2 % (0-3); HEMATOCRIT 40.7 % (36.0-47.0); HEMOGLOBIN 13.7 g/dL (12.0-15.5); LYMPH # 2.2 x10^3/uL (1.0-4.8); LYMPH % 20 % (24-48); MEAN CORPUSCULAR HEMOGLOBIN 29 pg (25-35); MEAN CORPUSCULAR HGB CONC 34 g/dL (31-37); MEAN CORPUSCULAR VOLUME 86 fL (79-100); MONO # 0.8 x10^3/uL (0.0-1.1); MONO % 8 % (0-9); NEUT # 7.4 x10^3/uL (1.8-7.7); NEUT % 68 % (31-73); PLATELET COUNT 272 x10^3/uL (140-400); RED BLOOD COUNT 4.75 x10^6/uL (3.50-5.40); RED CELL DISTRIBUTION WIDTH 14.1 % (11.5-14.5); WHITE BLOOD COUNT 10.8 x10^3/uL (4.0-11.0)
[2020-06-23 08:45] LABS: CALCIUM 9.4 mg/dL (8.5-10.1); CREATININE 1.4 mg/dL (0.6-1.0); GFR 36.4; POTASSIUM 3.6 mmol/L (3.5-5.1)
[2020-06-23] MEDS ORDERED: LIDOCAINE 1% PF 2 ML VIAL. ONE (09:30)
[2020-06-23] MEDS ORDERED: MIDAZOLAM HCL/PF 2 MG/2 ML VIAL. ONE (09:31)
[2020-06-23] MEDS ORDERED: ROPIVacaine 0.5% PF 20 ML VIAL. ONE (09:32)
[2020-06-23] MEDS ORDERED: PROPOFOL 50 ML IV ONE ×2 (09:42→09:47)
[2020-06-23] MEDS: VANCOMYCIN 1GM IVPB FOR OMNI 250 ML IV PRN ×4 (09:45→12:49)
[2020-06-23] MEDS ORDERED: niCARdipine INJ. IV ONE (10:31)
[2020-06-23] MEDS ORDERED: LIDOCAINE 2% PF 5 ML VIAL. ONE ×2 (10:35→11:08)
[2020-06-23] MEDS ORDERED: BUPIVACAINE-EPI 0.25% 30 ML VIAL KIT. ONE (10:43)
[2020-06-23] MEDS ORDERED: hydrALAZINE 20 MG/ML VIAL. ONE (10:47)
[2020-06-23] MEDS ORDERED: PROTAMINE 50 MG/5 ML VIAL. IV ONE (11:08)
[2020-06-23] MEDS ORDERED: LIDOCAINE 1% PF 30 ML VIAL. IV ONE (11:15)
[2020-06-23] MEDS ORDERED: LIDOCAINE 1%/EPI 1:100,000 20 ML VIAL. INJ ONE (11:30)
--- NOTE | 2020-06-23 12:15 | OP ---
DATE OF SURGERY: 06/23/2020 PREOPERATIVE DIAGNOSIS: Right carotid stenosis, asymptomatic. POSTOPERATIVE DIAGNOSIS: Right carotid stenosis, asymptomatic. OPERATION PERFORMED: Right carotid endarterectomy. SURGEON: Dewayne Oseguera MD SCIENCE ANALYST: RICO Davis ANESTHESIA: Cervical block with monitored sedation. INDICATIONS FOR SURGERY: This is a 79-year-old female who has asymptomatic progressively high-grade stenosis of the right bifurcation and internal carotid artery. The opposite left internal carotid artery is less than 50% stenosis. The operation, risks, and benefits have been explained previously. Patient understood and wished to proceed. OPERATIVE FINDINGS: The patient had extensive soft plaque at the bifurcation extending onto the internal carotid artery. There was evidence of intraplaque hemorrhage, likely producing the critical stenosis. She tolerated clamping without the need for a shunt. DESCRIPTION OF PROCEDURE: The patient was placed in the supine position with the head rotated to the left. A cervical block was administered by Anesthesia and the patient received 2 grams of IV Ancef. A timeout was called and the correct patient, correct operation and correct operative site were all verified. An incision was then made along the anterior border of sternocleidomastoid muscle and carried down through the subcutaneous tissues. The sternocleidomastoid muscle was retracted laterally exposing the carotid sheath proximally. This was infiltrated with 1% lidocaine and the common carotid artery was carefully dissected and encircled with an umbilical tape and a Rumel tourniquet. The vagus nerve was identified and carefully preserved. Dissection was then carried out more proximally. The bifurcation was exposed. The external carotid was dissected circumferentially after infiltration with 1% plain lidocaine and a vessel loop was placed at that location and then there was gentle traction in an inferior position inferiorly. The patient then received 5000 units of heparin. The more distal internal carotid artery was then dissected until it was obvious that it was soft and blue without palpable plaque. A vessel loop was placed at this location. The patient's blood pressure at this time was about 170 systolic. Clamps were then applied sequentially on the internal, external and common carotid arteries. The patient tolerated this well for a trial period of 1 minute. The bifurcation was then transected and an eversion endarterectomy was performed of the internal carotid artery using loupe magnification. This was done with a Hammond dissector and fine forceps. A nice endpoint was obtained distally with a nice transition to normal intima. An arteriotomy was then made in the common carotid artery and extended proximally. An endarterectomy was performed of the common and external carotid arteries. Care was taken to remove all loose strands. A nice tapered endpoint was obtained from the external carotid. The bifurcation was then reconstructed using 6-0 Prolene. Prior to completing the anastomosis, the vessels were flushed first antegrade and then backbled retrograde. The anastomosis was then completed and flow restored first for several beats to the external and then to the internal carotid artery. The patient then received 30 mg of protamine. The wound was irrigated and some fibrillar hemostatic material was placed around the suture line. A fully perforated Kaleb-Armstrong drain was placed in the wound space, brought out through a separate small stab incision. The wound was then approximated with absorbable suture, 2-0 Vicryl to reapproximate the platysma muscle and then intracuticular 4-0 Vicryl and Steri-Strips. The patient tolerated the procedure well and was taken to the recovery room in satisfactory condition. ESTIMATED BLOOD LOSS: Less than 20 mL. SPECIMENS: Bifurcation and internal carotid plaque. DRAINS: Kaleb-Armstrong to bulb suction This is a procedure that requires a surgical device sales representative. Performing this procedure without an personnel security assistant would have prolonged the procedure, increased risk of complication potentially result in a worse outcome. In general, carotid endarterectomy is not a procedure that is well suited to a single surgeon, single wireless field technician performance; and therefore, the physician personnel security assistant was required. DEWAYNE OSEGUERA MD DR: FRANCINE/cristobal JOB#: [id number] / [id number]
[2020-06-23] MEDS ORDERED: fentaNYL PF VIAL 100 MCG/2 ML VIAL ONE (12:21)
[2020-06-23] MEDS ORDERED: oxyCODONE IR 5 MG TABLET PO PRN (12:45)
[2020-06-23] MEDS ORDERED: LABETALOL 20 MG/4 ML DISP.SYRIN. IVP PRN (12:45)
[2020-06-23] MEDS: fentaNYL PF VIAL 100 MCG/2 ML VIAL IVP PRN ×2 (12:47→13:14)
[2020-06-23] MEDS ORDERED: MORPHINE SULFATE 2 MG/ML VIAL. ONE (14:01)
[2020-06-23 19:00] VITALS: BP 118/58
[2020-06-23] MEDS ORDERED: traMADol 50 MG TABLET PO PRN (20:15)
[2020-06-23] MEDS ORDERED: HYDROcodone/APAP 5/325MG 1 TAB TABLET PO PRN (20:15)
[2020-06-23] MEDS: ZIPRASIDONE 60 MG CAPSULE. PO SCH (20:36)
[2020-06-23] MEDS: ZIPRASIDONE 20 MG CAPSULE PO SCH (20:37)
[2020-06-23] MEDS: GABAPENTIN 300 MG CAPSULE. PO SCH (20:37)
[2020-06-23] MEDS: METOPROLOL TART IMMED RELEASE 50 MG TABLET. PO SCH (20:37)
[2020-06-23] MEDS: traZODone 100 MG TABLET. PO SCH (20:37)
[2020-06-23] MEDS: OXYBUTYNIN CHLORIDE 5 MG TABLET PO SCH (20:38)
[2020-06-23] MEDS: ATORVASTATIN CALCIUM 20 MG TABLET PO SCH (20:38)
[2020-06-23 23:00] VITALS: BP 155/55
[2020-06-24 03:14] VITALS: BP 161/59
[2020-06-24 07:00] VITALS: BP 105/89
--- NOTE | 2020-06-24 07:17 | PDOC ---
BRIEF OPERATIVE NOTE Date: Jun 23, 2020 Pre-Op Diagnosis Right carotid stenosis, asymptomatic Post-Op Diagnosis Same Procedure Performed Right carotid endarterectomy, eversion Surgeon Luis F Oseguera MD Fly Fishing Guide RICO Davis Anesthesia Type: Regional Blood Loss 15mL Specimens Obtained Discarded Findings Mystery Shopper strength equal and tongue midline immediately post op Complications None Operative Note See dictated op note STEVIE THAYER Jun 24, 2020 07:17
[2020-06-24] MEDS: PANTOPRAZOLE 40 MG TABLET.DR. PO SCH ×2 (07:30→17:14)
[2020-06-24] MEDS: LEVOTHYROXINE 88 MCG TABLET PO SCH (08:10)
[2020-06-24] MEDS: buPROPion XL 150 MG TAB.ER.24H. PO SCH (08:10)
[2020-06-24] MEDS: ASPIRIN ENTERIC COATED 81 MG TABLET.DR. PO SCH (08:11)
[2020-06-24] MEDS: OXYBUTYNIN CHLORIDE 5 MG TABLET PO SCH ×2 (08:11→21:41)
[2020-06-24] MEDS: hydroCHLOROthiazide 25 MG TABLET PO SCH (08:11)
[2020-06-24] MEDS: DOCUSATE SODIUM 100 MG CAPSULE. PO SCH ×2 (08:12→21:39)
[2020-06-24] MEDS: MULTIVITAMIN with MINERAL TABLET. PO SCH (08:12)
[2020-06-24] MEDS: GABAPENTIN 300 MG CAPSULE. PO SCH ×3 (08:12→21:39)
[2020-06-24] MEDS: METOPROLOL TART IMMED RELEASE 50 MG TABLET. PO SCH ×2 (08:15→21:39)
--- NOTE | 2020-06-24 08:25 | PDOC1 ---
History and Physical Date of Admission Date of Admission DATE: 06/24/20 TIME: 08:25 Identification/Chief Complaint Chief Complaint weakness, POD # 1 right carotid surgery History of Present Illness History of Present Illness admitted post op weakness, still feels light-headed when up with therapy, no focal weakness cr elevated at 1.4, baseline 1.1 DATE OF SURGERY: 06/23/2020 PREOPERATIVE DIAGNOSIS: Right carotid stenosis, asymptomatic. POSTOPERATIVE DIAGNOSIS: Right carotid stenosis, asymptomatic. OPERATION PERFORMED: Right carotid endarterectomy. SURGEON: Luis F Oseguera MD CREDIT INVESTIGATOR: RICO Davis ANESTHESIA: Cervical block with monitored sedation. INDICATIONS FOR SURGERY: This is a 79-year-old female who has asymptomatic progressively high-grade stenosis of the right bifurcation and internal carotid artery. The opposite left internal carotid artery is less than 50% stenosis. The operation, risks, and benefits have been explained previously. Patient understood and wished to proceed. OPERATIVE FINDINGS: The patient had extensive soft plaque at the bifurcation extending onto the internal carotid artery. There was evidence of intraplaque hemorrhage, likely producing the critical stenosis. She tolerated clamping without the need for a shunt. Past Medical History Past Medical History Past Medical History Cardiovascular: HTN, Hyperlipidemia Pulmonary: Bronchitis, COPD CENTRAL NERVOUS SYSTEM: TIA, Other (Mild cognitive impairment) GI: Constipation, Other ( esophageal stricture requiring periodic dilatation) Psych: Anxiety, Depression, Schizophrenia Musculoskeletal: low back pain, Osteoarthritis, Other (C2 cervical fracture) Rheumatologic: Rheumatoid arthritis Renal/: UTI, Other ( bladder spasms) Endocrine: Diabetes, Hypothyroidism Past Surgical History Past Surgical History: Cholecystectomy, Tubal Ligation, Hysterectomy, Other ( esophageal dilatation, breast lumpectomy, right shoulder, right ankle, right arm, Soto's neuroma) Family History Family History: Cancer Social History Social History , lives in assisted living, has been under quarantine, 1/4 pack/day cigarettes, no alcohol Cardiovascular: HTN, Hyperlipidemia Pulmonary: Bronchitis, COPD CENTRAL NERVOUS SYSTEM: TIA, Other GI: Constipation, Other Psych: Anxiety, Depression, Schizophrenia Musculoskeletal: Osteoarthritis, Weakness Rheumatologic: Rheumatoid arthritis Renal/: UTI, Other Endocrine: Diabetes, Hypothyroidism Past Surgical History Past Surgical History: Cholecystectomy, Tubal Ligation, Hysterectomy, Other Family History Family History: No Significant Social History Smoke: <1 pack per day ALCOHOL: none Drugs: None Current Medications Current Medications Current Medications Fentanyl Citrate (Fentanyl 2ml Vial) 25 mcg PRN Q5MIN PRN IVP MILD PAIN 1-3; Start 06/23/20 at 06:00; Stop 06/24/20 at 05:59; Status DC Fentanyl Citrate (Fentanyl 2ml Vial) 50 mcg PRN Q5MIN PRN IVP MODERATE PAIN 4-6 Last administered on 06/23/20at 13:14; Start 06/23/20 at 06:00; Stop 06/24/20 at 05:59; Status DC Morphine Sulfate (Morphine Sulfate) 1 mg PRN Q10MIN PRN IVP SEVERE PAIN 7-10 Last administered on 06/23/20at 14:05; Start 06/23/20 at 06:00; Stop 06/24/20 at 05:59; Status DC Ringer's Solution 1,000 ml @ 30 mls/hr Q24H IV Last administered on 06/23/20at 08:39; Start 06/23/20 at 06:00; Stop 06/23/20 at 17:59; Status DC Hydromorphone HCl (Dilaudid) 0.5 mg PRN Q10MIN PRN IVP SEVERE PAIN 7-10, 2nd CHOICE; Start 06/23/20 at 06:00; Stop 06/24/20 at 05:59; Status DC Prochlorperazine Edisylate (Compazine) 5 mg PACU PRN PRN IVP NAUSEA, MRX1; Start 06/23/20 at 06:00; Stop 06/24/20 at 05:59; Status DC Vancomycin HCl 250 ml @ 250 mls/hr 1X PREOP PRN IV PRIOR TO PROCEDURE Last administered on 06/23/20at 09:46; Start 06/23/20 at 06:00; Stop 06/23/20 at 18:00; Status DC Heparin Sodium (Porcine) 5000 unit/Ringer's Solution 505 ml @ 505 mls/hr 1X ONCE IRR Last administered on 06/23/20at 10:45; Start 06/23/20 at 06:00; Stop 06/23/20 at 06:59; Status DC Cellulose (Surgicel Fibrillar 1x2) 1 each STK-MED ONCE .ROUTE Last administered on 06/23/20at 11:42; Start 06/23/20 at 07:55; Stop 06/23/20 at 07:55; Status DC Lidocaine HCl (Xylocaine 1% Pf 30ml Vial) 30 ml STK-MED ONCE .ROUTE Last administered on 06/23/20at 10:45; Start 06/23/20 at 07:55; Stop 06/23/20 at 07:55; Status DC Lidocaine HCl (Xylocaine-Mpf 1% 2ml Vial) 2 ml STK-MED ONCE .ROUTE ; Start 06/23/20 at 09:30; Stop 06/23/20 at 09:30; Status DC Midazolam HCl (Versed) 2 mg STK-MED ONCE .ROUTE ; Start 06/23/20 at 09:31; Stop 06/23/20 at 09:31; Status DC Ropivacaine (Naropin 0.5%) 20 ml STK-MED ONCE .ROUTE ; Start 06/23/20 at 09:32; Stop 06/23/20 at 09:32; Status DC Propofol 50 ml @ As Directed STK-MED ONCE IV ; Start 06/23/20 at 09:42; Stop at 09:42; Status DC Propofol 50 ml @ As Directed STK-MED ONCE IV ; Start 06/23/20 at 09:47; Stop 06/23/20 at 09:47; Status DC Nicardipine HCl (Cardene) 25 mg STK-MED ONCE IV ; Start 06/23/20 at 10:31; Stop 06/23/20 at 10:32; Status DC Lidocaine HCl (Lidocaine Pf 2% Vial) 5 ml STK-MED ONCE .ROUTE ; Start 06/23/20 at 10:35; Stop 06/23/20 at 10:35; Status DC Bupivacaine HCl/ Epinephrine Bitart (Sensorcain-Epi 0.25% Kit) 30 ml STK-MED ONCE .ROUTE ; Start 06/23/20 at 10:43; Stop 06/23/20 at 10:44; Status DC Lidocaine HCl (Xylocaine 1% Pf 30ml Vial) 30 ml STK-MED ONCE .ROUTE ; Start 06/23/20 at 10:44; Stop 06/23/20 at 10:44; Status DC Hydralazine HCl (Apresoline Inj) 20 mg STK-MED ONCE .ROUTE ; Start 06/23/20 at 10:47; Stop 06/23/20 at 10:47; Status DC Protamine Sulfate (Protamine) 50 mg STK-MED ONCE IV ; Start 06/23/20 at 11:08; Stop 06/23/20 at 11:09; Status DC Lidocaine HCl (Lidocaine Pf 2% Vial) 5 ml STK-MED ONCE .ROUTE ; Start 06/23/20 at 11:08; Stop 06/23/20 at 11:09; Status DC Lidocaine HCl (Xylocaine 1% Pf 30ml Vial) 30 ml 1X ONCE IV ; Start 06/23/20 at 11:15; Stop 06/23/20 at 11:16; Status Cancel Lidocaine/ Epinephrine (LIDOCAINE 1%-EPI 1:100,000 Multi-Dose) 30 ml 1X ONCE INJ Last administered on 06/23/20at 10:45; Start 06/23/20 at 11:30; Stop 06/23/20 at 11:31; Status DC Fentanyl Citrate (Fentanyl 2ml Vial) 100 mcg STK-MED ONCE .ROUTE ; Start 06/23/20 at 12:21; Stop 06/23/20 at 12:21; Status DC Labetalol HCl (Normodyne Iv Push) 10 mg PRN Q2HR PRN IVP HYPERTENSION; Start 06/23/20 at 12:45 Oxycodone HCl (Roxicodone) 2.5 mg PRN Q4HRS PRN PO MODERATE PAIN Last administered on 06/23/20at 17:38; Start 06/23/20 at 12:45 Morphine Sulfate (Morphine Sulfate) 2 mg STK-MED ONCE .ROUTE ; Start 06/23/20 at 14:01; Stop 06/23/20 at 14:02; Status DC Aspirin (Ecotrin) 81 mg DAILY PO Last administered on 06/24/20at 08:11; Start 06/24/20 at 09:00 Atorvastatin Calcium (Lipitor) 20 mg QHS PO Last administered on 06/23/20at 20:38; Start 06/23/20 at 21:00 Bupropion HCl (Wellbutrin Xl) 150 mg DAILY PO Last administered on 06/24/20at 08:10; Start 06/24/20 at 09:00 Docusate Sodium (Colace) 100 mg DAILY PO Last administered on 06/24/20at 08:12; Start 06/24/20 at 09:00 Gabapentin (Neurontin) 300 mg TID PO Last administered on 06/24/20at 08:12; Start 06/23/20 at 21:00 Acetaminophen/ Hydrocodone Bitart (Lortab 5/325) 1 tab PRN Q6HRS PRN PO SEVERE PAIN; Start 06/23/20 at 20:15 Levothyroxine Sodium (Synthroid) 88 mcg DAILYAC PO Last administered on 06/24/20 08:10; Start 06/24/20 at 07:30 Metoprolol Tartrate (Lopressor) 50 mg BID PO Last administered on 06/24/20 08:15; Start 06/23/20 at 21:00 Tramadol HCl (Ultram) 50 mg DAILY PRN PO MILD PAIN 1-3; Start 06/23/20 at 20:15 Trazodone HCl (Desyrel) 100 mg QHS PO Last administered on 06/23/20 20:37; Start 06/23/20 at 21:00 Pantoprazole Sodium (Protonix) 40 mg BIDAC PO Last administered on 06/24/20 07:30; Start 06/24/20 at 07:30 Hydrochlorothiazide (Hydrodiuril) 25 mg DAILY PO Last administered on 06/24/20at 08:11; Start 06/24/20 at 09:00 Multivitamins (Thera M Plus) 1 tab DAILY PO Last administered on 06/24/20 08:12; Start 06/24/20 at 09:00 Oxybutynin Chloride (Ditropan) 5 mg BID PO Last administered on 06/24/20 08:11; Start 06/23/20 at 21:00 Ziprasidone (Geodon) 120 mg QHS PO Last administered on 06/23/20at 20:36; Start 06/23/20 at 21:00 Ziprasidone (Geodon) 20 mg QHS PO Last administered on 06/23/20at 20:37; Start 06/23/20 at 21:00 Active Scripts Active Culturelle (Lactobacillus Rhamnosus Gg) 1 Each Cap.sprink 1 Cap PO BID 30 Days Klor-Con M20 (Potassium Chloride) 20 Meq Tab.er.prt 20 Meq PO DAILYWBKFT 14 Days Sertraline Hcl 50 Mg Tablet 100 Mg PO DAILY 30 Days Naproxen 250 Mg Tablet 250 Mg PO PRN BID PRN 30 Days Reported Oyster Shell Calcium + D Tab (Calcium Carbonate/Vitamin D3) 1 Each Tablet 1 Each PO BID Oxybutynin Chloride Er (Oxybutynin Chloride) 10 Mg Tab.er.24 10 Mg PO DAILY Gabapentin 300 Mg Capsule 300 Mg PO TID Hydrocodone-Apap 5-325 (Hydrocodone Bit/Acetaminophen) 1 Tab Tablet 1 Tab PO PRN Q6HRS PRN Tramadol Hcl 50 Mg Tablet 50 Mg PO DAILY PRN Atorvastatin Calcium 20 Mg Tablet 20 Mg PO DAILY Levothyroxine Sodium 88 Mcg Tablet 88 Mcg PO DAILYAC 2 TABS Trazodone Hcl 100 Mg Tablet 1 Tab PO QHS Wellbutrin Xl (Bupropion Hcl) 150 Mg Tab.er.24h 150 Mg PO DAILY Geodon (Ziprasidone Hcl) 80 Mg Capsule 2 Cap PO QHS Nexium Capsule (Esomeprazole Magnesium) 40 Mg Capsule.dr 1 Cap PO BID Metoprolol Tartrate 50 Mg Tablet 1 Tab PO BID Calcium 600 + Vit D 200 Tablet (Calcium Carbonate/Vitamin D3) 1 Each Tablet 1 Each PO BIDWMEALS Hydrochlorothiazide Tablet (Hydrochlorothiazide) 12.5 Mg Tablet 2 Tab PO DAILY Docusate Sodium 100 Mg Capsule 1 Cap PO DAILY Aspir 81 (Aspirin) 81 Mg Tablet.dr 1 Tab PO DAILY Certavite Sr-Antioxidant Tab (Multivits-Min/Fa/Lycopene/Lut) 1 Each Tablet 1 Each PO DAILY Alendronate Sodium 35 Mg Tablet 1 Tab PO WEEKLY Weekly on Sundays Allergies Allergies: Coded Allergies: Penicillins (Verified Allergy, Intermediate, Hives, 06/23/20) Has tolerated ceftriaxone acetaminophen (Verified Allergy, Mild, Nausea and Vomiting, 06/23/20) propoxyphene (Verified Allergy, Mild, Nausea and Vomiting, 06/23/20) ROS Review of System 14 pt ros otherwise neg General: YES: Fatigue; No: Chills, Night Sweats, Malaise, Appetite, Other PSYCHOLOGICAL ROS: YES: Concentration difficultie; No: Anxiety, Behavioral Disorder, Decreased libido, Depression, Disorientation, Hallucinations, Hostility, Irritablity, Memory difficulties, Mood Swings, Obsessive thoughts, Physical abuse, Sexual abuse, Sleep disturbances, Suicidal ideation, Other Eyes: No Blurry vision, No Decreased vision, No Double vision, No Dry eyes, No Excessive tearing, No Eye Pain, No Itchy Eyes, No Loss of vision, No Photophobia, No Scotomata, No Uses contacts, No Uses glasses, No Other HEENT: No: Heacaches, Visual Changes, Hearing change, Nasal congestion, Nasal discharge, Oral lesions, Sinus pain, Sore Throat, Epistaxis, Sneezing, Snoring, Tinnitus, Vertigo, Vocal changes, Other ALLERGY AND IMMUNOLOGY: No: Hives, Insect Bite Sensitivity, Itchy/Watery Eyes, Nasal Congestion, Post Nasal Drip, Seasonal Allergies, Other Hematological and Lymphatic: No: Bleeding Problems, Blood Clots, Blood Transfusions, Brusing, Night Sweats, Pallor, Swollen Lymph Nodes, Other ENDOCRINE: No: Breast Changes, Galactorrhea, Hair Pattern Changes, Hot Flashes, Malaise/lethargy, Mood Swings, Palpitations, Polydipsia/polyuria, Skin Changes, Temperature Intolerance, Unexpected Weight Changes, Other Respiratory: No: Cough, Hemoptysis, Orthopnea, Pleuritic Pain, Shortness of breath, SOB with excertion, Sputum Changes, Stridor, Tachypnea, Wheezing, Other Cardiovascular: No Chest Pain, No Palpitations, No Orthopnea, No Paroxysmal Noc. Dyspnea, No Edema, No Lt Headedness, No Other Gastrointestinal: No Nausea, No Vomiting, No Abdominal Pain, No Diarrhea, No Constipation, No Melena, No Hematochezia, No Other Genitourinary: No Dysuria, No Frequency, No Incontinence, No Hematuria, No Retention, No Discharge, No Urgency, No Pain, No Flank Pain, No Other, No , No , No , No , No , No , No Musculoskeletal: Yes Gait Disturbance, Yes Joint Stiffness, Yes Muscular Weakness Neurological: Yes Confusion, Yes Dizziness, Yes Gait Disturbance, Yes Memory Loss; No Behavorial Changes, No Bowel/Bladder ControlChng, No Headaches, No Impaired Coord/balance, No Numbness/Tingling, No Seizures, No Speech Problems, No Tremors, No Visual Changes, No Weakness, No Other Skin: No Dry Skin, No Eczema, No Hair Changes, No Lumps, No Mole Changes, No Mottling, No Nail Changes, No Pruritus, No Rash, No Skin Lesion Changes, No Other, No Acne Physical Exam General: Alert, Oriented X3, Cooperative, No acute distress HEENT: Atraumatic, EOMI, Mucous membr. moist/pink Lungs: Clear to auscultation, Normal air movement Heart: RRR, no thrills, no rubs Breasts: Not examined Abdomen: Normal bowel sounds, Soft Rectal Exam: not examined PELVIC: Examination not indicated Extremities: No cyanosis, No edema Skin: No significant lesion Neuro: Normal speech, Sensation intact, Cranial nerves 3-12 NL Psych/Mental Status: Mental status NL, Mood NL Vitals Vitals Vital Signs Date Time Temp Pulse Resp B/P (MAP) Pulse Ox O2 Delivery O2 Flow Rate FiO2 06/24/20 08:15 75 161/59 06/24/20 03:14 98.7 16 100 Room Air 98.7 Labs Labs Laboratory Tests Test 06/23/20 08:15 White Blood Count 10.8 x10^3/uL (4.0-11.0) Red Blood Count 4.75 x10^6/uL (3.50-5.40) Hemoglobin 13.7 g/dL (12.0-15.5) Hematocrit 40.7 % (36.0-47.0) Mean Corpuscular Volume 86 fL (79-100) Mean Corpuscular Hemoglobin 29 pg (25-35) Mean Corpuscular Hemoglobin Concent 34 g/dL (31-37) Red Cell Distribution Width 14.1 % (11.5-14.5) Platelet Count 272 x10^3/uL (140-400) Neutrophils (%) (Auto) 68 % (31-73) Lymphocytes (%) (Auto) 20 % (24-48) Monocytes (%) (Auto) 8 % (0-9) Eosinophils (%) (Auto) 2 % (0-3) Basophils (%) (Auto) 2 % (0-3) Neutrophils # (Auto) 7.4 x10^3/uL (1.8-7.7) Lymphocytes # (Auto) 2.2 x10^3/uL (1.0-4.8) Monocytes # (Auto) 0.8 x10^3/uL (0.0-1.1) Eosinophils # (Auto) 0.3 x10^3/uL (0.0-0.7) Basophils # (Auto) 0.2 x10^3/uL (0.0-0.2) Sodium Level 138 mmol/L (136-145) Potassium Level 3.6 mmol/L (3.5-5.1) Chloride Level 100 mmol/L (98-107) Carbon Dioxide Level 27 mmol/L (21-32) Anion Gap 11 (6-14) Blood Urea Nitrogen 25 mg/dL (7-20) Creatinine 1.4 mg/dL (0.6-1.0) Estimated GFR (Cockcroft-Gault) 36.4 Glucose Level 124 mg/dL (70-99) Calcium Level 9.4 mg/dL (8.5-10.1) Images Images PQRS compliance Statement One or more of the following individualized dose reduction techniques were utilized for this study: 1. Automated exposure control 2. Adjustment of the mA and/or kV according to patient size 3. Use of iterative reconstruction technique The measurements were performed using the NASCET criteria. NECK CTA FINDINGS: No occlusive disease is seen. The right vertebral artery is dominant. Left vertebral artery is diffusely smaller in size. Left vertebral artery ends in PICA within the intracranial vault which is a normal anatomical variant. Otherwise no dissection or significant stenosis of either vertebral artery is evident. There is calcified plaque formation involving the left carotid bulb and proximal left ICA which is less than 50 percent. There is soft plaque formation involving the right carotid bulb extending into the origin of the right internal carotid artery. There is a 75 percent narrowing of the origin of the right ICA. There is ulcerative plaque involving the right carotid bulb and origin of the right ICA. There is mild calcified plaque involving the left subclavian artery and the innominate artery and origin of the right subclavian artery which is less than 50 percent. There is mild calcified and soft plaque formation involving the origin of the left common carotid artery from the aortic arch which is less than 50 percent. No soft tissue mass or enlarged cervical lymphadenopathy is evident. IMPRESSION: The left vertebral artery ends in PICA which is a normal anatomical variant. Otherwise no dissection or stenosis or occlusion of the left vertebral artery is seen in association with the left C2 cervical spine fracture. Significant stenosis of 75 percent involving the origin of the right ICA from the carotid bulb within the neck. There is significant ulcerative plaque involving the right carotid bulb and origin of the right ICA. Electronically signed by: Nagi Trimble MD (11/29/2018 4:12 PM) [facility] DICTATED and SIGNED BY: NAGI TRIMBLE MD DATE: 11/29/18 161 * * * * * * Wes VASQUEZ; Shelby OT Goal 1 - Bed Mobility Assistance Required * Independent Goal 1 Assessment * Appropriate - Continue Goal 2 - Transfers Assistance Required * Independent Goal 2 - Transfer Type * Sit to Stand Goal 2 Assessment * Appropriate - Continue Goal 3 - Ambulation Assistance Required * Independent Goal 3 - Ambulation Distance * 100' Goal 3 - Ambulation Device * Roller Walker Goal 3 Assessment * Appropriate - Continue Treatment Plan * Therapeutic Exercise * Bed Mobility Training * Transfer training * Gait Training * Dynamic Balance Training Frequency of Treatment Expected * 7 visits/week Duration of Treatment Expected * 2 weeks Discharge Recommendations * Home with Home Health * Assisted Living Discharge Recommendation - DME * 4 wheeled walker needed * in order to complete ADLs * and ambulation safely Discharge Recommendation Comments * pt has 4WW VTE Prophylaxis Ordered VTE Prophylaxis Devices: Yes VTE Pharmacological Prophylaxi: Contraindicated Assessment/Plan Assessment/Plan Assessment/Plan Impression: pod # 1 CAROTID Endarterectomy Right carotid stenosis, asymptomatic., severe generalized weakness BRIAN, acute vasomotor nephropathy Chronic gait disorder, UTILIZES walker REMOTE History of C2 fracture, no evidence of myelopathy Cognitive decline ADMITTED PT/OT needs home health on discharge cvc bed remain weak today, desires to stay for additional PT/OT, STRENGTHENING cong iv fluids AM LABS, PT/OT scd's D/W RN Justifications for Admission Other Justification DOMENICO CASTANEDA MD Jun 24, 2020 08:25
--- NOTE | 2020-06-24 09:47 | PDOC ---
Provider Note Date of Service: DATE: 06/24/20 TIME: 09:44 Provider Note Provider Note Vascular S: Pt feeling well this am, reports mild diffuse headache last night, no complaints this am. No neuro sxs. No neck swelling. PRAVEENA with about 20ml out. HAs gotten out of bed, no difficulty swallowing. O: VSS, afebrile AWake, alert, INAD Speech fluent Right neck incision clean. dry and intact, no swelling, no erythema. PRAVEENA removed. ROM intact Country Printer strength equal bilaterally, ROM intact BLE A/P: POD#1 of right CEA - doing well, stable from surgical standpoint. OK to discharge from vascular. F/U with us as scheduled. Post op care instructions discussed with pt at bedside. - Pt denies allergy to tylenol - Kamrar rx left with RN. Justicifation of Admission Dx: Justifications for Admission: Justification of Admission Dx: Yes Altered Mental Status: Altered Mental Status STEVIE THAYER Jun 24, 2020 09:47
[2020-06-24 10:00] VITALS: BP 112/39
[2020-06-24] MEDS ORDERED: guaiFENesin ORAL 200 MG/10 ML LIQUID. PO PRN (11:30)
[2020-06-24] MEDS ORDERED: DOCUSATE SODIUM 100 MG CAPSULE. PO PRN (11:30)
[2020-06-24] MEDS ORDERED: ALBUTEROL SULFATE 2.5 MG/3 ML NEBU. NEB PRN (11:30)
[2020-06-24] MEDS ORDERED: ACETAMINOPHEN 325 MG TABLET. PO PRN (11:30)
[2020-06-24] MEDS ORDERED: 0.9 % SODIUM CHLORIDE 10 ML DISP.SYRIN. IV PRN (11:30)
[2020-06-24] MEDS ORDERED: ONDANSETRON PF 4 MG/2 ML VIAL. IV PRN (11:30)
[2020-06-24] MEDS: IV NORMAL SALINE 1000ML BAG 1,000 ML IV SCH (11:37)
--- NOTE | 2020-06-24 13:18 | PDOC2 ---
CONSULT Date of Consult Date of Consult DATE: 06/24/20 TIME: 13:18 Reason for Consult Reason for Consult: left knee pain Identification/Chief Complaint Chief Complaint left knee pain Past Medical History Cardiovascular: HTN, Hyperlipidemia Pulmonary: Bronchitis, COPD CENTRAL NERVOUS SYSTEM: TIA, Other GI: Constipation, Other Psych: Anxiety, Depression, Schizophrenia Musculoskeletal: Osteoarthritis, Weakness Rheumatologic: Rheumatoid arthritis Renal/: UTI, Other Endocrine: Diabetes, Hypothyroidism Past Surgical History Past Surgical History: Cholecystectomy, Tubal Ligation, Hysterectomy, Other Family History Family History: No Significant Social History <1 pack per day ALCOHOL: none Drugs: None Current Medications Current Medications Current Medications Fentanyl Citrate (Fentanyl 2ml Vial) 25 mcg PRN Q5MIN PRN IVP MILD PAIN 1-3; Start 06/23/20 at 06:00; Stop 06/24/20 at 05:59; Status DC Fentanyl Citrate (Fentanyl 2ml Vial) 50 mcg PRN Q5MIN PRN IVP MODERATE PAIN 4-6 Last administered on 06/23/20at 13:14; Start 06/23/20 at 06:00; Stop 06/24/20 at 05:59; Status DC Morphine Sulfate (Morphine Sulfate) 1 mg PRN Q10MIN PRN IVP SEVERE PAIN 7-10 Last administered on 06/23/20at 14:05; Start 06/23/20 at 06:00; Stop 06/24/20 at 05:59; Status DC Ringer's Solution 1,000 ml @ 30 mls/hr Q24H IV Last administered on 06/23/20at 08:39; Start 06/23/20 at 06:00; Stop 06/23/20 at 17:59; Status DC Hydromorphone HCl (Dilaudid) 0.5 mg PRN Q10MIN PRN IVP SEVERE PAIN 7-10, 2nd CHOICE; Start 06/23/20 at 06:00; Stop 06/24/20 at 05:59; Status DC Prochlorperazine Edisylate (Compazine) 5 mg PACU PRN PRN IVP NAUSEA, MRX1; Start 06/23/20 at 06:00; Stop 06/24/20 at 05:59; Status DC Vancomycin HCl 250 ml @ 250 mls/hr 1X PREOP PRN IV PRIOR TO PROCEDURE Last administered on 06/23/20at 09:46; Start 06/23/20 at 06:00; Stop 06/23/20 at 18:00; Status DC Heparin Sodium (Porcine) 5000 unit/Ringer's Solution 505 ml @ 505 mls/hr 1X ONCE IRR Last administered on 06/23/20at 10:45; Start 06/23/20 at 06:00; Stop 06/23/20 at 06:59; Status DC Cellulose (Surgicel Fibrillar 1x2) 1 each STK-MED ONCE .ROUTE Last administered on 06/23/20at 11:42; Start 06/23/20 at 07:55; Stop 06/23/20 at 07:55; Status DC Lidocaine HCl (Xylocaine 1% Pf 30ml Vial) 30 ml STK-MED ONCE .ROUTE Last administered on 06/23/20at 10:45; Start 06/23/20 at 07:55; Stop 06/23/20 at 07:55; Status DC Lidocaine HCl (Xylocaine-Mpf 1% 2ml Vial) 2 ml STK-MED ONCE .ROUTE ; Start 06/23/20 at 09:30; Stop 06/23/20 at 09:30; Status DC Midazolam HCl (Versed) 2 mg STK-MED ONCE .ROUTE ; Start 06/23/20 at 09:31; Stop 06/23/20 at 09:31; Status DC Ropivacaine (Naropin 0.5%) 20 ml STK-MED ONCE .ROUTE ; Start 06/23/20 at 09:32; Stop 06/23/20 at 09:32; Status DC Propofol 50 ml @ As Directed STK-MED ONCE IV ; Start 06/23/20 at 09:42; Stop 06/23/20 at 09:42; Status DC Propofol 50 ml @ As Directed STK-MED ONCE IV ; Start 06/23/20 at 09:47; Stop 06/23/20 at 09:47; Status DC Nicardipine HCl (Cardene) 25 mg STK-MED ONCE IV ; Start 06/23/20 at 10:31; Stop 06/23/20 at 10:32; Status DC Lidocaine HCl (Lidocaine Pf 2% Vial) 5 ml STK-MED ONCE .ROUTE ; Start 06/23/20 at 10:35; Stop 06/23/20 at 10:35; Status DC Bupivacaine HCl/ Epinephrine Bitart (Sensorcain-Epi 0.25% Kit) 30 ml STK-MED ONCE .ROUTE ; Start 06/23/20 at 10:43; Stop 06/23/20 at 10:44; Status DC Lidocaine HCl (Xylocaine 1% Pf 30ml Vial) 30 ml STK-MED ONCE .ROUTE ; Start 06/23/20 at 10:44; Stop 06/23/20 at 10:44; Status DC Hydralazine HCl (Apresoline Inj) 20 mg STK-MED ONCE .ROUTE ; Start 06/23/20 at 10:47; Stop 06/23/20 at 10:47; Status DC Protamine Sulfate (Protamine) 50 mg STK-MED ONCE IV ; Start 06/23/20 at 11:08; Stop 06/23/20 at 11:09; Status DC Lidocaine HCl (Lidocaine Pf 2% Vial) 5 ml STK-MED ONCE .ROUTE ; Start 06/23/20 at 11:08; Stop 06/23/20 at 11:09; Status DC Lidocaine HCl (Xylocaine 1% Pf 30ml Vial) 30 ml 1X ONCE IV ; Start 06/23/20 at 11:15; Stop 06/23/20 at 11:16; Status Cancel Lidocaine/ Epinephrine (LIDOCAINE 1%-EPI 1:100,000 Multi-Dose) 30 ml 1X ONCE INJ Last administered on 06/23/20at 10:45; Start 06/23/20 at 11:30; Stop 1 at 11:31; Status DC Fentanyl Citrate (Fentanyl 2ml Vial) 100 mcg STK-MED ONCE .ROUTE ; Start 06/23/20 at 12:21; Stop 06/23/20 at 12:21; Status DC Labetalol HCl (Normodyne Iv Push) 10 mg PRN Q2HR PRN IVP HYPERTENSION; Start 06/23/20 at 12:45 Oxycodone HCl (Roxicodone) 2.5 mg PRN Q4HRS PRN PO MODERATE PAIN Last administered on 06/23/20at 17:38; Start 06/23/20 at 12:45 Morphine Sulfate (Morphine Sulfate) 2 mg STK-MED ONCE .ROUTE ; Start 06/23/20 at 14:01; Stop 06/23/20 at 14:02; Status DC Aspirin (Ecotrin) 81 mg DAILY PO Last administered on 06/24/20at 08:11; Start 06/24/20 at 09:00 Atorvastatin Calcium (Lipitor) 20 mg QHS PO Last administered on 06/23/20 20:38; Start 06/23/20 at 21:00 Bupropion HCl (Wellbutrin Xl) 150 mg DAILY PO Last administered on 06/24/20 08:10; Start 06/24/20 at 09:00 Docusate Sodium (Colace) 100 mg DAILY PO Last administered on 06/24/20at 08:12; Start 06/24/20 at 09:00 Gabapentin (Neurontin) 300 mg TID PO Last administered on 06/24/20 08:12; Start 06/23/20 at 21:00 Acetaminophen/ Hydrocodone Bitart (Lortab 5/325) 1 tab PRN Q6HRS PRN PO SEVERE PAIN; Start 06/23/20 at 20:15 Levothyroxine Sodium (Synthroid) 88 mcg DAILYAC PO Last administered on 06/24/20 08:10; Start 06/24/20 at 07:30 Metoprolol Tartrate (Lopressor) 50 mg BID PO Last administered on 06/24/20 08:15; Start 06/23/20 at 21:00 Tramadol HCl (Ultram) 50 mg DAILY PRN PO MILD PAIN 1-3; Start 06/23/20 at 20:15 Trazodone HCl (Desyrel) 100 mg QHS PO Last administered on 06/23/20at 20:37; Start 06/23/20 at 21:00 Pantoprazole Sodium (Protonix) 40 mg BIDAC PO Last administered on 06/24/20at 07:30; Start 06/24/20 at 07:30 Hydrochlorothiazide (Hydrodiuril) 25 mg DAILY PO Last administered on 06/24/20 08:11; Start 06/24/20 at 09:00 Multivitamins (Thera M Plus) 1 tab DAILY PO Last administered on 06/24/20 08:12; Start 06/24/20 at 09:00 Oxybutynin Chloride (Ditropan) 5 mg BID PO Last administered on 06/24/20 08:11; Start 06/23/20 at 21:00 Ziprasidone (Geodon) 120 mg QHS PO Last administered on 06/23/20at 20:36; Start 06/23/20 at 21:00 Ziprasidone (Geodon) 20 mg QHS PO Last administered on 06/23/20at 20:37; Start 06/23/20 at 21:00 Sodium Chloride 1,000 ml @ 75 mls/hr [id number] IV Last administered on 06/24/20at 11:37; Start 06/24/20 at 11:30 Sodium Chloride (Normal Saline Flush) 3 ml QSHIFT PRN IV AFTER MEDS AND BLOOD DRAWS; Start 06/24/20 at 11:30 Ondansetron HCl (Zofran) 4 mg PRN Q4HRS PRN IV NAUSEA/VOMITING; Start 06/24/20 at 11:30 Acetaminophen (Tylenol) 650 mg PRN Q4HRS PRN PO TEMP OVER 100.4F OR MILD PAIN; Start 06/24/20 at 11:30 Docusate Sodium (Colace) 100 mg PRN BID PRN PO HARD STOOLS; Start 06/24/20 at 11:30 Albuterol Sulfate (Ventolin Neb Soln) 2.5 mg PRN Q4HRS PRN NEB SHORTNESS OF BREATH; Start 06/24/20 at 11:30 Guaifenesin (Robitussin) 200 mg PRN Q4HRS PRN PO COUGH; Start 06/24/20 at 11:30 Active Scripts Active Culturelle (Lactobacillus Rhamnosus Gg) 1 Each Cap.sprink 1 Cap PO BID 30 Days Klor-Con M20 (Potassium Chloride) 20 Meq Tab.er.prt 20 Meq PO DAILYWBKFT 14 Days Sertraline Hcl 50 Mg Tablet 100 Mg PO DAILY 30 Days Naproxen 250 Mg Tablet 250 Mg PO PRN BID PRN 30 Days Reported Oyster Shell Calcium + D Tab (Calcium Carbonate/Vitamin D3) 1 Each Tablet 1 Each PO BID Oxybutynin Chloride Er (Oxybutynin Chloride) 10 Mg Tab.er.24 10 Mg PO DAILY Gabapentin 300 Mg Capsule 300 Mg PO TID Hydrocodone-Apap 5-325 (Hydrocodone Bit/Acetaminophen) 1 Tab Tablet 1 Tab PO PRN Q6HRS PRN Tramadol Hcl 50 Mg Tablet 50 Mg PO DAILY PRN Atorvastatin Calcium 20 Mg Tablet 20 Mg PO DAILY Levothyroxine Sodium 88 Mcg Tablet 88 Mcg PO DAILYAC 2 TABS Trazodone Hcl 100 Mg Tablet 1 Tab PO QHS Wellbutrin Xl (Bupropion Hcl) 150 Mg Tab.er.24h 150 Mg PO DAILY Geodon (Ziprasidone Hcl) 80 Mg Capsule 2 Cap PO QHS Nexium Capsule (Esomeprazole Magnesium) 40 Mg Capsule. 1 Cap PO BID Metoprolol Tartrate 50 Mg Tablet 1 Tab PO BID Calcium 600 + Vit D 200 Tablet (Calcium Carbonate/Vitamin D3) 1 Each Tablet 1 Each PO BIDWMEALS Hydrochlorothiazide Tablet (Hydrochlorothiazide) 12.5 Mg Tablet 2 Tab PO DAILY Docusate Sodium 100 Mg Capsule 1 Cap PO DAILY Aspir 81 (Aspirin) 81 Mg Tablet. 1 Tab PO DAILY Certavite Sr-Antioxidant Tab (Multivits-Min/Fa/Lycopene/Lut) 1 Each Tablet 1 Each PO DAILY Alendronate Sodium 35 Mg Tablet 1 Tab PO WEEKLY Weekly on Sundays Allergies Allergies: Coded Allergies: Penicillins (Verified Allergy, Intermediate, Hives, 06/23/20) Has tolerated ceftriaxone propoxyphene (Verified Allergy, Mild, Nausea and Vomiting, 06/23/20) Vitals VITALS Vital Signs Date Time Temp Pulse Resp B/P (MAP) Pulse Ox O2 Delivery O2 Flow Rate FiO2 06/24/20 10:00 98.0 70 18 112/39 (63) 93 Room Air 98.0 Labs Labs Laboratory Tests Test 06/23/20 08:15 White Blood Count 10.8 x10^3/uL (4.0-11.0) Red Blood Count 4.75 x10^6/uL (3.50-5.40) Hemoglobin 13.7 g/dL (12.0-15.5) Hematocrit 40.7 % (36.0-47.0) Mean Corpuscular Volume 86 fL (79-100) Mean Corpuscular Hemoglobin 29 pg (25-35) Mean Corpuscular Hemoglobin Concent 34 g/dL (31-37) Red Cell Distribution Width 14.1 % (11.5-14.5) Platelet Count 272 x10^3/uL (140-400) Neutrophils (%) (Auto) 68 % (31-73) Lymphocytes (%) (Auto) 20 % (24-48) Monocytes (%) (Auto) 8 % (0-9) Eosinophils (%) (Auto) 2 % (0-3) Basophils (%) (Auto) 2 % (0-3) Neutrophils # (Auto) 7.4 x10^3/uL (1.8-7.7) Lymphocytes # (Auto) 2.2 x10^3/uL (1.0-4.8) Monocytes # (Auto) 0.8 x10^3/uL (0.0-1.1) Eosinophils # (Auto) 0.3 x10^3/uL (0.0-0.7) Basophils # (Auto) 0.2 x10^3/uL (0.0-0.2) Sodium Level 138 mmol/L (136-145) Potassium Level 3.6 mmol/L (3.5-5.1) Chloride Level 100 mmol/L (98-107) Carbon Dioxide Level 27 mmol/L (21-32) Anion Gap 11 (6-14) Blood Urea Nitrogen 25 mg/dL (7-20) Creatinine 1.4 mg/dL (0.6-1.0) Estimated GFR (Cockcroft-Gault) 36.4 Glucose Level 124 mg/dL (70-99) Calcium Level 9.4 mg/dL (8.5-10.1) Images Images [facility] [address] [place] [address] IMAGING REPORT Signed PATIENT: GISELE FELDER ACCOUNT: [id number] : 1940 LOCATION: [facility] AGE: 79 SEX: F EXAM STATUS: PRE CLI ORD. PHYSICIAN: LOW STOVER MD REASON: Bilat knee pain, pain x1 year, left worse than right PROCEDURE: KNEE STANDING BILAT AP INDICATION: Reason: Bilat knee pain, pain x1 year, left worse than right / Spl. Instructions: / History: COMPARISON: None. IMPRESSION: 3 views of each knee obtained. Degenerative changes the bilateral knees with joint space narrowing identified bilaterally as well as mild osteophyte formation. There is some subchondral lucency seen at the left patella which could be related to degenerative changes with subchondral cyst formation or erosion. Left knee joint effusion is identified as well as edema Hoffa's fat pad. There is also a smaller joint effusion seen on the right as well as subchondral irregularity at the right patella as well which could be from cyst formation or erosion. Mild edema of Hoffa's fat pad on the right. Electronically signed by: Chris Maldonado MD (04/04/2020 4:18 PM) [id number] DICTATED and SIGNED BY: CHRIS MALDONADO MD DATE: 04/04/20 1618 Assessment/Plan Assessment/Plan Patient has been seen in our office before for cortisone injection. It would be reasonable to do another injection at this time due to her recent surgery. I will have our PA Adair Epps inject her left knee with Depo-Medrol 80 mg and bupivacaine. MARY KAY HERNANDEZ MD Jun 24, 2020 13:18
[2020-06-24] MEDS ORDERED: BUPIVACAINE MPF 0.25% 10 ML VIAL. IJ ONE (13:45)
[2020-06-24] MEDS ORDERED: methylPREDNISolone ACETATE 80 MG/ML VIAL. IM ONE (13:45)
--- NOTE | 2020-06-24 14:03 | NUR ---
SS following for discharge planning. SS reviewed pt chart and discussed with pt RN. Pt is from [facility], ; fax [phone], and is currently on room air. Pt had right Carotid Endarterectomy on 06/23/2020. PT/OT recommended home with home healthcare. Pt had services in the past with [facility], ; fax [phone]. Probable discharge back to facility tomorrow. SS will continue to follow for discharge planning.
[2020-06-24 15:00] VITALS: BP 106/40
[2020-06-24 18:38] LABS: BILIRUBIN,URINE NEGATIVE (NEG); CLARITY,URINE CLEAR; COLOR,URINE YELLOW; NITRITE,URINE NEGATIVE (NEG); PROTEIN,URINE NEGATIVE (NEG-TRACE); UROBILINOGEN,URINE 0.2 mg/dL (0.2 mg/dL)
[2020-06-24 18:51] LABS: HYALINE CASTS, URINE MODERATE /HPF
[2020-06-24 18:52] LABS: BACTERIA,URINE FEW /HPF (0-FEW); RBC,URINE RARE /HPF (0-2)
[2020-06-24 18:56] VITALS: BP 100/43
[2020-06-24] MEDS: ZIPRASIDONE 20 MG CAPSULE PO SCH (21:38)
[2020-06-24] MEDS: ZIPRASIDONE 60 MG CAPSULE. PO SCH (21:38)
[2020-06-24] MEDS: ATORVASTATIN CALCIUM 20 MG TABLET PO SCH (21:39)
[2020-06-24] MEDS: traZODone 100 MG TABLET. PO SCH (21:39)
[2020-06-24 23:00] VITALS: BP 99/57
[2020-06-25] MEDS: IV NORMAL SALINE 1000ML BAG 1,000 ML IV SCH (00:50)
[2020-06-25 03:00] VITALS: BP 133/65
[2020-06-25 04:42] LABS: ALBUMIN 2.8 g/dL (3.4-5.0); ALBUMIN/GLOBULIN RATIO 0.7 (1.0-1.7); CREATININE 1.2 mg/dL (0.6-1.0); GFR 43.4; POTASSIUM 3.3 mmol/L (3.5-5.1); TOTAL BILIRUBIN 0.3 mg/dL (0.2-1.0); TOTAL PROTEIN 6.8 g/dL (6.4-8.2)
[2020-06-25 04:45] LABS: BASO % 0 % (0-3); EOS % 0 % (0-3); HEMATOCRIT 36.4 % (36.0-47.0); HEMOGLOBIN 12.3 g/dL (12.0-15.5); LYMPH % 13 % (24-48); MEAN CORPUSCULAR HEMOGLOBIN 29 pg (25-35); MEAN CORPUSCULAR HGB CONC 34 g/dL (31-37); MEAN CORPUSCULAR VOLUME 85 fL (79-100); MONO # 0.2 x10^3/uL (0.0-1.1); MONO % 2 % (0-9); NEUT # 6.8 x10^3/uL (1.8-7.7); NEUT % 85 % (31-73); PLATELET COUNT 196 x10^3/uL (140-400); RED BLOOD COUNT 4.27 x10^6/uL (3.50-5.40); RED CELL DISTRIBUTION WIDTH 13.9 % (11.5-14.5)
[2020-06-25 07:00] VITALS: BP 146/77
[2020-06-25] MEDS: GABAPENTIN 300 MG CAPSULE. PO SCH (07:52)
[2020-06-25] MEDS: MULTIVITAMIN with MINERAL TABLET. PO SCH (07:52)
[2020-06-25] MEDS: ASPIRIN ENTERIC COATED 81 MG TABLET.DR. PO SCH (07:53)
[2020-06-25] MEDS: OXYBUTYNIN CHLORIDE 5 MG TABLET PO SCH (07:53)
[2020-06-25] MEDS: hydroCHLOROthiazide 25 MG TABLET PO SCH (07:53)
[2020-06-25] MEDS: LEVOTHYROXINE 88 MCG TABLET PO SCH (07:53)
[2020-06-25] MEDS: PANTOPRAZOLE 40 MG TABLET.DR. PO SCH (07:53)
[2020-06-25] MEDS: buPROPion XL 150 MG TAB.ER.24H. PO SCH (07:53)
[2020-06-25] MEDS: METOPROLOL TART IMMED RELEASE 50 MG TABLET. PO SCH (07:54)
--- NOTE | 2020-06-25 10:08 | PDOC ---
PROGRESS NOTES Date of Service: DATE: 06/25/20 TIME: 10:08 Chief Complaint Chief Complaint Assessment/Plan Assessment/Plan Assessment/Plan Impression: pod # 2 CAROTID Endarterectomy doing well post op Right carotid stenosis, asymptomatic., severe generalized weakness BRIAN, acute vasomotor nephropathy Chronic gait disorder, UTILIZES walker REMOTE History of C2 fracture, no evidence of myelopathy Cognitive decline ADMITTED PT/OT needs home health on discharge cvc bed less weak PT/OT, STRENGTHENING [facility] cong iv fluids scd's d/c planning 34 min D/W RN Justifications for Admission Other Justification History of Present Illness History of Present Illness Identification/Chief Complaint Chief Complaint weakness, POD # 2 right carotid surgery History of Present Illness History of Present Illness admitted post op weakness, still feels light-headed when up with therapy, no focal weakness cr elevated at 1.4, baseline 1.1 OPERATIVE FINDINGS: The patient had extensive soft plaque at the bifurcation extending onto the internal carotid artery. There was evidence of intraplaque hemorrhage, likely producing the critical stenosis. She tolerated clamping without the need for a shunt. Past Medical History Past Medical History Past Medical History Cardiovascular: HTN, Hyperlipidemia Pulmonary: Bronchitis, COPD CENTRAL NERVOUS SYSTEM: TIA, Other (Mild cognitive impairment) GI: Constipation, Other ( esophageal stricture requiring periodic dilatation) Psych: Anxiety, Depression, Schizophrenia Musculoskeletal: low back pain, Osteoarthritis, Other (C2 cervical fracture) Rheumatologic: Rheumatoid arthritis Renal/: UTI, Other ( bladder spasms) Endocrine: Diabetes, Hypothyroidism Past Surgical History Past Surgical History: Cholecystectomy, Tubal Ligation, Hysterectomy, Other ( esophageal dilatation, breast lumpectomy, right shoulder, right ankle, right arm, Soto's neuroma) Family History Family History: Cancer Social History Social History , lives in assisted living, has been under quarantine, 1/4 pack/day ciga rettes, no alcohol Cardiovascular: HTN, Hyperlipidemia Pulmonary: Bronchitis, COPD CENTRAL NERVOUS SYSTEM: TIA, Other GI: Constipation, Other Psych: Anxiety, Depression, Schizophrenia Musculoskeletal: Osteoarthritis, Weakness Rheumatologic: Rheumatoid arthritis Renal/: UTI, Other Endocrine: Diabetes, Hypothyroidism Past Surgical History Past Surgical History: Cholecystectomy, Tubal Ligation, Hysterectomy, Other Family History Family History: No Significant Social History Smoke: <1 pack per day ALCOHOL: none Drugs: None Current Medications Current Medications Current Medications Fentanyl Citrate (Fentanyl 2ml Vial) 25 mcg PRN Q5MIN PRN IVP MILD PAIN 1-3; Start 06/23/20 at 06:00; Stop 06/24/20 at 05:59; Status DC Fentanyl Citrate (Fentanyl 2ml Vial) 50 mcg PRN Q5MIN PRN IVP MODERATE PAIN 4-6 Last administered on 06/23/20at 13:14; Start 06/23/20 at 06:00; Stop 06/24/20 at 05:59; Status DC Morphine Sulfate (Morphine Sulfate) 1 mg PRN Q10MIN PRN IVP SEVERE PAIN 7-10 Last administered on 06/23/20at 14:05; Start 06/23/20 at 06:00; Stop 06/24/20 at 05:59; Status DC Ringer's Solution 1,000 ml @ 30 mls/hr Q24H IV Last administered on 06/23/20at 08:39; Start 06/23/20 at 06:00; Stop 06/23/20 at 17:59; Status DC Hydromorphone HCl (Dilaudid) 0.5 mg PRN Q10MIN PRN IVP SEVERE PAIN 7-10, 2nd CHOICE; Start 06/23/20 at 06:00; Stop 06/24/20 at 05:59; Status DC Prochlorperazine Edisylate (Compazine) 5 mg PACU PRN PRN IVP NAUSEA, MRX1; Start 06/23/20 at 06:00; Stop 06/24/20 at 05:59; Status DC Vancomycin HCl 250 ml @ 250 mls/hr 1X PREOP PRN IV PRIOR TO PROCEDURE Last administered on 06/23/20at 09:46; Start 06/23/20 at 06:00; Stop 06/23/20 at 18:00; Status DC Heparin Sodium (Porcine) 5000 unit/Ringer's Solution 505 ml @ 505 mls/hr 1X ONCE IRR Last administered on 06/23/20at 10:45; Start 06/23/20 at 06:00; Stop 06/23/20 at 06:59; Status DC Cellulose (Surgicel Fibrillar 1x2) 1 each STK-MED ONCE .ROUTE Last administered on 06/23/20at 11:42; Start 06/23/20 at 07:55; Stop 06/23/20 at 07:55; Status DC Lidocaine HCl (Xylocaine 1% Pf 30ml Vial) 30 ml STK-MED ONCE .ROUTE Last administered on 06/23/20at 10:45; Start 06/23/20 at 07:55; Stop 06/23/20 at 07:55; Status DC Lidocaine HCl (Xylocaine-Mpf 1% 2ml Vial) 2 ml STK-MED ONCE .ROUTE ; Start 06/23/20 at 09:30; Stop 06/23/20 at 09:30; Status DC Midazolam HCl (Versed) 2 mg STK-MED ONCE .ROUTE ; Start 06/23/20 at 09:31; Stop 06/23/20 at 09:31; Status DC Ropivacaine (Naropin 0.5%) 20 ml STK-MED ONCE .ROUTE ; Start 06/23/20 at 09:32; Stop 06/23/20 at 09:32; Status DC Propofol 50 ml @ As Directed STK-MED ONCE IV ; Start 06/23/20 at 09:42; Stop 06/23/20 at 09:42; Status DC Propofol 50 ml @ As Directed STK-MED ONCE IV ; Start 06/23/20 at 09:47; Stop 06/23/20 at 09:47; Status DC Nicardipine HCl (Cardene) 25 mg STK-MED ONCE IV ; Start 06/23/20 at 10:31; Stop 06/23/20 at 10:32; Status DC Lidocaine HCl (Lidocaine Pf 2% Vial) 5 ml STK-MED ONCE .ROUTE ; Start 06/23/20 at 10:35; Stop 06/23/20 at 10:35; Status DC Bupivacaine HCl/ Epinephrine Bitart (Sensorcain-Epi 0.25% Kit) 30 ml STK-MED ONCE .ROUTE ; Start 06/23/20 at 10:43; Stop 06/23/20 at 10:44; Status DC Lidocaine HCl (Xylocaine 1% Pf 30ml Vial) 30 ml STK-MED ONCE .ROUTE ; Start 06/23/20 at 10:44; Stop 06/23/20 at 10:44; Status DC Hydralazine HCl (Apresoline Inj) 20 mg STK-MED ONCE .ROUTE ; Start 06/23/20 at 10:47; Stop 06/23/20 at 10:47; Status DC Protamine Sulfate (Protamine) 50 mg STK-MED ONCE IV ; Start 06/23/20 at 11:08; Stop 06/23/20 at 11:09; Status DC Lidocaine HCl (Lidocaine Pf 2% Vial) 5 ml STK-MED ONCE .ROUTE ; Start 06/23/20 at 11:08; Stop 06/23/20 at 11:09; Status DC Lidocaine HCl (Xylocaine 1% Pf 30ml Vial) 30 ml 1X ONCE IV ; Start 06/23/20 at 11:15; Stop 06/23/20 at 11:16; Status Cancel Lidocaine/ Epinephrine (LIDOCAINE 1%-EPI 1:100,000 Multi-Dose) 30 ml 1X ONCE INJ Last administered on 06/23/20at 10:45; Start 06/23/20 at 11:30; Stop 06/23/20 at 11:31; Status DC Fentanyl Citrate (Fentanyl 2ml Vial) 100 mcg STK-MED ONCE .ROUTE ; Start 06/23/20 at 12:21; Stop 06/23/20 at 12:21; Status DC Labetalol HCl (Normodyne Iv Push) 10 mg PRN Q2HR PRN IVP HYPERTENSION; Start 06/23/20 at 12:45 Oxycodone HCl (Roxicodone) 2.5 mg PRN Q4HRS PRN PO MODERATE PAIN Last administered on 06/23/20at 17:38; Start 06/23/20 at 12:45 Morphine Sulfate (Morphine Sulfate) 2 mg STK-MED ONCE .ROUTE ; Start 06/23/20 at 14:01; Stop 06/23/20 at 14:02; Status DC Aspirin (Ecotrin) 81 mg DAILY PO Last administered on 06/24/20at 08:11; Start 06/24/20 at 09:00 Atorvastatin Calcium (Lipitor) 20 mg QHS PO Last administered on 06/23/20at 20:38; Start 06/23/20 at 21:00 Bupropion HCl (Wellbutrin Xl) 150 mg DAILY PO Last administered on 06/24/20at 08:10; Start 06/24/20 at 09:00 Docusate Sodium (Colace) 100 mg DAILY PO Last administered on 06/24/20at 08:12; Start 06/24/20 at 09:00 Gabapentin (Neurontin) 300 mg TID PO Last administered on 06/24/20at 08:12; Start 06/23/20 at 21:00 Acetaminophen/ Hydrocodone Bitart (Lortab 5/325) 1 tab PRN Q6HRS PRN PO SEVERE PAIN; Start 06/23/20 at 20:15 Levothyroxine Sodium (Synthroid) 88 mcg DAILYAC PO Last administered on 06/24/20at 08:10; Start 06/24/20 at 07:30 Metoprolol Tartrate (Lopressor) 50 mg BID PO Last administered on 06/24/20at 08:15; Start 06/23/20 at 21:00 Tramadol HCl (Ultram) 50 mg DAILY PRN PO MILD PAIN 1-3; Start 06/23/20 at 20:15 Trazodone HCl (Desyrel) 100 mg QHS PO Last administered on 06/23/20at 20:37; Start 06/23/20 at 21:00 Pantoprazole Sodium (Protonix) 40 mg BIDAC PO Last administered on 06/24/20at 07:30; Start 06/24/20 at 07:30 Hydrochlorothiazide (Hydrodiuril) 25 mg DAILY PO Last administered on 06/24/20at 08:11; Start 06/24/20 at 09:00 Multivitamins (Thera M Plus) 1 tab DAILY PO Last administered on 06/24/20at 08 :12; Start 06/24/20 at 09:00 Oxybutynin Chloride (Ditropan) 5 mg BID PO Last administered on 06/24/20at 08:11; Start 06/23/20 at 21:00 Ziprasidone (Geodon) 120 mg QHS PO Last administered on 06/23/20at 20:36; Start 06/23/20 at 21:00 Ziprasidone (Geodon) 20 mg QHS PO Last administered on 06/23/20at 20:37; Start 06/23/20 at 21:00 Active Scripts Active Culturelle (Lactobacillus Rhamnosus Gg) 1 Each Cap.sprink 1 Cap PO BID 30 Days Klor-Con M20 (Potassium Chloride) 20 Meq Tab.er.prt 20 Meq PO DAILYWBKFT 14 Days Sertraline Hcl 50 Mg Tablet 100 Mg PO DAILY 30 Days Naproxen 250 Mg Tablet 250 Mg PO PRN BID PRN 30 Days Reported Oyster Shell Calcium + D Tab (Calcium Carbonate/Vitamin D3) 1 Each Tablet 1 Each PO BID Oxybutynin Chloride Er (Oxybutynin Chloride) 10 Mg Tab.er.24 10 Mg PO DAILY Gabapentin 300 Mg Capsule 300 Mg PO TID Hydrocodone-Apap 5-325 (Hydrocodone Bit/Acetaminophen) 1 Tab Tablet 1 Tab PO PRN Q6HRS PRN Tramadol Hcl 50 Mg Tablet 50 Mg PO DAILY PRN Atorvastatin Calcium 20 Mg Tablet 20 Mg PO DAILY Levothyroxine Sodium 88 Mcg Tablet 88 Mcg PO DAILYAC 2 TABS Trazodone Hcl 100 Mg Tablet 1 Tab PO QHS Wellbutrin Xl (Bupropion Hcl) 150 Mg Tab.er.24h 150 Mg PO DAILY Geodon (Ziprasidone Hcl) 80 Mg Capsule 2 Cap PO QHS Nexium Capsule (Esomeprazole Magnesium) 40 Mg Capsule.dr 1 Cap PO BID Metoprolol Tartrate 50 Mg Tablet 1 Tab PO BID Calcium 600 + Vit D 200 Tablet (Calcium Carbonate/Vitamin D3) 1 Each Tablet 1 Each PO BIDWMEALS Hydrochlorothiazide Tablet (Hydrochlorothiazide) 12.5 Mg Tablet 2 Tab PO DAILY Docusate Sodium 100 Mg Capsule 1 Cap PO DAILY Aspir 81 (Aspirin) 81 Mg Tablet.dr 1 Tab PO DAILY Certavite Sr-Antioxidant Tab (Multivits-Min/Fa/Lycopene/Lut) 1 Each Tablet 1 Each PO DAILY Alendronate Sodium 35 Mg Tablet 1 Tab PO WEEKLY Weekly on Sundays Allergies Allergies: Coded Allergies: Penicillins (Verified Allergy, Intermediate, Hives, 06/23/20) Has tolerated ceftriaxone acetaminophen (Verified Allergy, Mild, Nausea and Vomiting, 06/23/20) propoxyphene (Verified Allergy, Mild, Nausea and Vomiting, 06/23/20) ROS Review of System 14 pt ros otherwise neg General: YES: Fatigue; No: Chills, Night Sweats, Malaise, Appetite, Other PSYCHOLOGICAL ROS: YES: Concentration difficultie; No: Anxiety, Behavioral Disorder, Decreased libido, Depression, Disorientation, Hallucinations, Hostility, Irritablity, Memory difficulties, Mood Swings, Obsessive thoughts, Physical abuse, Sexual abuse, Sleep disturbances, Suicidal ideation, Other Eyes: No Blurry vision, No Decreased vision, No Double vision, No Dry eyes, No Excessive tearing, No Eye Pain, No Itchy Eyes, No Loss of vision, No Photophobia, No Scotomata, No Uses contacts, No Uses glasses, No Other HEENT: No: Heacaches, Visual Changes, Hearing change, Nasal congestion, Nasal discharge, Oral lesions, Sinus pain, Sore Throat, Epistaxis, Sneezing, Snoring, Tinnitus, Vertigo, Vocal changes, Other ALLERGY AND IMMUNOLOGY: No: Hives, Insect Bite Sensitivity, Itchy/Watery Eyes, Nasal Congestion, Post Nasal Drip, Seasonal Allergies, Other Hematological and Lymphatic: No: Bleeding Problems, Blood Clots, Blood Transfusions, Brusing, Night Sweats, Pallor, Swollen Lymph Nodes, Other ENDOCRINE: No: Breast Changes, Galactorrhea, Hair Pattern Changes, Hot Flashes, Malaise/lethargy, Mood Swings, Palpitations, Polydipsia/polyuria, Skin Changes, Temperature Intolerance, Unexpected Weight Changes, Other Respiratory: No: Cough, Hemoptysis, Orthopnea, Pleuritic Pain, Shortness of breath, SOB with excertion, Sputum Changes, Stridor, Tachypnea, Wheezing, Other Cardiovascular: No Chest Pain, No Palpitations, No Orthopnea, No Paroxysmal Noc. Dyspnea, No Edema, No Lt Headedness, No Other Gastrointestinal: No Nausea, No Vomiting, No Abdominal Pain, No Diarrhea, No Constipation, No Melena, No Hematochezia, No Other Genitourinary: No Dysuria, No Frequency, No Incontinence, No Hematuria, No Retention, No Discharge, No Urgency, No Pain, No Flank Pain, No Other, No , No , No , No , No , No , No Musculoskeletal: Yes Gait Disturbance, Yes Joint Stiffness, Yes Muscular Weakness Neurological: Yes Confusion, Yes Dizziness, Yes Gait Disturbance, Yes Memory Loss; No Behavorial Changes, No Bowel/Bladder ControlChng, No Headaches, No Impaired Coord/balance, No Numbness/Tingling, No Seizures, No Speech Problems, No Tremors, No Visual Changes, No Weakness, No Other Skin: No Dry Skin, No Eczema, No Hair Changes, No Lumps, No Mole Changes, No Mottling, No Nail Changes, No Pruritus, No Rash, No Skin Lesion Changes, No Other, No Acne DATE OF SURGERY: 06/23/2020 PREOPERATIVE DIAGNOSIS: Right carotid stenosis, asymptomatic. POSTOPERATIVE DIAGNOSIS: Right carotid stenosis, asymptomatic. OPERATION PERFORMED: Right carotid endarterectomy. SURGEON: Luis F Oseguera MD Vitals Vitals Vital Signs Date Time Temp Pulse Resp B/P (MAP) Pulse Ox O2 Delivery O2 Flow Rate FiO2 06/25/20 08:00 Room Air 06/25/20 07:54 69 146/77 06/25/20 07:00 97.6 16 95 97.6 Physical Exam Physical Exam Physical Exam General: Alert, Oriented X3, Cooperative, No acute distress HEENT: Atraumatic, EOMI, Mucous membr. moist/pink Lungs: Clear to auscultation, Normal air movement Heart: RRR, no thrills, no rubs Breasts: Not examined Abdomen: Normal bowel sounds, Soft Rectal Exam: not examined PELVIC: Examination not indicated Extremities: No cyanosis, No edema Skin: No significant lesion r carotid incision clean, dry dressing Neuro: Normal speech, Sensation intact, Cranial nerves 3-12 NL Psych/Mental Status: Mental status NL, Mood NL General: Alert, Oriented X3, Cooperative, No acute distress Heart: Regular rate, Normal S1, Normal S2 Lungs: Clear Abdomen: Normal bowel sounds, Soft, No tenderness, No hepatosplenomegaly Extremities: No cyanosis, No edema, No tenderness/swelling Skin: No significant lesion Labs LABS * Goal Met Goal 2 - Transfers Assistance Required * Independent Goal 2 - Transfer Type * Sit to Stand Goal 2 Assessment * Appropriate - Continue Goal 3 - Ambulation Assistance Required * Independent Goal 3 - Ambulation Distance * 100' Goal 3 - Ambulation Device * Roller Walker Goal 3 Assessment * Appropriate - Continue Treatment Plan * Therapeutic Exercise * Bed Mobility Training * Transfer training * Gait Training * Dynamic Balance Training Frequency of Treatment Expected * 7 visits/week Duration of Treatment Expected * 2 weeks Discharge Recommendations * Home with Home Health * Assisted Living Discharge Recommendation - DME * 4 wheeled walker needed * in order to complete ADLs * and ambulation safely Discharge Recommendation Comments * pt has 4WW Laboratory Tests Test 06/24/20 18:30 06/25/20 04:20 Urine Collection Type Unknown Urine Color Yellow Urine Clarity Clear Urine pH 7.0 (<5.0-8.0) Urine Specific Mckinnon 1.015 (1.000-1.030) Urine Protein Negative mg/dL (NEG-TRACE) Urine Glucose (UA) Negative mg/dL (NEG) Urine Ketones (Stick) Negative mg/dL (NEG) Urine Blood Negative (NEG) Urine Nitrite Negative (NEG) Urine Bilirubin Negative (NEG) Urine Urobilinogen Dipstick 0.2 mg/dL (0.2 mg/dL) Urine Leukocyte Esterase Small (NEG) Urine RBC Rare /HPF (0-2) Urine WBC 5-10 /HPF (0-4) Urine Squamous Epithelial Cells Mod /LPF Urine Bacteria Few /HPF (0-FEW) Urine Hyaline Casts Moderate /HPF Urine Mucus Slight /LPF White Blood Count 8.0 x10^3/uL (4.0-11.0) Red Blood Count 4.27 x10^6/uL (3.50-5.40) Hemoglobin 12.3 g/dL (12.0-15.5) Hematocrit 36.4 % (36.0-47.0) Mean Corpuscular Volume 85 fL (79-100) Mean Corpuscular Hemoglobin 29 pg (25-35) Mean Corpuscular Hemoglobin Concent 34 g/dL (31-37) Red Cell Distribution Width 13.9 % (11.5-14.5) Platelet Count 196 x10^3/uL (140-400) Neutrophils (%) (Auto) 85 % (31-73) Lymphocytes (%) (Auto) 13 % (24-48) Monocytes (%) (Auto) 2 % (0-9) Eosinophils (%) (Auto) 0 % (0-3) Basophils (%) (Auto) 0 % (0-3) Neutrophils # (Auto) 6.8 x10^3/uL (1.8-7.7) Lymphocytes # (Auto) 1.0 x10^3/uL (1.0-4.8) Monocytes # (Auto) 0.2 x10^3/uL (0.0-1.1) Eosinophils # (Auto) 0.0 x10^3/uL (0.0-0.7) Basophils # (Auto) 0.0 x10^3/uL (0.0-0.2) Sodium Level 137 mmol/L (136-145) Potassium Level 3.3 mmol/L (3.5-5.1) Chloride Level 102 mmol/L (98-107) Carbon Dioxide Level 27 mmol/L (21-32) Anion Gap 8 (6-14) Blood Urea Nitrogen 21 mg/dL (7-20) Creatinine 1.2 mg/dL (0.6-1.0) Estimated GFR (Cockcroft-Gault) 43.4 BUN/Creatinine Ratio 18 (6-20) Glucose Level 169 mg/dL (70-99) Calcium Level 8.0 mg/dL (8.5-10.1) Total Bilirubin 0.3 mg/dL (0.2-1.0) Aspartate Amino Transf (AST/SGOT) 21 U/L (15-37) Alanine Aminotransferase (ALT/SGPT) 33 U/L (14-59) Alkaline Phosphatase 59 U/L (46-116) Total Protein 6.8 g/dL (6.4-8.2) Albumin 2.8 g/dL (3.4-5.0) Albumin/Globulin Ratio 0.7 (1.0-1.7) Comment Review of Relevant I have reviewed the following items jaki (where applicable) has been applied. Labs Laboratory Tests Test 06/24/20 18:30 06/25/20 04:20 Urine Collection Type Unknown Urine Color Yellow Urine Clarity Clear Urine pH 7.0 (<5.0-8.0) Urine Specific Mck[place]on 1.015 (1.000-1.030) Urine Protein Negative mg/dL (NEG-TRACE) Urine Glucose (UA) Negative mg/dL (NEG) Urine Ketones (Stick) Negative mg/dL (NEG) Urine Blood Negative (NEG) Urine Nitrite Negative (NEG) Urine Bilirubin Negative (NEG) Urine Urobilinogen Dipstick 0.2 mg/dL (0.2 mg/dL) Urine Leukocyte Esterase Small (NEG) Urine RBC Rare /HPF (0-2) Urine WBC 5-10 /HPF (0-4) Urine Squamous Epithelial Cells Mod /LPF Urine Bacteria Few /HPF (0-FEW) Urine Hyaline Casts Moderate /HPF Urine Mucus Slight /LPF White Blood Count 8.0 x10^3/uL (4.0-11.0) Red Blood Count 4.27 x10^6/uL (3.50-5.40) Hemoglobin 12.3 g/dL (12.0-15.5) Hematocrit 36.4 % (36.0-47.0) Mean Corpuscular Volume 85 fL (79-100) Mean Corpuscular Hemoglobin 29 pg (25-35) Mean Corpuscular Hemoglobin Concent 34 g/dL (31-37) Red Cell Distribution Width 13.9 % (11.5-14.5) Platelet Count 196 x10^3/uL (140-400) Neutrophils (%) (Auto) 85 % (31-73) Lymphocytes (%) (Auto) 13 % (24-48) Monocytes (%) (Auto) 2 % (0-9) Eosinophils (%) (Auto) 0 % (0-3) Basophils (%) (Auto) 0 % (0-3) Neutrophils # (Auto) 6.8 x10^3/uL (1.8-7.7) Lymphocytes # (Auto) 1.0 x10^3/uL (1.0-4.8) Monocytes # (Auto) 0.2 x10^3/uL (0.0-1.1) Eosinophils # (Auto) 0.0 x10^3/uL (0.0-0.7) Basophils # (Auto) 0.0 x10^3/uL (0.0-0.2) Sodium Level 137 mmol/L (136-145) Potassium Level 3.3 mmol/L (3.5-5.1) Chloride Level 102 mmol/L (98-107) Carbon Dioxide Level 27 mmol/L (21-32) Anion Gap 8 (6-14) Blood Urea Nitrogen 21 mg/dL (7-20) Creatinine 1.2 mg/dL (0.6-1.0) Estimated GFR (Cockcroft-Gault) 43.4 BUN/Creatinine Ratio 18 (6-20) Glucose Level 169 mg/dL (70-99) Calcium Level 8.0 mg/dL (8.5-10.1) Total Bilirubin 0.3 mg/dL (0.2-1.0) Aspartate Amino Transf (AST/SGOT) 21 U/L (15-37) Alanine Aminotransferase (ALT/SGPT) 33 U/L (14-59) Alkaline Phosphatase 59 U/L (46-116) Total Protein 6.8 g/dL (6.4-8.2) Albumin 2.8 g/dL (3.4-5.0) Albumin/Globulin Ratio 0.7 (1.0-1.7) Laboratory Tests Test 06/24/20 18:30 06/25/20 04:20 Urine Collection Type Unknown Urine Color Yellow Urine Clarity Clear Urine pH 7.0 (<5.0-8.0) Urine Specific [place] 1.015 (1.000-1.030) Urine Protein Negative mg/dL (NEG-TRACE) Urine Glucose (UA) Negative mg/dL (NEG) Urine Ketones (Stick) Negative mg/dL (NEG) Urine Blood Negative (NEG) Urine Nitrite Negative (NEG) Urine Bilirubin Negative (NEG) Urine Urobilinogen Dipstick 0.2 mg/dL (0.2 mg/dL) Urine Leukocyte Esterase Small (NEG) Urine RBC Rare /HPF (0-2) Urine WBC 5-10 /HPF (0-4) Urine Squamous Epithelial Cells Mod /LPF Urine Bacteria Few /HPF (0-FEW) Urine Hyaline Casts Moderate /HPF Urine Mucus Slight /LPF White Blood Count 8.0 x10^3/uL (4.0-11.0) Red Blood Count 4.27 x10^6/uL (3.50-5.40) Hemoglobin 12.3 g/dL (12.0-15.5) Hematocrit 36.4 % (36.0-47.0) Mean Corpuscular Volume 85 fL (79-100) Mean Corpuscular Hemoglobin 29 pg (25-35) Mean Corpuscular Hemoglobin Concent 34 g/dL (31-37) Red Cell Distribution Width 13.9 % (11.5-14.5) Platelet Count 196 x10^3/uL (140-400) Neutrophils (%) (Auto) 85 % (31-73) Lymphocytes (%) (Auto) 13 % (24-48) Monocytes (%) (Auto) 2 % (0-9) Eosinophils (%) (Auto) 0 % (0-3) Basophils (%) (Auto) 0 % (0-3) Neutrophils # (Auto) 6.8 x10^3/uL (1.8-7.7) Lymphocytes # (Auto) 1.0 x10^3/uL (1.0-4.8) Monocytes # (Auto) 0.2 x10^3/uL (0.0-1.1) Eosinophils # (Auto) 0.0 x10^3/uL (0.0-0.7) Basophils # (Auto) 0.0 x10^3/uL (0.0-0.2) Sodium Level 137 mmol/L (136-145) Potassium Level 3.3 mmol/L (3.5-5.1) Chloride Level 102 mmol/L (98-107) Carbon Dioxide Level 27 mmol/L (21-32) Anion Gap 8 (6-14) Blood Urea Nitrogen 21 mg/dL (7-20) Creatinine 1.2 mg/dL (0.6-1.0) Estimated GFR (Cockcroft-Gault) 43.4 BUN/Creatinine Ratio 18 (6-20) Glucose Level 169 mg/dL (70-99) Calcium Level 8.0 mg/dL (8.5-10.1) Total Bilirubin 0.3 mg/dL (0.2-1.0) Aspartate Amino Transf (AST/SGOT) 21 U/L (15-37) Alanine Aminotransferase (ALT/SGPT) 33 U/L (14-59) Alkaline Phosphatase 59 U/L (46-116) Total Protein 6.8 g/dL (6.4-8.2) Albumin 2.8 g/dL (3.4-5.0) Albumin/Globulin Ratio 0.7 (1.0-1.7) Medications Current Medications Fentanyl Citrate (Fentanyl 2ml Vial) 25 mcg PRN Q5MIN PRN IVP MILD PAIN 1-3; Start 06/23/20 at 06:00; Stop 06/24/20 at 05:59; Status DC Fentanyl Citrate (Fentanyl 2ml Vial) 50 mcg PRN Q5MIN PRN IVP MODERATE PAIN 4-6 Last administered on 06/23/20at 13:14; Start 06/23/20 at 06:00; Stop 06/24/20 at 05:59; Status DC Morphine Sulfate (Morphine Sulfate) 1 mg PRN Q10MIN PRN IVP SEVERE PAIN 7-10 Last administered on 06/23/20at 14:05; Start 06/23/20 at 06:00; Stop 06/24/20 at 05:59; Status DC Ringer's Solution 1,000 ml @ 30 mls/hr Q24H IV Last administered on 06/23/20at 08:39; Start 06/23/20 at 06:00; Stop 06/23/20 at 17:59; Status DC Hydromorphone HCl (Dilaudid) 0.5 mg PRN Q10MIN PRN IVP SEVERE PAIN 7-10, 2nd CHOICE; Start 06/23/20 at 06:00; Stop 06/24/20 at 05:59; Status DC Prochlorperazine Edisylate (Compazine) 5 mg PACU PRN PRN IVP NAUSEA, MRX1; Start 06/23/20 at 06:00; Stop 06/24/20 at 05:59; Status DC Vancomycin HCl 250 ml @ 250 mls/hr 1X PREOP PRN IV PRIOR TO PROCEDURE Last administered on 06/23/20at 09:46; Start 06/23/20 at 06:00; Stop 06/23/20 at 18:00; Status DC Heparin Sodium (Porcine) 5000 unit/Ringer's Solution 505 ml @ 505 mls/hr 1X ONCE IRR Last administered on 06/23/20at 10:45; Start 06/23/20 at 06:00; Stop 06/23/20 at 06:59; Status DC Cellulose (Surgicel Fibrillar 1x2) 1 each STK-MED ONCE .ROUTE Last administered on 06/23/20at 11:42; Start 06/23/20 at 07:55; Stop 06/23/20 at 07:55; Status DC Lidocaine HCl (Xylocaine 1% Pf 30ml Vial) 30 ml STK-MED ONCE .ROUTE Last administered on 06/23/20at 10:45; Start 06/23/20 at 07:55; Stop 06/23/20 at 07:55; Status DC Lidocaine HCl (Xylocaine-Mpf 1% 2ml Vial) 2 ml STK-MED ONCE .ROUTE ; Start 06/23/20 at 09:30; Stop 06/23/20 at 09:30; Status DC Midazolam HCl (Versed) 2 mg STK-MED ONCE .ROUTE ; Start 06/23/20 at 09:31; Stop 06/23/20 at 09:31; Status DC Ropivacaine (Naropin 0.5%) 20 ml STK-MED ONCE .ROUTE ; Start 06/23/20 at 09:32; Stop 06/23/20 at 09:32; Status DC Propofol 50 ml @ As Directed STK-MED ONCE IV ; Start 06/23/20 at 09:42; Stop 06/23/20 at 09:42; Status DC Propofol 50 ml @ As Directed STK-MED ONCE IV ; Start 06/23/20 at 09:47; Stop 06/23/20 at 09:47; Status DC Nicardipine HCl (Cardene) 25 mg STK-MED ONCE IV ; Start 06/23/20 at 10:31; Stop 06/23/20 at 10:32; Status DC Lidocaine HCl (Lidocaine Pf 2% Vial) 5 ml STK-MED ONCE .ROUTE ; Start 06/23/20 at 10:35; Stop 06/23/20 at 10:35; Status DC Bupivacaine HCl/ Epinephrine Bitart (Sensorcain-Epi 0.25% Kit) 30 ml STK-MED ONCE .ROUTE ; Start 06/23/20 at 10:43; Stop 06/23/20 at 10:44; Status DC Lidocaine HCl (Xylocaine 1% Pf 30ml Vial) 30 ml STK-MED ONCE .ROUTE ; Start 06/23/20 at 10:44; Stop 06/23/20 at 10:44; Status DC Hydralazine HCl (Apresoline Inj) 20 mg STK-MED ONCE .ROUTE ; Start 06/23/20 at 10:47; Stop 06/23/20 at 10:47; Status DC Protamine Sulfate (Protamine) 50 mg STK-MED ONCE IV ; Start 06/23/20 at 11:08; Stop 06/23/20 at 11:09; Status DC Lidocaine HCl (Lidocaine Pf 2% Vial) 5 ml STK-MED ONCE .ROUTE ; Start 06/23/20 at 11:08; Stop 06/23/20 at 11:09; Status DC Lidocaine HCl (Xylocaine 1% Pf 30ml Vial) 30 ml 1X ONCE IV ; Start 06/23/20 at 11:15; Stop 06/23/20 at 11:16; Status Cancel Lidocaine/ Epinephrine (LIDOCAINE 1%-EPI 1:100,000 Multi-Dose) 30 ml 1X ONCE INJ Last administered on 06/23/20at 10:45; Start 06/23/20 at 11:30; Stop 06/23/20 at 11:31; Status DC Fentanyl Citrate (Fentanyl 2ml Vial) 100 mcg STK-MED ONCE .ROUTE ; Start at 12:21; Stop 06/23/20 at 12:21; Status DC Labetalol HCl (Normodyne Iv Push) 10 mg PRN Q2HR PRN IVP HYPERTENSION; Start 06/23/20 at 12:45 Oxycodone HCl (Roxicodone) 2.5 mg PRN Q4HRS PRN PO MODERATE PAIN Last administered on 06/23/20at 17:38; Start 06/23/20 at 12:45 Morphine Sulfate (Morphine Sulfate) 2 mg STK-MED ONCE .ROUTE ; Start 06/23/20 at 14:01; Stop 06/23/20 at 14:02; Status DC Aspirin (Ecotrin) 81 mg DAILY PO Last administered on 06/25/20 07:53; Start 06/24/20 at 09:00 Atorvastatin Calcium (Lipitor) 20 mg QHS PO Last administered on 06/24/20 21:39; Start 06/23/20 at 21:00 Bupropion HCl (Wellbutrin Xl) 150 mg DAILY PO Last administered on 06/25/20 07:53; Start 06/24/20 at 09:00 Docusate Sodium (Colace) 100 mg DAILY PO Last administered on 06/24/20 21:39; Start 06/24/20 at 09:00 Gabapentin (Neurontin) 300 mg TID PO Last administered on 06/25/20 07:52; Start 06/23/20 at 21:00 Acetaminophen/ Hydrocodone Bitart (Lortab 5/325) 1 tab PRN Q6HRS PRN PO SEVERE PAIN; Start 06/23/20 at 20:15 Levothyroxine Sodium (Synthroid) 88 mcg DAILYAC PO Last administered on 06/25/20 07:53; Start 06/24/20 at 07:30 Metoprolol Tartrate (Lopressor) 50 mg BID PO Last administered on 06/25/20 07:54; Start 06/23/20 at 21:00 Tramadol HCl (Ultram) 50 mg DAILY PRN PO MILD PAIN 1-3 Last administered on 06/24/20 21:39; Start 06/23/20 at 20:15 Trazodone HCl (Desyrel) 100 mg QHS PO Last administered on 06/24/20 21:39; Start 06/23/20 at 21:00 Pantoprazole Sodium (Protonix) 40 mg BIDAC PO Last administered on 06/25/20 07:53; Start 06/24/20 at 07:30 Hydrochlorothiazide (Hydrodiuril) 25 mg DAILY PO Last administered on 06/25/20 07:53; Start 06/24/20 at 09:00 Multivitamins (Thera M Plus) 1 tab DAILY PO Last administered on 06/25/20 07:52; Start 06/24/20 at 09:00 Oxybutynin Chloride (Ditropan) 5 mg BID PO Last administered on 06/25/20 07:53; Start 06/23/20 at 21:00 Ziprasidone (Geodon) 120 mg QHS PO Last administered on 06/24/20 21:38; Start 06/23/20 at 21:00 Ziprasidone (Geodon) 20 mg QHS PO Last administered on 06/24/20 21:38; Start 06/23/20 at 21:00 Sodium Chloride 1,000 ml @ 75 mls/hr [id number] IV Last administered on 06/24/20 11:37; Start 06/24/20 at 11:30 Sodium Chloride (Normal Saline Flush) 3 ml QSHIFT PRN IV AFTER MEDS AND BLOOD DRAWS; Start 06/24/20 at 11:30 Ondansetron HCl (Zofran) 4 mg PRN Q4HRS PRN IV NAUSEA/VOMITING; Start 06/24/20 at 11:30 Acetaminophen (Tylenol) 650 mg PRN Q4HRS PRN PO TEMP OVER 100.4F OR MILD PAIN; Start 06/24/20 at 11:30 Docusate Sodium (Colace) 100 mg PRN BID PRN PO HARD STOOLS Last administered on 06/25/20 07:53; Start 06/24/20 at 11:30 Albuterol Sulfate (Ventolin Neb Soln) 2.5 mg PRN Q4HRS PRN NEB SHORTNESS OF BREATH; Start 06/24/20 at 11:30 Guaifenesin (Robitussin) 200 mg PRN Q4HRS PRN PO COUGH; Start 06/24/20 at 11:30 Methylprednisolone Acetate (DEPO-Medrol 80MG VIAL) 80 mg 1X ONCE IM Last administered on 06/24/20 13:45; Start 06/24/20 at 13:45; Stop 06/24/20 at 13:46; Status DC Bupivacaine HCl (Sensorcaine-Mpf 0.25%) 10 ml 1X ONCE IJ Last administered on 2/23/21at 13:45; Start 06/24/20 at 13:45; Stop 06/24/20 at 13:46; Status DC Active Scripts Active Culturelle (Lactobacillus Rhamnosus Gg) 1 Each Cap.sprink 1 Cap PO BID 30 Days Klor-Con M20 (Potassium Chloride) 20 Meq Tab.er.prt 20 Meq PO [id number] 14 Days Sertraline Hcl 50 Mg Tablet 100 Mg PO DAILY 30 Days Naproxen 250 Mg Tablet 250 Mg PO PRN BID PRN 30 Days Reported Oyster Shell Calcium + D Tab (Calcium Carbonate/Vitamin D3) 1 Each Tablet 1 Each PO BID Oxybutynin Chloride Er (Oxybutynin Chloride) 10 Mg Tab.er.24 10 Mg PO DAILY Gabapentin 300 Mg Capsule 300 Mg PO TID Hydrocodone-Apap 5-325 (Hydrocodone Bit/Acetaminophen) 1 Tab Tablet 1 Tab PO PRN Q6HRS PRN Tramadol Hcl 50 Mg Tablet 50 Mg PO DAILY PRN Atorvastatin Calcium 20 Mg Tablet 20 Mg PO DAILY Levothyroxine Sodium 88 Mcg Tablet 88 Mcg PO DAILYAC 2 TABS Trazodone Hcl 100 Mg Tablet 1 Tab PO QHS Wellbutrin Xl (Bupropion Hcl) 150 Mg Tab.er.24h 150 Mg PO DAILY Geodon (Ziprasidone Hcl) 80 Mg Capsule 2 Cap PO QHS Nexium Capsule (Esomeprazole Magnesium) 40 Mg Capsule.dr 1 Cap PO BID Metoprolol Tartrate 50 Mg Tablet 1 Tab PO BID Calcium 600 + Vit D 200 Tablet (Calcium Carbonate/Vitamin D3) 1 Each Tablet 1 Each PO BIDWMEALS Hydrochlorothiazide Tablet (Hydrochlorothiazide) 12.5 Mg Tablet 2 Tab PO DAILY Docusate Sodium 100 Mg Capsule 1 Cap PO DAILY Aspir 81 (Aspirin) 81 Mg Tablet.dr 1 Tab PO DAILY Certavite Sr-Antioxidant Tab (Multivits-Min/Fa/Lycopene/Lut) 1 Each Tablet 1 Each PO DAILY Alendronate Sodium 35 Mg Tablet 1 Tab PO WEEKLY Weekly on Sundays Vitals/I & O Vital Sign - Last 24 Hours 06/24/20 06/24/20 06/24/20 06/24/20 15:00 18:56 20:00 21:39 Temp 97.7 98.4 97.7 98.4 Pulse 67 73 73 Resp 16 16 B/P (MAP) 106/40 (62) 100/43 (62) 100/43 Pulse Ox 97 95 O2 Delivery Room Air Room Air Room Air 06/24/20 06/24/20 06/24/20 06/25/20 21:39 22:39 23:00 03:00 Temp 98.7 98.5 98.7 98.5 Pulse 67 65 B/P (MAP) 99/57 (71) 133/65 (87) Pulse Ox 95 95 95 96 O2 Delivery Room Air Room Air Room Air Room Air 06/25/20 06/25/20 06/25/20 07:00 07:54 08:00 Temp 97.6 97.6 Pulse 69 69 Resp 16 B/P (MAP) 146/77 (100) 146/77 Pulse Ox 95 O2 Delivery Room Air Room Air Intake and Output 06/24/20 06/24/20 06/25/20 15:00 23:00 07:00 Intake Total 180 ml 700 ml 350 ml Output Total 300 ml 300 ml Balance 180 ml 400 ml 50 ml Justicifation of Admission Dx: Justifications for Admission: Justification of Admission Dx: Yes Altered Mental Status: Altered Mental Status DOMENICO CASTANEDA MD Jun 25, 2020 10:08
--- NOTE | 2020-06-25 10:27 | PDOC3 ---
Discharge Summary Date of Admission: Jun 24, 2020 Date of Discharge: Jun 25, 2020 Follow-Up: Other (2 weeks) Admitting Diagnosis comment: Chief Complaint Chief Complaint Assessment/Plan Assessment/Plan Assessment/Plan Impression: pod # 2 CAROTID Endarterectomy doing well post op Right carotid stenosis, asymptomatic., severe generalized weakness BRIAN, acute vasomotor nephropathy Chronic gait disorder, UTILIZES walker REMOTE History of C2 fracture, no evidence of myelopathy Cognitive decline tobacco use disorder ADMITTED for observation PT/OT needs home health on discharge , arranged cvc bed less weak PT/OT, [facility] iv fluids scd's feels much better today 06-25-20, appetite better d/c planning 34 min D/W RN Justifications for Admission Other Justification History of Present Illness History of Present Illness Identification/Chief Complaint Chief Complaint weakness, POD # 2 right carotid surgery History of Present Illness History of Present Illness admitted post op weakness, still feels light-headed when up with therapy, no focal weakness cr elevated at 1.4, baseline 1.1 OPERATIVE FINDINGS: The patient had extensive soft plaque at the bifurcation extending onto the internal carotid artery. There was evidence of intraplaque hemorrhage, likely producing the critical stenosis. She tolerated clamping without the need for a shunt. Past Medical History Past Medical History Past Medical History Cardiovascular: HTN, Hyperlipidemia Pulmonary: Bronchitis, COPD CENTRAL NERVOUS SYSTEM: TIA, Other (Mild cognitive impairment) GI: Constipation, Other ( esophageal stricture requiring periodic dilatation) Psych: Anxiety, Depression, Schizophrenia Musculoskeletal: low back pain, Osteoarthritis, Other (C2 cervical fracture) Rheumatologic: Rheumatoid arthritis Renal/: UTI, Other ( bladder spasms) Endocrine: Diabetes, Hypothyroidism Past Surgical History Past Surgical History: Cholecystectomy, Tubal Ligation, Hysterectomy, Other ( esophageal dilatation, breast lumpectomy, right shoulder, right ankle, right arm, Soto's neuroma) Family History Family History: Cancer Social History Social History , lives in assisted living, has been under quarantine, 1/4 pack/day cig arettes, no alcohol Cardiovascular: HTN, Hyperlipidemia Pulmonary: Bronchitis, COPD CENTRAL NERVOUS SYSTEM: TIA, Other GI: Constipation, Other Psych: Anxiety, Depression, Schizophrenia Musculoskeletal: Osteoarthritis, Weakness Rheumatologic: Rheumatoid arthritis Renal/: UTI, Other Endocrine: Diabetes, Hypothyroidism Past Surgical History Past Surgical History: Cholecystectomy, Tubal Ligation, Hysterectomy, Other Family History Family History: No Significant Social History Smoke: <1 pack per day ALCOHOL: none Drugs: None Current Medications Current Medications Current Medications Fentanyl Citrate (Fentanyl 2ml Vial) 25 mcg PRN Q5MIN PRN IVP MILD PAIN 1-3; Start 06/23/20 at 06:00; Stop 06/24/20 at 05:59; Status DC Fentanyl Citrate (Fentanyl 2ml Vial) 50 mcg PRN Q5MIN PRN IVP MODERATE PAIN 4-6 Last administered on 06/23/20at 13:14; Start 06/23/20 at 06:00; Stop 06/24/20 at 05:59; Status DC Morphine Sulfate (Morphine Sulfate) 1 mg PRN Q10MIN PRN IVP SEVERE PAIN 7-10 Last administered on 06/23/20at 14:05; Start 06/23/20 at 06:00; Stop 06/24/20 at 05:59; Status DC Ringer's Solution 1,000 ml @ 30 mls/hr Q24H IV Last administered on 06/23/20at 08:39; Start 06/23/20 at 06:00; Stop 06/23/20 at 17:59; Status DC Hydromorphone HCl (Dilaudid) 0.5 mg PRN Q10MIN PRN IVP SEVERE PAIN 7-10, 2nd CHOICE; Start 06/23/20 at 06:00; Stop 06/24/20 at 05:59; Status DC Prochlorperazine Edisylate (Compazine) 5 mg PACU PRN PRN IVP NAUSEA, MRX1; Start 06/23/20 at 06:00; Stop 06/24/20 at 05:59; Status DC Vancomycin HCl 250 ml @ 250 mls/hr 1X PREOP PRN IV PRIOR TO PROCEDURE Last administered on 06/23/20at 09:46; Start 06/23/20 at 06:00; Stop 06/23/20 at 18:00; Status DC Heparin Sodium (Porcine) 5000 unit/Ringer's Solution 505 ml @ 505 mls/hr 1X ONCE IRR Last administered on 06/23/20at 10:45; Start 06/23/20 at 06:00; Stop 06/23/20 at 06:59; Status DC Cellulose (Surgicel Fibrillar 1x2) 1 each STK-MED ONCE .ROUTE Last administered on 06/23/20at 11:42; Start 06/23/20 at 07:55; Stop 06/23/20 at 07:55; Status DC Lidocaine HCl (Xylocaine 1% Pf 30ml Vial) 30 ml STK-MED ONCE .ROUTE Last administered on 06/23/20at 10:45; Start 06/23/20 at 07:55; Stop 06/23/20 at 07:55; Status DC Lidocaine HCl (Xylocaine-Mpf 1% 2ml Vial) 2 ml STK-MED ONCE .ROUTE ; Start 06/23/20 at 09:30; Stop 06/23/20 at 09:30; Status DC Midazolam HCl (Versed) 2 mg STK-MED ONCE .ROUTE ; Start 06/23/20 at 09:31; Stop 06/23/20 at 09:31; Status DC Ropivacaine (Naropin 0.5%) 20 ml STK-MED ONCE .ROUTE ; Start 06/23/20 at 09:32; Stop 06/23/20 at 09:32; Status DC Propofol 50 ml @ As Directed STK-MED ONCE IV ; Start 06/23/20 at 09:42; Stop 06/23/20 at 09:42; Status DC Propofol 50 ml @ As Directed STK-MED ONCE IV ; Start 06/23/20 at 09:47; Stop 06/23/20 at 09:47; Status DC Nicardipine HCl (Cardene) 25 mg STK-MED ONCE IV ; Start 06/23/20 at 10:31; Stop 06/23/20 at 10:32; Status DC Lidocaine HCl (Lidocaine Pf 2% Vial) 5 ml STK-MED ONCE .ROUTE ; Start 06/23/20 at 10:35; Stop 06/23/20 at 10:35; Status DC Bupivacaine HCl/ Epinephrine Bitart (Sensorcain-Epi 0.25% Kit) 30 ml STK-MED ONCE .ROUTE ; Start 06/23/20 at 10:43; Stop 06/23/20 at 10:44; Status DC Lidocaine HCl (Xylocaine 1% Pf 30ml Vial) 30 ml STK-MED ONCE .ROUTE ; Start 06/23/20 at 10:44; Stop 06/23/20 at 10:44; Status DC Hydralazine HCl (Apresoline Inj) 20 mg STK-MED ONCE .ROUTE ; Start 06/23/20 at 10:47; Stop 06/23/20 at 10:47; Status DC Protamine Sulfate (Protamine) 50 mg STK-MED ONCE IV ; Start 06/23/20 at 11:08; Stop 06/23/20 at 11:09; Status DC Lidocaine HCl (Lidocaine Pf 2% Vial) 5 ml STK-MED ONCE .ROUTE ; Start 06/23/20 at 11:08; Stop 06/23/20 at 11:09; Status DC Lidocaine HCl (Xylocaine 1% Pf 30ml Vial) 30 ml 1X ONCE IV ; Start 06/23/20 at 11:15; Stop 06/23/20 at 11:16; Status Cancel Lidocaine/ Epinephrine (LIDOCAINE 1%-EPI 1:100,000 Multi-Dose) 30 ml 1X ONCE INJ Last administered on 06/23/20at 10:45; Start 06/23/20 at 11:30; Stop 06/23/20 at 11:31; Status DC Fentanyl Citrate (Fentanyl 2ml Vial) 100 mcg STK-MED ONCE .ROUTE ; Start 06/23/20 at 12:21; Stop 06/23/20 at 12:21; Status DC Labetalol HCl (Normodyne Iv Push) 10 mg PRN Q2HR PRN IVP HYPERTENSION; Start 06/23/20 at 12:45 Oxycodone HCl (Roxicodone) 2.5 mg PRN Q4HRS PRN PO MODERATE PAIN Last administered on 06/23/20at 17:38; Start 06/23/20 at 12:45 Morphine Sulfate (Morphine Sulfate) 2 mg STK-MED ONCE .ROUTE ; Start 06/23/20 at 14:01; Stop 06/23/20 at 14:02; Status DC Aspirin (Ecotrin) 81 mg DAILY PO Last administered on 06/24/20at 08:11; Start 06/24/20 at 09:00 Atorvastatin Calcium (Lipitor) 20 mg QHS PO Last administered on 06/23/20at 20:3 8; Start 06/23/20 at 21:00 Bupropion HCl (Wellbutrin Xl) 150 mg DAILY PO Last administered on 06/24/20at 08:10; Start 06/24/20 at 09:00 Docusate Sodium (Colace) 100 mg DAILY PO Last administered on 06/24/20at 08:12; Start 06/24/20 at 09:00 Gabapentin (Neurontin) 300 mg TID PO Last administered on 06/24/20at 08:12; Start 06/23/20 at 21:00 Acetaminophen/ Hydrocodone Bitart (Lortab 5/325) 1 tab PRN Q6HRS PRN PO SEVERE PAIN; Start 06/23/20 at 20:15 Levothyroxine Sodium (Synthroid) 88 mcg DAILYAC PO Last administered on 06/24/20at 08:10; Start 06/24/20 at 07:30 Metoprolol Tartrate (Lopressor) 50 mg BID PO Last administered on 06/24/20at 08:15; Start 06/23/20 at 21:00 Tramadol HCl (Ultram) 50 mg DAILY PRN PO MILD PAIN 1-3; Start 06/23/20 at 20:15 Trazodone HCl (Desyrel) 100 mg QHS PO Last administered on 06/23/20at 20:37; Start 06/23/20 at 21:00 Pantoprazole Sodium (Protonix) 40 mg BIDAC PO Last administered on 06/24/20at 07:30; Start 06/24/20 at 07:30 Hydrochlorothiazide (Hydrodiuril) 25 mg DAILY PO Last administered on 06/24/20at 08:11; Start 06/24/20 at 09:00 Multivitamins (Thera M Plus) 1 tab DAILY PO Last administered on 06/24/20at 0 8:12; Start 06/24/20 at 09:00 Oxybutynin Chloride (Ditropan) 5 mg BID PO Last administered on 06/24/20at 08:11; Start 06/23/20 at 21:00 Ziprasidone (Geodon) 120 mg QHS PO Last administered on 06/23/20at 20:36; Start 06/23/20 at 21:00 Ziprasidone (Geodon) 20 mg QHS PO Last administered on 06/23/20at 20:37; Start 06/23/20 at 21:00 Brief Hospital Course Ms. Levin is a 79 old [sex] who presented with [post op carotid surgery ] CONDITION AT DISCHARGE: Improved Discharge Medications Current Medications Fentanyl Citrate (Fentanyl 2ml Vial) 25 mcg PRN Q5MIN PRN IVP MILD PAIN 1-3; Start 06/23/20 at 06:00; Stop 06/24/20 at 05:59; Status DC Fentanyl Citrate (Fentanyl 2ml Vial) 50 mcg PRN Q5MIN PRN IVP MODERATE PAIN 4-6 Last administered on 06/23/20at 13:14; Start 06/23/20 at 06:00; Stop 06/24/20 at 05:59; Status DC Morphine Sulfate (Morphine Sulfate) 1 mg PRN Q10MIN PRN IVP SEVERE PAIN 7-10 Last administered on 06/23/20at 14:05; Start 06/23/20 at 06:00; Stop 06/24/20 at 05:59; Status DC Ringer's Solution 1,000 ml @ 30 mls/hr Q24H IV Last administered on 06/23/20at 08:39; Start 06/23/20 at 06:00; Stop 06/23/20 at 17:59; Status DC Hydromorphone HCl (Dilaudid) 0.5 mg PRN Q10MIN PRN IVP SEVERE PAIN 7-10, 2nd CHOICE; Start 06/23/20 at 06:00; Stop 06/24/20 at 05:59; Status DC Prochlorperazine Edisylate (Compazine) 5 mg PACU PRN PRN IVP NAUSEA, MRX1; Start 06/23/20 at 06:00; Stop 06/24/20 at 05:59; Status DC Vancomycin HCl 250 ml @ 250 mls/hr 1X PREOP PRN IV PRIOR TO PROCEDURE Last administered on 06/23/20at 09:46; Start 06/23/20 at 06:00; Stop 06/23/20 at 18:00; Status DC Heparin Sodium (Porcine) 5000 unit/Ringer's Solution 505 ml @ 505 mls/hr 1X ONCE IRR Last administered on 06/23/20at 10:45; Start 06/23/20 at 06:00; Stop 06/23/20 at 06:59; Status DC Cellulose (Surgicel Fibrillar 1x2) 1 each STK-MED ONCE .ROUTE Last administered on 06/23/20at 11:42; Start 06/23/20 at 07:55; Stop 06/23/20 at 07:55; Status DC Lidocaine HCl (Xylocaine 1% Pf 30ml Vial) 30 ml STK-MED ONCE .ROUTE Last administered on 06/23/20at 10:45; Start 06/23/20 at 07:55; Stop 06/23/20 at 07:55; Status DC Lidocaine HCl (Xylocaine-Mpf 1% 2ml Vial) 2 ml STK-MED ONCE .ROUTE ; Start 06/23/20 at 09:30; Stop 06/23/20 at 09:30; Status DC Midazolam HCl (Versed) 2 mg STK-MED ONCE .ROUTE ; Start 06/23/20 at 09:31; Stop 06/23/20 at 09:31; Status DC Ropivacaine (Naropin 0.5%) 20 ml STK-MED ONCE .ROUTE ; Start 06/23/20 at 09:32; Stop 06/23/20 at 09:32; Status DC Propofol 50 ml @ As Directed STK-MED ONCE IV ; Start 06/23/20 at 09:42; Stop 06/23/20 at 09:42; Status DC Propofol 50 ml @ As Directed STK-MED ONCE IV ; Start 06/23/20 at 09:47; Stop 06/23/20 at 09:47; Status DC Nicardipine HCl (Cardene) 25 mg STK-MED ONCE IV ; Start 06/23/20 at 10:31; Stop 06/23/20 at 10:32; Status DC Lidocaine HCl (Lidocaine Pf 2% Vial) 5 ml STK-MED ONCE .ROUTE ; Start 06/23/20 at 10:35; Stop 06/23/20 at 10:35; Status DC Bupivacaine HCl/ Epinephrine Bitart (Sensorcain-Epi 0.25% Kit) 30 ml STK-MED ONCE .ROUTE ; Start 06/23/20 at 10:43; Stop 06/23/20 at 10:44; Status DC Lidocaine HCl (Xylocaine 1% Pf 30ml Vial) 30 ml STK-MED ONCE .ROUTE ; Start 06/23/20 at 10:44; Stop 06/23/20 at 10:44; Status DC Hydralazine HCl (Apresoline Inj) 20 mg STK-MED ONCE .ROUTE ; Start 06/23/20 at 10:47; Stop 06/23/20 at 10:47; Status DC Protamine Sulfate (Protamine) 50 mg STK-MED ONCE IV ; Start 06/23/20 at 11:08; Stop 06/23/20 at 11:09; Status DC Lidocaine HCl (Lidocaine Pf 2% Vial) 5 ml STK-MED ONCE .ROUTE ; Start 06/23/20 at 11:08; Stop 06/23/20 at 11:09; Status DC Lidocaine HCl (Xylocaine 1% Pf 30ml Vial) 30 ml 1X ONCE IV ; Start 06/23/20 at 11:15; Stop 06/23/20 at 11:16; Status Cancel Lidocaine/ Epinephrine (LIDOCAINE 1%-EPI 1:100,000 Multi-Dose) 30 ml 1X ONCE INJ Last administered on 06/23/20at 10:45; Start 06/23/20 at 11:30; Stop 06/23/20 at 11:31; Status DC Fentanyl Citrate (Fentanyl 2ml Vial) 100 mcg STK-MED ONCE .ROUTE ; Start 06/23/20 at 12:21; Stop 06/23/20 at 12:21; Status DC Labetalol HCl (Normodyne Iv Push) 10 mg PRN Q2HR PRN IVP HYPERTENSION; Start 06/23/20 at 12:45 Oxycodone HCl (Roxicodone) 2.5 mg PRN Q4HRS PRN PO MODERATE PAIN Last administered on 06/23/20at 17:38; Start 06/23/20 at 12:45 Morphine Sulfate (Morphine Sulfate) 2 mg STK-MED ONCE .ROUTE ; Start 06/23/20 at 14:01; Stop 06/23/20 at 14:02; Status DC Aspirin (Ecotrin) 81 mg DAILY PO Last administered on 06/25/20at 07:53; Start 06/24/20 at 09:00 Atorvastatin Calcium (Lipitor) 20 mg QHS PO Last administered on 06/24/20at 21:39; Start 06/23/20 at 21:00 Bupropion HCl (Wellbutrin Xl) 150 mg DAILY PO Last administered on 06/25/20at 07:53; Start 06/24/20 at 09:00 Docusate Sodium (Colace) 100 mg DAILY PO Last administered on 06/24/20at 21:39; Start 06/24/20 at 09:00 Gabapentin (Neurontin) 300 mg TID PO Last administered on 06/25/20at 07:52; Start 06/23/20 at 21:00 Acetaminophen/ Hydrocodone Bitart (Lortab 5/325) 1 tab PRN Q6HRS PRN PO SEVERE PAIN; Start 06/23/20 at 20:15 Levothyroxine Sodium (Synthroid) 88 mcg DAILYAC PO Last administered on 07:53; Start 06/24/20 at 07:30 Metoprolol Tartrate (Lopressor) 50 mg BID PO Last administered on 06/25/20 07:54; Start 06/23/20 at 21:00 Tramadol HCl (Ultram) 50 mg DAILY PRN PO MILD PAIN 1-3 Last administered on 06/24/20 21:39; Start 06/23/20 at 20:15 Trazodone HCl (Desyrel) 100 mg QHS PO Last administered on 06/24/20 21:39; Start 06/23/20 at 21:00 Pantoprazole Sodium (Protonix) 40 mg BIDAC PO Last administered on 06/25/20 07:53; Start 06/24/20 at 07:30 Hydrochlorothiazide (Hydrodiuril) 25 mg DAILY PO Last administered on 06/25/20 07:53; Start 06/24/20 at 09:00 Multivitamins (Thera M Plus) 1 tab DAILY PO Last administered on 06/25/20 07:52; Start 06/24/20 at 09:00 Oxybutynin Chloride (Ditropan) 5 mg BID PO Last administered on 06/25/20 07:53; Start 06/23/20 at 21:00 Ziprasidone (Geodon) 120 mg QHS PO Last administered on 06/24/20 21:38; Start 06/23/20 at 21:00 Ziprasidone (Geodon) 20 mg QHS PO Last administered on 06/24/20 21:38; Start 06/23/20 at 21:00 Sodium Chloride 1,000 ml @ 75 mls/hr [id number] IV Last administered on 06/24/20 11:37; Start 06/24/20 at 11:30 Sodium Chloride (Normal Saline Flush) 3 ml QSHIFT PRN IV AFTER MEDS AND BLOOD DRAWS; Start 06/24/20 at 11:30 Ondansetron HCl (Zofran) 4 mg PRN Q4HRS PRN IV NAUSEA/VOMITING; Start 06/24/20 at 11:30 Acetaminophen (Tylenol) 650 mg PRN Q4HRS PRN PO TEMP OVER 100.4F OR MILD PAIN; Start 06/24/20 at 11:30 Docusate Sodium (Colace) 100 mg PRN BID PRN PO HARD STOOLS Last administered on 06/25/20at 07:53; Start 06/24/20 at 11:30 Albuterol Sulfate (Ventolin Neb Soln) 2.5 mg PRN Q4HRS PRN NEB SHORTNESS OF BREATH; Start 06/24/20 at 11:30 Guaifenesin (Robitussin) 200 mg PRN Q4HRS PRN PO COUGH; Start 06/24/20 at 11:30 Methylprednisolone Acetate (DEPO-Medrol 80MG VIAL) 80 mg 1X ONCE IM Last administered on 06/24/20at 13:45; Start 06/24/20 at 13:45; Stop 06/24/20 at 13:46; Status DC Bupivacaine HCl (Sensorcaine-Mpf 0.25%) 10 ml 1X ONCE IJ Last administered on 06/24/20at 13:45; Start 06/24/20 at 13:45; Stop 06/24/20 at 13:46; Status DC Active Scripts Active Culturelle (Lactobacillus Rhamnosus Gg) 1 Each Cap.sprink 1 Cap PO BID 30 Days Klor-Con M20 (Potassium Chloride) 20 Meq Tab.er.prt 20 Meq PO DAILYWBKFT 14 Days Sertraline Hcl 50 Mg Tablet 100 Mg PO DAILY 30 Days Naproxen 250 Mg Tablet 250 Mg PO PRN BID PRN 30 Days Reported Oyster Shell Calcium + D Tab (Calcium Carbonate/Vitamin D3) 1 Each Tablet 1 Each PO BID Oxybutynin Chloride Er (Oxybutynin Chloride) 10 Mg Tab.er.24 10 Mg PO DAILY Gabapentin 300 Mg Capsule 300 Mg PO TID Hydrocodone-Apap 5-325 (Hydrocodone Bit/Acetaminophen) 1 Tab Tablet 1 Tab PO PRN Q6HRS PRN Tramadol Hcl 50 Mg Tablet 50 Mg PO DAILY PRN Atorvastatin Calcium 20 Mg Tablet 20 Mg PO DAILY Levothyroxine Sodium 88 Mcg Tablet 88 Mcg PO DAILYAC 2 TABS Trazodone Hcl 100 Mg Tablet 1 Tab PO QHS Wellbutrin Xl (Bupropion Hcl) 150 Mg Tab.er.24h 150 Mg PO DAILY Geodon (Ziprasidone Hcl) 80 Mg Capsule 2 Cap PO QHS Nexium Capsule (Esomeprazole Magnesium) 40 Mg Capsule.dr 1 Cap PO BID Metoprolol Tartrate 50 Mg Tablet 1 Tab PO BID Calcium 600 + Vit D 200 Tablet (Calcium Carbonate/Vitamin D3) 1 Each Tablet 1 Each PO BIDWMEALS Hydrochlorothiazide Tablet (Hydrochlorothiazide) 12.5 Mg Tablet 2 Tab PO DAILY Docusate Sodium 100 Mg Capsule 1 Cap PO DAILY Aspir 81 (Aspirin) 81 Mg Tablet.dr 1 Tab PO DAILY Certavite Sr-Antioxidant Tab (Multivits-Min/Fa/Lycopene/Lut) 1 Each Tablet 1 Each PO DAILY Alendronate Sodium 35 Mg Tablet 1 Tab PO WEEKLY Weekly on Sundays Vital Signs Vital Signs Date Time Temp Pulse Resp B/P (MAP) Pulse Ox O2 Delivery O2 Flow Rate FiO2 06/25/20 08:00 Room Air 06/25/20 07:54 69 146/77 06/25/20 07:00 97.6 16 95 97.6 Labs Laboratory Tests Test 06/24/20 18:30 06/25/20 04:20 Urine Collection Type Unknown Urine Color Yellow Urine Clarity Clear Urine pH 7.0 (<5.0-8.0) Urine Specific [place] 1.015 (1.000-1.030) Urine Protein Negative mg/dL (NEG-TRACE) Urine Glucose (UA) Negative mg/dL (NEG) Urine Ketones (Stick) Negative mg/dL (NEG) Urine Blood Negative (NEG) Urine Nitrite Negative (NEG) Urine Bilirubin Negative (NEG) Urine Urobilinogen Dipstick 0.2 mg/dL (0.2 mg/dL) Urine Leukocyte Esterase Small (NEG) Urine RBC Rare /HPF (0-2) Urine WBC 5-10 /HPF (0-4) Urine Squamous Epithelial Cells Mod /LPF Urine Bacteria Few /HPF (0-FEW) Urine Hyaline Casts Moderate /HPF Urine Mucus Slight /LPF White Blood Count 8.0 x10^3/uL (4.0-11.0) Red Blood Count 4.27 x10^6/uL (3.50-5.40) Hemoglobin 12.3 g/dL (12.0-15.5) Hematocrit 36.4 % (36.0-47.0) Mean Corpuscular Volume 85 fL (79-100) Mean Corpuscular Hemoglobin 29 pg (25-35) Mean Corpuscular Hemoglobin Concent 34 g/dL (31-37) Red Cell Distribution Width 13.9 % (11.5-14.5) Platelet Count 196 x10^3/uL (140-400) Neutrophils (%) (Auto) 85 % (31-73) Lymphocytes (%) (Auto) 13 % (24-48) Monocytes (%) (Auto) 2 % (0-9) Eosinophils (%) (Auto) 0 % (0-3) Basophils (%) (Auto) 0 % (0-3) Neutrophils # (Auto) 6.8 x10^3/uL (1.8-7.7) Lymphocytes # (Auto) 1.0 x10^3/uL (1.0-4.8) Monocytes # (Auto) 0.2 x10^3/uL (0.0-1.1) Eosinophils # (Auto) 0.0 x10^3/uL (0.0-0.7) Basophils # (Auto) 0.0 x10^3/uL (0.0-0.2) Sodium Level 137 mmol/L (136-145) Potassium Level 3.3 mmol/L (3.5-5.1) Chloride Level 102 mmol/L (98-107) Carbon Dioxide Level 27 mmol/L (21-32) Anion Gap 8 (6-14) Blood Urea Nitrogen 21 mg/dL (7-20) Creatinine 1.2 mg/dL (0.6-1.0) Estimated GFR (Cockcroft-Gault) 43.4 BUN/Creatinine Ratio 18 (6-20) Glucose Level 169 mg/dL (70-99) Calcium Level 8.0 mg/dL (8.5-10.1) Total Bilirubin 0.3 mg/dL (0.2-1.0) Aspartate Amino Transf (AST/SGOT) 21 U/L (15-37) Alanine Aminotransferase (ALT/SGPT) 33 U/L (14-59) Alkaline Phosphatase 59 U/L (46-116) Total Protein 6.8 g/dL (6.4-8.2) Albumin 2.8 g/dL (3.4-5.0) Albumin/Globulin Ratio 0.7 (1.0-1.7) Laboratory Tests Test 06/24/20 18:30 2/24/21 04:20 Urine Collection Type Unknown Urine Color Yellow Urine Clarity Clear Urine pH 7.0 (<5.0-8.0) Urine Specific [place] 1.015 (1.000-1.030) Urine Protein Negative mg/dL (NEG-TRACE) Urine Glucose (UA) Negative mg/dL (NEG) Urine Ketones (Stick) Negative mg/dL (NEG) Urine Blood Negative (NEG) Urine Nitrite Negative (NEG) Urine Bilirubin Negative (NEG) Urine Urobilinogen Dipstick 0.2 mg/dL (0.2 mg/dL) Urine Leukocyte Esterase Small (NEG) Urine RBC Rare /HPF (0-2) Urine WBC 5-10 /HPF (0-4) Urine Squamous Epithelial Cells Mod /LPF Urine Bacteria Few /HPF (0-FEW) Urine Hyaline Casts Moderate /HPF Urine Mucus Slight /LPF White Blood Count 8.0 x10^3/uL (4.0-11.0) Red Blood Count 4.27 x10^6/uL (3.50-5.40) Hemoglobin 12.3 g/dL (12.0-15.5) Hematocrit 36.4 % (36.0-47.0) Mean Corpuscular Volume 85 fL (79-100) Mean Corpuscular Hemoglobin 29 pg (25-35) Mean Corpuscular Hemoglobin Concent 34 g/dL (31-37) Red Cell Distribution Width 13.9 % (11.5-14.5) Platelet Count 196 x10^3/uL (140-400) Neutrophils (%) (Auto) 85 % (31-73) Lymphocytes (%) (Auto) 13 % (24-48) Monocytes (%) (Auto) 2 % (0-9) Eosinophils (%) (Auto) 0 % (0-3) Basophils (%) (Auto) 0 % (0-3) Neutrophils # (Auto) 6.8 x10^3/uL (1.8-7.7) Lymphocytes # (Auto) 1.0 x10^3/uL (1.0-4.8) Monocytes # (Auto) 0.2 x10^3/uL (0.0-1.1) Eosinophils # (Auto) 0.0 x10^3/uL (0.0-0.7) Basophils # (Auto) 0.0 x10^3/uL (0.0-0.2) Sodium Level 137 mmol/L (136-145) Potassium Level 3.3 mmol/L (3.5-5.1) Chloride Level 102 mmol/L (98-107) Carbon Dioxide Level 27 mmol/L (21-32) Anion Gap 8 (6-14) Blood Urea Nitrogen 21 mg/dL (7-20) Creatinine 1.2 mg/dL (0.6-1.0) Estimated GFR (Cockcroft-Gault) 43.4 BUN/Creatinine Ratio 18 (6-20) Glucose Level 169 mg/dL (70-99) Calcium Level 8.0 mg/dL (8.5-10.1) Total Bilirubin 0.3 mg/dL (0.2-1.0) Aspartate Amino Transf (AST/SGOT) 21 U/L (15-37) Alanine Aminotransferase (ALT/SGPT) 33 U/L (14-59) Alkaline Phosphatase 59 U/L (46-116) Total Protein 6.8 g/dL (6.4-8.2) Albumin 2.8 g/dL (3.4-5.0) Albumin/Globulin Ratio 0.7 (1.0-1.7) Allergies Allergies Coded Allergies Type Severity Reaction Last Updated Verified Penicillins Allergy Intermediate Hives 06/23/20 Yes propoxyphene Allergy Mild Nausea and Vomiting 06/23/20 Yes Disposition/Orders: D/C to Home w/ HH Justicifation of Admission Dx: Justifications for Admission: Justification of Admission Dx: Yes Altered Mental Status: Altered Mental Status DOMENICO CASTANEDA MD Jun 25, 2020 10:27
[2020-06-25 10:28] VITALS: BP 129/52
[2020-06-25] MEDS ORDERED: GUAI100L12 PO (10:31)
[2020-06-25] MEDS ORDERED: HYDR-2761 PO (10:31)
[2020-06-25] MEDS ORDERED: ACET325T21 PO (10:31)
--- NOTE | 2020-06-25 10:34 | SNU/HH DC ---
DISCHARGE WITH HOME HEALTH DISCHARGE INFORMATION: Condition on Discharge: Stable CODE STATUS: Code Status: Full HOME HEALTH: Face to Face: I certify this patient is under my care and that I, or a nurse practitioner or physician's buyer assistant working with me, had a face to face encounter that meets the physician face to face encounter requirements with this patient on []. Medical Complications: COPD, Other (carotid stenosis) RN For Eval/Treatment: Yes Physical Therapy For: Evalulation/Treatment Occupational Therapy For: Evaluation/Treatment Speech Language Pathology For: Evaluation/Treatment Home Health Aide For: Self-care [employer] For: Community Resources Pt Meets Homebound Status: Fatigue w/ amb., Poor cognition POST DISCHARGE ORDERS: Activity Instructions for Disc: Activity as tolerated DIET AFTER DISCHARGE: Cardiac Wound/Incision Care: Ice to area for comfort CHECKS AFTER DISCHARGE: Checks after discharge: Check blood press - daily, Check blood sugar, ac/hs FOLLOW-UP: PCP to follow Home Health: pcp in 2 weeks, vascular surgery 2-3 weeks Additional Instructions: post op instructions per vascular surgery TREATMENT/EQUIPMENT ORDERS: Adaptive Equipment Issued: Front wheeled walker CERTIFICATION STATEMENT: Certification Statement: Certification Statement: Based on the above finding, I certify that this patient is confined to the home and needs intermittent jail care, physical therapy and/or speech therapy, or continues to need occupational therapy.~ This patient is under my care, and I have initiated the establishment of the plan of care.~ This patient will be followed by myself or a community physician who will periodically review the plan of care. Home Meds Active Scripts Hydrocodone Bit/Acetaminophen (HYDROCODONE-APAP 5-325 ) 1 Tab Tablet, 1 TAB PO PRN Q6HRS PRN for SEVERE PAIN for 10 Days, #20 TAB Prov:DOMENICO CASTANEDA MD 06/25/20 Guaifenesin (GUAIFENESIN) 100 Mg/5 Ml Liquid, 200 MG PO PRN Q4HRS PRN for COUGH for 14 Days, #120 LIQUID Prov:DOMENICO CASTANEDA MD 06/25/20 Acetaminophen (ACETAMINOPHEN) 325 Mg Tablet, 650 MG PO PRN Q4HRS PRN for TEMP OVER 100.4F OR MILD PAIN for 14 Days, #60 TAB Prov:DOMENICO CASTNAEDA MD 06/25/20 Lactobacillus Rhamnosus Gg (CULTURELLE) 1 Each Cap.sprink, 1 CAP PO BID for SUPPLEMENT for 30 Days, #60 CAP Prov:DOMENICO CASTANEDA MD 10/23/19 Potassium Chloride (KLOR-CON M20) 20 Meq Tab.er.prt, 20 MEQ PO DAILYWBKFT for SUPPLEMENT for 14 Days, #14 TAB.SR Prov:DOMENICO CASTANEDA MD 10/23/19 Reported Medications Calcium Carbonate/Vitamin D3 (OYSTER SHELL CALCIUM + D TAB) 1 Each Tablet, 1 EACH PO BID for SUPPLEMENT, TAB 06/19/20 Oxybutynin Chloride (OXYBUTYNIN CHLORIDE ER) 10 Mg Tab.er.24, 10 MG PO DAILY for BLADDER , TAB.SR 06/19/20 Gabapentin (GABAPENTIN) 300 Mg Capsule, 300 MG PO TID for NEUROGENIC PAIN, CAP 06/19/20 Atorvastatin Calcium (ATORVASTATIN CALCIUM) 20 Mg Tablet, 20 MG PO DAILY for FOR CHOLESTEROL, #30 TAB 0 Refills 06/19/20 Levothyroxine Sodium (LEVOTHYROXINE SODIUM) 88 Mcg Tablet, 88 MCG PO DAILYAC for THYROID SUPPLEMENT, #30 TAB 0 Refills 2 TABS 06/19/20 Trazodone Hcl (TRAZODONE HCL) 100 Mg Tablet, 1 TAB PO QHS for sleeping, #30 TAB 1 Refill 10/22/19 Bupropion Hcl (WELLBUTRIN XL) 150 Mg Tab.er.24h, 150 MG PO DAILY for mood, TAB.SR 11/24/18 Ziprasidone Hcl (GEODON) 80 Mg Capsule, 2 CAP PO QHS, #60 CAP 1 Refill 09/02/16 Esomeprazole Magnesium (NEXIUM CAPSULE) 40 Mg Capsule.dr, 1 CAP PO BID, #30 CAP 5 Refills 09/02/16 Metoprolol Tartrate (METOPROLOL TARTRATE) 50 Mg Tablet, 1 TAB PO BID, #60 TAB 5 Refills 09/02/16 Calcium Carbonate/Vitamin D3 (CALCIUM 600 + VIT D 200 TABLET) 1 Each Tablet, 1 EACH PO BIDWMEALS, TAB 09/02/16 Hydrochlorothiazide (HYDROCHLOROTHIAZIDE TABLET) 12.5 Mg Tablet, 2 TAB PO DAILY, #30 TAB 5 Refills 09/02/16 Docusate Sodium (DOCUSATE SODIUM) 100 Mg Capsule, 1 CAP PO DAILY, #30 CAP 09/02/16 Aspirin (ASPIR 81) 81 Mg Tablet.dr, 1 TAB PO DAILY, #30 TAB 5 Refills 09/02/16 Multivits-Min/Fa/Lycopene/Lut (CERTAVITE SR-ANTIOXIDANT TAB) 1 Each Tablet, 1 EACH PO DAILY, TAB 09/02/16 Alendronate Sodium (ALENDRONATE SODIUM) 35 Mg Tablet, 1 TAB PO WEEKLY, #4 TAB 11 Refills Weekly on Sundays09/02/16 Discontinued Reported Medications Hydrocodone Bit/Acetaminophen (HYDROCODONE-APAP 5-325 ) 1 Tab Tablet, 1 TAB PO PRN Q6HRS PRN for PAIN, TAB 0 Refills 06/19/20 Tramadol Hcl (TRAMADOL HCL) 50 Mg Tablet, 50 MG PO DAILY PRN for PAIN, TAB 0 Refills 06/19/20 Levothyroxine Sodium (LEVOTHYROXINE SODIUM) 200 Mcg Tablet, 1 TAB PO DAILY06, #30 TAB 5 Refills 12/11/16 Discontinued Scripts Sertraline Hcl (SERTRALINE HCL) 50 Mg Tablet, 100 MG PO DAILY for MOOD for 30 Days, #60 TAB Prov:DOMENICO CASTANEDA MD 10/23/19 Naproxen (NAPROXEN) 250 Mg Tablet, 250 MG PO PRN BID PRN for INFLAMMATION for 30 Days, #60 TAB Prov:DOMENICO CASTANEDA MD 10/23/19 DOMENICO CASTANEDA MD Jun 25, 2020 10:33
--- NOTE | 2020-06-25 11:15 | NUR ---
SS following up with discharge planning. SS reviewed pt chart and discussed with pt RN. Pt is currently on room air. PT/OT recommended home with home healthcare. Discharge orders received for home healthcare. SS phoned and faxed discharge orders and clinical to [facility], ; fax [phone] and [facility], ; fax [phone]. SS notified that pt needs transportation. [facility] transportation full. Pt will discharge today and return to [facility] between 1300 and 1330 via [facility] transportation. Pt and pt's RN notified. SS left voicemail for pt's family.
== END 2020-06-25 13:25 | disposition home health service (06) | DRG 37 ==
LOC: OPSVCIP 06-23 07:35 → 2 NORTH 06-23 14:48
PROVIDERS: ADMIT Internal Medicine; ATTEND Internal Medicine
PROC: 03CK0ZZ Extirpation of Matter from Right Internal Carotid Artery, Open Approach (ICD-10-PCS; 2020-06-23)
PROC: 03CM0ZZ Extirpation of Matter from Right External Carotid Artery, Open Approach (ICD-10-PCS; 2020-06-23)
PROC: 03CH0ZZ Extirpation of Matter from Right Common Carotid Artery, Open Approach (ICD-10-PCS; principal; 2020-06-23 10:00)
DX: I65.21 Occlusion and stenosis of right carotid artery (principal); N17.0 Acute kidney failure with tubular necrosis; R26.9 Unspecified abnormalities of gait and mobility; E78.5 Hyperlipidemia, unspecified; I10 Essential (primary) hypertension; J44.9 Chronic obstructive pulmonary disease, unspecified; Z86.73 Personal history of transient ischemic attack (TIA), and cerebral infarction without residual deficits; G31.84 Mild cognitive impairment of uncertain or unknown etiology; F20.9 Schizophrenia, unspecified; F32.9 Major depressive disorder, single episode, unspecified; F41.9 Anxiety disorder, unspecified; M06.9 Rheumatoid arthritis, unspecified; E03.9 Hypothyroidism, unspecified; E11.9 Type 2 diabetes mellitus without complications; Z90.49 Acquired absence of other specified parts of digestive tract; Z90.710 Acquired absence of both cervix and uterus; Z98.51 Tubal ligation status; F17.210 Nicotine dependence, cigarettes, uncomplicated; Z79.82 Long term (current) use of aspirin; Z79.899 Other long term (current) drug therapy; M25.462 Effusion, left knee
CPT/HCPCS: 36415; 80048; 80053; 81001; 85025; 87086; J0360; J1040; J1644; J2250; J2270; J2704; J2720; J2795; J3010; J3370; J3490; J7030; J7120; 97116-GP; 97530-GO; 97530-GP; 97535-GO; G0378

== ENCOUNTER 2020-12-18 23:05 | Emergency (ER) | payer OTHER, MEDICAID ==
[~2020-12-18] VITALS: Ht 157.5 cm; Wt 67.0 kg
[~2020-12-18 23:05] MED LIST changes: +ACET325T21 PO; -ALEN35TA45 PO; +ALEN35TA47 PO; +ATOR20TA58 PO; +CALC-326 PO; +GUAI100L12 PO; +LEVO88TA4 PO; +NAPR-699 PO; -NAPR250T6 PO; +OXYB10TA26 PO
[2020-12-18] MEDS ORDERED: LABETALOL 20 MG/4 ML DISP.SYRIN. IVP ONE (23:45)
[2020-12-19 00:53] LABS: BASO # 0.2 x10^3/uL (0.0-0.2); BASO % 2 % (0-3); EOS # 0.5 x10^3/uL (0.0-0.7); EOS % 5 % (0-3); HEMATOCRIT 39.4 % (36.0-47.0); HEMOGLOBIN 13.6 g/dL (12.0-15.5); LYMPH # 2.7 x10^3/uL (1.0-4.8); LYMPH % 23 % (24-48); MEAN CORPUSCULAR HEMOGLOBIN 29 pg (25-35); MEAN CORPUSCULAR HGB CONC 35 g/dL (31-37); MEAN CORPUSCULAR VOLUME 85 fL (79-100); MONO # 1.2 x10^3/uL (0.0-1.1); MONO % 11 % (0-9); NEUT # 6.9 x10^3/uL (1.8-7.7); NEUT % 60 % (31-73); PLATELET COUNT 239 x10^3/uL (140-400); RED BLOOD COUNT 4.65 x10^6/uL (3.50-5.40); RED CELL DISTRIBUTION WIDTH 13.7 % (11.5-14.5); WHITE BLOOD COUNT 11.6 x10^3/uL (4.0-11.0)
--- NOTE | 2020-12-19 01:18 | PHYS DOC ---
Past Medical History Past Medical History: Anxiety, Arthritis, Hypertension, Hypothyroid, TIA, Other Additional Past Medical Histor: "memory problems", HYPERLIPIDEMIA, OSTEOPOROSIS, HIATAL HERNIA Past Surgical History: Cholecystectomy, Hysterectomy, Other Additional Past Surgical Histo: Lt foot X2, Lt breast, PARTIAL HYSTERECTOMY, R SHOULDER X3 Smoking Status: Current Every Day Smoker Alcohol Use: None Drug Use: None General Adult EDM: Chief Complaint: HYPERTENSION HPI: HPI: Patient is a 80 year old female past medical history hypertension presents for evaluation due to high blood pressure. Patient states for the last week blood pressures been elevated at times greater than 200 systolic. Patient states tonight prior to taking her nighttime metoprolol she took her blood pressure noted it to be greater than 240 systolic. Patient states she called the nurse line and was advised to come to the emergency department for evaluation. On exam patient is alert and oriented x4. She has no complaints of headache or chest pain. Blood pressure at the time my examination was 200/90. Patient without focal neurological deficits she is alert and oriented x4. Review of Systems: Review of Systems: Review of systems: Constitutional symptoms- No fever, no chills. Eyes- No Discharge, No Visual Loss Respiratory symptoms- No shortness of breath, No wheezing, No Dyspnea on Exertion Cardiovascular Systems; No chest pain, No Palpitations, No syncope Gastrointestinal symptoms: NO abdominal pain, no nausea, no vomiting or diarrhea. Genitourinary symptoms: No dysuria. Musculoskeletal symptoms: No back pain No extremity pain. NEUROLOGICAL Symptoms: No headache, no generalized weakness; No focal Weakness Skin: No rash. Heart Score: C/O Chest Pain: N/A Risk Factors: Risk Factors: DM, Current or recent (<one month) smoker, HTN, HLP, family history of CAD, obesity. Risk Scores: Score 0 - 3: 2.5% MACE over next 6 weeks - Discharge Home Score 4 - 6: 20.3% MACE over next 6 weeks - Admit for Clinical Observation Score 7 - 10: 72.7% MACE over next 6 weeks - Early Invasive Strategies Current Medications: Current Medications Medications (Trade) Dose Ordered Sig/Franny Start Time Stop Time Status Last Admin Dose Admin Labetalol HCl (Normodyne Iv Push) 20 mg 1X ONCE 12/18/20 23:45 12/18/20 23:46 DC 12/19/20 01:12 20 MG Allergies: Allergies: Allergies Coded Allergies Type Severity Reaction Last Updated Verified Penicillins Allergy Intermediate Hives 06/23/20 Yes propoxyphene Allergy Mild Nausea and Vomiting 06/23/20 Yes Physical Exam: PE: General: alert, no acute distress. Skin: warm, dry and intact, no erythema, no rash. HENT: bilateral external ears normal, oropharynx moist, nose normal. Head:: Normocephalic, atraumatic. Neck: Trachea midline. Eyes: EOMI, Normal conjunctiva, No drainage CARDIOVASCULAR: Regular rate and rhythm RESPIRATORY: No respiratory distress Back: Full range of motion. MUSCULOSKELETAL: Full range of motion of bilateral upper and lower extremities. GASTROINTESTINAL: Abdomen soft without rebound or guarding. NEUROLOGICAL: Alert and noted to person, place and time. No neurological deficits observed Psychiatric: Cooperative. Normal judgment Current Patient Data: Labs: Laboratory Tests Test 12/19/20 00:45 White Blood Count 11.6 x10^3/uL (4.0-11.0) H Red Blood Count 4.65 x10^6/uL (3.50-5.40) Hemoglobin 13.6 g/dL (12.0-15.5) Hematocrit 39.4 % (36.0-47.0) Mean Corpuscular Volume 85 fL (79-100) Mean Corpuscular Hemoglobin 29 pg (25-35) Mean Corpuscular Hemoglobin Concent 35 g/dL (31-37) Red Cell Distribution Width 13.7 % (11.5-14.5) Platelet Count 239 x10^3/uL (140-400) Neutrophils (%) (Auto) 60 % (31-73) Lymphocytes (%) (Auto) 23 % (24-48) L Monocytes (%) (Auto) 11 % (0-9) H Eosinophils (%) (Auto) 5 % (0-3) H Basophils (%) (Auto) 2 % (0-3) Neutrophils # (Auto) 6.9 x10^3/uL (1.8-7.7) Lymphocytes # (Auto) 2.7 x10^3/uL (1.0-4.8) Monocytes # (Auto) 1.2 x10^3/uL (0.0-1.1) H Eosinophils # (Auto) 0.5 x10^3/uL (0.0-0.7) Basophils # (Auto) 0.2 x10^3/uL (0.0-0.2) Laboratory Tests 12/19/20 00:45 Vital Signs: Vital Signs Date Time Temp Pulse Resp B/P (MAP) Pulse Ox O2 Delivery O2 Flow Rate FiO2 12/19/20 01:12 72 205/81 12/18/20 23:05 98.8 22 97 Room Air 98.8 EKG: EKG: [] Radiology/Procedures: Radiology/Procedures: [] Course & Med Decision Making: Course & Med Decision Making Pertinent Labs and Imaging studies reviewed. (See chart for details) [] Patient was evaluated for chief complaint. Work-up consisted of laboratory analysis. Results reviewed. Patient's initial blood pressure greater than 200 systolic. She was treated with labetalol 20 mg IV push. Patient's blood pressure improved to the 170s systolic. Patient's labs within normal limits. She has no complaints. Patient discharged home with instructions to take her blood pressure medications as prescribed. Patient states she has an appointment this a.m. instructed to discuss blood pressure management with her primary care physician. Kina Disclaimer: Kina Disclaimer: This electronic medical record was generated, in whole or in part, using a voice recognition dictation system. Departure Departure Impression: Primary Impression: Hypertension Disposition: HOME / SELF CARE / HOMELESS Condition: STABLE Referrals: DIANE ORTIZ MD (PCP) Patient Instructions: Hypertension ARIC FORD DO Dec 19, 2020 01:18
[2020-12-19 01:46] LABS: GFR 53.5; POTASSIUM 3.6 mmol/L (3.5-5.1)
[2020-12-19 01:52] LABS: ALBUMIN 3.4 g/dL (3.4-5.0); ALBUMIN/GLOBULIN RATIO 1.1 (1.0-1.7); TOTAL BILIRUBIN 0.2 mg/dL (0.2-1.0); TOTAL PROTEIN 6.6 g/dL (6.4-8.2)
[2020-12-19 03:00] VITALS: BP 170/74
== END 2020-12-19 04:05 | disposition home or self-care (01) ==
LOC: ER 23:05
DX: I10 Essential (primary) hypertension (principal); F41.9 Anxiety disorder, unspecified; M19.90 Unspecified osteoarthritis, unspecified site; E03.9 Hypothyroidism, unspecified; E78.5 Hyperlipidemia, unspecified; F17.200 Nicotine dependence, unspecified, uncomplicated; Z86.73 Personal history of transient ischemic attack (TIA), and cerebral infarction without residual deficits; Z88.0 Allergy status to penicillin; Z88.8 Allergy status to other drugs, medicaments and biological substances
CPT/HCPCS: 36415; 80053; 84484; 85025; 96374; 99285; J3490